=== PATIENT | female | born 1935 | race Caucasian/White ===

== ENCOUNTER → 2018-03-01 12:00 | Outpatient (CLI) | payer MEDICARE, SELFPAY | PROVIDERS: PCP Family Medicine; Visit Provider Internal Medicine Cardiovascular Disease | DX: I48.0 Paroxysmal atrial fibrillation (principal); I08.1 Rheumatic disorders of both mitral and tricuspid valves; I27.20 Pulmonary hypertension, unspecified; I10 Essential (primary) hypertension | CPT/HCPCS: 99213 ==

== ENCOUNTER 2018-05-20 11:39 | Outpatient (CLI) | payer MEDICARE, SELFPAY ==
[2018-05-20 13:44] LABS: TSH (W/Ref FT4) 1.02 uIU/mL (0.358-3.74)
== END 2018-05-20 11:59 ==
PROVIDERS: PCP Family Medicine; Visit Provider Family Medicine
DX: I10 Essential (primary) hypertension (principal)
CPT/HCPCS: 36415; 84443

== ENCOUNTER → 2018-05-28 11:39 | Outpatient (BNVA) | payer MEDICARE, SELFPAY | PROVIDERS: PCP Family Medicine; Visit Provider Nurse Practitioner Family | DX: I10 Essential (primary) hypertension (principal); I67.9 Cerebrovascular disease, unspecified; I48.91 Unspecified atrial fibrillation; Z79.01 Long term (current) use of anticoagulants | CPT/HCPCS: 99214 ==

== ENCOUNTER 2018-05-28 12:09 | Outpatient (REF) | payer MEDICARE, SELFPAY ==
[2018-05-31 09:40] LABS: Metanephrines, U 77 mcg/24 h; Normetanephrine, U 207 mcg/24 h; Total Metanephrines, U 284 mcg/24 h; Urine Volume 1300 mL
== END 2018-05-28 12:29 ==
LOC: LBN 12:09
PROVIDERS: PCP Family Medicine; Visit Provider Family Medicine
DX: R09.89 Other specified symptoms and signs involving the circulatory and respiratory systems (principal)
CPT/HCPCS: 81050; 83835

== ENCOUNTER 2018-05-30 18:50 | Emergency (ER) | payer MEDICARE, SELFPAY ==
[2018-05-30] VITALS (42 sets, daily range): BP systolic 111–196; BP diastolic 44–91; PULSE 58–98; RESP 13–21; TEMP 36.6; O2SAT 91–98
[2018-05-30] MEDS: Atenolol 25 MG TAB PO (19:53)
[2018-05-30] MEDS: Ondansetron 4 MG/2 ML VIAL IVP (19:54)
[2018-05-30 19:56] LABS: Abs Immature Grans 0.01 k/cumm (0.0-0.09); Absolute Basophil Count 0.05 k/cumm (0.0-0.2); Absolute Eosinophil Count 0.13 k/cumm (0.0-0.7); Absolute Neutrophil Count 4.45 k/cumm (1.2-6.7); Basophils % 0.8; HCT 43.9 % (36.0-46.0); HGB 14.7 g/dL (12.0-15.5); Immature Grans % 0.2; Lymphocytes % 21.1; Mean Corp. HGB Concentration 33.5 g/dL (32.0-36.0); Mean Corpuscular Hemoglobin 32.2 pg (27.0-33.0); Mean Corpuscular Volume 96.1 fL (80-95); Mean Platelet Volume 10.4 fL (8.0-11.0); Neutrophils % 66.9; Platelet Count 271 x1000/uL (130-400); RBC 4.57 m/cumm (4.00-5.20); RBC Distribution Width 13.3 % (11.7-14.6); White Blood Cell Count 6.64 k/cumm (4.4-10.8)
[2018-05-30 20:13] LABS: ALT 25 U/L (12-78); AST 30 U/L (15-37); Albumin 3.7 g/dL (3.4-5.0); Alkaline Phosphatase 54 U/L (46-116); Anion Gap 10.7 mmol/L (3-11); BUN 22 mg/dL (7-18); Bilirubin, Total 0.4 mg/dL (0.2-1.0); CO2 27.3 mmol/L (21.0-32.0); CREATININE 1.03 mg/dL (0.55-1.02); Calcium 8.9 mg/dL (8.5-10.1); Chloride 99 mmol/L (98-107); Glucose 95 mg/dL (70-100); Potassium 4.1 mmol/L (3.5-5.1); Sodium 137 mmol/L (136-145); Total Protein 7.6 g/dL (6.4-8.2); Troponin I < 0.02 ng/mL (0.00-0.06)
--- NOTE | 2018-05-30 21:03 | ED.GENADUL_ITS ---
Discharge Plan Disposition Condition: Improving Discharge Details Chief Complaint: GenMedical Clinical Impression: Ventricular bigeminy, Nausea, Hypertension Primary Care Provider: Elvis Muñoz ED Provider: Hiram Sales Home Meds and New Rx's Prescriptions: Continue clonidine HCl 0.2 mg tablet 0.2 mg SL ONCE PRN (Reason: hypertensive emergency) Qty: 10 RF: 0 clonidine HCl 0.1 mg tablet 0.1 mg PO DAILY PRN (Reason: For systolic BP's greater than 170) Qty: 30 RF: 4 cholecalciferol (vitamin D3) 1,000 UNIT tablet 1,000 unit PO DAILY RF: 0 omega-3 fatty acids-fish oil 1 EACH capsule 1 ea PO DAILY RF: 0 cyanocobalamin (vitamin B-12) [Vitamin B-12] 500 MCG tablet 500 mcg PO DAILY RF: 0 acetaminophen 500 MG tablet 1,000 mg PO Q4H PRN RF: 0 simvastatin 10 MG tablet 10 mg PO HS Qty: 90 RF: 3 clopidogrel [Plavix] 75 MG tablet 75 mg PO DAILY Qty: 90 RF: 3 omeprazole 20 MG capsule,delayed release(DR/EC) 20 mg PO DAILY Qty: 90 RF: 3 nitroglycerin [Nitrostat] 0.3 MG tablet, sublingual 0.3 mg Sublingual ONCE 1 Days Qty: 25 RF: 6 levothyroxine 88 MCG tablet 88 mcg PO DAILY 90 Days Qty: 90 RF: 3 fluticasone 16 GM spray,suspension 2 spry NS DAILY Qty: 1 RF: 3 apixaban [Eliquis] 5 MG tablet 5 mg PO BID Qty: 180 RF: 3 Varicella-Zoster Ge/As01b/Pf [Shingrix Vial Kit] 50 MCG INJ 50 mcg IM ONCE 1 Days Qty: 1 RF: 1 clobetasol 15 GM ointment 15 gm Topical PRN Qty: 1 RF: 1 alendronate 70 MG tablet 70 mg PO weekly Qty: 12 RF: 6 psyllium husk (aspartame) [Metamucil [facility] Fiber] 660 GM powder 1 oz PO HS RF: 0 gabapentin 300 MG capsule 900 mg PO HS RF: 0 gabapentin 300 MG capsule 300 mg PO BID@0900,1200 RF: 0 No Action atenolol 25 mg tablet 25 mg PO DAILY 90 Days Qty: 180 RF: 2 amlodipine 5 mg tablet 5 mg PO DAILY Qty: 30 RF: 2 hydrochlorothiazide 25 mg tablet 25 mg PO DAILY Qty: 30 RF: 3 lisinopril 20 mg tablet 40 mg PO DAILY 90 Days Qty: 90 RF: 3 Discharge Instructions Instructions: Hypertension (ED) Additional Instructions: Please contact your primary care physician to arrange follow-up. You will need to have your antihypertensive medication adjusted. Please discuss this with your doctor. Patient had a stress test performed as soon as possible. Be sure to discuss this with your doctor. Return to the ER for any worsening or new concerning symptoms. Referrals: Elvis Muñoz DO [Primary Care Provider] - Discharge Data Discharge Date/Time-TO BE ENTERED AT DEPARTURE: 05/30/18 23:21 Medical Decision Making 82-year-old female who presents tonight with chief complaint of elevated blood pressure, intermittent over the past few weeks, associated nausea tonight. Hypertensive on arrival. Patient appears well with no chest pain or shortness of breath. Neuro intact. Suspect symptomatic hypertension that is poorly controlled with her current antihypertensive regimen. Patient has no chest pain but consider atypical presentation for ACS. ECG reviewed and interpreted by me: Sinus rhythm with ventricular bigeminy 72 bpm, nondiagnostic. Initial troponin negative. Plan to check delta troponin. Patient was given her prescribed dose of atenolol 25 mg tonight. She also took a dose of clonidine 0.1mg here. Blood pressure improved significantly. Patient was given a dose of Zofran 4 mg IV. Patient notes nausea completely resolved. Delta trop was checked and neg, unchanged. Plan to discharge with close outpatient follow-up for medication adjustment and continued workup for hypertension. Patient should also have a stress test performed as soon as possible. HPI General Mode of arrival: ambulatory . Date/Time Provider Initiated Documentation: 05/30/18 18:56 . Limitations to Documentation: no limitations . Information obtained by: patient and family . HPI Narrative: 82-year-old female with multiple medical problems including history of hypertension, presents with chief complaint of elevated blood pressure. Patient notes that she has had intermittent elevated blood pressure greater than 200 systolic at times. Her primary care physician is aware of this and has been adjusting antihypertensive medications recently. She is currently taking atenolol, lisinopril, hydrochlorothiazide, and intermittently taking clonidine. She is not taking clonidine regularly but seems to be taking it more in the afternoon when she notices her blood pressure is elevated. Today she is expressing some associated nausea. She denies associated chest pain or shortness of breath. No numbness or weakness. No visual changes. No headache. Primary care physician is working up hypertension with urine studies, stress test, and carotid studies ordered and scheduled. Related Data Home Medications Medication Instructions Recorded Confirmed cholecalciferol (vitamin D3) 1,000 unit PO DAILY 09/17/12 06/13/18 omega-3 fatty acids-fish oil 1 ea PO DAILY cap 10/15/12 06/13/18 psyllium husk (aspartame) 1 oz PO HS 05/27/13 06/13/18 [Metamucil [facility] Fiber] cyanocobalamin (vitamin B-12) 500 mcg PO DAILY tab 11/19/15 06/13/18 [Vitamin B-12] acetaminophen 1,000 mg PO Q4H PRN tab-cap 03/16/17 06/13/18 clopidogrel [Plavix] 75 mg PO DAILY #90 tab 09/04/17 06/13/18 omeprazole 20 mg PO DAILY #90 tab 09/04/17 06/13/18 simvastatin 10 mg PO HS #90 tab-cap 09/04/17 06/13/18 gabapentin 300 mg PO BID@0900,1200 cap 09/26/17 06/13/18 gabapentin 900 mg PO HS cap 09/26/17 06/13/18 nitroglycerin [Nitrostat] 0.3 mg SUBLINGUAL ONCE 1 Days #25 09/28/17 06/13/18 tab-cap fluticasone 2 spry NS DAILY #1 spray 10/26/17 06/13/18 levothyroxine 88 mcg PO DAILY 90 Days #90 tab 10/26/17 06/13/18 apixaban [Eliquis] 5 mg PO BID #180 tab 11/13/17 06/13/18 clobetasol 15 gm TOPICAL PRN #1 tube 12/14/17 06/13/18 alendronate 70 mg PO weekly #12 tab 01/24/18 06/13/18 clonidine HCl 0.2 mg tablet 0.2 mg SL ONCE PRN #10 tab 05/20/18 06/13/18 clonidine HCl 0.1 mg tablet 0.1 mg PO DAILY PRN #30 tab 05/28/18 06/13/18 lisinopril 20 mg tablet 40 mg PO DAILY 90 Days #90 tab-cap 06/10/18 06/13/18 amlodipine 5 mg tablet 5 mg PO DAILY #30 tab 06/13/18 06/13/18 atenolol 25 mg tablet 25 mg PO DAILY 90 Days #180 tab 06/13/18 06/13/18 hydrochlorothiazide 25 mg tablet 25 mg PO DAILY #30 tab 06/13/18 06/13/18 Previous Rx's Medication Instructions Recorded clopidogrel [Plavix] 75 mg PO DAILY #90 tab 09/04/17 omeprazole 20 mg PO DAILY #90 tab 09/04/17 simvastatin 10 mg PO HS #90 tab-cap 09/04/17 gabapentin 300 mg PO BID@0900,1200 cap 09/26/17 gabapentin 900 mg PO HS cap 09/26/17 nitroglycerin [Nitrostat] 0.3 mg SUBLINGUAL ONCE 1 Days #25 09/28/17 tab-cap fluticasone 2 spry NS DAILY #1 spray 10/26/17 levothyroxine 88 mcg PO DAILY 90 Days #90 tab 10/26/17 apixaban [Eliquis] 5 mg PO BID #180 tab 11/13/17 clobetasol 15 gm TOPICAL PRN #1 tube 12/14/17 alendronate 70 mg PO weekly #12 tab 01/24/18 clonidine HCl 0.2 mg tablet 0.2 mg SL ONCE PRN #10 tab 05/20/18 clonidine HCl 0.1 mg tablet 0.1 mg PO DAILY PRN #30 tab 05/28/18 lisinopril 20 mg tablet 40 mg PO DAILY 90 Days #90 tab-cap 06/10/18 amlodipine 5 mg tablet 5 mg PO DAILY #30 tab 06/13/18 atenolol 25 mg tablet 25 mg PO DAILY 90 Days #180 tab 06/13/18 hydrochlorothiazide 25 mg tablet 25 mg PO DAILY #30 tab 06/13/18 Allergies Allergy/AdvReac Type Severity Reaction Status Date / Time aspirin AdvReac Intermediate spsasm of Verified 06/13/18 12:07 the esophagus guaifenesin [From Mucinex] AdvReac Intermediate diarrhea Verified 06/13/18 12:07 General Stated Complaint: GenMedical YEE: 3 Review of Systems Review of Systems All systems reviewed & are unremarkable except as noted in HPI and below Constitutional Denies fatigue and Denies headache(s) Eyes Denies loss of vision ENT Denies headache(s) Cardiovascular Denies chest pain, Denies syncope and Denies dyspnea Respiratory Denies dyspnea Gastrointestinal Reports nausea and Denies vomiting Musculoskeletal Denies numbness Neurologic Denies syncope, Denies headache(s), Denies loss of vision, Denies numbness and Denies sensory deficit Endocrine Denies fatigue PFS Family History Mother No problems noted. Father No problems noted. Sister No problems noted. Brother Age: 85 No problems noted. Brother No problems noted. Brother No problems noted. 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) URO cysto (10/22/15) cystourethroscopy (05/19/15) cystourethroscopy (08/07/17) Social History household members: spouse housing: house current occupational status: retired Smoking/Tobacco Use Status: Former Tobacco Use alcohol intake: never Exam Const General: cooperative and no acute distress HENMT Head: normocephalic and atraumatic Mouth: moist mucous membranes Eyes Conjunctivae: normal conjunctivae Sclera: normal sclerae EOM: EOM intact bilaterally Neck Neck: trachea midline and supple Resp Auscultation: clear to auscultation bilaterally, no rales, no rhonchi and no wheezes Cardio Jugular venous pressure: no JVD Rate: regular rate and not tachycardic Rhythm: regular rhythm GI Palpation: soft, not firm, no guarding, no masses, not rigid and nontender Skin General skin exam: no rashes or lesions noted Neuro General: alert, awake, oriented x3 and tone normal Cognition: normal cognition Speech: speech normal Gait: normal gait Motor: muscle tone normal throughout Extrem General: no edema Psych Appearance: grossly normal Mental Status: mental status grossly normal Speech and Movement: speech and movement normal Course Vital Signs Temperature 36.6 C 05/30/18 18:56 Pulse 82 05/30/18 18:56 Respiratory Rate 16 05/30/18 18:56 Blood Pressure 196/71 H 05/30/18 18:56 Pulse Oximetry 96 05/30/18 18:56 Temperature 36.6 C 05/30/18 18:56 Temperature Source Skin 05/30/18 18:56 Pulse 74 05/30/18 20:48 Pulse 73 05/30/18 20:50 Respiratory Rate 18 05/30/18 20:50 Respiratory Effort 05/30/18 20:03 Respiratory Depth Normal 05/30/18 20:03 Respiratory Pattern Normal 05/30/18 20:03 Blood Pressure 153/69 H 05/30/18 20:48 Blood Pressure Mean 88 05/30/18 20:48 Blood Pressure Position Sitting 05/30/18 18:56 Pulse Oximetry 93 L 05/30/18 20:50 Oxygen Delivery Method Room Air 05/30/18 19:05 Oxygen Flow Rate 0 05/30/18 19:05 Pain Level 0 05/30/18 18:56 Lab/Test Results Lab/Test Results: Laboratory Tests Range/Units 05/30/18 05/30/18 19:45 19:45 WBC (4.4-10.8) k/cumm 6.64 RBC (4.00-5.20) m/cumm 4.57 Hgb (12.0-15.5) g/dL 14.7 Hct (36.0-46.0) % 43.9 MCV (80-95) fL 96.1 H MCH (27.0-33.0) pg 32.2 MCHC (32.0-36.0) g/dL 33.5 RDW (11.7-14.6) % 13.3 Plt Count (130-400) x1000/uL 271 MPV (8.0-11.0) fL 10.4 Immature Gran % 0.2 Neutrophils % 66.9 Lymphocytes % 21.1 Monocytes % 9.0 Eosinophils % 2.0 Basophils % 0.8 Absolute Neutrophils (1.2-6.7) k/cumm 4.45 Absolute Lymphocytes (1.2-3.4) k/cumm 1.40 Absolute Monocytes (0.11-0.7) k/cumm 0.60 Absolute Eosinophils (0.0-0.7) k/cumm 0.13 Absolute Basophils (0.0-0.2) k/cumm 0.05 Sodium (136-145) mmol/L 137 Potassium (3.5-5.1) mmol/L 4.1 Chloride (98-107) mmol/L 99 Carbon Dioxide (21.0-32.0) mmol/L 27.3 Anion Gap (3-11) mmol/L 10.7 BUN (7-18) mg/dL 22 H Creatinine (0.55-1.02) mg/dL 1.03 H Estimated GFR/1.73 m2 (mL/min/1.73m2) 51.30 Glucose (70-100) mg/dL 95 Calcium (8.5-10.1) mg/dL 8.9 Magnesium (1.8-2.4) mg/dL 2.0 Total Bilirubin (0.2-1.0) mg/dL 0.4 AST (15-37) U/L 30 ALT (12-78) U/L 25 Alkaline Phosphatase (46-116) U/L 54 Troponin I (0.00-0.06) ng/mL < 0.02 Total Protein (6.4-8.2) g/dL 7.6 Albumin (3.4-5.0) g/dL 3.7
[2018-05-30 23:04] LABS: Troponin I < 0.02 ng/mL (0.00-0.06)
== END 2018-05-30 23:21 ==
PROVIDERS: Emergency Provider Student in an Organized Health Care Education/Training Program; PCP Family Medicine
DX: R00.8 Other abnormalities of heart beat (principal); R11.0 Nausea; I10 Essential (primary) hypertension; Z79.01 Long term (current) use of anticoagulants; I48.91 Unspecified atrial fibrillation
CPT/HCPCS: 36415; 80053; 93005; 96374; 99284; 83735; 84484; 85025; 93010; 99285; J2405

== ENCOUNTER 2018-06-10 00:19 | Outpatient (CLI) | payer MEDICARE, SELFPAY ==
--- NOTE | 2018-06-10 06:47 | MERGEMPI_ITS ---
*[facility]* *[facility]* [address] [place] [address] Myocardial Perfusion Imaging - SPECT Regadenoson Date of study: 06/10/2018 *PATIENT PRESENTATION* Height: 162.6cm (64in) Blood Pressure: Weight: 72.7kg (160lb) BSA: 1.83m^2 Referring physician: Kumar Kramer MD Ordering physician: Brayden Chiu Impressions: - Normal perfusion by Tc99m Sestamibi Imaging. - Abnormal contraction consistent with cardiomyopathy. - Consider echo. Summary: 1. Myocardial perfusion imaging: No myocardial perfusion defects noted. 2. The calculated left ventricular ejection fraction after stress: 44%. No left ventricular regional motion abnormality. Indication: I10. History: REASON FOR VISIT: ELEVATED BLOOD PRESSURE ASSOCIATED WITH NAUSEA. Risk factors: 1 PPD SMOKING HISTORY FOR 36 YEARS, QUIT IN 1987. Hypertension. Dyslipidemia. Cholesterol: 151mg/dl. HDL: 36mg/dl. LDL: 101mg/dl. Triglycerides: 105mg/dl. ALLERGIES: ASPIRIN. GUAIFENESIN. MEDICATIONS:SIMVASTATIN 10 MG Q HS. PSYLLIUM HUSK 1 OZ Q HS. OMEPRAZOLE 20 MG DAILY. OMEGA-3 FATTY ACIDS-FISH OIL 1CAP DAILY. NITROGLYCERIN 0.3 MG SL. LISINOPRIL 20 MG BID. LEVOTHYROXINE 88 MCG DAILY. HYDROCHLOROTHIAZIDE 12.5 MG DAILY. GABAPENTIN 300 MG BID. GABAPENTIN 900 MG AT HS. FLUTICASONE 2 SPRAYS NS DAILY. CYANOCOBALAMIN 500 MCG DAILY. CLOPIDOGREL 75 MG DAILY. CLONIDINE HCL 0.1 MG DAILY PRN. CHOLECALCIFEROL 1,000 UNITS DAILY. ATENOLOL 25 MG BID. APIXABAN 5 MG BID. ALENDRONATE 70 MG WEEKLY. ACETAMINOPHEN 1,000 MG Q 4HRS PRN. Imaging Technique: Protocol: Regadenoson. Acquisition: Gated SPECT; 1 day - rest/stress. The patient was imaged in the supine position. Attenuation correction used. Isotope administration: - Rest. Tc[99m]-sestamibi. Dose: 9.9mCi. Injection time: 08:15 AM. Injection to stress time: 00:45. - Stress. Tc[99m]-sestamibi. Dose: 31mCi. Injection time: 11:30 AM. 1-2 min before end of exercise Baseline ECG: SINUS BRADYCARDIA. HR 50 BPM. Stress protocol: +--------+--+ + + !Stage !HR!BP (mmHg) !Comments ! +--------+--+ + + !Baseline!50!158/82 (107)! ! +--------+--+ + + !1 min !59!140/82 (101)!Inject Regadenoson.! +--------+--+ + + !3 min !81!156/82 (107)! ! +--------+--+ + + !6 min !84!124/82 (96) ! ! +--------+--+ + + * Stress results: The rate-pressure product for the peak heart rate and blood pressure was [id number] Hg/min. Stress ECG: STRESS TEST ENDED IN 6 MINUTES & 9 SECONDS. PT EXPERIENCED NO SIGNIFICANT SIDE EFFECTS FROM LEXISCAN INJECTION. NORMAL HEART RATE AND BLOOD PRESSURES RESPONSE TO LEXISCAN INJECTION FREQUENT ECTOPY. TRIGEMINAL PATTERN OF PVCs NOTED ONE MINUTE AFTER INJECTION OF LEXISCAN. NO ANGINA NO SIGNIFICANT ST SEGMENT CHANGES. Myocardial perfusion: Imaging information: gated. No myocardial perfusion defects noted. Ventricular Function (Wall Motion): The calculated left ventricular ejection fraction after stress: 44%. No left ventricular regional motion abnormality. Study data: Kumar Kramer MD supervised and was readily available during the procedure. This study was interpreted by [facility]. Study status: Routine. Consent: The risks, benefits, and alternatives to the procedure were explained to the patient and informed consent was obtained. Procedure: Initial setup. A baseline ECG was recorded. Surface ECG leads and manual cuff blood pressure measurements were monitored. Heart sounds: Normal. Lung sounds: Normal. Regadenoson stress test. Stress testing was performed, with regadenoson by intravenous bolus, for a total dose of 0.4mgover 10.00sec, followed by a 5ml saline flush. The infusion was terminated due to per protocol. Study completion: All catheters inserted during the procedure were removed. The patient tolerated the procedure well and was discharged from the lab. Discharge: The patient left the laboratory in stable condition. Birthdate: Patient birthdate: 1935. Sex: Gender: female. Study date: Study date: 06/10/2018. Study time: 06:47 AM. Electronically signed by Kumar Kramer MD 06/10/2018 18:04
[2018-06-10] MEDS: Regadenoson 0.4 MG/5 ML SYR IVP (12:16)
== END 2018-06-10 00:39 ==
PROVIDERS: PCP Family Medicine; Visit Provider Nurse Practitioner Family
DX: I10 Essential (primary) hypertension (principal); I42.9 Cardiomyopathy, unspecified; E78.5 Hyperlipidemia, unspecified; Z87.891 Personal history of nicotine dependence; R55 Syncope and collapse; I48.91 Unspecified atrial fibrillation
CPT/HCPCS: 78452; 93016; 93018; 93017; J2785

== ENCOUNTER 2018-06-12 00:31 | Outpatient (CLI) | payer MEDICARE, SELFPAY ==
--- NOTE | 2018-06-12 07:27 | MERGE_ITS ---
*[facility]* *[facility]* [address] [place] [address] Date of study: 06/12/2018 Transthoracic Echocardiography M-mode, complete 2D, complete spectral Doppler, and color Doppler *STUDY CONCLUSIONS* Summary: 1. Left ventricle: The cavity size was normal. Wall thickness was increased in a pattern of mild LVH. Systolic function was at the lower limits of normal. The estimated ejection fraction was 50-55%. Wall motion was normal; there were no regional wall motion abnormalities. 2. Mitral valve: There was mild to moderate regurgitation. 3. Left atrium: The atrium was mildly dilated. 4. Right ventricle: The cavity size was normal. Wall thickness was normal. Systolic function was normal. 5. Tricuspid valve: There was mild-moderate regurgitation. 6. Pulmonary arteries: Pulmonary systolic pressure was increased, in the range of 40mm Hg to 45mm Hg. *PATIENT PRESENTATION* Height: 162.6cm ((64in) ) S/D Pressure: 154 / 79 Weight: 71.2kg ((156.7lb) ) BSA: 1.81m^2 Test start time: 07:35 AM. Test stop time: 08:30 AM. PERFORMING Unknown PERFORMING [facility] TUBE SORTER RT Dariela (R)(CT), [facility] ORDERING Brayden Chiu REFERRING Brayden Chiu *PROCEDURE DATA* Procedure information: The patient was identified by two identifiers. This study was interpreted by [facility]. Pertinent images and digital data are archived for permanent storage and are available for subsequent review. No prior study was available for comparison. Study status: Routine. Transthoracic echocardiography. M-mode, complete 2D, complete spectral Doppler, and color Doppler. A Transthoracic Echocardiogram was performed. Scanning was performed from the parasternal, apical, subcostal, and suprasternal notch acoustic windows. Images were obtained using an [id number] cardiac ultrasound machine. Image quality was adequate. Study completion: The patient tolerated the procedure well. There were no complications. History: PMH: HTN AFIB. *CARDIAC ANATOMY* Left ventricle: The cavity size was normal. Wall thickness was increased in a pattern of mild LVH. Systolic function was at the lower limits of normal. The estimated ejection fraction was 50-55%. Wall motion was normal; there were no regional wall motion abnormalities. Diastolic parameters were not diagnostic. Aortic valve: Trileaflet; normal thickness leaflets. Mobility was not restricted. Doppler: Transvalvular velocity was within the normal range. There was no stenosis. There was no significant regurgitation. VTI ratio of LVOT to aortic valve: 0.73. Valve area (VTI): 2.1cm^2. Indexed valve area (VTI): 1.2cm^2/m^2. Peak velocity ratio of LVOT to aortic valve: 0.67. Valve area (Vmax): 1.9cm^2. Indexed valve area (Vmax): 1.1cm^2/m^2. Mean velocity ratio of LVOT to aortic valve: 0.69. Valve area (Vmean): 2cm^2. Indexed valve area (Vmean): 1.1cm^2/m^2. Mean gradient (S): 2.3mm Hg. Peak gradient (S): 3.7mm Hg. Aorta: Aortic root: The aortic root was normal in size. Ascending aorta: The ascending aorta was normal in size. Mitral valve: Mildly thickened leaflets. Mobility was not restricted. Doppler: Transvalvular velocity was within the normal range. There was no evidence for stenosis. There was mild to moderate regurgitation. Valve area by pressure half-time: 4.7cm^2. Indexed valve area by pressure half-time: 2.6cm^2/m^2. Peak gradient (D): 2.5mm Hg. Left atrium: The atrium was mildly dilated. Right ventricle: The cavity size was normal. Wall thickness was normal. Systolic function was normal. Pulmonic valve: Structurally normal valve. Doppler: Transvalvular velocity was within the normal range. There was no evidence for stenosis. There was trivial regurgitation. Peak gradient (S): 1.9mm Hg. Tricuspid valve: Structurally normal valve. Doppler: Transvalvular velocity was within the normal range. There was no evidence for stenosis. There was mild-moderate regurgitation. Pulmonary artery: Pulmonary systolic pressure was increased, in the range of 40mm Hg to 45mm Hg. Right atrium: The atrium was normal in size. Pericardium: There was no pericardial effusion. Systemic veins: Inferior vena cava: Well visualized. The vessel was patent and normal in size. The respirophasic diameter changes were in the normal range (greater than or equal to 50%). Baseline ECG: Bradycardia. Measurements Left ventricle Value 09/21/2017 Reference LV ID, ED, PLAX 4.2 cm 3.6 3.5 - 6.0 LV ID, ES, PLAX 3.1 cm 2.9 2.1 - 4.0 LV PW thickness, ED, PLAX 1.2 cm 1.2 LV end-diastolic volume, 61 ml 50 1-p A2C LV ejection fraction, 1-p 53 % 65 A2C LV end-diastolic volume, 51 ml 68 1-p A4C LV ejection fraction, 1-p 44 % 54 A4C LV e', lateral 0.085 m/sec LV E/e', lateral 9 LV e', medial 0.052 m/sec 0.056 LV E/e', medial 15 14 LV e', average 0.068 m/sec LV E/e', average 12 Ventricular septum Value 09/21/2017 Reference IVS thickness, ED, PLAX 1.2 cm 1.2 LVOT Value 09/21/2017 Reference LVOT ID, A-P 1.9 cm 1.9 LVOT area 2.9 cm^2 2.9 LVOT peak velocity, S 0.64 m/sec 0.58 LVOT mean velocity, S 0.51 m/sec 0.45 LVOT VTI, S 16.7 cm 11.4 LVOT peak gradient, S 1.6 mm Hg 1.3 LVOT mean gradient, S 1.1 mm Hg 0.9 Stroke volume (SV), LVOT 48 ml 33 DP Stroke index (SV/bsa), 26 ml/m^2 18 LVOT DP Aortic valve Value 09/21/2017 Reference Aortic valve peak 1 m/sec 0.9 velocity, S Aortic valve mean 0.73 m/sec 0.58 velocity, S Aortic valve VTI, S 23.0 cm 13.7 Aortic mean gradient, S 2.3 mm Hg 1.7 Aortic peak gradient, S 3.7 mm Hg VTI ratio, LVOT/AV 0.73 0.83 Aortic valve area, VTI 2.1 cm^2 2.4 Velocity ratio, peak, 0.67 0.67 LVOT/AV Aortic valve area, peak 1.9 cm^2 2 velocity Velocity ratio, mean, 0.69 0.78 LVOT/AV Aortic valve area, mean 2 cm^2 2.3 velocity Aortic valve area/bsa, 1.1 cm^2/m^2 1.2 mean velocity Aorta Value 09/21/2017 Reference Aortic root ID, ED 2.9 cm 2.8 Ascending aorta ID, A-P, S 3.3 cm 3.3 Left atrium Value 09/21/2017 Reference LA ID, A-P, ES 3.7 cm 3.9 LA ID/bsa, A-P 2.0 cm/m^2 2.1 <=2.2 LA area, ES, A4C 20.6 cm^2 17.1 8.8 - 23.4 LA area, ES, A2C 15 cm^2 14 LA volume/bsa, ES, 1-p A4C 38 ml/m^2 27 LA volume, ES, 2-p 48 ml 37 LA volume/bsa, ES, 2-p 27 ml/m^2 20 LA/aortic root ratio 1.28 1.39 Mitral valve Value 09/21/2017 Reference Mitral E-wave peak 0.8 m/sec 0.81 velocity Mitral A-wave peak 0.66 m/sec 0.55 velocity Mitral deceleration time 163 ms 212 150 - 230 Mitral pressure half-time 47 ms 62 Mitral peak gradient, D 2.5 mm Hg 2.6 Mitral E/A ratio, peak 1.21 1.47 Mitral valve area, PHT, DP 4.7 cm^2 3.6 Pulmonary veins Value 09/21/2017 Reference Pulmonary vein peak 0.51 m/sec velocity, S Pulmonary vein peak 0.74 m/sec velocity, D Pulmonary vein velocity 0.69 ratio, peak, S/D Tricuspid valve Value 09/21/2017 Reference Tricuspid regurg peak 3.3 m/sec 3.2 velocity Tricuspid peak RV-RA 43.6 mm Hg 41.9 gradient Right atrium Value 09/21/2017 Reference RA area, ES, A4C 12.4 cm^2 11.9 8.3 - 19.5 Pulmonic valve Value 09/21/2017 Reference Pulmonic peak gradient, S 1.9 mm Hg Legend: (L) and (H) aroldo values outside specified reference range. I have personally reviewed the images and have reviewed and edited the reported findings. Electronically signed by Kain Sutton 06/12/2018 09:54
--- NOTE | 2018-06-12 10:00 | DI.US_ITS ---
SYMPTOMS/DIAGNOSIS: NEAR SYNCOPE, R55, A-FIB, I48.91, HYPERTENSION, I10 CAROTID ULTRASOUND: A focus of calcific plaque is seen in the right common carotid bulb. There is no significant velocity elevation in the internal carotid artery. A mild amount of calcific plaque is seen in the left common carotid bulb. No significant common artery velocity elevations are present. The vertebral arteries show antegrade flow. IMPRESSION: Calcific plaque in the common carotid bulbs, right greater than left. No significant internal carotid artery stenosis.
== END 2018-06-12 00:51 ==
PROVIDERS: PCP Family Medicine; Visit Provider Nurse Practitioner Family
DX: I48.91 Unspecified atrial fibrillation (principal); I10 Essential (primary) hypertension; I34.0 Nonrheumatic mitral (valve) insufficiency; I65.23 Occlusion and stenosis of bilateral carotid arteries
CPT/HCPCS: 93306; 93880

== ENCOUNTER → 2018-06-13 11:35 | Outpatient (BNVA) | payer MEDICARE, SELFPAY | PROVIDERS: PCP Family Medicine; Visit Provider Internal Medicine Cardiovascular Disease | DX: I48.0 Paroxysmal atrial fibrillation (principal); Z79.01 Long term (current) use of anticoagulants; Z86.73 Personal history of transient ischemic attack (TIA), and cerebral infarction without residual deficits; I10 Essential (primary) hypertension; I08.1 Rheumatic disorders of both mitral and tricuspid valves; I27.20 Pulmonary hypertension, unspecified | CPT/HCPCS: 99214 ==

== ENCOUNTER → 2018-07-12 11:30 | Outpatient (BNVA) | payer MEDICARE, SELFPAY | PROVIDERS: PCP Family Medicine; Visit Provider Internal Medicine Cardiovascular Disease | DX: I48.91 Unspecified atrial fibrillation (principal); E78.5 Hyperlipidemia, unspecified; I10 Essential (primary) hypertension; I67.9 Cerebrovascular disease, unspecified; I08.1 Rheumatic disorders of both mitral and tricuspid valves; I27.20 Pulmonary hypertension, unspecified; Z79.01 Long term (current) use of anticoagulants | CPT/HCPCS: 99214 ==

== ENCOUNTER 2018-07-15 02:11 | Outpatient (CLI) | payer MEDICARE, SELFPAY | END 2018-07-15 02:31 | PROVIDERS: PCP Family Medicine; Visit Provider Internal Medicine Cardiovascular Disease | DX: I49.1 Atrial premature depolarization (principal); I47.1 Supraventricular tachycardia; I49.3 Ventricular premature depolarization; I48.91 Unspecified atrial fibrillation | CPT/HCPCS: 93225 ==

== ENCOUNTER 2018-07-19 14:18 | Outpatient (CLI) | payer MEDICARE, SELFPAY ==
--- NOTE | 2018-07-22 09:40 | HOLTER_ITS ---
Holter Monitor DATE OF DICTATION July 22, 2017 A 48-hour study INTERPRETATION Baseline rhythm sinus. Frequent single PAC. 4 bursts of SVT, longest 5 beat duration, fastest 160 beats per minute. No atria l fibrillation. Very frequent single PVC, 27,235 total. 12.1% total beat. 13 couplet. No VT. No bradycardia. Average heart rate 77 beats per minute, range 67-107 beats per minute. Kumar Kramer M.D. MEJIA/emi T-07/22/2018
== END 2018-07-19 14:38 ==
PROVIDERS: PCP Family Medicine; Visit Provider Family Medicine
DX: I47.1 Supraventricular tachycardia; I49.3 Ventricular premature depolarization; I48.91 Unspecified atrial fibrillation; I49.1 Atrial premature depolarization
CPT/HCPCS: 93226

== ENCOUNTER 2018-07-22 08:44 | Outpatient (CLI) | payer MEDICARE, SELFPAY | END 2018-07-22 09:04 | PROVIDERS: PCP Family Medicine; Referring Provider Family Medicine; Visit Provider Internal Medicine Interventional Cardiology | DX: I49.1 Atrial premature depolarization (principal); I47.1 Supraventricular tachycardia; I49.3 Ventricular premature depolarization | CPT/HCPCS: 93227 ==

== ENCOUNTER 2018-08-15 15:30 | Outpatient (REF) | payer MEDICARE, SELFPAY ==
[2018-08-15 18:16] LABS: Anion Gap 4.6 mmol/L (3-11); BUN 18 mg/dL (7-18); CO2 33.4 mmol/L (21.0-32.0); CREATININE 0.93 mg/dL (0.55-1.02); Chloride 97 mmol/L (98-107); Estimated GFR 57.72 (mL/min/1.73m2); Glucose 97 mg/dL (70-100); Potassium 3.5 mmol/L (3.5-5.1); Sodium 135 mmol/L (136-145)
== END 2018-08-15 15:50 ==
LOC: LBN 15:30
PROVIDERS: PCP Family Medicine; Visit Provider Family Medicine
DX: R60.0 Localized edema (principal)
CPT/HCPCS: 80048

== ENCOUNTER 2018-10-02 20:57 | Emergency (ER) | payer MEDICARE, SELFPAY ==
[2018-10-02] VITALS (27 sets, daily range): BP systolic 120–164; BP diastolic 56–85; PULSE 58–84; RESP 10–24; TEMP 37.4; O2SAT 92–98
--- NOTE | 2018-10-02 21:11 | W.ED.GENAD ---
Discharge Plan Disposition Patient Disposition: HOME Condition: Good Discharge Details Chief Complaint: Palpitatns Clinical Impression: Symptomatic PVCs Primary Care Provider: Elvis Muñoz ED Provider: Jack Howard [place] Meds and New Rx's Prescriptions: Continued clonidine HCl 0.1 mg tablet 0.1 mg PO DAILY PRN (Reason: For systolic BP's greater than 170) Qty: 30 RF: 4 hydrochlorothiazide 25 mg tablet 25 mg PO DAILY Qty: 30 RF: 3 losartan 50 mg tablet 50 mg PO DAILY Qty: 60 RF: 3 furosemide 20 mg tablet 20 mg PO DAILY PRN (Reason: edema) Qty: 60 RF: 3 amlodipine 10 mg tablet 10 mg PO DAILY RF: 0 cholecalciferol (vitamin D3) 1,000 UNIT tablet 1,000 unit PO DAILY RF: 0 omega-3 fatty acids-fish oil 1 EACH capsule 1 ea PO DAILY RF: 0 cyanocobalamin (vitamin B-12) [Vitamin B-12] 500 MCG tablet 500 mcg PO DAILY RF: 0 acetaminophen 500 MG tablet 1,000 mg PO Q4H PRN RF: 0 simvastatin 10 MG tablet 10 mg PO HS Qty: 90 RF: 3 clopidogrel [Plavix] 75 MG tablet 75 mg PO DAILY Qty: 90 RF: 3 omeprazole 20 MG capsule,delayed release(DR/EC) 20 mg PO DAILY Qty: 90 RF: 3 nitroglycerin [Nitrostat] 0.3 MG tablet, sublingual 0.3 mg Sublingual ONCE 1 Days Qty: 25 RF: 6 levothyroxine 88 MCG tablet 88 mcg PO DAILY 90 Days Qty: 90 RF: 3 Eliquis 5 MG tablet 5 mg PO BID Qty: 180 RF: 3 Varicella-Zoster Ge/As01b/Pf [Shingrix Vial Kit] 50 MCG INJ 50 mcg IM ONCE 1 Days Qty: 1 RF: 1 clobetasol 15 GM ointment 15 gm Topical PRN Qty: 1 RF: 1 fluticasone propionate 50 mcg/actuation spray,suspension 2 spray NS DAILY Qty: 19.8 RF: 3 alendronate 70 mg tablet 70 mg PO weekly Qty: 12 RF: 6 atenolol 25 mg tablet 25 mg PO DAILY 90 Days Qty: 90 RF: 3 Metamucil [facility] Fiber 660 GM powder 1 oz PO HS RF: 0 gabapentin 300 MG capsule 900 mg PO HS RF: 0 gabapentin 300 MG capsule 300 mg PO BID@0900,1200 RF: 0 Discharge Instructions Additional Instructions: Your EKG and your laboratory studies were good tonight. There was no atrial fibrillation. You were having some PVCs. Follow-up with cardiology on Sunday as planned. Return to ED for chest pain, shortness of breath, dizziness, other concerns. Referrals: Jovanna Howe MD [MD CONSULTING PHYSICIAN] - Medical Decision Making Patient presenting with palpitations. Prior history of atrial fibrillation and could not decide if she was in atrial fibrillation not. Is denying pain or pressure but does describe a burning sensation. She is sinus rhythm on the monitor with multiple PVCs. EKG confirms sinus rhythm with PVCs. She is not really describing pain but did take nitroglycerin. It did not help. I think in order to be safe we will go ahead and get labs including 2 sets of troponins and electrolytes. 22:15 -laboratory studies unremarkable. Electrolytes are fine. First troponin negative. Discussed with patient and about waiting for the second troponin to be done. They are agreeable with this. Patient has remained in sinus rhythm on the monitor with PVCs. 01:15 -second troponin is negative. Patient has been fine here. PVCs less frequent. Patient will be discharged home. Patient has cardiology follow-up scheduled for Sunday. Return to ED if syncope, chest pain, shortness of breath, other concerns. Medical Records Medical records reviewed: Yes I reviewed the patient's medical records. Lab Data Lab results reviewed: Yes I reviewed the patient's lab results. ECG Data Attestation: I personally reviewed and interpreted this ECG (s) as follows: Prior ECG tracings: not available for review Interpretation: Normal sinus rhythm at a rate of 77. PVCs present. Normal axis and intervals. Normal ST segments. HPI General Mode of arrival: ambulatory. Date/Time Provider Initiated Documentation: 10/02/18 21:09. Limitations to Documentation: no limitations. Information obtained by: patient and old records reviewed. HPI Narrative: Patient presents to the emergency department with complaint of funny feeling in her chest, palpitations. She is not describing pain or pressure. She cannot really describe what she is feeling. She has had a previous history of atrial fibrillation and was concerned that possibly that was what was going on. Symptoms have been ongoing for about 2 hours. She has no associated lightheadedness, diaphoresis, shortness of breath, nausea. She has not been ill recently. She did take nitroglycerin which did not help. She finally decided to come in for evaluation to make sure that she was not in atrial fibrillation. Related Data Home Medications Medication Instructions Recorded Confirmed cholecalciferol (vitamin D3) 1,000 unit PO DAILY 09/17/12 10/02/18 omega-3 fatty acids-fish oil 1 ea PO DAILY cap 10/15/12 10/02/18 Metamucil [facility] Fiber 1 oz PO HS 05/27/13 10/02/18 cyanocobalamin (vitamin B-12) 500 mcg PO DAILY tab 11/19/15 10/02/18 [Vitamin B-12] acetaminophen 1,000 mg PO Q4H PRN tab-cap 03/16/17 10/02/18 clopidogrel [Plavix] 75 mg PO DAILY #90 tab 09/04/17 10/02/18 omeprazole 20 mg PO DAILY #90 tab 09/04/17 10/02/18 simvastatin 10 mg PO HS #90 tab-cap 09/04/17 10/02/18 gabapentin 300 mg PO BID@0900,1200 cap 09/26/17 10/02/18 gabapentin 900 mg PO HS cap 09/26/17 10/02/18 nitroglycerin [Nitrostat] 0.3 mg SUBLINGUAL ONCE 1 Days #25 09/28/17 10/02/18 tab-cap levothyroxine 88 mcg PO DAILY 90 Days #90 tab 10/26/17 10/02/18 Eliquis 5 mg PO BID #180 tab 11/13/17 10/02/18 clobetasol 15 gm TOPICAL PRN #1 tube 12/14/17 10/02/18 clonidine HCl 0.1 mg tablet 0.1 mg PO DAILY PRN #30 tab 05/28/18 10/02/18 hydrochlorothiazide 25 mg tablet 25 mg PO DAILY #30 tab 06/13/18 10/02/18 fluticasone propionate 50 2 spray NS DAILY #19.8 gm 06/25/18 10/02/18 mcg/actuation nasal spray,suspension losartan 50 mg tablet 50 mg PO DAILY #60 tab 07/12/18 10/02/18 furosemide 20 mg tablet 20 mg PO DAILY PRN #60 tab 08/15/18 10/02/18 alendronate 70 mg tablet 70 mg PO weekly #12 tab 08/16/18 10/02/18 amlodipine 10 mg tablet 10 mg PO DAILY 09/02/18 10/02/18 atenolol 25 mg tablet 25 mg PO DAILY 90 Days #90 tab 09/03/18 10/02/18 Previous Rx's Medication Instructions Recorded clopidogrel [Plavix] 75 mg PO DAILY #90 tab 09/04/17 omeprazole 20 mg PO DAILY #90 tab 09/04/17 simvastatin 10 mg PO HS #90 tab-cap 09/04/17 gabapentin 300 mg PO BID@0900,1200 cap 09/26/17 gabapentin 900 mg PO HS cap 09/26/17 nitroglycerin [Nitrostat] 0.3 mg SUBLINGUAL ONCE 1 Days #25 09/28/17 tab-cap levothyroxine 88 mcg PO DAILY 90 Days #90 tab 10/26/17 Eliquis 5 mg PO BID #180 tab 11/13/17 clobetasol 15 gm TOPICAL PRN #1 tube 12/14/17 clonidine HCl 0.1 mg tablet 0.1 mg PO DAILY PRN #30 tab 05/28/18 hydrochlorothiazide 25 mg tablet 25 mg PO DAILY #30 tab 06/13/18 fluticasone propionate 50 2 spray NS DAILY #19.8 gm 06/25/18 mcg/actuation nasal spray,suspension losartan 50 mg tablet 50 mg PO DAILY #60 tab 07/12/18 furosemide 20 mg tablet 20 mg PO DAILY PRN #60 tab 08/15/18 alendronate 70 mg tablet 70 mg PO weekly #12 tab 08/16/18 atenolol 25 mg tablet 25 mg PO DAILY 90 Days #90 tab 09/03/18 Allergies Allergy/AdvReac Type Severity Reaction Status Date / Time aspirin AdvReac Intermediate spsasm of Verified 10/02/18 21:13 the esophagus guaifenesin [From Mucinex] AdvReac Intermediate diarrhea Verified 10/02/18 21:13 General Stated Complaint: Palpitatns YEE: 3 Review of Systems Review of Systems 04/21 Review of Systems completed and is negative except as stated above in HPI (Systems reviewed: Const, Eyes, ENT, Resp, CV, GI, , MSK, Skin, Neuro) FOR[facility], [facility] Medical History Leg pain, left (Chronic 11/03/16) Hyperlipidemia (Chronic 10/21/10) History of thyroidectomy, total (Chronic 03/13/14) Gastroesophageal reflux disease (Chronic 07/05/04) Essential hypertension (Chronic 06/23/13) Chronic obstructive pulmonary disease (Chronic 02/08/18) Cerebrovascular disease, unspecified (Chronic 10/07/10) Bladder cancer (Chronic 05/19/15) Acute midline low back pain without sciatica (Chronic 05/18/17) Atrial fibrillation (Chronic) Thyroid function test abnormal (Resolved) Labile blood pressure (Chronic) Surgical History Hx of thyroidectomy (Chronic) Appendectomy Biopsy of breast (07/09/76) Cholecystectomy Colonoscopy - IV Sedation (03/22/16) Cystoscopy (04/29/15) Extraction of cataract (07/27/15) Extraction of cataract (08/10/15) Thyroid (03/13/14) Transurethral Resection of Bladder Tumor, 2-5cm (05/27/13) URO cysto (10/22/15) cystourethroscopy (05/19/15) cystourethroscopy (08/07/17) Social History Smoking/Tobacco Use Status: Former Tobacco Use Alcohol Intake: never Drug use: Never Household members: spouse Housing: house What type of physical activity do you participate in: none Do you feel safe in your relationship?: Yes Exam Narrative Exam Narrative: 1. Const: WDWN female in NAD. 2. Eyes: No conjunctival injection or scleral icterus. 3. ENT: NC/AT. No facial swelling or tenderness. Mucous membranes moist. 4. Neck: Supple without adenopathy. Trachea midline. 5. CVS: +S1/S2, No murmurs or gallops. Irregular rhythm. 6. RESP: Unlabored respiratory effort. Clear to auscultation bilaterally. No wheezes rales or rhonchi 7. GI: Soft, Nontender/Nondistended, No guarding or rebound. 8. MSK: Compression stockings on lower extremities. No calf tenderness. 9. Skin: Warm, Dry. No rashes. 10. Neuro: A&O x3. epic director II-XII grossly intact. Sensation grossly intact, no focal neurologic deficits. 11. Psych: Appropriate mood and affect Course Vital Signs Temperature 99.3 F 10/02/18 21:05 Pulse 78 10/02/18 21:05 Respiratory Rate 15 10/02/18 21:05 Blood Pressure 164/85 H 10/02/18 21:05 Pulse Oximetry 96 10/02/18 21:05 Temperature 99.3 F 10/02/18 21:05 Temperature Source Temporal Artery Scan 10/02/18 21:05 Pulse 78 10/02/18 21:05 Respiratory Rate 15 10/02/18 21:05 Respiratory Effort 10/02/18 21:05 Blood Pressure 164/85 H 10/02/18 21:05 Pulse Oximetry 96 10/02/18 21:05 Oxygen Delivery Method Room Air 10/02/18 21:05 Oxygen Flow Rate 0 10/02/18 21:05
[2018-10-02 21:24] LABS: Abs Immature Grans 0.02 k/cumm (0.0-0.09); Absolute Basophil Count 0.03 k/cumm (0.0-0.2); Absolute Eosinophil Count 0.25 k/cumm (0.0-0.7); Absolute Lymphocyte Count 1.81 k/cumm (1.2-3.4); Absolute Monocyte Count 0.57 k/cumm (0.11-0.7); Absolute Neutrophil Count 3.79 k/cumm (1.2-6.7); Basophils % 0.5; Eosinophils % 3.9; HCT 41.7 % (36.0-46.0); HGB 14.2 g/dL (12.0-15.5); Immature Grans % 0.3; Mean Corp. HGB Concentration 34.1 g/dL (32.0-36.0); Mean Corpuscular Volume 93.9 fL (80-95); Mean Platelet Volume 9.5 fL (8.0-11.0); Monocytes % 8.8; Neutrophils % 58.5; Platelet Count 272 x1000/uL (130-400); RBC 4.44 m/cumm (4.00-5.20); RBC Distribution Width 12.8 % (11.7-14.6); White Blood Cell Count 6.47 k/cumm (4.4-10.8)
[2018-10-02 21:39] LABS: BUN 21 mg/dL (7-18); CREATININE 0.92 mg/dL (0.55-1.02); Calcium 8.8 mg/dL (8.5-10.1); Chloride 98 mmol/L (98-107); Glucose 103 mg/dL (70-100); Potassium 3.5 mmol/L (3.5-5.1); Sodium 135 mmol/L (136-145); Troponin I 0.02 ng/mL (0.00-0.06)
[2018-10-03] VITALS (13 sets, daily range): BP systolic 125–135; BP diastolic 61–98; PULSE 60–79; RESP 11–22; O2SAT 92–98
[2018-10-03 01:03] LABS: Troponin I < 0.02 ng/mL (0.00-0.06)
== END 2018-10-03 02:05 | disposition home or self-care (01) ==
PROVIDERS: Emergency Provider Emergency Medicine; PCP Family Medicine
DX: I49.3 Ventricular premature depolarization (principal)
CPT/HCPCS: 36415; 80048; 93005; 99284; 83735; 84484; 85025; 93010

== ENCOUNTER → 2018-10-04 10:51 | Outpatient (BNVA) | payer MEDICARE, SELFPAY | PROVIDERS: PCP Family Medicine; Visit Provider Internal Medicine Cardiovascular Disease | DX: E78.5 Hyperlipidemia, unspecified (principal); I10 Essential (primary) hypertension; I67.9 Cerebrovascular disease, unspecified; I48.0 Paroxysmal atrial fibrillation; I08.1 Rheumatic disorders of both mitral and tricuspid valves | CPT/HCPCS: 99214 ==

== ENCOUNTER → 2018-10-16 14:06 | Outpatient (BNVA) | payer MEDICARE, SELFPAY | PROVIDERS: PCP Family Medicine; Visit Provider Psychiatry & Neurology Neurology | DX: G60.9 Hereditary and idiopathic neuropathy, unspecified (principal); G25.0 Essential tremor; I10 Essential (primary) hypertension; J44.9 Chronic obstructive pulmonary disease, unspecified; Z87.891 Personal history of nicotine dependence | CPT/HCPCS: 99205; 99215 ==

== ENCOUNTER → 2018-12-24 10:29 | Outpatient (BNVA) | payer MEDICARE, SELFPAY | PROVIDERS: PCP Family Medicine; Visit Provider Psychiatry & Neurology Neurology | DX: G60.9 Hereditary and idiopathic neuropathy, unspecified (principal); G25.0 Essential tremor; G47.61 Periodic limb movement disorder; I10 Essential (primary) hypertension; J44.9 Chronic obstructive pulmonary disease, unspecified | CPT/HCPCS: 99214 ==

== ENCOUNTER → 2019-03-05 12:48 | Outpatient (BNVA) | payer MEDICARE, SELFPAY | PROVIDERS: PCP Family Medicine; Visit Provider Psychiatry & Neurology Neurology | DX: G60.9 Hereditary and idiopathic neuropathy, unspecified (principal); G25.0 Essential tremor; G47.61 Periodic limb movement disorder | CPT/HCPCS: 99213 ==

== ENCOUNTER 2019-03-28 09:06 | Outpatient (CLI) | payer MEDICARE, SELFPAY | END 2019-03-28 09:26 | PROVIDERS: PCP Family Medicine; Visit Provider Internal Medicine Cardiovascular Disease | DX: I67.9 Cerebrovascular disease, unspecified (principal); I10 Essential (primary) hypertension; I48.0 Paroxysmal atrial fibrillation; E78.2 Mixed hyperlipidemia | CPT/HCPCS: 99214 ==

== ENCOUNTER → 2019-08-26 12:37 | Outpatient (BNVA) | payer MEDICARE, SELFPAY | PROVIDERS: PCP Family Medicine; Referring Provider Family Medicine; Visit Provider Psychiatry & Neurology Neurology | DX: G60.9 Hereditary and idiopathic neuropathy, unspecified (principal); G25.0 Essential tremor; G47.61 Periodic limb movement disorder | CPT/HCPCS: 99214 ==

== ENCOUNTER 2019-09-16 20:15 | Emergency (ER) | payer MEDICARE, SELFPAY ==
[2019-09-16 20:27] VITALS: BP 154/74; PULSE 76; RESP 16; TEMP 37.1; O2SAT 97
--- NOTE | 2019-09-16 20:37 | ED.GENADUL_ITS ---
Discharge Plan Disposition Patient Disposition: HOME Condition: Stable Discharge Details Chief Complaint: Chest Pain Clinical Impression: Atrial fibrillation Primary Care Provider: Elvis Muñoz ED Provider: Kumar Muniz Home Meds and New Rx's Prescriptions: Continued gabapentin 600 mg tablet 600 mg PO TID RF: 0 gabapentin 300 mg capsule 300 mg PO QHS RF: 0 omeprazole 20 mg capsule,delayed release(DR/EC) 20 mg PO DAILY Qty: 90 RF: 3 simvastatin 10 mg tablet 10 mg PO HS Qty: 90 RF: 3 losartan 50 mg tablet 50 mg PO DAILY Qty: 90 RF: 3 fluticasone propionate 50 mcg/actuation spray,suspension 2 spray NS DAILY Qty: 19.8 RF: 3 nitroglycerin [Nitrostat] 0.3 mg tablet, sublingual 0.3 mg Sublingual Q5-15M PRN (Reason: chest pain/esophageal spasm) 1 Days Qty: 25 RF: 6 cholecalciferol (vitamin D3) 1,000 UNIT tablet 1,000 unit PO DAILY RF: 0 omega-3 fatty acids-fish oil 1 EACH capsule 1 ea PO DAILY RF: 0 cyanocobalamin (vitamin B-12) [Vitamin B-12] 500 MCG tablet 500 mcg PO DAILY RF: 0 acetaminophen 500 MG tablet 1,000 mg PO Q4H PRN RF: 0 clobetasol 15 GM ointment 15 gm Topical PRN Qty: 1 RF: 1 alendronate 70 mg tablet 70 mg PO weekly Qty: 12 RF: 6 hydrochlorothiazide 25 mg tablet 25 mg PO DAILY Qty: 90 RF: 3 Eliquis 5 mg tablet 5 mg PO BID Qty: 180 RF: 3 clopidogrel [Plavix] 75 mg tablet 75 mg PO DAILY Qty: 90 RF: 3 levothyroxine 88 mcg tablet 88 mcg PO DAILY 90 Days Qty: 90 RF: 3 amlodipine 5 mg tablet 5 mg PO DAILY Qty: 90 RF: 3 atenolol 25 mg tablet 25 mg PO DAILY 90 Days Qty: 90 RF: 3 Metamucil [facility] Fiber 660 GM powder 1 oz PO HS RF: 0 Discharge Instructions Instructions: Atrial Fibrillation (ED) Additional Instructions: follow up with your primary care provider within 1 week if you feel more ill, trouble breathing or chest pain/pressure return to the emergency department Medical Decision Making 83 yo female with hx of afib on eliquis, hld, htn, comes in with complaints of feeling her heart beating differently and denies any pain, pressure or dyspnea. She noticed it tonight. She denies any presyncope/syncope symptoms. She has not had any fevers, travel, abd pain. She arrives in afib with rates in the 70's and states currently she feels intermittent skipped beats otherwise no symptoms. Suspect she is feeling her afib, unlikely acs but will obtain troponin to evaluate for this. No hypoxia, tachycardia, evidence of dvt on exam and no pleuritic chest pain so doubt PE. No cough, fever and clear lung sounds so doubt pna or ptx. No tearing back pain and normal vascular exam so doubt dissection. Will keep her on tele monitor. labs show no significant abnormalities, probnp 1000 but no clinical evidence of chf. She remains in afib with rate of 70. Will repeat troponin and if negative can likely be d/c'd and f/u with her pcp pt remains stable and asymptomatic in afib with rate of 60. Second ekg without ischemic changes and normal troponin. She is comfortable with d/c and f/u with pcp within a week Differential Diagnosis Differential Diagnosis: afib, pvc's, afib with rvr Medical Records Medical records reviewed: Yes I reviewed the patient's medical records. Lab Data Lab results reviewed: Yes I reviewed the patient's lab results. ECG Data Attestation: I personally reviewed and interpreted this ECG (s) as follows: Prior ECG tracings: not available for review Interpretation: afib, rate of 78, qtc 440, no acute st t wave ischemic findings 2nd ekg shows afib, rate of 71, qtc 452, no acute st t wave ischemic findings HPI General Mode of arrival: ambulatory . Date/Time Provider Initiated Documentation: 09/16/19 20:17 . Limitations to Documentation: no limitations . Information obtained by: patient . History of Present Illness 83 year old F presents to the emergency department with the chief complaint of palpitations, described as mild, with intensity rated at 1. No relieving factors improve symptom(s), No exacerbating factors reported . Patient did receive the following treatments prior to arrival, none Related Data Home Medications Medication Instructions Recorded Confirmed cholecalciferol (vitamin D3) 1,000 unit PO DAILY 09/17/12 09/16/19 omega-3 fatty acids-fish oil 1 ea PO DAILY cap 10/15/12 09/16/19 Metamucil [facility] Fiber 1 oz PO HS 05/27/13 09/16/19 cyanocobalamin (vitamin B-12) 500 mcg PO DAILY tab 11/19/15 09/16/19 [Vitamin B-12] acetaminophen 1,000 mg PO Q4H PRN tab-cap 03/16/17 09/16/19 clobetasol 15 gm TOPICAL PRN #1 tube 12/14/17 09/16/19 alendronate 70 mg tablet 70 mg PO weekly #12 tab 08/16/18 09/16/19 hydrochlorothiazide 25 mg tablet 25 mg PO DAILY #90 tab 11/05/18 09/16/19 apixaban 5 mg tablet 5 mg PO BID #180 tab 11/14/18 09/16/19 clopidogrel 75 mg tablet 75 mg PO DAILY #90 tab 11/21/18 09/16/19 levothyroxine 88 mcg tablet 88 mcg PO DAILY 90 Days #90 tab 11/21/18 09/16/19 omeprazole 20 mg capsule,delayed 20 mg PO DAILY #90 tab 12/03/18 09/16/19 release simvastatin 10 mg tablet 10 mg PO HS #90 tab-cap 12/03/18 09/16/19 amlodipine 5 mg tablet 5 mg PO DAILY #90 tab-cap 01/03/19 09/16/19 losartan 50 mg tablet 50 mg PO DAILY #90 tab 03/04/19 09/16/19 gabapentin 300 mg capsule 300 mg PO QHS cap 03/28/19 09/16/19 gabapentin 600 mg tablet 600 mg PO TID tab 03/28/19 09/16/19 atenolol 25 mg tablet 25 mg PO DAILY 90 Days #90 tab 08/12/19 09/16/19 fluticasone propionate 50 2 spray NS DAILY #19.8 gm 09/09/19 09/16/19 mcg/actuation nasal spray,suspension nitroglycerin 0.3 mg sublingual 0.3 mg SUBLINGUAL Q5-15M PRN 1 09/09/19 09/16/19 tablet Days #25 tab-cap Previous Rx's Medication Instructions Recorded clobetasol 15 gm TOPICAL PRN #1 tube 12/14/17 alendronate 70 mg tablet 70 mg PO weekly #12 tab 02/08/19 hydrochlorothiazide 25 mg tablet 25 mg PO DAILY #90 tab 11/05/18 apixaban 5 mg tablet 5 mg PO BID #180 tab 11/14/18 clopidogrel 75 mg tablet 75 mg PO DAILY #90 tab 11/21/18 levothyroxine 88 mcg tablet 88 mcg PO DAILY 90 Days #90 tab 11/21/18 omeprazole 20 mg capsule,delayed 20 mg PO DAILY #90 tab 12/03/18 release simvastatin 10 mg tablet 10 mg PO HS #90 tab-cap 12/03/18 amlodipine 5 mg tablet 5 mg PO DAILY #90 tab-cap 01/03/19 losartan 50 mg tablet 50 mg PO DAILY #90 tab 03/04/19 atenolol 25 mg tablet 25 mg PO DAILY 90 Days #90 tab 08/12/19 fluticasone propionate 50 2 spray NS DAILY #19.8 gm 09/09/19 mcg/actuation nasal spray,suspension nitroglycerin 0.3 mg sublingual 0.3 mg SUBLINGUAL Q5-15M PRN 1 09/09/19 tablet Days #25 tab-cap Allergies Allergy/AdvReac Type Severity Reaction Status Date / Time aspirin AdvReac Intermediate spsasm of Verified 09/16/19 20:30 the esophagus guaifenesin [From Mucinex] AdvReac Intermediate diarrhea Verified 09/16/19 20:30 General Stated Complaint: Chest Pain YEE: 2 Review of Systems All systems reviewed & are unremarkable except as noted in HPI and below Constitutional Constitutional: Denies chills, Denies fever(s) and Denies weakness Cardiovascular Cardiovascular: Denies chest pain and Denies dyspnea Respiratory Respiratory: Denies cough and Denies dyspnea Gastrointestinal Gastrointestinal: Denies abdominal pain, Denies nausea and Denies vomiting Musculoskeletal Musculoskeletal: Denies joint swelling Neurologic Neurologic: Denies weakness Psychiatric Psychiatric: Denies depression [facility] Social History (Updated 09/09/19 @ 14:38 by Suzie Bradley LPN) Smoking/Tobacco Use Status: Former Tobacco Use Quit Date: 07/09/80 Pack-years: 35 Tobacco: How many years used: 35 Alcohol Intake: never Drug use: Never Substance use type: does not use Household members: spouse Housing: house Number of Children: 6 current occupation: Retired Pets and animals: Yes Current gender identity: female What type of physical activity do you participate in: none Do you feel safe at home: Yes Do you feel safe in your relationship?: Yes Exam Const General: no acute distress Orientation: alert HENMT Head: normal to inspection Ears: external ears normal General nose exam: external nose normal Mouth: moist mucous membranes Eyes General: appearance normal, both eyes and all related structures Neck Neck: normal visual inspection Resp Effort & Inspection: normal respiratory effort and able to speak in complete sentences Cardio Rate: regular rate Skin General skin exam: no rashes or lesions noted Neuro General: alert and oriented x3 Extrem General: normal to inspection Psych Mental Status: mental status grossly normal Course Vital Signs Vital signs: Vital Signs Temperature 37.1 C 09/16/19 20:27 Pulse 76 09/16/19 20:27 Respiratory Rate 16 09/16/19 20:27 Blood Pressure 154/74 H 09/16/19 20:27 Pulse Oximetry 97 09/16/19 20:27 Temperature 37.1 C 09/16/19 20:27 Temperature Source Tympanic 09/16/19 20:27 Pulse 76 09/16/19 20:27 Respiratory Rate 16 09/16/19 20:27 Respiratory Effort Non-Labored 09/16/19 20:29 Blood Pressure 154/74 H 09/16/19 20:27 Blood Pressure Position Sitting 09/16/19 20:27 Pulse Oximetry 97 09/16/19 20:27 Oxygen Delivery Method Room Air 09/16/19 20:27 Oxygen Flow Rate 0 09/16/19 20:27 Pain Level 2 09/16/19 20:27
[2019-09-16 20:54] LABS: Abs Immature Grans 0.02 k/cumm (0.0-0.09); Absolute Basophil Count 0.02 k/cumm (0.0-0.2); Absolute Eosinophil Count 0.28 k/cumm (0.0-0.7); Absolute Lymphocyte Count 1.61 k/cumm (1.2-3.4); Absolute Monocyte Count 0.75 k/cumm (0.11-0.7); Absolute Neutrophil Count 4.38 k/cumm (1.2-6.7); Basophils % 0.3; HGB 14.9 g/dL (12.0-15.5); Immature Grans % 0.3 %; Lymphocytes % 22.8; Mean Corp. HGB Concentration 34.7 g/dL (32.0-36.0); Mean Corpuscular Hemoglobin 32.4 pg (27.0-33.0); Mean Corpuscular Volume 93.5 fL (80-95); Mean Platelet Volume 9.6 fL (8.0-11.0); Monocytes % 10.6; Platelet Count 271 x1000/uL (130-400); RBC Distribution Width 12.8 % (11.7-14.6); White Blood Cell Count 7.06 k/cumm (4.4-10.8)
[2019-09-16 21:10] LABS: INR 1.1 (0.9-1.1); PTT Activated 31.7 sec (21.0-31.4)
[2019-09-16 21:19] LABS: ALT 25 U/L (14-59); AST 25 U/L (15-37); Albumin 3.6 g/dL (3.4-5.0); Alkaline Phosphatase 60 U/L (46-116); Anion Gap 9.7 mmol/L (3-11); BUN 19 mg/dL (7-18); Bilirubin, Total 0.3 mg/dL (0.2-1.0); CO2 29.3 mmol/L (21.0-32.0); CREATININE 0.92 mg/dL (0.55-1.02); Calcium 8.7 mg/dL (8.5-10.1); Chloride 97 mmol/L (98-107); Glucose 123 mg/dL (74-106); Magnesium 1.7 mg/dL (1.8-2.4); NT-proBNP 1054 pg/mL (<300); Potassium 3.1 mmol/L (3.5-5.1); Sodium 136 mmol/L (136-145); Total Protein 7.5 g/dL (6.4-8.2)
[2019-09-16 21:20] LABS: Troponin I < 0.05 ng/Ml (<0.06)
[2019-09-16 23:44] LABS: Troponin I < 0.05 ng/Ml (<0.06)
== END 2019-09-17 00:10 | disposition home or self-care (01) ==
PROVIDERS: Emergency Provider Emergency Medicine; PCP Family Medicine
DX: I48.91 Unspecified atrial fibrillation (principal); I10 Essential (primary) hypertension; Z79.01 Long term (current) use of anticoagulants
CPT/HCPCS: 36415; 80053; 93005; 99284; 83735; 83880; 84484; 85025; 85610; 85730; 93010

== ENCOUNTER 2019-11-28 02:27 | Outpatient (CLI) | payer MEDICARE, SELFPAY ==
--- NOTE | 2019-11-28 07:00 | DI.US_ITS ---
EXAM: US ABDOMEN CLINICAL HISTORY: Cryptogenic, R sided abdominal pain, R10.9 TECHNIQUE: Ultrasound abdomen performed using standard protocol. COMPARISON: CT RENAL COLIC WO CONTRAST from 08/20/2017 FINDINGS: ABDOMINAL AORTA AND IVC: Visualized portions normal caliber. PANCREAS: Normal where visualized. LIVER: Normal. Hepatopedal flow in the Portal Vein. GALLBLADDER: Status post cholecystectomy. BILIARY SYSTEM: Common bile duct measures 7 mm. No intrahepatic biliary ductal dilation. KIDNEYS: Kidneys are symmetric in size. There is a 3 mm echogenic focus in the right kidney which may represent a nonobstructing stone versus vascular calcification. No evidence of hydronephrosis. No r enal mass or cyst identified. SPLEEN: Not enlarged. ASCITES: None seen. IMPRESSION: 1. Status post cholecystectomy. No biliary ductal dilatation. 2. 3 mm echogenic focus in the right kidney. This may represent a nonobstructing stone versus a vasc ular calcification. DATA REPOSITORY:
== END 2019-11-28 02:47 ==
PROVIDERS: PCP Family Medicine; Visit Provider Family Medicine
DX: R10.31 Right lower quadrant pain (principal); Z90.49 Acquired absence of other specified parts of digestive tract; R93.421 Abnormal radiologic findings on diagnostic imaging of right kidney
CPT/HCPCS: 76700

== ENCOUNTER 2019-11-28 08:36 | Outpatient (CLI) | payer MEDICARE, SELFPAY ==
[2019-11-28 10:27] LABS: Lipase 74 U/L (73-393)
[2019-11-28 10:33] LABS: ALT 27 U/L (14-59); AST 23 U/L (15-37); Albumin 3.8 g/dL (3.4-5.0); Alkaline Phosphatase 61 U/L (46-116); Anion Gap 8.9 mmol/L (3-11); BUN 18 mg/dL (7-18); Bilirubin, Total 0.6 mg/dL (0.2-1.0); CO2 29.1 mmol/L (21.0-32.0); CREATININE 0.92 mg/dL (0.55-1.02); Calcium 8.8 mg/dL (8.5-10.1); Chloride 95 mmol/L (98-107); Estimated GFR 58.16 (mL/min/1.73m2); Glucose 87 mg/dL (74-106); Potassium 3.5 mmol/L (3.5-5.1); Sodium 133 mmol/L (136-145); Total Protein 7.3 g/dL (6.4-8.2)
== END 2019-11-28 08:56 ==
PROVIDERS: PCP Family Medicine; Visit Provider Family Medicine
DX: R10.9 Unspecified abdominal pain (principal)
CPT/HCPCS: 36415; 80053; 83690

== ENCOUNTER 2019-12-19 05:04 | Observation (INO) | payer MEDICARE, SELFPAY ==
[2019-12-19] VITALS (50 sets, daily range): BP systolic 115–142; BP diastolic 61–103; PULSE 51–80; RESP 10–22; TEMP 36.2–36.3; O2SAT 91–97
--- NOTE | 2019-12-19 05:20 | ED.GENADUL_ITS ---
Discharge Plan Disposition Patient Disposition: [facility] INPATIENT Condition: Stable Discharge Details Chief Complaint: Chest Pain Clinical Impression: Chest pain Primary Care Provider: Elvis Muñoz ED Provider: Kumar Muniz [place] Meds and New Rx's Prescriptions: No Action gabapentin 600 mg tablet 600 mg PO TID RF: 0 gabapentin 300 mg capsule 300 mg PO QHS RF: 0 fluticasone propionate 50 mcg/actuation spray,suspension 2 spray NS DAILY Qty: 19.8 RF: 3 nitroglycerin [Nitrostat] 0.3 mg tablet, sublingual 0.3 mg Sublingual Q5-15M PRN (Reason: chest pain/esophageal spasm) 1 Days Qty: 25 RF: 6 cholecalciferol (vitamin D3) 1,000 UNIT tablet 1,000 unit PO DAILY RF: 0 omega-3 fatty acids-fish oil 1 EACH capsule 1 ea PO DAILY RF: 0 cyanocobalamin (vitamin B-12) [Vitamin B-12] 500 MCG tablet 500 mcg PO DAILY RF: 0 acetaminophen 500 MG tablet 1,000 mg PO Q4H PRN RF: 0 clobetasol 15 GM ointment 15 gm Topical PRN Qty: 1 RF: 1 Eliquis 5 mg tablet 5 mg PO BID Qty: 180 RF: 3 losartan 50 mg tablet 50 mg PO BID Qty: 180 RF: 3 alendronate 70 mg tablet 70 mg PO weekly Qty: 12 RF: 6 amlodipine 5 mg tablet 5 mg PO BID Qty: 180 RF: 3 atenolol 25 mg tablet 25 mg PO BID Qty: 180 RF: 3 hydrochlorothiazide 25 mg tablet 25 mg PO DAILY Qty: 90 RF: 3 levothyroxine 88 mcg tablet 88 mcg PO DAILY 90 Days Qty: 90 RF: 3 clopidogrel [Plavix] 75 mg tablet 75 mg PO DAILY Qty: 90 RF: 3 simvastatin 10 mg tablet 10 mg PO HS Qty: 90 RF: 3 omeprazole 20 mg capsule,delayed release(DR/EC) 20 mg PO DAILY Qty: 90 RF: 3 Metamucil [facility] Fiber 660 GM powder 1 oz PO HS RF: 0 Medical Decision Making <Ayad Casas DO - Last Filed: 12/19/19 07:50> 84-year-old female with a past medical history of atrial fibrillation on Eliquis, COPD, hypertension, family history of cardiac disease, and a history of esophageal spasms for which she regularly takes nitroglycerin presents today for evaluation of chest pain. Patient states that at 2 AM she developed a tight squeezing heavy-like sensation in her central chest, she stated that it felt notably atypical from her normal esophageal spasm, she did take a nitroglycerin because she was concerned it may be cardiac in origin, and had immediate resolution of her symptoms. She continues to be symptom-free, but considering the improvement with nitro she came into the ER for further evaluation. She did have a relatively unremarkable stress test back in 2018, she denies any other complaints. No radiation to the arm neck or head. She denies any tearing or ripping sensation, recent shortness of breath, cough, recent exertional chest pain or shortness of breath. Physical exam notably unremarkable, EKG shows no evidence of STEMI, limited bedside cardiac ultrasound shows no significant wall motion abnormalities or pericardial effusion at this time, however it is a notably limited study. With the patient's age and risk factors I feel that she certainly would benefit from serial troponins here in the ED, close monitoring. EKG 5: 11 Rate 76, QTc 450, QRS 86, atrial fibrillation, no significant ST elevations or depressions, nonspecific ST abnormality in V1 and V2, no evidence of STEMI, no evidence of Brugada, the Zambrano T waves, or epsilon wave. EKG 7: 38 Rate 70, atrial fibrillation, no significant ST elevations or depressions, continue nonspecific ST changes in V1, relatively unchanged otherwise. FINDINGS: Lungs: Mild chronic interstitial prominence. No consolidation. Pleural space: No pleural effusion. No pneumothorax. Heart/Mediastinum: Tortuous aorta. No cardiomegaly. Bones/joints: Degenerative changes in the spine. Chronic compression deformity in the upper lumbar spine is grossly stable IMPRESSION: No acute findings. Thank you for allowing us to participate in the care of your patient. Dictated and Authenticated by: Alexis Queen MD 12/19/2019 5:49 AM Eastern Time ([place] & [place]) <Kumar Muniz MD - Last Filed: 12/19/19 09:35> PAtient's second troponin unremarkable. She remains hd stable and no pain on my exam. Spoke with who requested a cardiology consult and I spoke with Dr. Diallo who feels if serial troponins and ecg unchanged can be referred for outpatient stress testing Medical Records Medical records reviewed: Yes I reviewed the patient's medical records. Lab Data Lab results reviewed: Yes I reviewed the patient's lab results. HPI <Ayadchandni Casas DO - Last Filed: 12/19/19 07:50> General Date/Time Provider Initiated Documentation: 12/19/19 05:05 . HPI Narrative: 84-year-old female with a past medical history of atrial fibrillation on Eliquis, COPD, hypertension, family history of cardiac disease, and a history of esophageal spasms for which she regularly takes nitroglycerin presents today for evaluation of chest pain. Patient states that at 2 AM she developed a tight squeezing heavy-like sensation in her central chest, she stated that it felt notably atypical from her normal esophageal spasm, she did take a nitroglycerin because she was concerned it may be cardiac in origin, and had immediate resolution of her symptoms. She continues to be symptom-free, but considering the improvement with nitro she came into the ER for further evaluation. She did have a relatively unremarkable stress test back in 2018, she denies any other complaints. No radiation to the arm neck or head. She denies any tearing or ripping sensation, recent shortness of breath, cough, recent exertional chest pain or shortness of breath. No other complaints at this time. No other modifying factors. Related Data Home Medications Medication Instructions Recorded Confirmed cholecalciferol (vitamin D3) 1,000 unit PO DAILY 09/17/12 12/19/19 omega-3 fatty acids-fish oil 1 ea PO DAILY cap 10/15/12 12/19/19 Metamucil [facility] Fiber 1 oz PO HS 05/27/13 12/19/19 cyanocobalamin (vitamin B-12) 500 mcg PO DAILY tab 11/19/15 12/19/19 [Vitamin B-12] acetaminophen 1,000 mg PO Q4H PRN tab-cap 03/16/17 12/19/19 clobetasol 15 gm TOPICAL PRN #1 tube 12/14/17 12/19/19 apixaban 5 mg tablet 5 mg PO BID #180 tab 11/14/18 12/19/19 gabapentin 300 mg capsule 300 mg PO QHS cap 03/28/19 12/19/19 gabapentin 600 mg tablet 600 mg PO TID tab 03/28/19 12/19/19 fluticasone propionate 50 2 spray NS DAILY #19.8 gm 09/09/19 12/19/19 mcg/actuation nasal spray,suspension nitroglycerin 0.3 mg sublingual 0.3 mg SUBLINGUAL Q5-15M PRN 1 09/09/19 12/19/19 tablet Days #25 tab-cap losartan 50 mg tablet 50 mg PO BID #180 tab 09/30/19 12/19/19 alendronate 70 mg tablet 70 mg PO weekly #12 tab 10/02/19 12/19/19 amlodipine 5 mg tablet 5 mg PO BID #180 tab-cap 10/16/19 12/19/19 atenolol 25 mg tablet 25 mg PO BID #180 tab 10/16/19 12/19/19 hydrochlorothiazide 25 mg tablet 25 mg PO DAILY #90 tab 10/21/19 12/19/19 levothyroxine 88 mcg tablet 88 mcg PO DAILY 90 Days #90 tab 10/28/19 12/19/19 clopidogrel 75 mg tablet 75 mg PO DAILY #90 tab 11/10/19 12/19/19 simvastatin 10 mg tablet 10 mg PO HS #90 tab-cap 11/10/19 12/19/19 omeprazole 20 mg capsule,delayed 20 mg PO DAILY #90 tab 11/25/19 12/19/19 release Previous Rx's Medication Instructions Recorded clobetasol 15 gm TOPICAL PRN #1 tube 12/14/17 apixaban 5 mg tablet 5 mg PO BID #180 tab 11/14/18 fluticasone propionate 50 2 spray NS DAILY #19.8 gm 09/09/19 mcg/actuation nasal spray,suspension nitroglycerin 0.3 mg sublingual 0.3 mg SUBLINGUAL Q5-15M PRN 1 09/09/19 tablet Days #25 tab-cap losartan 50 mg tablet 50 mg PO BID #180 tab 09/30/19 alendronate 70 mg tablet 70 mg PO weekly #12 tab 10/02/19 amlodipine 5 mg tablet 5 mg PO BID #180 tab-cap 10/16/19 atenolol 25 mg tablet 25 mg PO BID #180 tab 10/16/19 hydrochlorothiazide 25 mg tablet 25 mg PO DAILY #90 tab 10/21/19 levothyroxine 88 mcg tablet 88 mcg PO DAILY 90 Days #90 tab 10/28/19 clopidogrel 75 mg tablet 75 mg PO DAILY #90 tab 11/10/19 simvastatin 10 mg tablet 10 mg PO HS #90 tab-cap 11/10/19 omeprazole 20 mg capsule,delayed 20 mg PO DAILY #90 tab 11/25/19 release Allergies Allergy/AdvReac Type Severity Reaction Status Date / Time aspirin AdvReac Intermediate spsasm of Verified 12/19/19 05:20 the esophagus guaifenesin [From Mucinex] AdvReac Intermediate diarrhea Verified 12/19/19 05:20 General Stated Complaint: Chest Pain YEE: 2 Review of Systems <Ayad Casas DO - Last Filed: 12/19/19 07:50> All systems reviewed & are unremarkable except as noted in HPI and below PFSH <Ayad Casas DO - Last Filed: 12/19/19 07:50> Medical History Acute midline low back pain without sciatica (Chronic 05/18/17) Atrial fibrillation (Chronic) Bladder cancer (Chronic 05/19/15) Dr. Guy Lechuga- non-invasive papillary urothellal carcinoma, low grade. 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, [facility] [place], [place] Clopidogrel and Statin in definitely Chronic obstructive pulmonary disease (Chronic 02/08/18) Essential hypertension (Chronic 06/23/13) Essential tremor (Chronic) Gastroesophageal reflux disease (Chronic 07/05/04) RESPONDS TO OMEPRAZOLE, BEFORE DINNER; ESOPHAGITIS ON EGD AT [facility] [place]: 07/05/04; gastritis and diffuse esophagitis; DR MERCADO REC [place]IF[place] PPI RX Hyperlipidemia (Chronic 10/21/10) dyslipidemia: low HDL; statin begun by neuro 10/2010 after her TIA, along with Clopidogrel; target LDL<100 and HDL>40 Labile blood pressure (Chronic) Leg pain, left (Chronic 11/03/16) 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 Lechuga 02/05/18 repeat cysto cystourethroscopy (05/19/15) Dr Brian Lechuga [facility]-extensive recurrent bladder tumor encompassint entire L hemitrigone and posterolateral bladder wall and neck cystourethroscopy (08/07/17) Dr Brian Lechuga [facility]-extensive recurrent bladder tumor encompassint entire L hemitrigone and posterolateral bladder wall and neck Extraction of cataract (07/27/15) Dr Mayte Gonzalez eye R eye 2/2 Extraction of cataract (08/10/15) Dr Hu L eye R eye 2/2 History of thyroidectomy, total (Chronic 03/13/14) [facility] [place] for large multinodular goiter due to pressure on trachea Hx of thyroidectomy (Chronic) Thyroid (03/13/14) 9Complete thyroidectomy Dr. Sanchez [facility] [place], path: multinodular goiter Transurethral Resection of Bladder Tumor, 2-5cm (05/27/13) Dr. Ruano URO cysto (10/22/15) Guy Lechuga MD 12 weeks after her last BCG Family History Mother , amyloid Syndrome at age 73. No problems noted. Father , Heart attack at age 65. No problems noted. Sister , lung disease at age 80. No problems noted. Brother Age: 87 No problems noted. Brother No problems noted. Brother No problems noted. Social History Smoking/Tobacco Use Status: Former Tobacco Use Quit Date: 07/09/80 Pack-years: 35 Tobacco: How many years used: 35 Alcohol Intake: never Drug use: Never Substance use type: does not use Household members: spouse Housing: house Number of Children: 6 current occupation: Retired Pets and animals: Yes Current gender identity: female What type of physical activity do you participate in: none Do you feel safe at home: Yes Do you feel safe in your relationship?: Yes Exam <Ayad Casas DO - Last Filed: 12/19/19 07:50> Narrative Exam Narrative: 1.Const: Well-nourished, Well-developed, appearing stated age 2.Eyes: PERRL, no conjunctival injection, and symmetrical lids. 3.ENT: Atraumatic external nose and ears. Moist MM. Neck: Symmetric, trachea midline, No thyromegaly. 4.CVS: +S1/S2, No murmurs or gallops. Peripheral pulses 2+ and equal in all extremities. Brisk capillary refill in all extremities. 5.RESP: Unlabored respiratory effort. Clear to auscultation bilaterally. No wheezes rales or rhonchi 6.GI: Soft, Nontender/Nondistended, No hepatosplenomegaly. No guarding or rebound. 7.MSK: Normocephalic/Atraumatic, Extremities w/o deformity or ttp No cyanosis or clubbing, Normal movement of all extremities. No calf tenderness. 8.Skin: Warm, Dry. No rashes or lesions. 9.Neuro: letter carrier II-XII grossly intact. Sensation grossly intact, no focal neurologic deficits. 10.Psych: (AAO) x3. Appropriate mood and affect Course <Ayad Casas, DO - Last Filed: 12/19/19 07:50> Vital Signs Vital signs: Vital Signs Temperature 36.3 C L 12/19/19 05:13 Pulse 69 12/19/19 05:13 Respiratory Rate 12/19/19 05:13 Blood Pressure 136/78 12/19/19 05:13 Pulse Oximetry 95 12/19/19 05:13 Temperature 36.3 C L 12/19/19 05:13 Temperature Source Skin 12/19/19 05:13 Pulse 69 12/19/19 05:13 Respiratory Rate 12/19/19 05:13 Blood Pressure 136/78 12/19/19 05:13 Blood Pressure Position Supine 12/19/19 05:13 Pulse Oximetry 95 12/19/19 05:13 Oxygen Delivery Method Room Air 12/19/19 05:13 Oxygen Flow Rate 0 12/19/19 05:13 Pain Level 0 12/19/19 05:13 Sign Out <Ayad Casas DO - Last Filed: 12/19/19 07:50> Sign Out Data: Sign Out Comment: Pending repeat troponin and reassessment, expectant admission Last updated by Ayad Casas DO at 12/19/19 07:53
[2019-12-19 05:30] LABS: Abs Immature Grans 0.02 k/cumm (0.0-0.09); Absolute Basophil Count 0.04 k/cumm (0.0-0.2); Absolute Eosinophil Count 0.25 k/cumm (0.0-0.7); Absolute Lymphocyte Count 2.02 k/cumm (1.2-3.4); Absolute Monocyte Count 0.74 k/cumm (0.11-0.7); Absolute Neutrophil Count 4.06 k/cumm (1.2-6.7); Basophils % 0.6; Eosinophils % 3.5; HCT 43.7 % (36.0-46.0); Immature Grans % 0.3 %; Lymphocytes % 28.3; Mean Corp. HGB Concentration 34.3 g/dL (32.0-36.0); Mean Corpuscular Hemoglobin 32.1 pg (27.0-33.0); Mean Corpuscular Volume 93.6 fL (80-95); Mean Platelet Volume 9.6 fL (8.0-11.0); Monocytes % 10.4; Neutrophils % 56.9; Platelet Count 339 x1000/uL (130-400); RBC 4.67 m/cumm (4.00-5.20); RBC Distribution Width 12.7 % (11.7-14.6); White Blood Cell Count 7.13 k/cumm (4.4-10.8)
--- NOTE | 2019-12-19 05:40 | DI.RAD_ITS ---
EXAM: XR CHEST 2V PA LATERAL CLINICAL HISTORY: central chest pain TECHNIQUE: 2D digital imaging was performed. COMPARISON: CR CHEST 2 VIEWS PA,LAT from 10/16/2017 FINDINGS: MEDIASTINUM: Normal. HEART: Normal. PULMONARY VASCULATURE: Normal. LUNGS: Clear. PLEURAL SPACE: No pleural effusion or pneumothorax. BONE:Old L2 compression deformity. OTHER FINDINGS:Normal. IMPRESSION: No acute pulmonary findings. DATA REPOSITORY: RADIATION DOSE DELIVERED:
[2019-12-19 05:42] LABS: INR 1.1 (0.9-1.1); Prothrombin Time 10.6 sec (9.3-11.0)
[2019-12-19 05:49] LABS: ALT 25 U/L (14-59); AST 24 U/L (15-37); Alkaline Phosphatase 68 U/L (46-116); Anion Gap 9.4 mmol/L (3-11); BUN 19 mg/dL (7-18); Bilirubin, Total 0.4 mg/dL (0.2-1.0); CO2 29.6 mmol/L (21.0-32.0); CREATININE 1.15 mg/dL (0.55-1.02); Calcium 8.8 mg/dL (8.5-10.1); Chloride 96 mmol/L (98-107); Estimated GFR 44.95 (mL/min/1.73m2); Glucose 102 mg/dL (74-106); Lipase 90 U/L (73-393); NT-proBNP 1109 pg/mL (<300); Potassium 3.5 mmol/L (3.5-5.1); Sodium 135 mmol/L (136-145)
[2019-12-19 05:50] LABS: Troponin I < 0.05 ng/mL (<0.06)
--- NOTE | 2019-12-19 05:50 | DI.VRAD_ITS ---
PROCEDURE INFORMATION: Exam: XR Chest, 2 Views Exam date and time: 12/19/2019 5:35 AM Age: 84 years old Clinical indication: Chest pain; Other: Central TECHNIQUE: Imaging protocol: XR of the chest Views: 2 views. COMPARISON: CR CHEST 2 VIEWS PA,LAT 10/16/2017 9:02 PM FINDINGS: Lungs: Mild chronic interstitial prominence. No consolidation. Pleural space: No pleural effusion. No pneumothorax. Heart/Mediastinum: Tortuous aorta. No cardiomegaly. Bones/joints: Degenerative changes in the spine. Chronic compression deformity in the upper lumbar spine is grossly stable IMPRESSION: No acute findings. Dictated and Authenticated by: Alexis Queen MD. Ordering:CORETTA Lion MD
[2019-12-19 09:09] LABS: Troponin I < 0.05 ng/mL (<0.06)
--- NOTE | 2019-12-19 12:02 | CCONE_ITS ---
Date of service: 12/19/19 Time of Service: 12:02 Assessment and Plan Assessment and plan (1) Atrial fibrillation: Status: Chronic Qualifiers: Atrial fibrillation type: paroxysmal Qualified Code(s): I48.0 - Paroxysmal atrial fibrillation (2) Chest pain: Status: Acute Assessment and plan: 1. Chest pain: Patient had episode of chest pain at rest that lasted 2 hours and was relieved by nitro. She has now had multiple negative troponins and a stable ECG with rate controlled atrial fibrillation. I do not think that this is consistent with unstable angina as the patient has not had any exertional pain that has evolved into pain at rest. While she certainly is at risk for coronary disease I do not think immediate treatment with anticoagulation and catheterization would be appropriate. Should the patient develop an abnormal troponin or should the character of her chest pain change to include diaphoresis or radiation we might need to consider becoming more aggressive. For now I think it is safe for her to go home with an outpatient stress test. She is already scheduled to see cardiology next week for her atrial fibrillation. 2. Atrial fibrillation: Chronic and asymptomatic. She is rate controlled and anticoagulated. ?No changes at this time Please contact cardiology with any further questions History of Present Illness History of Present Illness Chief Complaint: chest pain Narrative: Ms Gerber is an 84-year-old female with past medical history significant for hypertension, COPD and sleep apnea as well as chronic atrial fibrillation and esophageal spasm who presents the emergency room with chest pain. The hospitalist team is consulted cardiology to help with diagnosis and management. The patient states that she woke up from sleep this morning at 2 AM with some substernal chest pain. She says that this is different than her normal pain from esophageal spasm and is a slightly higher up in her chest. She tried to go back to sleep but could not because of the pain. Around 4:[address] having the pain continuously for over 2 hours she took a nitroglycerin which made the pain go away. The pain did not radiate nor did she have any associated diaphoresis. She did not have any shortness of breath either. At that point she decided to come to the emergency room to have it evaluated. Emergency room she was found to be in rate controlled atrial fibrillation. She had 2 negative troponins and a slightly elevated BNP. She another episode of chest pain while in the emergency room and was therefore kept longer for repeat troponin again or possible overnight evaluation. A repeat ECG again showed rate controlled atrial fibrillation. Of note the patient says that she has not had any symptoms like this in the past. She does not have any exertional pain and as of yesterday was feeling at her baseline. Review of Systems All systems reviewed & are unremarkable except as noted in HPI and below [facility] Medical History Acute midline low back pain without sciatica (Chronic 05/18/17) Atrial fibrillation (Chronic) Bladder cancer (Chronic 05/19/15) Dr. Guy Lechuga- non-invasive papillary urothellal carcinoma, low grade. 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, [facility] [place], RX Clopidogrel and Statin indefinitely Chronic obstructive pulmonary disease (Chronic 02/08/18) Essential hypertension (Chronic 06/23/13) Essential tremor (Chronic) Gastroesophageal reflux disease (Chronic 07/05/04) RESPONDS TO OMEPRAZOLE, BEFORE DINNER; ESOPHAGITIS ON EGD AT [facility] [place]: 07/05/04; gastritis and diffuse esophagitis; DR MERCADO REC [place] PPI RX Hyperlipidemia (Chronic 10/21/10) dyslipidemia: low HDL; statin begun by neuro 10/2010 after her TIA, along with Clopidogrel; target LDL<100 and HDL>40 Labile blood pressure (Chronic) Leg pain, left (Chronic 11/03/16) 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 Lechuga 02/05/18 repeat cysto cystourethroscopy (05/19/15) Dr Brian Lechuga [facility]-extensive recurrent bladder tumor encompassint entire L hemitrigone and posterolateral bladder wall and neck cystourethroscopy (08/07/17) Dr Brian Lechuga H-extensive recurrent bladder tumor encompassint entire L hemitrigone and posterolateral bladder wall and neck Extraction of cataract (07/27/15) Dr Hu L eye R eye 2/2 Extraction of cataract (08/10/15) Dr Hu L eye R eye 2/2 History of thyroidectomy, total (Chronic 03/13/14) [facility] [place] for large multinodular goiter due to pressure on trachea Hx of thyroidectomy (Chronic) Thyroid (03/13/14) 9Complete thyroidectomy Dr. Sanchez [facility] [place], path: multinodular goiter Transurethral Resection of Bladder Tumor, 2-5cm (05/27/13) Dr. Ruano URO cysto (10/22/15) Guy Lechuga MD 12 weeks after her last BCG Family History Mother , amyloid Syndrome at age 73. No problems noted. Father , Heart attack at age 65. No problems noted. Sister , lung disease at age 80. No problems noted. Brother Age: 87 No problems noted. Brother No problems noted. Brother No problems noted. Social History Smoking/Tobacco Use Status: Former Tobacco Use Quit Date: 07/09/80 Pack-years: 35 Tobacco: How many years used: 35 Alcohol Intake: never Drug use: Never Substance use type: does not use Household members: spouse Housing: house Number of Children: 6 current occupation: Retired Pets and animals: Yes Current gender identity: female What type of physical activity do you participate in: none Do you feel safe at home: Yes Do you feel safe in your relationship?: Yes Exam Const General: comfortable and no acute distress HENGA Head: normocephalic and atraumatic Eyes General: appearance normal, both eyes and all related structures Resp Effort & Inspection: normal respiratory effort Auscultation: clear to auscultation bilaterally Cardio Jugular venous pressure: no JVD Palpation: normal PMI Rate: regular rate Rhythm: abnormal rhythm Heart Sounds: S1 normal and S2 normal (No Murmurs, Rubs or Gallops) GI Palpation: soft Auscultation: normoactive bowel sounds Skin General skin exam: no rashes or lesions noted Extrem General: normal to inspection and no clubbing, cyanosis or edema Psych Appearance: grossly normal Results Last Vital Signs Temp 36.2 C L 12/19/19 11:12 Pulse 68 12/19/19 11:12 Resp 16 12/19/19 11:12 BP 132/82 12/19/19 11:12 Pulse Ox 97 12/19/19 11:12 Labs Result diagrams: 12/19/19 05:20 12/19/19 05:20 Labs: Laboratory Results - last 24 hr 12/19/19 12/19/19 12/19/19 05:20 05:20 05:20 WBC 7.13 RBC 4.67 Hgb 15.0 Hct 43.7 MCV 93.6 MCH 32.1 MCHC 34.3 RDW 12.7 Plt Count 339 MPV 9.6 Immature Gran % 0.3 Neutrophils % 56.9 Lymphocytes % 28.3 Monocytes % 10.4 Eosinophils % 3.5 Basophils % 0.6 Absolute Neutrophils 4.06 Absolute Lymphocytes 2.02 Absolute Monocytes 0.74 H Absolute Eosinophils 0.25 Absolute Basophils 0.04 PT 10.6 INR 1.1 APTT 33.0 H Sodium 135 L Potassium 3.5 Chloride 96 L Carbon Dioxide 29.6 Anion Gap 9.4 BUN 19 H Creatinine 1.15 H Estimated GFR/1.73 m2 44.95 Glucose 102 Calcium 8.8 Total Bilirubin 0.4 AST 24 ALT 25 Alkaline Phosphatase 68 Troponin I < 0.05 NT-Pro-B Natriuret Pep 1109 H Total Protein 8.0 Albumin 4.0 Lipase 90 12/19/19 08:11 WBC RBC Hgb Hct MCV MCH MCHC RDW Plt Count MPV Immature Gran % Neutrophils % Lymphocytes % Monocytes % Eosinophils % Basophils % Absolute Neutrophils Absolute Lymphocytes Absolute Monocytes Absolute Eosinophils Absolute Basophils PT INR APTT Sodium Potassium Chloride Carbon Dioxide Anion Gap BUN Creatinine Estimated GFR/1.73 m2 Glucose Calcium Total Bilirubin AST ALT Alkaline Phosphatase Troponin I < 0.05 NT-Pro-B Natriuret Pep Total Protein Albumin Lipase
[2019-12-19 13:28] LABS: Troponin I < 0.05 ng/mL (<0.06)
--- NOTE | 2019-12-19 14:32 | W.PM.HP.N ---
Date of service: 12/19/19 Time of Service: 14:33 Assessment and Plan Assessment and plan (1) Chest pain: Status: Acute Assessment and plan: repeat troponins negative, no acute EKG changes, seen by cardiology and safe for discharge to home. she has an outpatient cardiology appointment next Sunday. will order stress testing. (2) Atrial fibrillation: Status: Chronic Assessment and plan: rate controlled, anticoagulated, continue home medications Qualifiers: Atrial fibrillation type: paroxysmal Qualified Code(s): I48.0 - Paroxysmal atrial fibrillation (3) Essential hypertension: Status: Chronic Assessment and plan: blood pressure stable, continue home medication and monitor (4) Gastroesophageal reflux disease: Status: Chronic Assessment and plan: continue PPI, does have history of esophageal spasm which responds to nitro (5) History of thyroidectomy, total: Status: Chronic Assessment and plan: continue synthroid (6) Hyperlipidemia: Status: Chronic Assessment and plan: continue statin Qualifiers: Hyperlipidemia type: mixed hyperlipidemia Qualified Code(s): E78.2 - Mixed hyperlipidemia History of Present Illness History of Present Illness Chief Complaint: chest pain Narrative: This is an 84-year-old female patient with a past medical history significant for atrial fibrillation on chronic anticoagulation CVA on Plavix and statin, hypertension COPD and GERD with esophageal spasm who presented to the emergency department today with complaints of substernal chest discomfort that she reports is different than her typical esophageal spasm. She has had no fevers or chills no cough or shortness of breath. She states the pain occurred at rest actually waking her up from sleep during the middle the night. She states she tried falling back asleep but was unable to and had the pain for approximately 2 hours. She had no radiation diaphoresis nausea or other associated symptoms. She states the pain was different than her typical esophageal spasm but she did ultimately try a nitroglycerin which relieved her pain. She presented to the emergency department for evaluation. Her troponin was within normal range. Her BNP was elevated at 1000 but this was similar to a previous level. Her EKG showed controlled atrial fibrillation with no acute changes. She did receive a delta troponin that was also negative. The emergency department provider did talk to Dr. Diallo from cardiology who recommended outpatient stress testing as it is not available here today or over the weekend. He did not feel she needed emergent transfer for immediate intervention or work-up. Hospitalist services was contacted and she was referred to observation on telemetry. An additional troponin was obtained and remained negative with no acute ST segment changes. Dr. Graff did see the patient in evaluation and felt she could be discharged to home at this point with outpatient follow-up. She is actually scheduled to see him next week in a routine previously scheduled appointment. She will be discharged to home on all previous medications except for gabapentin which dose has been reduced to 600 mg twice daily and 300 mg at bedtime as recommended by pharmacy for her renal function. She has remained asymptomatic and hemodynamically stable. She is tolerating a regular diet and is voicing no complaints. The discharge plan and outpatient follow-up was discussed with her and she is in agreement. This plan has also been reviewed by with Dr. Daniels who is also in agreement. Review of Systems All systems reviewed & are unremarkable except as noted in HPI and below Cardiovascular Cardiovascular: Reports chest pain, Reports chest pain at rest, Denies edema, Denies irregular heart rhythm, Denies radiating jaw, neck or arm pain, Denies palpitations, Denies dyspnea, Denies dyspnea on exertion and Denies orthopnea Respiratory Respiratory: Denies chest congestion, Denies cough, Denies dyspnea and Denies dyspnea on exertion Gastrointestinal Gastrointestinal: Denies abdominal pain, Denies heartburn and Denies nausea Endocrine Endocrine: Denies palpitations [facility] Medical History Acute midline low back pain without sciatica (Chronic 05/18/17) Atrial fibrillation (Chronic) Bladder cancer (Chronic 05/19/15) Dr. Guy Lechuga- non-invasive papillary urothellal carcinoma, low grade. 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, [facility] [place], RX Clopidogrel and Statin indefinitely Chronic obstructive pulmonary disease (Chronic 02/08/18) Essential hypertension (Chronic 06/23/13) Essential tremor (Chronic) Gastroesophageal reflux disease (Chronic 07/05/04) RESPONDS TO OMEPRAZOLE, BEFORE DINNER; ESOPHAGITIS ON EGD AT [facility]: 07/05/04; gastritis and diffuse esophagitis; DR MERCADO REC [place]IF[place] PPI RX Hyperlipidemia (Chronic 10/21/10) dyslipidemia: low HDL; statin begun by neuro 10/2010 after her TIA, along with Clopidogrel; target LDL<100 and HDL>40 Labile blood pressure (Chronic) Leg pain, left (Chronic 11/03/16) 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 Lechuga 02/05/18 repeat cysto cystourethroscopy (05/19/15) Dr Brian Lechuga [facility]-extensive recurrent bladder tumor encompassint entire L hemitrigone and posterolateral bladder wall and neck cystourethroscopy (08/07/17) Dr Brian Lechuga [facility]-extensive recurrent bladder tumor encompassint entire L hemitrigone and posterolateral bladder wall and neck Extraction of cataract (07/27/15) Dr Mayte Gonzalez eye R eye 2/2 Extraction of cataract (08/10/15) Dr Hu L eye R eye 2/2 History of thyroidectomy, total (Chronic 03/13/14) [facility] for large multinodular goiter due to pressure on trachea Hx of thyroidectomy (Chronic) Thyroid (03/13/14) 9Complete thyroidectomy Dr. Sanchez [facility], path: multinodular goiter Transurethral Resection of Bladder Tumor, 2-5cm (05/27/13) Dr. Ruano URO cysto (10/22/15) Guy Lechuga MD 12 weeks after her last BCG Family History Mother , amyloid Syndrome at age 73. No problems noted. Father , Heart attack at age 65. No problems noted. Sister , lung disease at age 80. No problems noted. Brother Age: 87 No problems noted. Brother No problems noted. Brother No problems noted. Social History (Reviewed 12/19/19 @ 05:22 by MARGARITA Diaz Smoking/Tobacco Use Status: Former Tobacco Use Quit Date: 07/09/80 Pack-years: 35 Tobacco: How many years used: 35 Alcohol Intake: never Drug use: Never Substance use type: does not use Household members: spouse Housing: house Number of Children: 6 current occupation: Retired Pets and animals: Yes Current gender identity: female What type of physical activity do you participate in: none Do you feel safe at home: Yes Do you feel safe in your relationship?: Yes Meds Home Medications and Allergies Home Medications Medication Instructions Recorded Confirmed Type cholecalciferol (vitamin D3) 1,000 unit PO DAILY 09/17/12 12/19/19 History omega-3 fatty acids-fish oil 1 ea PO DAILY cap 10/15/12 12/19/19 History Metamucil [facility] Fiber 1 oz PO HS 05/27/13 12/19/19 History cyanocobalamin (vitamin B-12) 500 mcg PO DAILY tab 11/19/15 12/19/19 History [Vitamin B-12] acetaminophen 1,000 mg PO Q4H PRN tab-cap 03/16/17 12/19/19 History clobetasol 15 gm TOPICAL PRN #1 tube 12/14/17 12/19/19 Rx apixaban 5 mg tablet 5 mg PO BID #180 tab 11/14/18 12/19/19 Rx gabapentin 300 mg capsule 300 mg PO QHS cap 03/28/19 12/19/19 History fluticasone propionate 50 2 spray NS DAILY #19.8 gm 09/09/19 12/19/19 Rx mcg/actuation nasal spray,suspension nitroglycerin 0.3 mg sublingual 0.3 mg SUBLINGUAL Q5-15M PRN 1 09/09/19 12/19/19 Rx tablet Days #25 tab-cap losartan 50 mg tablet 50 mg PO BID #180 tab 09/30/19 12/19/19 Rx alendronate 70 mg tablet 70 mg PO weekly #12 tab 10/02/19 12/19/19 Rx amlodipine 5 mg tablet 5 mg PO BID #180 tab-cap 10/16/19 12/19/19 Rx atenolol 25 mg tablet 25 mg PO BID #180 tab 10/16/19 12/19/19 Rx hydrochlorothiazide 25 mg tablet 25 mg PO DAILY #90 tab 10/21/19 12/19/19 Rx levothyroxine 88 mcg tablet 88 mcg PO DAILY 90 Days #90 tab 10/28/19 12/19/19 Rx clopidogrel 75 mg tablet 75 mg PO DAILY #90 tab 11/10/19 12/19/19 Rx simvastatin 10 mg tablet 10 mg PO HS #90 tab-cap 11/10/19 12/19/19 Rx omeprazole 20 mg capsule,delayed 20 mg PO DAILY #90 tab 11/25/19 12/19/19 Rx release gabapentin 600 mg PO BID #0 tab 12/19/19 12/19/19 Rx Allergies Allergy/AdvReac Type Severity Reaction Status Date / Time aspirin AdvReac Intermediate spsasm of Verified 12/19/19 05:20 the esophagus guaifenesin [From Mucinex] AdvReac Intermediate diarrhea Verified 12/19/19 05:20 Exam Const General: cooperative, healthy appearing, comfortable and no acute distress Nutritional Appearance: average body habitus Orientation: alert, awake and oriented x3 HENMT Head: normal to inspection, normocephalic and atraumatic Mouth: oral mucosae normal Resp Effort & Inspection: normal respiratory effort Auscultation: clear to auscultation bilaterally Cardio Rate: regular rate Rhythm: abnormal rhythm irregularly irregular (controlled afib on the monitor, no acute EKG changes) Heart Sounds: no murmurs GI Inspection: normal to inspection Palpation: soft Auscultation: normal bowel sounds Skin General skin exam: no rashes or lesions noted Neuro General: patient alert, patient awake and patient oriented x3 Extrem General: normal to inspection, full ROM and no pedal edema Results Labs Result diagrams: 12/19/19 05:20 12/19/19 05:20 Labs: Laboratory Results - last 24 hr 12/19/19 12/19/19 12/19/19 05:20 05:20 05:20 WBC 7.13 RBC 4.67 Hgb 15.0 Hct 43.7 MCV 93.6 MCH 32.1 MCHC 34.3 RDW 12.7 Plt Count 339 MPV 9.6 Immature Gran % 0.3 Neutrophils % 56.9 Lymphocytes % 28.3 Monocytes % 10.4 Eosinophils % 3.5 Basophils % 0.6 Absolute Neutrophils 4.06 Absolute Lymphocytes 2.02 Absolute Monocytes 0.74 H Absolute Eosinophils 0.25 Absolute Basophils 0.04 PT 10.6 INR 1.1 APTT 33.0 H Sodium 135 L Potassium 3.5 Chloride 96 L Carbon Dioxide 29.6 Anion Gap 9.4 BUN 19 H Creatinine 1.15 H Estimated GFR/1.73 m2 44.95 Glucose 102 Calcium 8.8 Total Bilirubin 0.4 AST 24 ALT 25 Alkaline Phosphatase 68 Troponin I < 0.05 NT-Pro-B Natriuret Pep 1109 H Total Protein 8.0 Albumin 4.0 Lipase 90 12/19/19 12/19/19 08:11 13:09 WBC RBC Hgb Hct MCV MCH MCHC RDW Plt Count MPV Immature Gran % Neutrophils % Lymphocytes % Monocytes % Eosinophils % Basophils % Absolute Neutrophils Absolute Lymphocytes Absolute Monocytes Absolute Eosinophils Absolute Basophils PT INR APTT Sodium Potassium Chloride Carbon Dioxide Anion Gap BUN Creatinine Estimated GFR/1.73 m2 Glucose Calcium Total Bilirubin AST ALT Alkaline Phosphatase Troponin I < 0.05 < 0.05 NT-Pro-B Natriuret Pep Total Protein Albumin Lipase Last Vital Signs Temp 36.2 C L 12/19/19 11:12 Pulse 68 12/19/19 11:12 Resp 16 12/19/19 11:12 BP 132/82 12/19/19 11:12 Pulse Ox 97 12/19/19 11:12 COVID-19 Screening In the past 14 days, have you traveled outside of [place] or [place]?: NO Had IN PERSON contact w/suspected or confirmed C-19 person: No
--- NOTE | 2019-12-19 14:40 | W.PM.DS.N ---
Date of service: 12/19/19 Time of Service: 14:40 DS: Diagnosis Discharge Diagnosis (1) Chest pain: Status: Acute Asessment and Plan: occurred for 2 hours while at rest, troponins and EKG with repeats negative, seen by cardiology, plan for outpatient stress testing. she has outpatient cardiology appointment in one week. (2) Atrial fibrillation: Status: Chronic (3) Essential hypertension: Status: Chronic (4) Gastroesophageal reflux disease: Status: Chronic (5) History of thyroidectomy, total: Status: Chronic (6) Hyperlipidemia: Status: Chronic Discharge Plan Disposition Patient Disposition: HOME Condition: Stable Discharge Details Chief Complaint: Chest Pain Clinical Impression: Chest pain Reason For Visit: UNSTABLE ANGINA Admit Date/Time: 12/19/19 09:53 Admit Provider: Saima Daniels Attending Provider: Saima Daniels Primary Care Provider: Elvis Muñoz ED Provider: Kumar Muniz [facility] Course Hospital Course: This is an 84-year-old female patient with a past medical history significant for atrial fibrillation on chronic anticoagulation CVA on Plavix and statin, hypertension COPD and GERD with esophageal spasm who presented to the emergency department today with complaints of substernal chest discomfort that she reports is different than her typical esophageal spasm. She has had no fevers or chills no cough or shortness of breath. She states the pain occurred at rest actually waking her up from sleep during the middle the night. She states she tried falling back asleep but was unable to and had the pain for approximately 2 hours. She had no radiation diaphoresis nausea or other associated symptoms. She states the pain was different than her typical esophageal spasm but she did ultimately try a nitroglycerin which relieved her pain. She presented to the emergency department for evaluation. Her troponin was within normal range. Her BNP was elevated at 1000 but this was similar to a previous level. Her EKG showed controlled atrial fibrillation with no acute changes. She did receive a delta troponin that was also negative. The emergency department provider did talk to Dr. Diallo from cardiology who recommended outpatient stress testing as it is not available here today or over the weekend. He did not feel she needed emergent transfer for immediate intervention or work-up. Hospitalist services was contacted and she was referred to observation on telemetry. An additional troponin was obtained and remained negative with no acute ST segment changes. Dr. Graff did see the patient in evaluation and felt she could be discharged to home at this point with outpatient follow-up. She is actually scheduled to see him next week in a routine previously scheduled appointment. She will be discharged to home on all previous medications except for gabapentin which dose has been reduced to 600 mg twice daily and 300 mg at bedtime as recommended by pharmacy for her renal function. She has remained asymptomatic and hemodynamically stable. She is tolerating a regular diet and is voicing no complaints. The discharge plan and outpatient follow-up was discussed with her and she is in agreement. This plan has also been reviewed by with Dr. Daniels who is also in agreement. Home Meds and New Rx's Prescriptions: Continued gabapentin 300 mg capsule 300 mg PO QHS RF: 0 fluticasone propionate 50 mcg/actuation spray,suspension 2 spray NS DAILY Qty: 19.8 RF: 3 nitroglycerin [Nitrostat] 0.3 mg tablet, sublingual 0.3 mg Sublingual Q5-15M PRN (Reason: chest pain/esophageal spasm) 1 Days Qty: 25 RF: 6 cholecalciferol (vitamin D3) 1,000 UNIT tablet 1,000 unit PO DAILY RF: 0 omega-3 fatty acids-fish oil 1 EACH capsule 1 ea PO DAILY RF: 0 cyanocobalamin (vitamin B-12) [Vitamin B-12] 500 MCG tablet 500 mcg PO DAILY RF: 0 acetaminophen 500 MG tablet 1,000 mg PO Q4H PRN RF: 0 clobetasol 15 GM ointment 15 gm Topical PRN Qty: 1 RF: 1 Eliquis 5 mg tablet 5 mg PO BID Qty: 180 RF: 3 losartan 50 mg tablet 50 mg PO BID Qty: 180 RF: 3 alendronate 70 mg tablet 70 mg PO weekly Qty: 12 RF: 6 amlodipine 5 mg tablet 5 mg PO BID Qty: 180 RF: 3 atenolol 25 mg tablet 25 mg PO BID Qty: 180 RF: 3 hydrochlorothiazide 25 mg tablet 25 mg PO DAILY Qty: 90 RF: 3 levothyroxine 88 mcg tablet 88 mcg PO DAILY 90 Days Qty: 90 RF: 3 clopidogrel [Plavix] 75 mg tablet 75 mg PO DAILY Qty: 90 RF: 3 simvastatin 10 mg tablet 10 mg PO HS Qty: 90 RF: 3 omeprazole 20 mg capsule,delayed release(DR/EC) 20 mg PO DAILY Qty: 90 RF: 3 Metamucil [facility] Fiber 660 GM powder 1 oz PO HS RF: 0 Changed gabapentin 600 mg tablet 600 mg PO BID Qty: 0 RF: 0 Discharge Instructions Instructions: Chest Pain (DC) Additional Instructions: continue usual medications as directed keep scheduled follow up appointments Stand Alone Forms: Nursing Discharge Form Referrals: Elvis Muñoz DO [Primary Care Provider] - 01/02/20 3:45 pm () Aldo Diallo MD [ CONSULTING PHYSICIAN] - 12/26/19 11:00 am () Activity:: Activity as Tolerated Equipment/Supplies:: No Equipment Needed Diet:: As Tolerated Discharge Orders Discharge Orders: Discharge Order (Routine); Ordered 12/19/19 Ordered By: Yasmin Mcdonald Other Ambulatory Orders: NM MPI rest & stress grp (Routine) Location: None Selected Ordered By: Yasmin Mcdonald DS: Summary Status at Discharge Functional status at discharge: independent ambulation Overall status at discharge: patient is back to baseline Mental Status: mental status grossly normal Speech and Movement: speech and movement normal Mood: congruent mood Affect: normal affect Exam Psych Mental Status: mental status grossly normal Speech and Movement: speech and movement normal Mood: congruent mood Affect: normal affect DS: Data Vitals/I&O Vitals and I&O: Vital Signs Temperature 36.2 C L 12/19/19 11:12 Temperature Source Skin 12/19/19 05:13 Pulse 68 12/19/19 11:12 Pulse Rhythm Regular 12/19/19 11:12 Pulse 63 12/19/19 11:01 Respiratory Rate 16 12/19/19 11:12 Respiratory Effort Non-Labored 12/19/19 11:12 Respiratory Depth Normal 12/19/19 11:12 Respiratory Pattern Normal 12/19/19 11:12 Blood Pressure 132/82 12/19/19 11:12 Blood Pressure Mean 84 12/19/19 11:01 Blood Pressure Position Supine 12/19/19 05:13 Pulse Oximetry 97 12/19/19 11:12 Oxygen Delivery Method Room Air 12/19/19 11:12 Oxygen Flow Rate 0 12/19/19 11:12 Pain Level 0 12/19/19 11:12 Comment 12/19/19 11:12 Intake & Output 12/18/19 12/19/19 12/19/19 23:59 11:59 23:59 Output Total 300 / 800 500 / 800 Balance -300 / -800 -500 / -800 Weight 76.657 kg Output: Urine 300 / 800 500 / 800 Other: Urine Color Yellow Urine Appearance Clear Urine Odor None Comment Void x1 in the toilet. Voiding Methods Toilet Toilet Data Completed and Pending Labs on day of discharge: Labs from last 24 hours 12/19/19 12/19/19 12/19/19 13:09 10:15 08:11 WBC RBC Hgb Hct MCV MCH MCHC RDW Plt Count MPV Immature Gran % Neutrophils % Lymphocytes % Monocytes % Eosinophils % Basophils % Absolute Neutrophils Absolute Lymphocytes Absolute Monocytes Absolute Eosinophils Absolute Basophils PT INR APTT Sodium Potassium Chloride Carbon Dioxide Anion Gap BUN Creatinine Estimated GFR/1.73 m2 Glucose Calcium Total Bilirubin AST ALT Alkaline Phosphatase Troponin I < 0.05 < 0.05 NT-Pro-B Natriuret Pep Total Protein Albumin Lipase COVID-19 PCR Pending Nasopharyn COVID-19 PCR Pending Ref Test Perform Site Pending 12/19/19 12/19/19 12/19/19 05:20 05:20 05:20 WBC 7.13 RBC 4.67 Hgb 15.0 Hct 43.7 MCV 93.6 MCH 32.1 MCHC 34.3 RDW 12.7 Plt Count 339 MPV 9.6 Immature Gran % 0.3 Neutrophils % 56.9 Lymphocytes % 28.3 Monocytes % 10.4 Eosinophils % 3.5 Basophils % 0.6 Absolute Neutrophils 4.06 Absolute Lymphocytes 2.02 Absolute Monocytes 0.74 H Absolute Eosinophils 0.25 Absolute Basophils 0.04 PT 10.6 INR 1.1 APTT 33.0 H Sodium 135 L Potassium 3.5 Chloride 96 L Carbon Dioxide 29.6 Anion Gap 9.4 BUN 19 H Creatinine 1.15 H Estimated GFR/1.73 m2 44.95 Glucose 102 Calcium 8.8 Total Bilirubin 0.4 AST 24 ALT 25 Alkaline Phosphatase 68 Troponin I < 0.05 NT-Pro-B Natriuret Pep 1109 H Total Protein 8.0 Albumin 4.0 Lipase 90 COVID-19 PCR Nasopharyn COVID-19 PCR Ref Test Perform Site [facility] Medical History Acute midline low back pain without sciatica (Chronic 05/18/17) Atrial fibrillation (Chronic) Bladder cancer (Chronic 05/19/15) Dr. Guy Lechuga- non-invasive papillary urothellal carcinoma, low grade. 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, [facility] [place], RX Clopidogrel and Statin indefinitely Chronic obstructive pulmonary disease (Chronic 02/08/18) Essential hypertension (Chronic 06/23/13) Essential tremor (Chronic) Gastroesophageal reflux disease (Chronic 07/05/04) RESPONDS TO OMEPRAZOLE, BEFORE DINNER; ESOPHAGITIS ON EGD AT [facility] [place]: 07/05/04; gastritis and diffuse esophagitis; DR MERCADO REC [place]IF[place]ONG PPI RX Hyperlipidemia (Chronic 10/21/10) dyslipidemia: low HDL; statin begun by neuro 10/2010 after her TIA, along with Clopidogrel; target LDL<100 and HDL>40 Labile blood pressure (Chronic) Leg pain, left (Chronic 11/03/16) Neoplasm of large intestine (Acute 06/21/05) H/O POLYPS ON FIRST COLON IN [place]; NEG ON REPEAT; [place] DR BLAKE FOUND ONE HYPERPLASTIC POLYP Peripheral neuropathy, idiopathic (Acute 06/08/98) KNEE DISTAL, BILAT; INTERMITTENT BURNING, SLEEPS BETTER AT NIGHT IF SHE HAS WORN TIGHT SOCKS DAYTIME; nortriptyline effective; Dr Oneill; worse balance 02/2015 Thyroid function test abnormal (Resolved) Surgical History Appendectomy Biopsy of breast (07/09/76) both breasts, biopsies benign Cholecystectomy Colonoscopy - IV Sedation (03/22/16) Cystoscopy (04/29/15) Dr. Lechuga 02/05/18 repeat cysto cystourethroscopy (05/19/15) Dr Brian Lechuga [facility]-extensive recurrent bladder tumor encompassint entire L hemitrigone and posterolateral bladder wall and neck cystourethroscopy (08/07/17) Dr Brian Lechuga [facility]-extensive recurrent bladder tumor encompassint entire L hemitrigone and posterolateral bladder wall and neck Extraction of cataract (07/27/15) Dr Hu L eye R eye 2/2 Extraction of cataract (08/10/15) Dr Hu L eye R eye 2/2 History of thyroidectomy, total (Chronic 03/13/14) [facility] [place] for large multinodular goiter due to pressure on trachea Hx of thyroidectomy (Chronic) Thyroid (03/13/14) 9Complete thyroidectomy Dr. Sanchez [facility] [place], path: multinodular goiter Transurethral Resection of Bladder Tumor, 2-5cm (05/27/13) Dr. Ruano URO cysto (10/22/15) Guy Lechuga MD 12 weeks after her last BCG Family History Mother , amyloid Syndrome at age 73. No problems noted. Father , Heart attack at age 65. No problems noted. Sister , lung disease at age 80. No problems noted. Brother Age: 87 No problems noted. Brother No problems noted. Brother No problems noted. Social History Smoking/Tobacco Use Status: Former Tobacco Use Quit Date: 07/09/80 Pack-years: 35 Tobacco: How many years used: 35 Alcohol Intake: never Drug use: Never Substance use type: does not use Household members: spouse Housing: house Number of Children: 6 current occupation: Retired Pets and animals: Yes Current gender identity: female What type of physical activity do you participate in: none Do you feel safe at home: Yes Do you feel safe in your relationship?: Yes
[2019-12-19 22:10] LABS: COVID-19 RT-PCR UVMMC Result Negative (Negative)
== END 2019-12-19 16:20 | disposition home or self-care (01) ==
LOC: ER 10:21 → MS 11:19
PROVIDERS: Nurse Practitioner Acute Care; Student in an Organized Health Care Education/Training Program; Admitting Provider Internal Medicine; Emergency Provider Emergency Medicine; PCP Family Medicine; Visit Provider Internal Medicine
DX: R07.89 Other chest pain (principal); I48.0 Paroxysmal atrial fibrillation; I10 Essential (primary) hypertension; K21.9 Gastro-esophageal reflux disease without esophagitis; Z79.01 Long term (current) use of anticoagulants; Z79.02 Long term (current) use of antithrombotics/antiplatelets; J44.9 Chronic obstructive pulmonary disease, unspecified; Z86.73 Personal history of transient ischemic attack (TIA), and cerebral infarction without residual deficits; G47.33 Obstructive sleep apnea (adult) (pediatric); E89.0 Postprocedural hypothyroidism
CPT/HCPCS: 36415; 80053; 83690; 93005; 99214; 99220; 99254; 99285; NC; U0003; 71046; 83880; 84484; 85025; 85610; 85730; 93010; 99236; G0378

== ENCOUNTER → 2019-12-23 12:46 | Outpatient (BNVA) | payer MEDICARE, SELFPAY | PROVIDERS: PCP Family Medicine; Referring Provider Family Medicine; Visit Provider Psychiatry & Neurology Neurology | DX: M54.5 Low back pain (principal); G60.9 Hereditary and idiopathic neuropathy, unspecified; G25.0 Essential tremor; G47.61 Periodic limb movement disorder | CPT/HCPCS: 99214 ==

== ENCOUNTER → 2019-12-26 10:47 | Outpatient (BNVA) | payer MEDICARE, SELFPAY | PROVIDERS: PCP Family Medicine; Visit Provider Internal Medicine Cardiovascular Disease | DX: I48.0 Paroxysmal atrial fibrillation (principal); I10 Essential (primary) hypertension; I34.0 Nonrheumatic mitral (valve) insufficiency | CPT/HCPCS: 99204; 99215 ==

== ENCOUNTER → 2020-01-29 09:06 | Outpatient (BNVA) | payer MEDICARE, SELFPAY | PROVIDERS: PCP Family Medicine; Referring Provider Family Medicine; Visit Provider Psychiatry & Neurology Neurology | DX: G60.9 Hereditary and idiopathic neuropathy, unspecified (principal); G25.0 Essential tremor; G47.61 Periodic limb movement disorder; M54.5 Low back pain; I10 Essential (primary) hypertension; J44.9 Chronic obstructive pulmonary disease, unspecified; I48.91 Unspecified atrial fibrillation | CPT/HCPCS: 99213 ==

== ENCOUNTER 2020-04-09 04:44 | Outpatient (CLI) | payer MEDICARE, SELFPAY ==
--- NOTE | 2020-04-09 07:15 | DI.RAD_ITS ---
EXAM: XR KNEE LT 3V AP,LAT,MABEL INDICATION: Pain, swelling and bruise after fall; ? PATELLA FX,M25.562. COMPARISON: CR LEFT KNEE 3 VIEW COMPLETE from 10/18/2016 TECHNIQUE: 2D digital imaging was performed. FINDINGS: There is severe narrowing of the lateral femoral tibial joint which is new since the previous exam. Periarticular spurring and sclerosis is seen. There is spurring at the articular aspect of the [place] la. There is no evidence of patellar fracture. There is some anterior soft tissue swelling. 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 Anterior soft tissue swelling. No evan dence fracture. DATA REPOSITORY: RADIATION DOSE DELIVERED:
== END 2020-04-09 05:04 ==
PROVIDERS: PCP Family Medicine; Visit Provider Family Medicine
DX: M17.12 Unilateral primary osteoarthritis, left knee (principal); M25.562 Pain in left knee; M79.89 Other specified soft tissue disorders
CPT/HCPCS: 73562

== ENCOUNTER 2020-04-16 19:18 | Emergency (ER) | payer MEDICARE, SELFPAY ==
--- NOTE | 2020-04-16 19:22 | W.ED.GENAD ---
Discharge Plan Disposition Patient Disposition: HOME Condition: Fair Discharge Details Clinical Impression: Knee derangement Primary Care Provider: Elvis Muñoz ED Provider: Yasmin Mcdonald Home Meds and New Rx's Prescriptions: Continued fluticasone propionate 50 mcg/actuation spray,suspension 2 spray NS DAILY Qty: 19.8 RF: 3 nitroglycerin [Nitrostat] 0.3 mg tablet, sublingual 0.3 mg Sublingual Q5-15M PRN (Reason: chest pain/esophageal spasm) 1 Days Qty: 25 RF: 6 duloxetine 20 mg capsule,delayed release(DR/EC) 20 mg PO DAILY 30 Days Qty: 30 RF: 1 cholecalciferol (vitamin D3) 1,000 UNIT tablet 1,000 unit PO DAILY RF: 0 omega-3 fatty acids-fish oil 1 EACH capsule 1 ea PO DAILY RF: 0 cyanocobalamin (vitamin B-12) [Vitamin B-12] 500 MCG tablet 500 mcg PO DAILY RF: 0 acetaminophen 500 MG tablet 1,000 mg PO Q4H PRN RF: 0 clobetasol 15 GM ointment 15 gm Topical PRN Qty: 1 RF: 1 losartan 50 mg tablet 50 mg PO BID Qty: 180 RF: 3 alendronate 70 mg tablet 70 mg PO weekly Qty: 12 RF: 6 amlodipine 5 mg tablet 5 mg PO BID Qty: 180 RF: 3 atenolol 25 mg tablet 25 mg PO BID Qty: 180 RF: 3 hydrochlorothiazide 25 mg tablet 25 mg PO DAILY Qty: 90 RF: 3 levothyroxine 88 mcg tablet 88 mcg PO DAILY 90 Days Qty: 90 RF: 3 clopidogrel [Plavix] 75 mg tablet 75 mg PO DAILY Qty: 90 RF: 3 simvastatin 10 mg tablet 10 mg PO HS Qty: 90 RF: 3 omeprazole 20 mg capsule,delayed release(DR/EC) 20 mg PO DAILY Qty: 90 RF: 3 gabapentin 600 mg tablet See Rx Instructions PO DIRECTED Qty: 360 RF: 3 Eliquis 5 mg tablet 5 mg PO BID Qty: 180 RF: 3 Metamucil [facility] Fiber 660 GM powder 1 oz PO HS RF: 0 gabapentin 300 mg capsule 300 mg PO QDAY RF: 0 Discharge Instructions Instructions: Knee Sprain (DC) Additional Instructions: non-weight bearing wear brace for support and comfort continue usual medications, add oxycodone 5 mg twice daily for severe breakthrough pain continue ice for comfort Referrals: [facility] [OTHER] - (call sunday morning) Discharge Data Discharge Date/Time-TO BE ENTERED AT DEPARTURE: 04/16/20 22:[address] of the left knee shows had a generous collection overlying the patella and patella tendon: Most consistent with hematoma no evidence of underlying patellar fracture. Age indeterminant avulsion fracture within the fibular styloid near the proximal tibiofibular joint. Tricompartmental osteoarthritis with small joint effusion. She received oxycodone 5 mg p.o. with good improvement in her symptoms. Will apply knee brace recommend nonweightbearing and outpatient orthopedic follow-up Will dispense 5 mg oxycodone 4 tabs for home use for severe pain Lab Data Lab results reviewed: Yes I reviewed the patient's lab results. Lab results narrative: Laboratory Results - last 24 hr 04/16/20 04/16/20 04/16/20 19:45 19:45 19:45 WBC 9.60 RBC 4.31 Hgb 13.9 Hct 41.0 MCV 95.1 H MCH 32.3 MCHC 33.9 RDW 12.6 Plt Count 338 MPV 9.4 Immature Gran % 0.4 Neutrophils % 73.9 Lymphocytes % 15.9 Monocytes % 7.5 Eosinophils % 1.8 Basophils % 0.5 Nucleated RBC % 0 Absolute Neutrophils 7.09 H Absolute Lymphocytes 1.53 Absolute Monocytes 0.72 Absolute Eosinophils 0.17 Absolute Basophils 0.05 PT 11.0 INR 1.1 Sodium 131 L Potassium 3.5 Chloride 93 L Carbon Dioxide 28.0 Anion Gap 10.0 BUN 19 H Creatinine 1.06 H Estimated GFR/1.73 m2 49.39 Glucose 132 H Calcium 9.2 HPI General Date/Time Provider Initiated Documentation: 04/16/20 19:20. Information obtained by: patient. HPI Narrative: Patient presents for severe left knee pain which she has had since a fall that she had at the end of March. She saw her PCP and an x-ray showed no acute fracture. She has been elevating it icing it she has been ambulatory and tonight while making supper she said the pain was just so severe she could not take it any longer. She says that the swelling and the bruising has continued to improve slowly. She has had no fevers or chills. She has had no new injury Related Data Home Medications Medication Instructions Recorded Confirmed cholecalciferol (vitamin D3) 1,000 unit PO DAILY 09/17/12 04/16/20 omega-3 fatty acids-fish oil 1 ea PO DAILY cap 10/15/12 04/16/20 Metamucil [facility] Fiber 1 oz PO HS 05/27/13 04/16/20 cyanocobalamin (vitamin B-12) 500 mcg PO DAILY tab 11/19/15 04/16/20 [Vitamin B-12] acetaminophen 1,000 mg PO Q4H PRN tab-cap 03/16/17 04/16/20 clobetasol 15 gm TOPICAL PRN #1 tube 12/14/17 04/16/20 fluticasone propionate 50 2 spray NS DAILY #19.8 gm 09/09/19 04/16/20 mcg/actuation nasal spray,suspension nitroglycerin 0.3 mg sublingual 0.3 mg SUBLINGUAL Q5-15M PRN 1 09/09/19 04/16/20 tablet Days #25 tab-cap losartan 50 mg tablet 50 mg PO BID #180 tab 09/30/19 04/16/20 alendronate 70 mg tablet 70 mg PO weekly #12 tab 10/02/19 04/16/20 amlodipine 5 mg tablet 5 mg PO BID #180 tab-cap 10/16/19 04/16/20 atenolol 25 mg tablet 25 mg PO BID #180 tab 10/16/19 04/16/20 hydrochlorothiazide 25 mg tablet 25 mg PO DAILY #90 tab 10/21/19 04/16/20 levothyroxine 88 mcg tablet 88 mcg PO DAILY 90 Days #90 tab 10/28/19 04/16/20 clopidogrel 75 mg tablet 75 mg PO DAILY #90 tab 11/10/19 04/16/20 simvastatin 10 mg tablet 10 mg PO HS #90 tab-cap 11/10/19 04/16/20 omeprazole 20 mg capsule,delayed 20 mg PO DAILY #90 tab 11/25/19 04/16/20 release duloxetine 20 mg capsule,delayed 20 mg PO DAILY 30 Days #30 cap 02/04/20 04/08/20 release gabapentin 600 mg tablet See Rx Instructions PO DIRECTED 02/09/20 04/16/20 #360 tab apixaban 5 mg tablet 5 mg PO BID #180 tab 03/30/20 04/16/20 gabapentin 300 mg PO QDAY 04/16/20 04/16/20 Previous Rx's Medication Instructions Recorded clobetasol 15 gm TOPICAL PRN #1 tube 12/14/17 fluticasone propionate 50 2 spray NS DAILY #19.8 gm 09/09/19 mcg/actuation nasal spray,suspension nitroglycerin 0.3 mg sublingual 0.3 mg SUBLINGUAL Q5-15M PRN 1 09/09/19 tablet Days #25 tab-cap losartan 50 mg tablet 50 mg PO BID #180 tab 09/30/19 alendronate 70 mg tablet 70 mg PO weekly #12 tab 10/02/19 amlodipine 5 mg tablet 5 mg PO BID #180 tab-cap 10/16/19 atenolol 25 mg tablet 25 mg PO BID #180 tab 10/16/19 hydrochlorothiazide 25 mg tablet 25 mg PO DAILY #90 tab 10/21/19 levothyroxine 88 mcg tablet 88 mcg PO DAILY 90 Days #90 tab 10/28/19 clopidogrel 75 mg tablet 75 mg PO DAILY #90 tab 11/10/19 simvastatin 10 mg tablet 10 mg PO HS #90 tab-cap 11/10/19 omeprazole 20 mg capsule,delayed 20 mg PO DAILY #90 tab 11/25/19 release duloxetine 20 mg capsule,delayed 20 mg PO DAILY 30 Days #30 cap 02/04/20 release gabapentin 600 mg tablet See Rx Instructions PO DIRECTED 02/09/20 #360 tab apixaban 5 mg tablet 5 mg PO BID #180 tab 03/30/20 Allergies Allergy/AdvReac Type Severity Reaction Status Date / Time aspirin AdvReac Intermediate spsasm of Verified 04/16/20 19:31 the esophagus guaifenesin [From Mucinex] AdvReac Intermediate diarrhea Verified 04/16/20 19:31 General YEE: 2 Review of Systems All systems reviewed & are unremarkable except as noted in HPI and below Constitutional Constitutional: Denies fever(s) Musculoskeletal Musculoskeletal: Reports arthralgias and Reports joint swelling (Improving) [facility] Medical History (Updated 04/16/20 @ 21:42 by Yasmin Mcdonald NP) Acute midline low back pain without sciatica (05/18/17) Atrial fibrillation Bladder cancer (05/19/15) Dr. Guy Lechuga- non-invasive papillary urothellal carcinoma, low grade. Cerebrovascular disease, unspecified (10/07/10) 10/2010; small L THALAMIC CVA ON MRI, [facility] [place], RX Clopidogrel and Statin indefinitely Chronic obstructive pulmonary disease (02/08/18) Essential hypertension (06/23/13) Essential tremor Gastroesophageal reflux disease (07/05/04) RESPONDS TO OMEPRAZOLE, BEFORE DINNER; ESOPHAGITIS ON EGD AT [facility] [place]: 07/05/04; gastritis and diffuse esophagitis; DR MERCADO REC [place] PPI RX Hyperlipidemia (10/21/10) dyslipidemia: low HDL; statin begun by neuro 10/2010 after her TIA, along with Clopidogrel; target LDL<100 and HDL>40 Knee pain, left anterior Labile blood pressure Leg pain, left (11/03/16) 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 Lechuga 02/05/18 repeat cysto cystourethroscopy (05/19/15) Dr Brian Lechuga [facility]-extensive recurrent bladder tumor encompassint entire L hemitrigone and posterolateral bladder wall and neck cystourethroscopy (08/07/17) Dr Brian Lechuga [facility]-extensive recurrent bladder tumor encompassint entire L hemitrigone and posterolateral bladder wall and neck Extraction of cataract (07/27/15) Dr Mayte Gonzalez eye R eye 2/2 Extraction of cataract (08/10/15) Dr Mayte Gonzalez eye R eye 2/2 History of thyroidectomy, total (03/13/14) [facility] [place] for large multinodular goiter due to pressure on trachea Hx of thyroidectomy Thyroid (03/13/14) 9Complete thyroidectomy Dr. Sanchez [facility] [place], path: multinodular goiter Transurethral Resection of Bladder Tumor, 2-5cm (05/27/13) Dr. Ruano URO cysto (10/22/15) Guy Lechuga MD 12 weeks after her last BCG Family History Mother , amyloid Syndrome at age 73. No problems noted. Father , Heart attack at age 65. No problems noted. Sister , lung disease at age 80. No problems noted. Brother Age: 87 No problems noted. Brother No problems noted. Brother No problems noted. Social History Smoking/Tobacco Use Status: Former Tobacco Use Quit Date: 07/09/80 Pack-years: 35 Tobacco: How many years used: 35 Alcohol Intake: never Drug use: Never Substance use type: does not use Household members: spouse Housing: house Number of Children: 6 number of grandchildren: 17 current occupation: Retired Pets and animals: Yes Current gender identity: female What type of physical activity do you participate in: none and independent ambulation Do you feel safe at home: Yes Do you feel safe in your relationship?: Yes Exam Const General: cooperative, healthy appearing, no acute distress and acute distress moderate Nutritional Appearance: overweight Orientation: alert, awake and oriented x3 Cardio Rate: regular rate (pedal pulse strong) and other Rhythm: regular rhythm Extrem Left lower extremity: edema and knee Details: tenderness, swelling, abnormal ROM (severely limited d/t pain, knee stability not tested.) and ecchymosis (improving); abnormal ROM
[2020-04-16 19:24] VITALS: BP 125/83; PULSE 78; RESP 18; TEMP 36.4; O2SAT 97
--- NOTE | 2020-04-16 19:30 | DI.CT_ITS ---
EXAM: CT LOWER EXTREMITY LT WO CLINICAL HISTORY: trauma, pain swelling worsened with negative xray. TECHNIQUE: Imaging Protocol: Axial computed tomography images with coronal and sagittal reformatted images were created and reviewed. COMPARISON: CR XR KNEE LT 3V AP,LAT,MABEL from 04/09/2020 FINDINGS: Bones: There is a small avulsion fracture at the superior aspect of the fibula. This is age indeter minate. There is a question of a small nondisplaced fracture over the lateral aspect of the patella. This is age indeterminate. No dislocation is present. Bony alignment is satisfactory. Tricompart ment degenerative changes are present. Small joint effusion is present. No lytic or sclerotic lesio ns are identified. Soft Tissues: There is a heterogeneous fluid collection in the soft tissues overlying the patellar t endon and inferior patella measuring 1.7 cm x 6.2 cm x 7.8 cm. IMPRESSION: 1. Tiny avulsed fracture seen at the superior aspect of the fibula and the lateral aspect of the johnson lla. These are age indeterminate. 2. Heterogeneous fluid collection overlying the patellar tendon in the patella. This may represent a hematoma. 3. Tricompartment osteoarthritis with small joint effusion. RADIATION DOSE DELIVERED: 288.29mGy.cm Total DLP 288.29mGy.cm Total DLP DATA REPOSITORY: All CT scans at this facility are submitted to the National Radiology Data Registry (NRDR) Dose Index Registry (DIR) with the [employer] ([employer]). RADIATION OPTIMIZATION: All CT scans at this facility use at least one of these dose optimization te chniques: automated exposure control; mA and/or kV adjustment per patient size (includes targeted exa ms where dose is matched to clinical indication); or iterative reconstruction.
[2020-04-16 19:52] LABS: Abs Immature Grans 0.04 10^3/uL (0.0-0.06); Absolute Basophil Count 0.05 10^3/uL (0.0-0.2); Absolute Eosinophil Count 0.17 10^3/uL (0.0-0.7); Absolute Lymphocyte Count 1.53 10^3/uL (1.2-3.4); Absolute Monocyte Count 0.72 10^3/uL (0.1-0.8); Absolute Neutrophil Count 7.09 10^3/uL (1.2-6.7); Basophils % 0.5; Eosinophils % 1.8; HGB 13.9 g/dL (11.2-15.7); Immature Grans % 0.4; Lymphocytes % 15.9; MCH 32.3 pg (27.0-33.0); MCHC 33.9 % (32.0-36.0); MCV 95.1 fL (80-95); MPV 9.4 fL (8.0-11.0); Monocytes % 7.5; Neutrophils % 73.9; Nucleated RBC 0 %; Platelet Count 338 10^3/uL (130-400); RBC 4.31 10^6/uL (3.93-5.22); RDW 12.6 % (11.7-14.6); RDW-SD 44.1 fL
[2020-04-16 20:01] LABS: BUN 19 mg/dL (7-18); CREATININE 1.06 mg/dL (0.55-1.02); Calcium 9.2 mg/dL (8.5-10.1); Chloride 93 mmol/L (98-107); Estimated GFR 49.39 (mL/min/1.73m2); Glucose 132 mg/dL (74-106); Potassium 3.5 mmol/L (3.5-5.1); Sodium 131 mmol/L (136-145)
[2020-04-16 20:03] LABS: INR 1.1 (0.9-1.1)
[2020-04-16] MEDS: oxyCODONE 5 MG TAB PO (20:27)
[2020-04-16 21:07] VITALS: BP 127/62; PULSE 67; RESP 16; O2SAT 94
--- NOTE | 2020-04-22 16:03 | DI.VRAD_ITS ---
PROCEDURE INFORMATION: Exam: CT Left Lower Extremity With Contrast, Knee Exam date and time: 04/16/2020 7:40 PM Age: 84 years old Clinical indication: Other: Trauma, pain swelling worsening with negative xray TECHNIQUE: Imaging protocol: CT of the Left lower extremity with intravenous contrast was performed. Exam focused on the knee. COMPARISON: CR XR KNEE LT 3V AP,LAT,MABEL 04/09/2020 10:16 AM FINDINGS: Bones/joints: Mild osteoarthritic changes within the medial and patellofemoral compartments. Moderate osteoarthritic changes within the lateral compartment.. A small avulsion fracture is seen within the superior tip of the fibular styloid at the level of the tibiofibular joint. This is age indeterminate. A small joint effusion is seen. Soft tissues: A heterogeneous higher density collection is seen overlying the patella and patellar tendon, measuring 1.7 cm in depth, 6.2 cm in width, and 7.8 cm in craniocaudal length. This is most consistent with a subcutaneous hematoma. Small enthesophytes are seen at the patellar attachment of the quadriceps tendon. IMPRESSION: 1. Heterogeneous collection overlying the patella and patellar tendon most consistent with a hematoma. No evidence for underlying patellar fracture. 2. Age-indeterminate, possibly chronic, avulsion fracture within the fibular styloid near the proximal tibiofibular joint. Correlation with point tenderness is suggested. 3. Tricompartmental osteoarthritis with a small joint effusion. Dictated and Authenticated by: Leslie Yung MD. Ordering:AYAZ Hoffman MD
== END 2020-04-16 22:15 | disposition home or self-care (01) ==
PROVIDERS: Emergency Provider Nurse Practitioner Acute Care; PCP Family Medicine
DX: M23.8X2 Other internal derangements of left knee (principal); W19.XXXA Unspecified fall, initial encounter; J44.9 Chronic obstructive pulmonary disease, unspecified; I10 Essential (primary) hypertension
CPT/HCPCS: 29505; 36415; 80048; 99284; 73700; 85025; 85610; 99283; L1810

== ENCOUNTER 2020-04-22 08:26 | Outpatient (CLI) | payer MEDICARE, SELFPAY | END 2020-04-22 08:46 | PROVIDERS: PCP Family Medicine; Visit Provider Physician Assistant | DX: S80.02XA Contusion of left knee, initial encounter (principal); W18.30XA Fall on same level, unspecified, initial encounter; M17.12 Unilateral primary osteoarthritis, left knee; I10 Essential (primary) hypertension; J44.9 Chronic obstructive pulmonary disease, unspecified | CPT/HCPCS: 99214 ==

== ENCOUNTER → 2020-04-29 12:17 | Outpatient (BNVA) | payer MEDICARE, SELFPAY | PROVIDERS: PCP Family Medicine; Referring Provider Family Medicine; Visit Provider Psychiatry & Neurology Neurology | DX: G60.9 Hereditary and idiopathic neuropathy, unspecified (principal); G25.0 Essential tremor; G47.61 Periodic limb movement disorder; M54.5 Low back pain; I10 Essential (primary) hypertension | CPT/HCPCS: 99213 ==

== ENCOUNTER 2020-07-08 20:07 | Observation (INO) | payer MEDICARE, SELFPAY ==
[2020-07-08] VITALS (9 sets, daily range): BP systolic 134–147; BP diastolic 56–108; PULSE 66–99; RESP 16–23; TEMP 36.4–37; O2SAT 93–96
--- NOTE | 2020-07-08 20:15 | RT.EKG_ITS ---
APPROVED REPORT Exam: Resting ECG Patient Location: E HR:81 bpm ECG Measurements Heart Rate 81 AXIS DE [id number] P [id number] QRSd 81 QRS 74 QT 380 T 61 QTc 442 Conclusion Atrial fibrillation...? atrial activity Physician: Rate 81, atrial fibrillation, no significant ST elevation or depression, no signs of STEMI , small Q waves in lead III.
--- NOTE | 2020-07-08 20:24 | W.ED.GENAD ---
Discharge Plan Disposition Patient Disposition: [facility] INPATIENT Condition: Stable Discharge Details Chief Complaint: Chest Pain Clinical Impression: Heart palpitations, Atrial fibrillation Primary Care Provider: Elvis Muñoz ED Provider: Ayad Casas Home Meds and New Rx's Prescriptions: No Action fluticasone propionate 50 mcg/actuation spray,suspension 2 spray NS DAILY Qty: 19.8 RF: 3 nitroglycerin [Nitrostat] 0.3 mg tablet, sublingual 0.3 mg Sublingual Q5-15M PRN (Reason: chest pain/esophageal spasm) 1 Days Qty: 25 RF: 6 cholecalciferol (vitamin D3) 1,000 UNIT tablet 1,000 unit PO DAILY RF: 0 omega-3 fatty acids-fish oil 1 EACH capsule 1 ea PO DAILY RF: 0 cyanocobalamin (vitamin B-12) [Vitamin B-12] 500 MCG tablet 500 mcg PO DAILY RF: 0 acetaminophen 500 MG tablet 1,000 mg PO Q4H PRN RF: 0 clobetasol 15 GM ointment 15 gm Topical PRN Qty: 1 RF: 1 losartan 50 mg tablet 50 mg PO BID Qty: 180 RF: 3 alendronate 70 mg tablet 70 mg PO weekly Qty: 12 RF: 6 amlodipine 5 mg tablet 5 mg PO BID Qty: 180 RF: 3 atenolol 25 mg tablet 25 mg PO BID Qty: 180 RF: 3 hydrochlorothiazide 25 mg tablet 25 mg PO DAILY Qty: 90 RF: 3 levothyroxine 88 mcg tablet 88 mcg PO DAILY 90 Days Qty: 90 RF: 3 clopidogrel [Plavix] 75 mg tablet 75 mg PO DAILY Qty: 90 RF: 3 simvastatin 10 mg tablet 10 mg PO HS Qty: 90 RF: 3 omeprazole 20 mg capsule,delayed release(DR/EC) 20 mg PO DAILY Qty: 90 RF: 3 gabapentin 600 mg tablet See Rx Instructions PO DIRECTED Qty: 360 RF: 3 Eliquis 5 mg tablet 5 mg PO BID Qty: 180 RF: 3 gabapentin 300 mg capsule 300 mg PO QDAY Qty: 90 RF: 3 Metamucil [facility] Fiber 660 GM powder 1 oz PO HS RF: 0 Medical Decision Making 84-year-old female with a past medical history of bladder cancer, rate controlled A. fib with atenolol, on Eliquis, previous stroke/TIA on lifelong Plavix, high cholesterol, hypertension, mitral valve disease presents today for evaluation of palpitations. Patient states that 1 to 2 hours prior to arrival when she had symptoms of fluttering in her chest, shortly thereafter she would feel her heart rate go up and then shortly thereafter it would go back down at which point she would feel extremely fatigued. She denies any alcohol, change in medications, increased caffeine intake, or change in hydration status. She denies fever chills urinary complaints nausea vomiting or diarrhea. No other complaints at this time. She denies missing any of her medications. No other modifying factors. She denies any chest pain, chest tightness, pleuritic chest pain, chest heaviness, arm neck or shoulder pain. Physical exam is unremarkable, EKG shows A. fib but no evidence of heart strain or STEMI. Small Q-wave noted in lead III. Differential includes mild dehydration, intermittent A. fib, however she is notably hemodynamically stable at this time. Will monitor, gently rehydrate, evaluate for electrolyte abnormality and reassess. 9:58 PM Laboratory work-up has returned, CBC unremarkable, normal electrolytes, good renal function aside for sodium being slightly low at 133, renal function normal. Urinalysis negative for infection. Trace leukoesterase is present, however RBC and WBC are in identifiable and secondary to so many epithelial cells. She has no dysuria or frequency, she has no white count, symptoms inconsistent with UTI. The patient did have a brief episode of dysrhythmia at 930, however there is notable artifact present. Uncertain as to what this is. Patient states that she felt notably uncomfortable when that occurred, and continues to feel shaky after the event. She denies any chest pain. With the patient's persistent symptoms, I do feel that she would benefit from overnight observation continue telemetry monitoring and echo in the morning. We will consult hospitalist for admission. 10:27 PM Discussed the case with Dr. Parker her, he agrees with the assessment and plan. I will place bridging orders. I have extensively reviewed the treatment plan with the patient. I have addressed all patient concerns at this time. I have also discussed the plan with the admitting physician and they agree with the current assessment and plan and have agreed to assume responsibility for the patient. All parties demonstrate verbal understanding and agreement with our assessment and plan at this time. EKG 20: 20 Rate 81, atrial fibrillation, no significant ST elevation or depression, no signs of STEMI, small Q waves in lead III. FINDINGS: Lungs: Unremarkable. No consolidation. Pleural space: Asymmetric increased density overlies left lateral costophrenic angle region. No pneumothorax. Heart/Mediastinum: Unremarkable. No cardiomegaly. Diaphragm: Eventrations of right hemidiaphragm. Bones/joints: Unremarkable. IMPRESSION: Left intra fissural fluid or small pleural effusion. Thank you for allowing us to participate in the care of your patient. Dictated and Authenticated by: Elvis Norton DO 07/08/2020 9:09 PM Eastern Time ([place] & [place]) HPI General Date/Time Provider Initiated Documentation: 07/08/20 20:21. HPI Narrative: 84-year-old female with a past medical history of bladder cancer, rate controlled A. fib with atenolol, on Eliquis, previous stroke/TIA on lifelong Plavix, high cholesterol, hypertension, mitral valve disease presents today for evaluation of palpitations. Patient states that 1 to 2 hours prior to arrival when she had symptoms of fluttering in her chest, shortly thereafter she would feel her heart rate go up and then shortly thereafter it would go back down at which point she would feel extremely fatigued. She denies any alcohol, change in medications, increased caffeine intake, or change in hydration status. She denies fever chills urinary complaints nausea vomiting or diarrhea. No other complaints at this time. She denies missing any of her medications. No other modifying factors. She denies any chest pain, chest tightness, pleuritic chest pain, chest heaviness, arm neck or shoulder pain. Related Data Home Medications Medication Instructions Recorded Confirmed cholecalciferol (vitamin D3) 1,000 unit PO DAILY 09/17/12 07/08/20 omega-3 fatty acids-fish oil 1 ea PO DAILY cap 10/15/12 07/08/20 Metamucil [facility] Fiber 1 oz PO HS 05/27/13 07/08/20 cyanocobalamin (vitamin B-12) 500 mcg PO DAILY tab 11/19/15 07/08/20 [Vitamin B-12] acetaminophen 1,000 mg PO Q4H PRN tab-cap 03/16/17 07/08/20 clobetasol 15 gm TOPICAL PRN #1 tube 12/14/17 07/08/20 fluticasone propionate 50 2 spray NS DAILY #19.8 gm 09/09/19 07/08/20 mcg/actuation nasal spray,suspension nitroglycerin 0.3 mg sublingual 0.3 mg SUBLINGUAL Q5-15M PRN 1 09/09/19 07/08/20 tablet Days #25 tab-cap losartan 50 mg tablet 50 mg PO BID #180 tab 09/30/19 07/08/20 alendronate 70 mg tablet 70 mg PO weekly #12 tab 10/02/19 07/08/20 amlodipine 5 mg tablet 5 mg PO BID #180 tab-cap 10/16/19 07/08/20 atenolol 25 mg tablet 25 mg PO BID #180 tab 10/16/19 07/08/20 hydrochlorothiazide 25 mg tablet 25 mg PO DAILY #90 tab 10/21/19 07/08/20 levothyroxine 88 mcg tablet 88 mcg PO DAILY 90 Days #90 tab 10/28/19 07/08/20 clopidogrel 75 mg tablet 75 mg PO DAILY #90 tab 11/10/19 07/08/20 simvastatin 10 mg tablet 10 mg PO HS #90 tab-cap 11/10/19 07/08/20 omeprazole 20 mg capsule,delayed 20 mg PO DAILY #90 tab 11/25/19 07/08/20 release gabapentin 600 mg tablet See Rx Instructions PO DIRECTED 02/09/20 07/08/20 #360 tab apixaban 5 mg tablet 5 mg PO BID #180 tab 03/30/20 07/08/20 gabapentin 300 mg capsule 300 mg PO QDAY #90 cap 06/15/20 07/08/20 Previous Rx's Medication Instructions Recorded clobetasol 15 gm TOPICAL PRN #1 tube 12/14/17 fluticasone propionate 50 2 spray NS DAILY #19.8 gm 09/09/19 mcg/actuation nasal spray,suspension nitroglycerin 0.3 mg sublingual 0.3 mg SUBLINGUAL Q5-15M PRN 1 09/09/19 tablet Days #25 tab-cap losartan 50 mg tablet 50 mg PO BID #180 tab 09/30/19 alendronate 70 mg tablet 70 mg PO weekly #12 tab 10/02/19 amlodipine 5 mg tablet 5 mg PO BID #180 tab-cap 10/16/19 atenolol 25 mg tablet 25 mg PO BID #180 tab 10/16/19 hydrochlorothiazide 25 mg tablet 25 mg PO DAILY #90 tab 10/21/19 levothyroxine 88 mcg tablet 88 mcg PO DAILY 90 Days #90 tab 10/28/19 clopidogrel 75 mg tablet 75 mg PO DAILY #90 tab 11/10/19 simvastatin 10 mg tablet 10 mg PO HS #90 tab-cap 11/10/19 omeprazole 20 mg capsule,delayed 20 mg PO DAILY #90 tab 11/25/19 release gabapentin 600 mg tablet See Rx Instructions PO DIRECTED 02/09/20 #360 tab apixaban 5 mg tablet 5 mg PO BID #180 tab 03/30/20 gabapentin 300 mg capsule 300 mg PO QDAY #90 cap 06/15/20 Allergies Allergy/AdvReac Type Severity Reaction Status Date / Time aspirin AdvReac Intermediate spsasm of Verified 07/08/20 21:57 the esophagus guaifenesin [From Mucinex] AdvReac Intermediate diarrhea Verified 07/08/20 21:57 General Stated Complaint: Chest Pain YEE: 2 Review of Systems All systems reviewed & are unremarkable except as noted in HPI and below PFSH Medical History Acute midline low back pain without sciatica (05/18/17) Anterior epistaxis Recurrent, responds to AgNO3 cautery Atrial fibrillation Bladder cancer (05/19/15) Dr. Guy Lechuga- non-invasive papillary urothellal carcinoma, low grade. Cerebrovascular disease, unspecified (10/07/10) 10/2010; small [place]AM[place] [facility] [place] Clop[place] and Statin indefinitely Chronic obstructive pulmonary disease (02/08/18) Essential hypertension (06/23/13) Essential tremor Gastroesophageal reflux disease (07/05/04) RESPONDS TO OMEPRAZOLE, BEFORE DINNER; ESOPHAGITIS ON EGD [place] [facility] [place] 07/05/04; gastritis and diffuse esophagitis; DR MERCADO [facility] [place] PPI RX Hyperlipidemia (10/21/10) dyslipidemia: low HDL; statin begun by neuro 10/2010 after her TIA, along with Clopidogrel; target LDL<100 and HDL>40 Knee pain, left anterior Labile blood pressure Leg pain, left (11/03/16) 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 Lechuga 02/05/18 repeat cysto cystourethroscopy (05/19/15) Dr Brian Lechuga [facility]-extensive recurrent bladder tumor encompassint entire L hemitrigone and posterolateral bladder wall and neck cystourethroscopy (08/07/17) Dr Brian Lechuga [facility]-extensive recurrent bladder tumor encompassint entire L hemitrigone and posterolateral bladder wall and neck Extraction of cataract (07/27/15) Dr Mayte Gonzalez eye R eye 2/2 Extraction of cataract (08/10/15) Dr Hu L eye R eye 2/2 History of thyroidectomy, total (03/13/14[place] [facility] [place] multinod[place] go[place] due to pressure on trachea Hx of thyroidectomy Thyroid (03/13/14) 9Complete thyroidectomy Dr. Sanchez [facility] [place]: multinodular goiter Transurethral Resection of Bladder Tumor, 2-5cm (05/27/13) Dr. Ruano URO cysto (10/22/15) Guy Lechuga MD 12 weeks after her last BCG Family History Mother , amyloid Syndrome at age 73. No problems noted. Father , Heart attack at age 65. No problems noted. Sister , lung disease at age 80. No problems noted. Brother Age: 87 No problems noted. Brother No problems noted. Brother No problems noted. Social History Smoking/Tobacco Use Status: Former Tobacco Use Quit Date: 07/09/80 Pack-years: 35 Tobacco: How many years used: 35 Smoking risk assessment performed?: Yes Alcohol Intake: never Drug use: Never Substance use type: does not use Household members: spouse Housing: house Number of Children: 6 number of grandchildren: 17 current occupation: Retired Pets and animals: Yes Current gender identity: female What type of physical activity do you participate in: none and independent ambulation Do you feel safe at home: Yes Do you feel safe in your relationship?: Yes Exam Narrative Exam Narrative: 1.Const: Well-nourished, Well-developed, appearing stated age 2.Eyes: PERRL, no conjunctival injection, and symmetrical lids. 3.ENT: Atraumatic external nose and ears. Moist MM. Neck: Symmetric, trachea midline, No thyromegaly. 4.CVS: +S1/S2, No murmurs or gallops. Peripheral pulses 2+ and equal in all extremities. Brisk capillary refill in all extremities. 5.RESP: Unlabored respiratory effort. Clear to auscultation bilaterally. No wheezes rales or rhonchi 6.GI: Soft, Nontender/Nondistended, No hepatosplenomegaly. No guarding or rebound. 7.MSK: Normocephalic/Atraumatic, Extremities w/o deformity or ttp No cyanosis or clubbing, Normal movement of all extremities , No calf tenderness. 8.Skin: Warm, Dry. No rashes or lesions. 9.Neuro: culinary intern II-XII grossly intact. Sensation grossly intact, no focal neurologic deficits. 10.Psych: (AAO) x3. Appropriate mood and affect Course Vital Signs Vital signs: Vital Signs Temperature 36.4 C L 07/08/20 20:16 Pulse 87 07/08/20 20:16 Respiratory Rate 17 07/08/20 20:16 Blood Pressure 135/108 H 07/08/20 20:16 Pulse Oximetry 96 07/08/20 20:16 Temperature 36.4 C L 07/08/20 20:16 Temperature Source Temporal Artery Scan 07/08/20 20:16 Pulse 87 07/08/20 20:16 Respiratory Rate 17 07/08/20 20:16 Blood Pressure 135/108 H 07/08/20 20:16 Blood Pressure Position Supine 07/08/20 20:16 Pulse Oximetry 96 07/08/20 20:16 Pain Level 0 07/08/20 20:16
[2020-07-08 20:33] LABS: Abs Immature Grans 0.02 10^3/uL (0.0-0.06); Absolute Basophil Count 0.04 10^3/uL (0.0-0.2); Absolute Eosinophil Count 0.16 10^3/uL (0.0-0.7); Absolute Lymphocyte Count 1.47 10^3/uL (1.2-3.4); Absolute Monocyte Count 0.84 10^3/uL (0.1-0.8); Absolute Neutrophil Count 6.27 10^3/uL (1.2-6.7); Basophils % 0.5; Eosinophils % 1.8; HCT 45.7 % (36.0-46.0); HGB 15.1 g/dL (11.2-15.7); Immature Grans % 0.2; Lymphocytes % 16.7; MCH 31.3 pg (27.0-33.0); MCV 94.6 fL (80-95); MPV 9.5 fL (8.0-11.0); Monocytes % 9.5; Neutrophils % 71.3; Nucleated RBC 0 %; Platelet Count 326 10^3/uL (130-400); RBC 4.83 10^6/uL (3.93-5.22); RDW 12.2 % (11.7-14.6); RDW-SD 42.3 fL
[2020-07-08] MEDS: Normal Saline 500 ML IV (20:33)
[2020-07-08 20:43] LABS: Bilirubin Negative (Negative); Blood Small (Negative); Clarity Sl Cloudy (Clear); Glucose Negative (Negative); Ketones Negative (Negative); Leukocyte Esterase Trace (Negative); Nitrite Negative (Negative); Urobilinogen 0.2 EU/dL (Up TO 0.2)
[2020-07-08 20:48] LABS: INR 1.1 (0.9-1.1); PTT Activated 31.1 sec (21.0-27.5); Prothrombin Time 11.2 sec (9.3-11.0)
[2020-07-08 20:51] LABS: Bacteria Many HPF (Negative); Epithelial Cells Many HPF (Negative)
[2020-07-08 20:52] LABS: C & S Indicated? No/Sq. Contamination
--- NOTE | 2020-07-08 20:57 | DI.RAD_ITS ---
EXAM: XR PORTABLE CHEST AP CLINICAL HISTORY: sob, palpitation. TECHNIQUE: 2D digital imaging was performed. COMPARISON: CR,XR XR CHEST 2V PA LATERAL from 12/19/2019 FINDINGS: LUNGS: Clear. No pleural abnormality seen. HEART: Normal. MEDIASTINUM: Normal. OTHER FINDINGS: None. IMPRESSION: No acute pulmonary findings. DATA REPOSITORY: RADIATION DOSE DELIVERED: Total DLP
[2020-07-08 21:00] LABS: ALT 23 U/L (14-59); AST 20 U/L (15-37); Albumin 3.9 g/dL (3.4-5.0); Alkaline Phosphatase 65 U/L (46-116); Anion Gap 7.8 mmol/L (3-11); BUN 19 mg/dL (7-18); Bilirubin, Total 0.4 mg/dL (0.2-1.0); CO2 29.2 mmol/L (21.0-32.0); CREATININE 0.97 mg/dL (0.55-1.02); Chloride 96 mmol/L (98-107); Estimated GFR 54.71 (mL/min/1.73m2); Glucose 130 mg/dL (74-106); Magnesium 1.8 mg/dL (1.8-2.4); NT-proBNP 1268 pg/mL (<300); Potassium 3.5 mmol/L (3.5-5.1); Sodium 133 mmol/L (136-145); TSH (W/Ref FT4) 0.97 uIU/mL (0.36-3.74); Total Protein 7.9 g/dL (6.4-8.2)
[2020-07-08 21:04] LABS: Troponin I < 0.05 ng/mL (<0.06)
--- NOTE | 2020-07-08 21:09 | DI.VRAD_ITS ---
PROCEDURE INFORMATION: Exam: XR Chest, 1 View Exam date and time: 07/08/2020 8:58 PM Age: 84 years old Clinical indication: Shortness of breath TECHNIQUE: Imaging protocol: XR of the chest Views: 1 view. COMPARISON: CR XR CHEST 2V PA LATERAL 12/19/2019 5:35 AM FINDINGS: Lungs: Unremarkable. No consolidation. Pleural space: Asymmetric increased density overlies left lateral costophrenic angle region. No pneumothorax. Heart/Mediastinum: Unremarkable. No cardiomegaly. Diaphragm: Eventrations of right hemidiaphragm. Bones/joints: Unremarkable. IMPRESSION: Left intra fissural fluid or small pleural effusion. Dictated and Authenticated by: Elvis Norton MD. Ordering:CORETTA Lion MD
[2020-07-08 22:35] LABS: Source Nasopharynx
[2020-07-08 23:13] LABS: Influenza A PCR Negative (Negative); Influenza B PCR Negative (Negative); RSV PCR Negative (Negative)
[2020-07-08 23:21] LABS: COVID-19 PCR Negative (Negative)
[2020-07-08 23:40] LABS: Troponin I < 0.05 ng/mL (<0.06)
[2020-07-09] VITALS (8 sets, daily range): BP systolic 105–163; BP diastolic 68–79; PULSE 61–82; RESP 16–18; TEMP 36.3–36.9; O2SAT 93–96
[2020-07-09] MEDS: Normal Saline Flush 10 ML SYR IVP ×2 (00:09→08:07)
[2020-07-09] MEDS: Gabapentin 400 MG CAP 1200 MG PO (00:48)
[2020-07-09] MEDS: Levothyroxine 88 MCG TAB PO (05:14)
--- NOTE | 2020-07-09 06:53 | W.PM.HP.N ---
Date of service: 07/09/20 Time of Service: 06:53 Assessment and Plan Assessment and plan (1) Anterior epistaxis: Status: Chronic Assessment and plan: Has had intermittent episodes that have not been related to elevated BP. Recent cauterization in left nasal passage with silver nitrate. Skin irritation on the left nasal-labial area from exposure to silver nitrate. (2) Mitral valve insufficiency: Status: Chronic Assessment and plan: She has outpt echocardiogram scheduled in the near future as well as an appt with Dr Diallo on 08/05/2020 (3) Essential tremor: Status: Chronic Assessment and plan: She states this is a relatively new development. Not currently exacerbated. (4) Peripheral neuropathy, idiopathic: Status: Acute Assessment and plan: Cont her current gabapentin dosing. (5) History of thyroidectomy, total: Status: Chronic Assessment and plan: On thyroid replacement. TSH in normal range. (6) Essential hypertension: Status: Chronic Assessment and plan: Continue home medications: atenolol, amlodipine, HCTZ and Losartan. Monitor. (7) Atrial fibrillation: Status: Chronic Assessment and plan: Telemetry monitoring. Qualifiers: Atrial fibrillation type: paroxysmal Qualified Code(s): I48.0 - Paroxysmal atrial fibrillation (8) Flushing: Status: Acute Assessment and plan: Unclear etiology. She does state that this has happened in past with elevated BPs, though her home reading was not elevated just after the episode that brought her to the ED. Her initial BP in the ED was 135/108. The elevated systolic BP could be the cause of the symptoms. Will obtain orthostatic BP readings though she had been sitting when the symptoms occurred. History of Present Illness History of Present Illness Chief Complaint: Flushed sensation Narrative: This is an 84 yo female with a PMH of Afib on atenolol for rate control, Eliquis for AC, bladder cancer, stroke/TIA on Plavix/statin, HTN, mitral valve disease. She presented to the ED after having a sensation of feeling flushed from the face distally while sitting quietly. She then had some shaking. She endorsed to me that she did not note any palpitations or racing heart or CP at the time. This is in contrast to what was documented in the ED that stated she had symptoms of fluttering in her chest, then, feeling variations in her heart rate. She did endorse feeling very fatigued after this. She had not taken any new medications, increased caffeine. She took her BP at the time of the episode and her SBP was in the 140's, DBP of 101. She stated that her BP is typically in the 120's but has had some readings in the 130's. No recent diastolic elevations prior to the 101 reading. In the ED an EKG showed atrial fibrillation w/o T-wave or ST changes. Her CBC was normal. Na 133, K 3.5, creatinine 0.97. TSH 0.97. NT-pro-BNP 1268 ( only slightly above previous readings). Covid-19 testing negative. Review of Systems All systems reviewed & are unremarkable except as noted in HPI and below [facility] Medical History Acute midline low back pain without sciatica (05/18/17) Anterior epistaxis Recurrent, responds to AgNO3 cautery Atrial fibrillation Bladder cancer (05/19/15) Dr. Guy Lechuga- non-invasive papillary urothellal carcinoma, low grade. Cerebrovascular disease, unspecified (10/07/10) 10/2010; small L THALAMIC CVA ON MRI, [facility], RX Clopidogrel and Statin indefinitely Chronic obstructive pulmonary disease (02/08/18) Essential hypertension (06/23/13) Essential tremor Gastroesophageal reflux disease (07/05/04) RESPONDS TO OMEPRAZOLE, BEFORE DINNER; ESOPHAGITIS ON EGD AT [facility]: 07/05/04; gastritis and diffuse esophagitis; DR MERCADO REC [place]IF[place] PPI RX Hyperlipidemia (10/21/10) dyslipidemia: low HDL; statin begun by neuro 10/2010 after her TIA, along with Clopidogrel; target LDL<100 and HDL>40 Knee pain, left anterior Labile blood pressure Leg pain, left (11/03/16) 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 Lechuga 02/05/18 repeat cysto cystourethroscopy (05/19/15) Dr Brian Lechuga [facility]-extensive recurrent bladder tumor encompassint entire L hemitrigone and posterolateral bladder wall and neck cystourethroscopy (08/07/17) Dr Brian Lechuga [facility]-extensive recurrent bladder tumor encompassint entire L hemitrigone and posterolateral bladder wall and neck Extraction of cataract (07/27/15) Dr Hu L eye R eye 2/2 Extraction of cataract (08/10/15) Dr Hu L eye R eye 2/2 History of thyroidectomy, total (03/13/14) [facility] for large multinodular goiter due to pressure on trachea Hx of thyroidectomy Thyroid (03/13/14) 9Complete thyroidectomy Dr. Sanchez [facility], path: multinodular goiter Transurethral Resection of Bladder Tumor, 2-5cm (05/27/13) Dr. Ruano URO cysto (10/22/15) Guy Lechuga MD 12 weeks after her last BCG Family History Mother , amyloid Syndrome at age 73. No problems noted. Father , Heart attack at age 65. No problems noted. Sister , lung disease at age 80. No problems noted. Brother Age: 87 No problems noted. Brother No problems noted. Brother No problems noted. Social History Smoking/Tobacco Use Status: Former Tobacco Use Quit Date: 07/09/80 Pack-years: 35 Tobacco: How many years used: 35 Smoking risk assessment performed?: Yes Alcohol Intake: never Drug use: Never Substance use type: does not use Household members: spouse Housing: house Number of Children: 6 number of grandchildren: 17 current occupation: Retired Pets and animals: Yes Current gender identity: female What type of physical activity do you participate in: none and independent ambulation Do you feel safe at home: Yes Do you feel safe in your relationship?: Yes Meds Home Medications and Allergies Home Medications Medication Instructions Recorded Confirmed Type cholecalciferol (vitamin D3) 1,000 unit PO DAILY 09/17/12 07/08/20 History omega-3 fatty acids-fish oil 1 ea PO DAILY cap 10/15/12 07/08/20 History Metamucil [facility] Fiber 1 oz PO HS 05/27/13 07/08/20 History cyanocobalamin (vitamin B-12) 500 mcg PO DAILY tab 11/19/15 07/08/20 History [Vitamin B-12] acetaminophen 1,000 mg PO Q4H PRN tab-cap 03/16/17 07/08/20 History clobetasol 15 gm TOPICAL PRN #1 tube 12/14/17 07/08/20 Rx fluticasone propionate 50 2 spray NS DAILY #19.8 gm 09/09/19 07/08/20 Rx mcg/actuation nasal spray,suspension nitroglycerin 0.3 mg sublingual 0.3 mg SUBLINGUAL Q5-15M PRN 1 09/09/19 07/08/20 Rx tablet Days #25 tab-cap losartan 50 mg tablet 50 mg PO BID #180 tab 09/30/19 07/08/20 Rx alendronate 70 mg tablet 70 mg PO weekly #12 tab 10/02/19 07/08/20 Rx amlodipine 5 mg tablet 5 mg PO BID #180 tab-cap 10/16/19 07/08/20 Rx atenolol 25 mg tablet 25 mg PO BID #180 tab 10/16/19 07/08/20 Rx hydrochlorothiazide 25 mg tablet 25 mg PO DAILY #90 tab 10/21/19 07/08/20 Rx levothyroxine 88 mcg tablet 88 mcg PO DAILY 90 Days #90 tab 10/28/19 07/08/20 Rx clopidogrel 75 mg tablet 75 mg PO DAILY #90 tab 11/10/19 07/08/20 Rx simvastatin 10 mg tablet 10 mg PO HS #90 tab-cap 11/10/19 07/08/20 Rx omeprazole 20 mg capsule,delayed 20 mg PO DAILY #90 tab 11/25/19 07/08/20 Rx release gabapentin 600 mg tablet See Rx Instructions PO DIRECTED 02/09/20 07/08/20 Rx #360 tab apixaban 5 mg tablet 5 mg PO BID #180 tab 03/30/20 07/08/20 Rx gabapentin 300 mg capsule 300 mg PO QDAY #90 cap 06/15/20 07/08/20 Rx Allergies Allergy/AdvReac Type Severity Reaction Status Date / Time aspirin AdvReac Intermediate spsasm of Verified 07/08/20 21:57 the esophagus guaifenesin [From Mucinex] AdvReac Intermediate diarrhea Verified 07/08/20 21:57 Exam Const General: cooperative and no acute distress Nutritional Appearance: overweight Orientation: alert and oriented x3 HENMT Head: normocephalic and atraumatic Resp Effort & Inspection: normal respiratory effort Auscultation: clear to auscultation bilaterally Cardio Jugular venous pressure: no JVD Other: Irreg Irreg GI Palpation: soft and nontender Auscultation: normal bowel sounds Skin Rashes: no rashes Full body images: 1. crusted lesion on left nasal-labial area. Neuro General: moves all extremities and no focal motor deficits Cognition: normal cognition Speech: speech normal Extrem General: no pedal edema, no calf tenderness and other (diffuse tenderness to light touch of BLEs below the knees ) Psych Appearance: grossly normal Speech and Movement: speech and movement normal Affect: normal affect Results Labs Result diagrams: 07/08/20 20:25 07/08/20 20:25 Labs: Laboratory Results - last 24 hr 07/08/20 07/08/20 07/08/20 20:25 20:25 20:25 WBC 8.80 RBC 4.83 Hgb 15.1 Hct 45.7 MCV 94.6 MCH 31.3 MCHC 33.0 RDW 12.2 Plt Count 326 MPV 9.5 Immature Gran % 0.2 Neutrophils % 71.3 Lymphocytes % 16.7 Monocytes % 9.5 Eosinophils % 1.8 Basophils % 0.5 Nucleated RBC % 0 Absolute Neutrophils 6.27 Absolute Lymphocytes 1.47 Absolute Monocytes 0.84 H Absolute Eosinophils 0.16 Absolute Basophils 0.04 PT 11.2 H INR 1.1 APTT 31.1 H Sodium 133 L Potassium 3.5 Chloride 96 L Carbon Dioxide 29.2 Anion Gap 7.8 BUN 19 H Creatinine 0.97 Estimated GFR/1.73 m2 54.71 Glucose 130 H Calcium 9.0 Magnesium 1.8 Total Bilirubin 0.4 AST 20 ALT 23 Alkaline Phosphatase 65 Troponin I < 0.05 NT-Pro-B Natriuret Pep 1268 H Total Protein 7.9 Albumin 3.9 TSH 0.97 Urine Color Urine Clarity Urine pH Ur Specific [place] Urine Protein Urine Ketones Urine Blood Urine Nitrite Urine Bilirubin Urine Urobilinogen Ur Leukocyte Esterase Urine RBC Urine WBC Ur Epithelial Cells Urine Crystals Urine Bacteria Urine Mucus Ur Culture Indicated? Urine Glucose COVID-19 Source SARS-CoV-2 (PCR) Nasopharyn COVID-19 PCR Influenza Type A (PCR) Influenza Type B (PCR) RSV (PCR) Ref Test Perform Site 07/08/20 07/08/20 07/08/20 20:36 22:26 22:30 WBC RBC Hgb Hct MCV MCH MCHC RDW Plt Count MPV Immature Gran % Neutrophils % Lymphocytes % Monocytes % Eosinophils % Basophils % Nucleated RBC % Absolute Neutrophils Absolute Lymphocytes Absolute Monocytes Absolute Eosinophils Absolute Basophils PT INR APTT Sodium Potassium Chloride Carbon Dioxide Anion Gap BUN Creatinine Estimated GFR/1.73 m2 Glucose Calcium Magnesium Total Bilirubin AST ALT Alkaline Phosphatase Troponin I NT-Pro-B Natriuret Pep Total Protein Albumin TSH Urine Color Yellow Urine Clarity Sl cloudy Urine pH 7.0 Ur Specific [place] 1.020 Urine Protein 30 H Urine Ketones Negative Urine Blood Small H Urine Nitrite Negative Urine Bilirubin Negative Urine Urobilinogen 0.2 Ur Leukocyte Esterase Trace H Urine RBC Urine WBC Ur Epithelial Cells Many Urine Crystals Not Applicable Urine Bacteria Many Urine Mucus Not Applicable Ur Culture Indicated? No/sq. contamination Urine Glucose Negative COVID-19 Source Nasopharynx SARS-CoV-2 (PCR) Cancelled Negative Nasopharyn COVID-19 PCR Cancelled Influenza Type A (PCR) Negative Influenza Type B (PCR) Negative RSV (PCR) Negative Ref Test Perform Site Cancelled 07/08/20 23:10 WBC RBC Hgb Hct MCV MCH MCHC RDW Plt Count MPV Immature Gran % Neutrophils % Lymphocytes % Monocytes % Eosinophils % Basophils % Nucleated RBC % Absolute Neutrophils Absolute Lymphocytes Absolute Monocytes Absolute Eosinophils Absolute Basophils PT INR APTT Sodium Potassium Chloride Carbon Dioxide Anion Gap BUN Creatinine Estimated GFR/1.73 m2 Glucose Calcium Magnesium Total Bilirubin AST ALT Alkaline Phosphatase Troponin I < 0.05 NT-Pro-B Natriuret Pep Total Protein Albumin TSH Urine Color Urine Clarity Urine pH Ur Specific [place] Urine Protein Urine Ketones Urine Blood Urine Nitrite Urine Bilirubin Urine Urobilinogen Ur Leukocyte Esterase Urine RBC Urine WBC Ur Epithelial Cells Urine Crystals Urine Bacteria Urine Mucus Ur Culture Indicated? Urine Glucose COVID-19 Source SARS-CoV-2 (PCR) Nasopharyn COVID-19 PCR Influenza Type A (PCR) Influenza Type B (PCR) RSV (PCR) Ref Test Perform Site Last Vital Signs Temp 36.7 C 07/09/20 04:06 Pulse 80 07/09/20 04:06 Resp 17 07/09/20 04:06 BP 128/73 07/09/20 04:06 Pulse Ox 94 07/09/20 04:06 COVID-19 Screening Have you, or household traveled for leisure in last 14 days?: No Had IN PERSON contact w/suspected or confirmed C-19 person: No
[2020-07-09] MEDS: Cholecalciferol (Vitamin D3) 1,000 UNIT TAB 1000 UNITS PO (08:02)
[2020-07-09] MEDS: Omeprazole 20 MG CAPCR PO (08:02)
[2020-07-09] MEDS: amLODIPine 5 MG TAB PO (08:03)
[2020-07-09] MEDS: Cyanocobalamin 500 MCG TAB PO (08:04)
[2020-07-09] MEDS: Apixaban 5 MG TAB PO (08:04)
[2020-07-09] MEDS: hydroCHLOROthiazide 25 MG TAB PO (08:04)
[2020-07-09] MEDS: Atenolol 25 MG TAB PO (08:04)
[2020-07-09] MEDS: Clopidogrel 75 MG TAB PO (08:04)
[2020-07-09] MEDS: Fluticasone NASAL SPRAY 16 GM BTL NS (08:07)
[2020-07-09] MEDS: Losartan 50 MG TAB 100 MG PO (09:43)
--- NOTE | 2020-07-09 14:07 | INITIAL_ITS ---
- If Service Date Differs Date of service: 07/09/20 Time of Service: 14:07 Care Management Initial Assess REASON FOR HOSPITALIZATION:: Palpitations. PAST MEDICAL HISTORY/PAST SURGICAL HISTORY:: Medical History: Acute midline low back pain without sciatica (05/18/17),. Anterior epistaxis - Recurrent, responds to AgNO3 cautery, Atrial fibrillation, Bladder cancer (05/19/15) - Dr. Guy Lechuga- non-invasive papillary urothellal carcinoma, low grade, Cer ebrovascular disease, unspecified (10/07/10) - 10/2010; small L THALAMIC CVA ON MRI, [facility], RX Clopidogrel and Statin indefinitely, Chronic obstructive pulmonary disease (02/08/18), Essential hypertension (06/23/13), Essential tremor,. 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 Surgical History: Appendectomy, Biopsy of breast (07/09/76) - both breasts, biopsies benign, Cholecystectomy, Colonoscopy - IV Sedation (03/22/16), Cystoscopy (04/29/15) - Dr. Lechuga - 02/05/18 repeat cysto,. cystourethroscopy (05/19/15) - Dr Brian Lechuga [facility]-extensive recurrent bladder tumor encompassint entire L hemitrigone and posterolateral bladder wall and neck , cystourethroscopy (08/07/17) - Dr Brian Lechuga [facility]-extensive recurrent bladder tumor encompassint entire L hemitrigone and posterolateral bladder wall and neck, Extraction of cataract (07/27/15) - Dr Hu - L eye - R eye 2/2, Extraction of cataract (08/10/15) - Dr Hu - L eye - R eye 2/2, History of thyroidectomy, total (03/13/14) - [facility] for large multinodular goiter due to pressure on trachea, Hx of thyroidectomy, Thyroid (03/13/14) - Complete thyroidectomy Dr. Sanchez [facility], path: multinodular goiter, Transurethral Resection of Bladder Tumor, 2-5cm (05/27/13) - Dr. Ruano, and URO cysto (10/22/15) - Guy Lechuga MD - 12 weeks after her last BCG. PREVIOUS FUNCTIONAL STATUS/SOCIAL/FAMILY SUPPORTS:: Elvi is a pleasant 84 year old woman who lives in [place] with her Reagan. The couple previously lived in [place], [place], but moved to [place] in 1999 to care for Reagan's elderly mother. 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 Elvi reports she has six children and four step-kids. None of them live locally but they remain in daily contact with one another and are a source of support for the couple. CURRENT FUNCTIONAL STATUS:: Elvi is laying in bed watching television when CM comes to meet with her. She easily engages in conversation and talks about living in [place] and the various jobs she has held over the years. Elvi is independent at baseline. She cooks, does laundry, and drives. She enjoys watching sports on television and corresponding with her children. CM will continue to follow. ADVANCE DIRECTIVES:: On file; Reagan is health care agent. Has patient been provided with info about the portal/API?: Yes Did the patient sign up for the portal?: Yes (Already enrolled.) CODE STATUS:: Full Code INSURANCE COVERAGE / FINANCIAL ISSUES:: [employer] and [employer]. CURRENT HOME/COMMUNITY SERVICES/EQUIPMENT:: Elvi owns a cane and a walker, but mostly ambulates with the cane. Her shower is equipped with a seat and grab bars. She currently does not have any in-home or community services. PRIMARY CARE PHYSICIAN:: Elvis Muñoz, POTENTIAL DISCHARGE NEEDS:: Follow up appointment with PCP and cardiology. PATIENT/FAMILY EDUCATION NEEDS:: Discharge instructions, limitations, and follow up plan of care, including Ask Me Three and self management. ANTICIPATED BARRIERS TO DISCHARGE:: None. TRANSPORTATION:: Via private vehicle with , Reagan. PLAN:: Anticipate Elvi will be discharged home with no new services when medically cleared by provider. She will follow up with her PCP, cardiology, and plan of care as directed. Elvi will be driven home via private vehicle with family. CM will continue to support patient and discharge planning needs.
--- NOTE | 2020-07-09 16:06 | W.PM.DS.N ---
Date of service: 07/09/20 Time of Service: 16:06 DS: Diagnosis Discharge Diagnosis (1) Flushing: Status: Acute Asessment and Plan: Unclear as the etiology of her sensation of warm flushed feeling. This was not associated with any syncope or near syncope or palpitations or chest pain. This may be her labile blood pressure. I advised the patient to continue to monitor her blood pressure twice a day and report her readings to Dr. Diallo and Dr. Muñoz. Patient will have an outpatient Holter monitor put on at the time of her discharge to see if she is having exacerbations of her atrial fibrillation rate. (2) Essential hypertension: Status: Chronic Asessment and Plan: No changes were made to her home blood pressure medications of amlodipine, losartan, hydrochlorothiazide, atenolol. Patient is advised to monitor blood pressure twice a day and report her readings to Dr. Muñoz and to Dr. Diallo. (3) Atrial fibrillation: Status: Chronic Asessment and Plan: No changes were made to the patient's medications. Zio patch was applied at the time of discharge. Patient will keep her follow-up with Dr. Diallo. (4) Anterior epistaxis: Status: Chronic Asessment and Plan: Patient recently had cauterization of her nosebleed. She had some further epistaxis while here in the hospital which she was able to control with compression. Patient is advised to continue using saline spray to moisten her nares as well as use of K-Y jelly at night. Discharge Plan Disposition Patient Disposition: HOME Condition: Improving Discharge Details Reason For Visit: PALPITATIONS Admit Date/Time: 07/08/20 22:57 Admit Provider: Sandeep Camarena Attending Provider: Sandeep Camarena Primary Care Provider: Elvis Muñoz [facility] Course Hospital Course: 84 yo female with a PMH of Afib on atenolol for rate control, Eliquis for AC, bladder cancer, stroke/TIA on Plavix/statin, HTN, mitral valve disease. She presented to the ED after having a sensation of feeling flushed from the face distally while sitting quietly. She then had some shaking. She denied any palpitations or racing heart or CP at the time. This is in contrast to what was documented in the ED that stated she had symptoms of fluttering in her chest, then, feeling variations in her heart rate. She did endorse feeling very fatigued after this. She had not taken any new medications, increased caffeine. She took her BP at the time of the episode and her SBP was in the 140's, DBP of 101. She stated that her BP is typically in the 120's but has had some readings in the 130's. No recent diastolic elevations prior to the 101 reading. In the ED an EKG showed atrial fibrillation w/o T-wave or ST changes. Her CBC was normal. Na 133, K 3.5, creatinine 0.97. TSH 0.97. NT-pro-BNP 1268 ( only slightly above previous readings). Covid-19 testing negative. Patient's rhythm remained atrial fibrillation at a controlled rate. Longest pause was 2 seconds. Patient remained asymptomatic throughout her hospital stay. She denies any chest pain or pressure palpitations or dyspnea at the time of discharge her rhythm was atrial fibrillation at 80 bpm. Blood pressure somewhat labile but generally her blood pressures throughout her hospital stay were in the 130s to 140s but on the afternoon of discharge did reach 163/79. Troponin I levels x2 sets were less than 0.05. EKG demonstrated atrial fibrillation at a controlled rate of 81 bpm with no ischemic ST or T wave changes. CMP was unremarkable. proBNP was elevated at 1268 comparable to her previous levels. Chest x-ray showed no acute cardiopulmonary disease. Patient will be discharged on a Zio patch. Patient has a follow-up with Dr. Diallo next month and has a scheduled echocardiogram coming up this month. Patient should follow-up with Dr. Muñoz next week. No changes were made to her medications. Home Meds and New Rx's Prescriptions: Continued fluticasone propionate 50 mcg/actuation spray,suspension 2 spray NS DAILY Qty: 19.8 RF: 3 nitroglycerin [Nitrostat] 0.3 mg tablet, sublingual 0.3 mg Sublingual Q5-15M PRN (Reason: chest pain/esophageal spasm) 1 Days Qty: 25 RF: 6 cholecalciferol (vitamin D3) 1,000 UNIT tablet 1,000 unit PO DAILY RF: 0 omega-3 fatty acids-fish oil 1 EACH capsule 1 ea PO DAILY RF: 0 cyanocobalamin (vitamin B-12) [Vitamin B-12] 500 MCG tablet 500 mcg PO DAILY RF: 0 acetaminophen 500 MG tablet 1,000 mg PO Q4H PRN RF: 0 clobetasol 15 GM ointment 15 gm Topical PRN Qty: 1 RF: 1 losartan 50 mg tablet 50 mg PO BID Qty: 180 RF: 3 alendronate 70 mg tablet 70 mg PO weekly Qty: 12 RF: 6 amlodipine 5 mg tablet 5 mg PO BID Qty: 180 RF: 3 atenolol 25 mg tablet 25 mg PO BID Qty: 180 RF: 3 hydrochlorothiazide 25 mg tablet 25 mg PO DAILY Qty: 90 RF: 3 levothyroxine 88 mcg tablet 88 mcg PO DAILY 90 Days Qty: 90 RF: 3 clopidogrel [Plavix] 75 mg tablet 75 mg PO DAILY Qty: 90 RF: 3 simvastatin 10 mg tablet 10 mg PO HS Qty: 90 RF: 3 omeprazole 20 mg capsule,delayed release(DR/EC) 20 mg PO DAILY Qty: 90 RF: 3 gabapentin 600 mg tablet See Rx Instructions PO DIRECTED Qty: 360 RF: 3 Eliquis 5 mg tablet 5 mg PO BID Qty: 180 RF: 3 gabapentin 300 mg capsule 300 mg PO QDAY Qty: 90 RF: 3 Metamucil [facility] Fiber 660 GM powder 1 oz PO HS RF: 0 Discharge Instructions Instructions: A-fib (Atrial Fibrillation) (DC) Additional Instructions: Keep your scheduled follow-up with Dr. Aldo Diallo as well as your scheduled outpatient echocardiogram. Return the Zio patch as instructed by respiratory therapy. If you have symptoms of prolonged palpitations or dizziness or dyspnea or chest tightness or pressure return to the emergency department for further evaluation. Referrals: Elvis Muñoz DO [Primary Care Provider] - (Call the office on Sunday, July 12, 2020 for follow-up appointment in the next 1 to 2 weeks) Aldo Diallo MD [ CONSULTING PHYSICIAN] - (Keep your previously scheduled appointment) Activity:: Activity as Tolerated Equipment/Supplies:: No Equipment Needed Diet:: Low Sodium Discharge Orders Discharge Orders: Discharge Order (Routine); Ordered 07/09/20 Ordered By: Marco Gan Other Ambulatory Orders: HOLTER MONITER ZIO PATCH (Routine) Timeframe: 1 Day Location: None Selected Ordered By: Marco Gan DS: Summary Status at Discharge Functional status at discharge: independent ambulation Overall status at discharge: patient is back to baseline Mental Status: mental status grossly normal Speech and Movement: speech and movement normal Mood: congruent mood Affect: normal affect Time Spent with Patient providing and/or coordinating discharge services: Less than 30 minutes Exam Narrative Exam Narrative: Elderly female sitting up in bed in no acute distress. She is alert and oriented person place time circumstance. Lungs are clear to auscultation Heart is irregularly irregular at a controlled rate no appreciable murmur Abdomen soft and nontender nondistended HEENT patient had epistaxis which is now resolved Psych Mental Status: mental status grossly normal Speech and Movement: speech and movement normal Mood: congruent mood Affect: normal affect DS: Data Vitals/I&O Vitals and I&O: Vital Signs Temperature 36.9 C 07/09/20 15:14 Temperature Source Tympanic 07/09/20 15:14 Pulse 82 07/09/20 15:14 Pulse Rhythm Irregular 07/09/20 09:45 Pulse 73 07/08/20 22:00 Respiratory Rate 16 07/09/20 15:14 Respiratory Effort Non-Labored 07/09/20 09:45 Respiratory Depth Normal 07/09/20 09:45 Respiratory Pattern Normal 07/09/20 09:45 Blood Pressure 163/79 H 07/09/20 15:14 Blood Pressure Mean 81 07/08/20 22:00 Blood Pressure Position Supine 07/08/20 20:16 Pulse Oximetry 93 07/09/20 15:14 Oxygen Delivery Method Room Air 07/09/20 15:14 Oxygen Flow Rate 0 07/09/20 15:14 Pain Level 0 07/09/20 15:14 Intake & Output 07/08/20 07/09/20 07/09/20 23:59 11:59 23:59 Intake Total 500 / 500 220 / 460 240 / 460 Output Total 650 / 650 700 / 1100 400 / 1100 Balance -150 / -150 -480 / -640 -160 / -640 Weight 77.746 kg 77.2 kg Intake: IV 500 / 500 Oral 200 / 440 240 / 440 Output: Urine 650 / 650 700 / 1100 400 / 1100 Other: Urine Color Yellow Yellow Yellow Urine Appearance Clear Clear Clear Urine Odor Normal Normal Normal Voiding Methods Toilet Toilet Toilet Data Completed and Pending Labs on day of discharge: Labs from last 24 hours 07/09/20 07/08/20 07/08/20 07:02 23:10 22:30 WBC RBC Hgb Hct MCV MCH MCHC RDW Plt Count MPV Immature Gran % Neutrophils % Lymphocytes % Monocytes % Eosinophils % Basophils % Nucleated RBC % Absolute Neutrophils Absolute Lymphocytes Absolute Monocytes Absolute Eosinophils Absolute Basophils PT INR APTT Sodium Potassium Chloride Carbon Dioxide Anion Gap BUN Creatinine Estimated GFR/1.73 m2 Glucose Calcium Magnesium Cancelled Total Bilirubin AST ALT Alkaline Phosphatase Troponin I < 0.05 NT-Pro-B Natriuret Pep Total Protein Albumin TSH Urine Color Urine Clarity Urine pH Ur Specific [place] Urine Protein Urine Ketones Urine Blood Urine Nitrite Urine Bilirubin Urine Urobilinogen Ur Leukocyte Esterase Urine RBC Urine WBC Ur Epithelial Cells Urine Crystals Urine Bacteria Urine Mucus Ur Culture Indicated? Urine Glucose COVID-19 Source Nasopharynx SARS-CoV-2 (PCR) Negative Nasopharyn COVID-19 PCR Influenza Type A (PCR) Negative Influenza Type B (PCR) Negative RSV (PCR) Negative Ref Test Perform Site 07/08/20 07/08/20 07/08/20 22:26 20:36 20:25 WBC RBC Hgb Hct MCV MCH MCHC RDW Plt Count MPV Immature Gran % Neutrophils % Lymphocytes % Monocytes % Eosinophils % Basophils % Nucleated RBC % Absolute Neutrophils Absolute Lymphocytes Absolute Monocytes Absolute Eosinophils Absolute Basophils PT 11.2 H INR 1.1 APTT 31.1 H Sodium Potassium Chloride Carbon Dioxide Anion Gap BUN Creatinine Estimated GFR/1.73 m2 Glucose Calcium Magnesium Total Bilirubin AST ALT Alkaline Phosphatase Troponin I NT-Pro-B Natriuret Pep Total Protein Albumin TSH Urine Color Yellow Urine Clarity Sl cloudy Urine pH 7.0 Ur Specific [place] 1.020 Urine Protein 30 H Urine Ketones Negative Urine Blood Small H Urine Nitrite Negative Urine Bilirubin Negative Urine Urobilinogen 0.2 Ur Leukocyte Esterase Trace H Urine RBC Urine WBC Ur Epithelial Cells Many Urine Crystals Not Applicable Urine Bacteria Many Urine Mucus Not Applicable Ur Culture Indicated? No/sq. contamination Urine Glucose Negative COVID-19 Source SARS-CoV-2 (PCR) Cancelled Nasopharyn COVID-19 PCR Cancelled Influenza Type A (PCR) Influenza Type B (PCR) RSV (PCR) Ref Test Perform Site Cancelled 07/08/20 07/08/20 20:25 20:25 WBC 8.80 RBC 4.83 Hgb 15.1 Hct 45.7 MCV 94.6 MCH 31.3 MCHC 33.0 RDW 12.2 Plt Count 326 MPV 9.5 Immature Gran % 0.2 Neutrophils % 71.3 Lymphocytes % 16.7 Monocytes % 9.5 Eosinophils % 1.8 Basophils % 0.5 Nucleated RBC % 0 Absolute Neutrophils 6.27 Absolute Lymphocytes 1.47 Absolute Monocytes 0.84 H Absolute Eosinophils 0.16 Absolute Basophils 0.04 PT INR APTT Sodium 133 L Potassium 3.5 Chloride 96 L Carbon Dioxide 29.2 Anion Gap 7.8 BUN 19 H Creatinine 0.97 Estimated GFR/1.73 m2 54.71 Glucose 130 H Calcium 9.0 Magnesium 1.8 Total Bilirubin 0.4 AST 20 ALT 23 Alkaline Phosphatase 65 Troponin I < 0.05 NT-Pro-B Natriuret Pep 1268 H Total Protein 7.9 Albumin 3.9 TSH 0.97 Urine Color Urine Clarity Urine pH Ur Specific [place] Urine Protein Urine Ketones Urine Blood Urine Nitrite Urine Bilirubin Urine Urobilinogen Ur Leukocyte Esterase Urine RBC Urine WBC Ur Epithelial Cells Urine Crystals Urine Bacteria Urine Mucus Ur Culture Indicated? Urine Glucose COVID-19 Source SARS-CoV-2 (PCR) Nasopharyn COVID-19 PCR Influenza Type A (PCR) Influenza Type B (PCR) RSV (PCR) Ref Test Perform Site [facility] Medical History Acute midline low back pain without sciatica (05/18/17) Anterior epistaxis Recurrent, responds to AgNO3 cautery Atrial fibrillation Bladder cancer (05/19/15) Dr. Guy Lechuga- non-invasive papillary urothellal carcinoma, low grade. Cerebrovascular disease, unspecified (10/07/10) 10/2010; [place]AM[place] [facility] Clop[place] Statin [place] Chronic obstructive pulmonary disease (02/08/18) Essential hypertension (06/23/13) Essential tremor Gastroesophageal reflux disease (07/05/04) RESPONDS TO OMEPRAZOLE, BEFORE DINNER; [place] [facility]; gastritis and diffuse esophagitis; DR MERCADO REC [place] PPI RX Hyperlipidemia (10/21/10) dyslipidemia: low HDL; statin begun by neuro 10/2010 after her TIA, along with Clopidogrel; target LDL<100 and HDL>40 Knee pain, left anterior Labile blood pressure Leg pain, left (11/03/16) 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 Lechuga 02/05/18 repeat cysto cystourethroscopy (05/19/15) Dr Brian Lechuga [facility]-extensive recurrent bladder tumor encompassint entire L hemitrigone and posterolateral bladder wall and neck cystourethroscopy (08/07/17) Dr Brian Lechuga [facility]-extensive recurrent bladder tumor encompassint entire L hemitrigone and posterolateral bladder wall and neck Extraction of cataract (07/27/15) Dr Hu L eye R eye 2/2 Extraction of cataract (08/10/15) Dr Hu L eye R eye 2/2 History of thyroidectomy, total (03/13/14[place] [facility] [place] multin[place] due to pressure on trachea Hx of thyroidectomy Thyroid (03/13/14) 9Complete thyroidectomy Dr. Sanchez [facility] [place]: multinodular goiter Transurethral Resection of Bladder Tumor, 2-5cm (05/27/13) Dr. Ruano URO cysto (10/22/15) Guy Lechuga MD 12 weeks after her last BCG Family History Mother , amyloid Syndrome at age 73. No problems noted. Father , Heart attack at age 65. No problems noted. Sister , lung disease at age 80. No problems noted. Brother Age: 87 No problems noted. Brother No problems noted. Brother No problems noted. Social History Smoking/Tobacco Use Status: Former Tobacco Use Quit Date: 07/09/80 Pack-years: 35 Tobacco: How many years used: 35 Smoking risk assessment performed?: Yes Alcohol Intake: never Drug use: Never Substance use type: does not use Household members: spouse Housing: house Number of Children: 6 number of grandchildren: 17 current occupation: Retired Pets and animals: Yes Current gender identity: female What type of physical activity do you participate in: none and independent ambulation Do you feel safe at home: Yes Do you feel safe in your relationship?: Yes
--- NOTE | 2020-07-09 16:20 | CMDISCH_ITS ---
- If Service Date Differs Date of service: 07/09/20 Time of Service: 16:20 LACE Index Scoring Tool - Questions: Length of Stay (in days): 1 Acuity (Admit via E.D.?): Yes Comorbidities: Cerebrovascular Disease, Any Tumor E.D. Visits: 2 - Answers: Total Score: 9 Risk of Readmission: Low Risk Care Management Discharge Reason for Hospitalization: Palpitations. Discharge Plan: Elvi is discharged home with a holter monitor. She will follow up with her PCP, manager labor relations, and follow up plan of care as directed. Her , Reagan, is driving her home via private vehicle. Patient/Family Education Needs: Discharge instructions, limitations, and follow up plan of care, including Ask Me Three and self management.
--- NOTE | 2020-07-28 10:19 | W.ZIOMONITOR ---
Date of service: 07/28/20 Time of Service: 10:19 14 Day Dietetics Teacher Referring Provider:: Elvis Muñoz Indications:: Atrial fibrillation Note: This is a 14-day color television console monitor, ordered for indication of atrial fibrillation The patient was in atrial fibrillation throughout with an average heart rate of 70. Minimum heart rate was 44 and maximum 119 There were no pauses greater than 3 seconds There were rare ventricular ectopic beats, 2 couplets, no ventricular tachycardia Patient symptoms corresponded to atrial fibrillation rate approximately 80
== END 2020-07-09 17:00 | disposition home or self-care (01) ==
LOC: ER 22:28 → MS 22:58
PROVIDERS: Admitting Provider Family Medicine; Emergency Provider Student in an Organized Health Care Education/Training Program; PCP Family Medicine; Visit Provider Family Medicine
DX: I48.0 Paroxysmal atrial fibrillation (principal); R23.2 Flushing; R04.0 Epistaxis; I34.0 Nonrheumatic mitral (valve) insufficiency; G25.0 Essential tremor; E89.0 Postprocedural hypothyroidism; I10 Essential (primary) hypertension; G60.8 Other hereditary and idiopathic neuropathies; Z79.899 Other long term (current) drug therapy; Z79.01 Long term (current) use of anticoagulants; C67.9 Malignant neoplasm of bladder, unspecified; Z86.73 Personal history of transient ischemic attack (TIA), and cerebral infarction without residual deficits; J44.9 Chronic obstructive pulmonary disease, unspecified; K21.9 Gastro-esophageal reflux disease without esophagitis; E78.5 Hyperlipidemia, unspecified; R07.89 Other chest pain
CPT/HCPCS: 36415; 80053; 93005; 93246; 96360; 96361; 99219; 99285; 99315; U0003; 71045; 81003; 81015; 83735; 83880; 84443; 84484; 85025; 85610; 85730; 93010; G0378

== ENCOUNTER 2020-07-28 10:19 | Outpatient (CLI) | payer MEDICARE, SELFPAY | END 2020-07-28 10:39 | PROVIDERS: PCP Family Medicine; Referring Provider Family Medicine; Visit Provider Internal Medicine Cardiovascular Disease | DX: I48.91 Unspecified atrial fibrillation (principal) | CPT/HCPCS: 93248 ==

== ENCOUNTER → 2020-07-29 07:32 | Outpatient (BNVA) | payer MEDICARE, SELFPAY | PROVIDERS: PCP Family Medicine; Referring Provider Family Medicine; Visit Provider Psychiatry & Neurology Neurology | DX: G60.9 Hereditary and idiopathic neuropathy, unspecified (principal); G25.0 Essential tremor; G47.61 Periodic limb movement disorder; M54.5 Low back pain; I10 Essential (primary) hypertension | CPT/HCPCS: 99214 ==

== ENCOUNTER 2020-08-03 01:59 | Outpatient (CLI) | payer MEDICARE, SELFPAY ==
--- NOTE | 2020-08-03 10:25 | DI.US_ITS ---
APPROVED REPORT EXAM: Comprehensive 2D, Doppler, and color-flow Echocardiogram Patient Location: Out-Patient [place] Head Matcher: Clare Hyde RDCS (AE) Indications: Mitral regurgitation, Atrial Fibrillation Other Information Study Quality: Adequate Conclusion Left Ventricle : The left ventricle is normal size. The left ventricular systolic function is normal. The left ventricular ejection fraction is within the normal range. There is normal left ventricular wall thickness. There is normal LV segmental wall motion. The left ventricular diastolic function is normal. LVEF is 55%. Right Ventricle : The right ventricle is normal size. The right ventricular systolic function is norm al. The RVSP is 36.3 mmHg. Atria : The left atrium size is normal. The right atrium size is normal. Mitral Valve : The mitral valve is normal in structure. Mild to moderate mitral regurgitation. No evan dence of mitral valve stenosis. Tricuspid Valve : The tricuspid valve is normal in structure. Moderate tricuspid regurgitation. There is no tricuspid valve stenosis. Great Vessels : The aortic root is normal in size. The ascending aorta is normal in size. Aortic arch is not well visualized. IVC is normal in size and collapses >50% with inspiration. Compared to study from 09/21/2017, there is no significant change. Wall motion Left Ventricle The left ventricle is normal size. The left ventricular systolic function is normal. The left ventric ular ejection fraction is within the normal range. There is normal left ventricular wall thickness. T here is normal LV segmental wall motion. The left ventricular diastolic function is normal. There is no ventricular septal defect visualized. LVEF is 55%. Right Ventricle The right ventricle is normal size. The right ventricular systolic function is normal. The RVSP is 36 .3 mmHg. Atria The left atrium size is normal. The right atrium size is normal. The interatrial septum is intact wit h no evidence for an atrial septal defect. Aortic Valve The aortic valve is normal in structure. Aortic valve is trileaflet. There is no aortic valvular sten osis. No aortic regurgitation is present. Mitral Valve The mitral valve is normal in structure. No evidence of mitral valve stenosis. Mild to moderate leandro l regurgitation. Tricuspid Valve The tricuspid valve is normal in structure. There is no tricuspid valve stenosis. Moderate tricuspid regurgitation. Pulmonic Valve The pulmonary valve is normal in structure. There is no pulmonic valvular stenosis. Trace pulmonic re gurgitation. Great Vessels The aortic root is normal in size. The ascending aorta is normal in size. Aortic arch is not well vis ualized. IVC is normal in size and collapses >50% with inspiration. Pericardium There is no pericardial effusion. 2D Dimensions IVSD d PLAX 1.02 cm F: 0.6-1.0 LV Vol A2C d MOD 67.7 mL LVPW d PLAX 1.04 cm F: 0.6 - 1.0 LV Vol A4C d MOD 64.4 mL LVID d PLAX 3.74 cm F: 3.8 - 5.2 LA vol/ BSA A2C s A-L 19.4 mL/m2 LVDs 2.65 cm F: 2.2 - 3.5 LA vol/ BSA A4C s A-L 25.1 mL/m2 Ao Root d 2.69 cm F: 2.7 - 3.3 LA Vol/ BSA Biplane s A-L 23.5 mL/m2 RA Area A4C 11.65 cm2 LA Area A4C s MOD 17.22 cm2 RA Vol/ BSA A4C s A-L 13.8 mL/m2 LA Area A2C s MOD 14.23 cm2 Ao Asc Diam d 3.15 cm F: 2.3 - 3.1 LV EF A4C MOD 55.4 % LV EF Teichholz 55.2 % LV EF A2C MOD 56.6 % LVEF (Davis's) 56.20 % F: 54 - 74 LV EF Biplane MOD 56.2 % LV Volume 52.25 mL F: 46 - 106 SV 37.77 mL LV Volume Index 29.02 mL/m2 F: 29 - 61 SV Index 20.96 mL/m2 LV Vol Biplane MOD 67.2 mL FS 28.10 % M-Mode TAPSE 2.18 cm (M/F) >1.7 LV Diastology MV E' medial 0.111 (>0.07 m/s) E/A Ratio 2.9 LV E/e MED 9.15 (<14) MV E Vmax 1.02 (0.4-1.3 m/s) MV E' lateral 0.117 (>0.1 m/s) MV A Vmax 0.35 (0.4-1.3 m/s) LV E/e LAT 8.65 (<14) MV E/A Ratio 2.56 MV E/E' medial 9.17 MV E/E' lateral 8.69 Aortic Valve LVOT Area 3.34 cm2 AoV Area Vmax 2.37 cm2 LVOT Vmax 0.71 m/s AoV Area/ BSA (Vmax) 1.32 cm2/m2 LVOT Mean Orlin. 0.46 m/s ALICIA Mean Orlin. 2.16 cm2 LVOT Peak Grad 2.0 mmHg ALICIA Mean Orlin. Index 1.20 cm2/m2 LVOT Mean Grad 1.0 mmHg LVOT VTI 0.156 m LVOT Diam s 2.05 cm AoV Vmax 0.99 m/s Velocity Ratio 0.71 AoV Mean Orlin. 0.70 m/s AoV Peak Grad 4.0 mmHg LVOT SV 52.06 mL AoV Mean Grad 2.3 mmHg AoV VTI 0.219 m AoV Area VTI 2.38 cm2 AoV Area/ BSA (VTI) 1.32 cm/m2 Mitral Valve MV DT 185 (160-240 msec) MR Vmax 4.14 m/s MV PHT 54 msec MR VTI 1.347 m MV Area PHT 4.11 cm2 MR Peak Grad 68.5 mmHg MV VTI 0.232 m MR Mean Grad 56.9 mmHg MV VTI Annulus 0.240 m MR PISA Radius 0.56 cm MV Area VTI 2.32 (4.0-6.0 cm2) MR EROA 0.17 cm2 MR Aliasing Velocity 0.35 m/s MR PISA 2.00 cm2 Pulmonary Valve PV Vmax 0.81 (0.5-1.5 m/s) RVOT Peak Gr. 1.52 mmHg PV Peak Grad 2.6 mmHg RVOT Mean Gr. 0.80 mmHg PV Mean Grad 1.3 mmHg RVOT VTI 0.115 m PV VTI 0.149 m RVOT Vmax 0.62 m/s Tricuspid Valve TR Peak Grad 33.2 mmHg TR Vmax 2.88 m/s RA Pressure 3.00 mmHg RVSP (TR) 36.3 mmHg
== END 2020-08-03 02:19 ==
PROVIDERS: PCP Family Medicine; Visit Provider Internal Medicine Cardiovascular Disease
DX: I48.0 Paroxysmal atrial fibrillation (principal); I08.1 Rheumatic disorders of both mitral and tricuspid valves
CPT/HCPCS: 93306

== ENCOUNTER → 2020-08-05 14:00 | Outpatient (BNVA) | payer MEDICARE, SELFPAY | PROVIDERS: PCP Family Medicine; Referring Provider Family Medicine; Visit Provider Internal Medicine Cardiovascular Disease | DX: R00.2 Palpitations (principal); I34.0 Nonrheumatic mitral (valve) insufficiency; I48.20 Chronic atrial fibrillation, unspecified; I10 Essential (primary) hypertension | CPT/HCPCS: 99214; 99442 ==

== ENCOUNTER → 2020-08-12 11:37 | Outpatient (BNVA) | payer MEDICARE, SELFPAY | PROVIDERS: PCP Family Medicine; Referring Provider Family Medicine; Visit Provider Internal Medicine Cardiovascular Disease | DX: R04.0 Epistaxis (principal); I48.0 Paroxysmal atrial fibrillation; R00.2 Palpitations; G25.0 Essential tremor; I10 Essential (primary) hypertension; Z79.01 Long term (current) use of anticoagulants | CPT/HCPCS: 99214; 99443 ==

== ENCOUNTER → 2020-08-19 12:20 | Outpatient (BNVA) | payer MEDICARE, SELFPAY | PROVIDERS: PCP Family Medicine; Referring Provider Family Medicine; Visit Provider Internal Medicine Cardiovascular Disease | DX: R00.2 Palpitations (principal); G25.0 Essential tremor; I48.0 Paroxysmal atrial fibrillation; R04.0 Epistaxis | CPT/HCPCS: 99214; 99443 ==

== ENCOUNTER 2020-08-30 12:14 | Outpatient (CLI) | payer MEDICARE, SELFPAY ==
[2020-08-30 12:53] LABS: Abs Immature Grans 0.01 10^3/uL (0.0-0.06); Absolute Basophil Count 0.03 10^3/uL (0.0-0.2); Absolute Eosinophil Count 0.11 10^3/uL (0.0-0.7); Absolute Lymphocyte Count 1.34 10^3/uL (1.2-3.4); Absolute Monocyte Count 0.68 10^3/uL (0.1-0.8); Absolute Neutrophil Count 4.02 10^3/uL (1.2-6.7); Basophils % 0.5; Eosinophils % 1.8; HCT 43.3 % (36.0-46.0); HGB 14.7 g/dL (11.2-15.7); Immature Grans % 0.2; Lymphocytes % 21.6; MCH 31.7 pg (27.0-33.0); MCHC 33.9 % (32.0-36.0); MCV 93.3 fL (80-95); MPV 9.6 fL (8.0-11.0); Neutrophils % 64.9; Nucleated RBC 0 %; Platelet Count 320 10^3/uL (130-400); RBC 4.64 10^6/uL (3.93-5.22); RDW 12.5 % (11.7-14.6); RDW-SD 43.1 fL; WBC 6.19 10^3/uL (4.4-10.8)
[2020-08-30 14:04] LABS: ALT 30 U/L (14-59); AST 24 U/L (15-37); Albumin 3.9 g/dL (3.4-5.0); Alkaline Phosphatase 50 U/L (46-116); Anion Gap 12.7 mmol/L (3-11); BUN 23 mg/dL (7-18); Bilirubin, Total 0.6 mg/dL (0.2-1.0); CO2 26.3 mmol/L (21.0-32.0); CREATININE 0.9 mg/dL (0.55-1.02); Calcium 9.3 mg/dL (8.5-10.1); Chloride 96 mmol/L (98-107); Estimated GFR 59.65 (mL/min/1.73m2); Glucose 85 mg/dL (74-106); Potassium 3.9 mmol/L (3.5-5.1); Sodium 135 mmol/L (136-145); Total Protein 7.5 g/dL (6.4-8.2)
== END 2020-08-30 12:15 | disposition home or self-care (01) ==
PROVIDERS: PCP Family Medicine; Visit Provider Internal Medicine Interventional Cardiology
DX: I48.0 Paroxysmal atrial fibrillation (principal)
CPT/HCPCS: 36415; 80053; 85025

== ENCOUNTER 2020-09-01 01:08 | Outpatient (CLI) | payer MEDICARE, SELFPAY ==
--- NOTE | 2020-09-01 12:45 | DI.MAMMO_ITS ---
EXAM: MG MAMMO SCREENING CLINICAL HISTORY: screening. TECHNIQUE: Bilateral full field digital CC and MLO mammographic images were obtained with 3D tomosyn thesis and utilizing computer aided detection (CAD). COMPARISON: Prior mammograms dating back to 2011, the most recent being September 2015. FINDINGS: There are no spiculated masses nor malignant appearing microcalcification groups. Benign-appearing mi microbiology teacher and macrocalcifications are again noted in both breasts. There is no significant architectural d istortion nor skin thickening-retraction. IMPRESSION: No radiographic evidence of malignancy. BI-RADS Category 1 - Negative Breast Density - Category B - Scattered areas of fibroglandular density Breast density Category C or D implies that the patient has dense breast tissue. Dense breast tissue can make it harder to find cancer on a mammogram. Dense breast tissue is also associated with an incr eased risk of breast cancer. This information about the result of the mammogram report was provided to the patient to raise their awareness. Use this report when you speak with the patient about their risks for breast cancer, which includes their family history. At that time, you may recommend additional screening tests (Ultrasoun d or MRI) as these tests may add significant information. A negative radiographic report should not delay biopsy if a dominant or clinically suspicious mass is present. Up to ten percent of cancers are not identified on mammography. A negative report may reinforce clinical impression. Adenosis and dense breasts may obscure an underlying neoplasm. False positive reports average 6 to 10%. Patient will receive a letter notifying them of these results.
== END 2020-09-01 01:09 ==
LOC: DI 01:09
PROVIDERS: PCP Family Medicine; Visit Provider Nurse Practitioner Family
DX: Z12.31 Encounter for screening mammogram for malignant neoplasm of breast (principal)
CPT/HCPCS: 77063; 77067

== ENCOUNTER 2020-10-04 03:21 | Outpatient (CLI) | payer MEDICARE, SELFPAY ==
[2020-10-04 21:57] LABS: COVID-19 PCR Negative (Negative)
== END 2020-10-04 03:22 | disposition home or self-care (01) ==
LOC: LBO 03:22
PROVIDERS: PCP Family Medicine; Visit Provider Internal Medicine Interventional Cardiology
DX: Z20.822 Contact with and (suspected) exposure to COVID-19 (principal); Z01.818 Encounter for other preprocedural examination
CPT/HCPCS: 87635

== ENCOUNTER → 2020-10-28 10:51 | Outpatient (BNVA) | payer MEDICARE, SELFPAY | PROVIDERS: PCP Family Medicine; Referring Provider Family Medicine; Visit Provider Psychiatry & Neurology Neurology | DX: G60.9 Hereditary and idiopathic neuropathy, unspecified (principal); G25.0 Essential tremor; G47.61 Periodic limb movement disorder; M54.5 Low back pain; G89.29 Other chronic pain; E89.0 Postprocedural hypothyroidism | CPT/HCPCS: 99443 ==

== ENCOUNTER 2020-11-16 01:57 | Outpatient (CLI) | payer MEDICARE, SELFPAY ==
--- NOTE | 2020-11-16 06:30 | DI.RAD_ITS ---
Exam(s) XR LUMBAR SPINE COMPLETE EXAM: XR LUMBAR SPINE COMPLETE CLINICAL HISTORY: ACUTE Low back pain after a fall, r/o fracture,M54.5 TECHNIQUE: COMPARISON: MR MRI - LUMBAR SPINE WO CONTRAST from 10/08/2017 FINDINGS: Multiple views were obtained. There is multilevel disc space narrowing with vacuum disc phenomenon a t L3-4 and L5-S1 consistent with disc degeneration. There are very prominent hypertrophic changes in volving the vertebral endplates and facet joints throughout the lumbar region. There is a mild right convex lumbar scoliosis. There is an old anterior vertebral body deformity of L2, no change in appe arance from prior lumbar spine MRI of October 2017. There is no evidence of acute fracture. The SI hanna ints appear intact as visualized. 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 RADIATION DOSE DELIVERED: Total DLP
== END 2020-11-16 02:17 ==
PROVIDERS: PCP Family Medicine; Visit Provider Family Medicine
DX: M54.5 Low back pain (principal); M51.37 Other intervertebral disc degeneration, lumbosacral region; Z91.81 History of falling
CPT/HCPCS: 72110

== ENCOUNTER → 2020-11-23 10:37 | Outpatient (BNVA) | payer MEDICARE, SELFPAY | PROVIDERS: PCP Family Medicine; Referring Provider Family Medicine; Visit Provider Internal Medicine Cardiovascular Disease | DX: Z95.818 Presence of other cardiac implants and grafts (principal); I07.1 Rheumatic tricuspid insufficiency; R00.2 Palpitations; I10 Essential (primary) hypertension; I48.91 Unspecified atrial fibrillation; R26.89 Other abnormalities of gait and mobility; R29.6 Repeated falls; Z86.73 Personal history of transient ischemic attack (TIA), and cerebral infarction without residual deficits | CPT/HCPCS: 99214; 99213 ==

== ENCOUNTER → 2021-01-25 10:59 | Outpatient (BNVA) | payer MEDICARE, SELFPAY | PROVIDERS: PCP Family Medicine; Referring Provider Family Medicine; Visit Provider Psychiatry & Neurology Neurology | DX: G60.9 Hereditary and idiopathic neuropathy, unspecified (principal); G25.0 Essential tremor; G47.61 Periodic limb movement disorder; I63.9 Cerebral infarction, unspecified; M54.5 Low back pain; I10 Essential (primary) hypertension; E78.5 Hyperlipidemia, unspecified; I48.91 Unspecified atrial fibrillation | CPT/HCPCS: 99215 ==

== ENCOUNTER → 2021-02-24 11:41 | Outpatient (BNVA) | payer MEDICARE, SELFPAY | PROVIDERS: PCP Family Medicine; Referring Provider Family Medicine; Visit Provider Internal Medicine Cardiovascular Disease | DX: I48.91 Unspecified atrial fibrillation (principal); I08.1 Rheumatic disorders of both mitral and tricuspid valves; Z95.818 Presence of other cardiac implants and grafts; Z86.73 Personal history of transient ischemic attack (TIA), and cerebral infarction without residual deficits; I10 Essential (primary) hypertension | CPT/HCPCS: 99214 ==

== ENCOUNTER 2021-04-02 20:46 | Emergency (ER) | payer MEDICARE, SELFPAY ==
--- NOTE | 2021-04-02 20:45 | RT.EKG_ITS ---
APPROVED REPORT Exam: Resting ECG Reason for Exam: chest pain Patient Location: E HR:86 bpm ECG Measurements Heart Rate 86 AXIS TN [id number] P [id number] QRSd 86 QRS 89 QT 376 T 66 QTc 451 Conclusion Atrial fibrillation...V-rate 61-115, irreg A-activity Normal [place] I have reviewed and interpreted ECG and agree with software generated interpretation. There are no significant changes compared to prior EKG performed on 07/08/2020 at 20:20.
[2021-04-02 20:59] VITALS: BP 139/69; PULSE 84; RESP 20; TEMP 36.4; O2SAT 97
--- NOTE | 2021-04-02 21:00 | DI.RAD_ITS ---
Exam(s) XR CHEST 2V PA LATERAL EXAM: XR CHEST 2V PA LATERAL CLINICAL HISTORY: cp. TECHNIQUE: 2D digital imaging was performed. COMPARISON: CR,XR XR PORTABLE CHEST AP from 07/08/2020 FINDINGS: Heart size is normal. The mediastinum is not widened. Lungs are clear. No infiltrates nor pleural effusions. IMPRESSION: No acute pulmonary findings. DATA REPOSITORY: RADIATION DOSE DELIVERED:
--- NOTE | 2021-04-02 21:12 | W.ED.GENAD ---
Discharge Plan Disposition Patient Disposition: HOME Condition: Good Discharge Details Clinical Impression: Gastroesophageal reflux disease Primary Care Provider: Elvis Muñoz ED Provider: Jack Howard [place] Meds and New Rx's Prescriptions: Continued levothyroxine 88 mcg tablet 88 mcg PO DAILY RF: 0 aspirin [Gerald Chewable Aspirin] 81 mg tablet,chewable 81 mg PO DAILY RF: 0 nitroglycerin [Nitrostat] 0.3 mg tablet, sublingual 0.3 mg Sublingual Q5-15M PRN (Reason: chest pain/esophageal spasm) 1 Days Qty: 25 RF: 6 Neilmed Sinus Rinse Complete Packet With Rinse Device .Route .3xweekly RF: 0 alendronate 70 mg tablet 70 mg PO weekly RF: 0 gabapentin 600 mg tablet See Rx Instructions PO BID Qty: 270 RF: 3 cholecalciferol (vitamin D3) 1,000 UNIT tablet 1,000 unit PO DAILY RF: 0 omega-3 fatty acids-fish oil 1 EACH capsule 1 ea PO DAILY RF: 0 cyanocobalamin (vitamin B-12) [Vitamin B-12] 500 MCG tablet 500 mcg PO DAILY RF: 0 acetaminophen 500 MG tablet 1,000 mg PO Q4H PRN RF: 0 clobetasol 15 GM ointment 15 gm Topical PRN Qty: 1 RF: 1 losartan 50 mg tablet 50 mg PO BID Qty: 180 RF: 3 atenolol 25 mg tablet 25 mg PO BID Qty: 180 RF: 3 amlodipine 5 mg tablet 5 mg PO BID Qty: 180 RF: 3 omeprazole 20 mg capsule,delayed release(DR/EC) 20 mg PO DAILY Qty: 90 RF: 3 simvastatin 10 mg tablet 10 mg PO HS Qty: 90 RF: 3 Metamucil [facility] Fiber 660 GM powder 1 oz PO HS RF: 0 Discharge Instructions Additional Instructions: EKG, laboratory studies, chest x-ray look good to me. Your troponin is negative. If continued symptoms consider increasing your omeprazole to twice a day. Discussed this with primary care on Sunday when you see him. Return to ED for new or worsening pain, shortness of breath, abdominal pain, vomiting, other concerns. Referrals: Elvis Muñoz DO [Primary Care Provider] - Medical Decision Making Patient presenting with chest burning for 7 hours now with no change in discomfort and no alleviating or aggravating etiologies. Feels like previous heartburn to her. Describes some mild shortness of breath and nausea but not consistent. EKG from triage shows chronic A. fib with no acute ST changes and no STEMI. Given symptoms for 7 hours I think one troponin is sufficient. Will check abdominal labs as well. Will obtain chest x-ray and give GI cocktail. GI cocktail has resolved burning sensation completely with no return of symptoms. Troponin is negative. CBC, CMP, lipase look good. Chest x-ray without acute changes per my review. Patient has follow-up appointment with primary next week already scheduled. We will have her discuss possibility of increasing omeprazole to twice a day if she has continued symptoms. Return to ED for new or worsening pain, persistent shortness of breath, vomiting, abdominal pain, other concerns. Medical Records Medical records reviewed: Yes I reviewed the patient's medical records. Lab Data Lab results reviewed: Yes I reviewed the patient's lab results. ECG Data Attestation: I personally reviewed and interpreted this ECG (s) as follows: Prior ECG tracings: available for review Interpretation: see EKG HPI General Mode of arrival: ambulatory. Date/Time Provider Initiated Documentation: 04/02/21 21:08. Limitations to Documentation: no limitations. Information obtained by: patient, RN notes reviewed and old records reviewed. HPI Narrative: Patient presents to ED with chest burning since about 2 PM this afternoon. Reminds her of previous episodes of heartburn but she has not had same for many years. She does take omeprazole once a day. She did take some antacids with no relief. Pain does not radiate anywhere. It does not change with any type of activity, breathing, oral intake. She feels a little short of breath at times. She denies abdominal pain. She had some mild nausea but no vomiting. She has no fever or cough. Has the sensation had not resolved by this evening she came in for evaluation after 7 hours of symptoms. Related Data Home Medications Medication Instructions Recorded Confirmed cholecalciferol (vitamin D3) 1,000 unit PO DAILY 09/17/12 04/02/21 omega-3 fatty acids-fish oil 1 ea PO DAILY cap 10/15/12 04/02/21 Metamucil [facility] Fiber 1 oz PO HS 05/27/13 04/02/21 cyanocobalamin (vitamin B-12) 500 mcg PO DAILY tab 11/19/15 04/02/21 [Vitamin B-12] acetaminophen 1,000 mg PO Q4H PRN tab-cap 03/16/17 04/02/21 clobetasol 15 gm TOPICAL PRN #1 tube 12/14/17 04/02/21 nitroglycerin 0.3 mg sublingual 0.3 mg SUBLINGUAL Q5-15M PRN 1 09/09/19 04/02/21 tablet Days #25 tab-cap losartan 50 mg tablet 50 mg PO BID #180 tab 08/10/20 04/02/21 atenolol 25 mg tablet 25 mg PO BID #180 tab 10/05/20 04/02/21 aspirin 81 mg chewable tablet 81 mg PO DAILY 10/26/20 04/02/21 sodium chloride, sodium packet .ROUTE .3xweekly ea 10/26/20 02/24/21 bicarb-nasal rinse squeeze bottle with packet levothyroxine 88 mcg tablet 88 mcg PO DAILY tab 10/28/20 04/02/21 amlodipine 5 mg tablet 5 mg PO BID #180 tab-cap 11/25/20 04/02/21 omeprazole 20 mg capsule,delayed 20 mg PO DAILY #90 tab 11/25/20 04/02/21 release simvastatin 10 mg tablet 10 mg PO HS #90 tab-cap 11/25/20 04/02/21 alendronate 70 mg tablet 70 mg PO weekly tab 01/25/21 04/02/21 gabapentin 600 mg tablet See Rx Instructions PO BID #270 tab 01/25/21 04/02/21 Previous Rx's Medication Instructions Recorded clobetasol 15 gm TOPICAL PRN #1 tube 12/14/17 nitroglycerin 0.3 mg sublingual 0.3 mg SUBLINGUAL Q5-15M PRN 1 09/09/19 tablet Days #25 tab-cap losartan 50 mg tablet 50 mg PO BID #180 tab 08/10/20 atenolol 25 mg tablet 25 mg PO BID #180 tab 10/05/20 amlodipine 5 mg tablet 5 mg PO BID #180 tab-cap 11/25/20 omeprazole 20 mg capsule,delayed 20 mg PO DAILY #90 tab 11/25/20 release simvastatin 10 mg tablet 10 mg PO HS #90 tab-cap 11/25/20 gabapentin 600 mg tablet See Rx Instructions PO BID #270 tab 01/25/21 Allergies Allergy/AdvReac Type Severity Reaction Status Date / Time guaifenesin [From Mucinex] AdvReac Intermediate diarrhea Verified 04/02/21 21:05 tramadol AdvReac constipatio Verified 04/02/21 21:05 n General Stated Complaint: Chest Pain YEE: 2 Review of Systems Narrative: As documented in HPI otherwise negative as below. Const: no fever, chills, weakness Resp: no cough, pleuritic pain CV: no diaphoresis, edema, syncope GI: no abdominal pain, vomiting, diarrhea Neuro: no headache, numbness, focal weakness, confusion [facility] Medical History Acute midline low back pain without sciatica (05/18/17) Anterior epistaxis Recurrent, responds to AgNO3 cautery Atrial fibrillation Bladder cancer (05/19/15) Dr. Guy Lechuga- non-invasive papillary urothellal carcinoma, low grade. 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, RX Clopidogrel and Statin indefinitely Chronic obstructive pulmonary disease (02/08/18) Essential hypertension (06/23/13) Essential tremor Gastroesophageal reflux disease (07/05/04) RESPONDS TO OMEPRAZOLE, BEFORE DINNER; ESOPHAGITIS ON EGD AT [facility]: 07/05/04; gastritis and diffuse esophagitis; DR MERCADO REC [place]IF[place] PPI RX Hyperlipidemia (10/21/10) dyslipidemia: low HDL; statin begun by neuro 10/2010 after her TIA, along with Clopidogrel; target LDL<100 and HDL>40 Knee pain, left anterior Labile blood pressure Leg pain, left (11/03/16) Neoplasm of large intestine (06/21/05) H/O POLYPS ON FIRST COLON IN [place]; NEG ON REPEAT; [place] BLAKE FOUND ONE HYPERPLASTIC POLYP Peripheral neuropathy, idiopathic (06/08/98) KNEE DISTAL, BILAT; INTERMITTENT BURNING, SLEEPS BETTER AT NIGHT IF SHE HAS WORN TIGHT SOCKS DAYTIME; nortriptyline effective; Dr Oneill; worse balance 02/2015 Thyroid function test abnormal Surgical History Appendectomy Biopsy of breast (07/09/76) both breasts, biopsies benign Cholecystectomy Colonoscopy - IV Sedation (03/22/16) Cystoscopy (04/29/15) Dr. Lechuga 02/05/18 repeat cysto cystourethroscopy (05/19/15) Dr Brian Lechuga [facility]-extensive recurrent bladder tumor encompassint entire L hemitrigone and posterolateral bladder wall and neck cystourethroscopy (08/07/17) Dr Brian Lechuga [facility]-extensive recurrent bladder tumor encompassint entire L hemitrigone and posterolateral bladder wall and neck Extraction of cataract (07/27/15) Dr Mayte Gonzalez eye R eye 2/2 Extraction of cataract (08/10/15) Dr Hu L eye R eye 2/2 H/O cardiac catheterization (10/07/20) [facility]-L atrial appendage closure for afib History of thyroidectomy, total (03/13/14) [facility] for large multinodular goiter due to pressure on trachea Hx of thyroidectomy Thyroid (03/13/14) 9Complete thyroidectomy Dr. Sanchez [facility], path: multinodular goiter Transurethral Resection of Bladder Tumor, 2-5cm (05/27/13) Dr. Ruano URO cysto (10/22/15) Guy Lechuga MD 12 weeks after her last BCG Family History Brother Brain cancer Cancer Of the Face Father , Age 65 Heart attack Heart disease Sister , Lung Disease Age 80 Cancer Mother , Age 73 Amyloid disease Social History Smoking/Tobacco Use Status: Former Tobacco Use Tobacco: How many years used: 35 Quit status: quit date established (Quit 30 yrs ago per Pt) Smoking risk assessment performed?: Yes Alcohol Intake: never Drug use: Never Substance use type: does not use Caregiver/Support person: No Household members: spouse Housing: house Number of Children: 6 number of grandchildren: 17 Communication Needs: None current occupation: Retired Pets and animals: Yes (2 cats) Pets and animals: cat(s) Do you think of yourself as: straight/heterosexual Current gender identity: female What is your relationship status?: How often do you talk on the phone with friends or family?: three or more times per week How often do you get together with friends or relatives?: never How often do you attend baptist or yazdanism services?: 4 or more times per year Panel score (0-1 are the most socially isolated patients): 3 What type of physical activity do you participate in: other Details: [employer] Bike Duration: 15-30 minutes/day Astrid/Hinduism: Orthodoxy Seatbelt use: always Helmet use: No Drive intox 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 HEENT: NC/AT. Normal facial exam. Eyes: Normal conjunctiva and sclera. Neck: Supple. Trachea midline. Lungs: Normal respiratory effort. Lungs are clear. Cor: irr/irr without murmur/gallop. Good radial pulses. GI: Soft. NT/ND. No guarding or rebound. Neuro: A+O x 3. Normal speech, mentation, gait. Cranial nerves II - XII grossly intact. No gross motor or sensory deficit. Ext: No C/C. Mild edema. No calf tenderness. Skin: Warm and dry without rash. Course Vital Signs Vital signs: Vital Signs Temperature 97.5 F L 04/02/21 20:59 Pulse 84 04/02/21 20:59 Respiratory Rate 20 04/02/21 20:59 Blood Pressure 139/69 04/02/21 20:59 Pulse Oximetry 97 04/02/21 20:59 Temperature 97.5 F L 04/02/21 20:59 Temperature Source Skin 04/02/21 20:59 Pulse 84 04/02/21 20:59 Respiratory Rate 20 04/02/21 20:59 Blood Pressure 139/69 04/02/21 20:59 Blood Pressure Position Sitting 04/02/21 20:59 Pulse Oximetry 97 04/02/21 20:59 Oxygen Delivery Method Room Air 04/02/21 20:59 Oxygen Flow Rate 0 04/02/21 20:59 Pain Level 5 04/02/21 20:59
[2021-04-02 21:20] LABS: Abs Immature Grans 0.04 10^3/uL (0.0-0.06); Absolute Eosinophil Count 0.23 10^3/uL (0.0-0.7); Absolute Lymphocyte Count 0.97 10^3/uL (1.2-3.4); Absolute Monocyte Count 0.74 10^3/uL (0.1-0.8); Absolute Neutrophil Count 8.88 10^3/uL (1.2-6.7); Basophils % 0.5; Eosinophils % 2.1; HCT 40.1 % (36.0-46.0); HGB 13.7 g/dL (11.2-15.7); Immature Grans % 0.4; Lymphocytes % 8.9; MCH 31.4 pg (27.0-33.0); MCHC 34.2 % (32.0-36.0); Monocytes % 6.8; Neutrophils % 81.3; Nucleated RBC 0 %; RBC 4.36 10^6/uL (3.93-5.22); RDW 12.5 % (11.7-14.6); RDW-SD 42.5 fL; WBC 10.92 10^3/uL (4.4-10.8)
[2021-04-02 21:29] LABS: Lipase 101 U/L (73-393)
[2021-04-02 21:31] LABS: Absolute Basophil Count 0.05 10^3/uL (0.0-0.2)
[2021-04-02 21:41] LABS: ALT 25 U/L (14-59); AST 26 U/L (15-37); Alkaline Phosphatase 69 U/L (46-116); Anion Gap 6.1 mmol/L (3-11); BUN 24 mg/dL (7-18); Bilirubin, Total 0.5 mg/dL (0.2-1.0); CO2 31.9 mmol/L (21.0-32.0); CREATININE 0.9 mg/dL (0.55-1.02); Calcium 9.1 mg/dL (8.5-10.1); Chloride 94 mmol/L (98-107); Estimated GFR 59.51 (mL/min/1.73m2); Glucose 111 mg/dL (74-106); Sodium 132 mmol/L (136-145); Total Protein 8.1 g/dL (6.4-8.2)
[2021-04-02 21:45] LABS: Troponin I < 0.05 ng/mL (<0.06)
[2021-04-02 22:16] VITALS: BP 126/70; PULSE 86; RESP 17; TEMP 36.6; O2SAT 96
--- NOTE | 2021-04-02 23:36 | DI.VRAD_ITS ---
PROCEDURE INFORMATION: Exam: XR Chest Exam date and time: 04/02/2021 9:12 PM Age: 85 years old Clinical indication: Other: Cp TECHNIQUE: Imaging protocol: XR of the chest. Views: 2 views. COMPARISON: CR XR PORTABLE CHEST AP 07/08/2020 8:44 PM FINDINGS: Lungs: Unremarkable. No consolidation. Pleural spaces: Unremarkable. No pleural effusion. No pneumothorax. Heart/Mediastinum: Unremarkable. No cardiomegaly. Bones/joints: Unremarkable. IMPRESSION: No acute findings. Dictated and Authenticated by: Rudy Gagnon MD. Ordering:HONEY Santiago MD
== END 2021-04-02 22:20 | disposition home or self-care (01) ==
PROVIDERS: Emergency Provider Emergency Medicine; PCP Family Medicine
DX: K21.9 Gastro-esophageal reflux disease without esophagitis (principal); R07.9 Chest pain, unspecified
CPT/HCPCS: 80053; 83690; 93005; 99284; 71046; 83735; 84484; 85025; 93010

== ENCOUNTER → 2021-04-26 10:45 | Outpatient (BNVA) | payer MEDICARE, SELFPAY | PROVIDERS: PCP Family Medicine; Visit Provider Psychiatry & Neurology Neurology | DX: M81.0 Age-related osteoporosis without current pathological fracture (principal); G60.9 Hereditary and idiopathic neuropathy, unspecified; G25.0 Essential tremor; G47.61 Periodic limb movement disorder; I63.9 Cerebral infarction, unspecified; I10 Essential (primary) hypertension | CPT/HCPCS: 99213 ==

== ENCOUNTER → 2021-07-27 09:20 | Outpatient (BNVA) | payer MEDICARE, SELFPAY | PROVIDERS: PCP Family Medicine; Referring Provider Family Medicine; Visit Provider Psychiatry & Neurology Neurology | DX: M81.0 Age-related osteoporosis without current pathological fracture (principal); S32.020S Wedge compression fracture of second lumbar vertebra, sequela; G60.9 Hereditary and idiopathic neuropathy, unspecified; G25.0 Essential tremor; G47.61 Periodic limb movement disorder; I63.9 Cerebral infarction, unspecified; L98.9 Disorder of the skin and subcutaneous tissue, unspecified; I10 Essential (primary) hypertension | CPT/HCPCS: 99213 ==

== ENCOUNTER 2021-09-06 21:15 | Outpatient (CLI) | payer MEDICARE, SELFPAY ==
--- NOTE | 2021-09-06 14:00 | DI.RAD_ITS ---
Exam(s) XR RIBS LT W PA LAT CHEST EXAM: XR RIBS LT W PA LAT CHEST CLINICAL HISTORY: L lower rib pain, r/o frx R07.81 pleurodynia TECHNIQUE: 2D digital imaging was performed. COMPARISON: CR,XR XR CHEST 2V PA LATERAL from 04/02/2021 FINDINGS: MEDIASTINUM: Normal. HEART: Normal. PULMONARY VASCULATURE: Normal. LUNGS: Clear. PLEURAL SPACE: No pleural effusion or pneumothorax. BONE:Within normal limits for the patient's age. Mild left convex thoracic scoliosis. LEFT RIBS: Normal. OTHER FINDINGS:Normal. IMPRESSION: 1. No acute pulmonary findings. 2. Unremarkable left ribs. DATA REPOSITORY: RADIATION DOSE DELIVERED:
== END 2021-09-06 21:35 ==
PROVIDERS: PCP Family Medicine; Visit Provider Family Medicine
DX: R07.81 Pleurodynia (principal)
CPT/HCPCS: 71046; 71100

== ENCOUNTER 2021-09-27 00:51 | Outpatient (CLI) | payer MEDICARE, SELFPAY ==
--- NOTE | 2021-09-27 06:45 | DI.CT_ITS ---
Exam(s) CT CHEST/ABD/PEL W EXAM: CT CHEST/ABD/PEL W CLINICAL HISTORY: History of bladder CA, new suspicious pain on R,lt rib pain, pleurodynia,. TECHNIQUE: Imaging Protocol: Axial computed tomography images with coronal and sagittal reformatted images were created and reviewed CONTRAST MATERIAL: Intravenous: Omnipaque 350 Contrast volume:100 ml Oral: yes COMPARISON: CT RENAL COLIC WO CONTRAST from 08/20/2017 CR XR RIBS LT W PA LAT CHEST from 09/06/2021 FINDINGS: CHEST: Tracheobronchial tree: Patent where visualized. Mediastinum and [place]: No dominant adenopathy or fluid collection. Pulmonary parenchyma: Emphysematous changes greatest in the upper lobes. No consolidation or dominan t measurable mass. Pleura: No effusion or pneumothorax. Lymph nodes: Within normal limits. Aorta: Thoracic portion non-dilated. Heavily calcified. Heart: Enlarged. Filter in left atrial appendage. Bones: Degenerative changes no lytic or blastic lesions. No rib or spine fractures. ABDOMEN: Liver: Normal density. Cyst near dome of liver. No suspicious mass. Gallbladder and biliary tract: Stable biliary dilatation status post cholecystectomy. Pancreas: Normal density, no abnormal calcifications or inflammatory process. Spleen: Normal. Kidneys: Normal size, contour and axis. No radiodense stones or obstructive uropathy. No masses seen. Adrenal glands: No masses seen. Aorta: Abdominal portion non-dilated. Lymph nodes: Within normal limits. Soft tissues: Unremarkable. PELVIS: Bladder: Nearly empty but unremarkable. Bowel: Prominent diverticulosis for at the descending and sigmoid colon. No evidence of diverticulit is. No obstruction or bowel wall thickening. Peritoneal cavity: No ascites, collection or mesenteric inflammatory response. Bones: Stable L2 compression fracture. No new fractures. Degenerative changes, greatest at L5-S1. No lytic or blastic lesions. Reproductive organs: Within normal limits. IMPRESSION: No acute abnormality in the chest abdomen or pelvis.. RADIATION DOSE DELIVERED: 1,755.9mGy.cm Total DLP DATA REPOSITORY: All CT scans at this facility are submitted to the National Radiology Data Registry (NRDR) Dose Index Registry (DIR) with the [employer] (ACR). RADIATION OPTIMIZATION: All CT scans at this facility use at least one of these dose optimization te chniques: automated exposure control; mA and/or kV adjustment per patient size (includes targeted exa ms where dose is matched to clinical indication); or iterative reconstruction.
[2021-09-27] MEDS: Omnipaque 350 MG/ML 50 ML BTL PO (10:40)
[2021-09-27] MEDS: Breeza Beverage 473 ML BTL PO (10:44)
[2021-09-27 11:01] LABS: CREATININE 0.9 mg/dL (0.55-1.02); Estimated GFR 59.37 (mL/min/1.73m2)
[2021-09-27] MEDS: Omnipaque 350 MG/ML 100 ML BTL IJ (12:20)
== END 2021-09-27 01:11 ==
PROVIDERS: PCP Family Medicine; Visit Provider Family Medicine
DX: Z01.812 Encounter for preprocedural laboratory examination; Z85.51 Personal history of malignant neoplasm of bladder; R07.81 Pleurodynia; Z90.49 Acquired absence of other specified parts of digestive tract; J43.8 Other emphysema
CPT/HCPCS: 74177; 71260; 82565; J3490; Q9967

== ENCOUNTER 2021-10-18 08:32 | Outpatient (CLI) | payer MEDICARE, SELFPAY ==
--- NOTE | 2021-10-18 06:00 | DI.RAD_ITS ---
Exam(s) XR PAIN CLINIC LUMBAR SP 2V EXAM: XR PAIN CLINIC LUMBAR SP 2V CLINICAL HISTORY: Dx: Lumbar Spondylosis TECHNIQUE: 2D and realtime digital imaging was performed. CONTRAST MATERIAL: Refer to procedure report. COMPARISON: No exams were available for comparison FINDINGS: Fluoroscopy was provided for Dr. Adan during the performance of a lumbar medial branch block. Alexia victor refer to the procedure report for complete details. Ka,r=6.77 mGy IMPRESSION:
[2021-10-18 08:43] VITALS: BP 120/75; PULSE 69; RESP 20; TEMP 36.6; O2SAT 95
[2021-10-18 09:14] VITALS: BP 120/67; PULSE 79; RESP 17; O2SAT 96
--- NOTE | 2021-10-18 09:19 | PDOC.PAIN_ITS ---
Pain Clinic Procedure Note Procedure Note Procedure Note: Lumbar/Sacral Medial Branch Blocks Elvi Gerber has been referred to the [facility] for lumbar/sacral medial branch blocks. COMMENTS: I previously evaluated her in the office on 09/13/21. Her pre-procedure pain VAS was 4/10. Dx: Lumbosacral spondylosis without myelopathy Patient was interviewed and the medical record reviewed. There were no medical, pharmacologic, radiographic or other structural contraindications to attempting fluoroscopically guided local anesthetic lumbar/sacral medial branch blocks. Risks and expected side effects as well as potential benefit of the procedure were reviewed and voiced concerns addressed. The printed consent form was signed and witnessed. Standard time-out procedure was performed. Patient was placed in the prone position on the fluoroscopy table and automated blood pressure cuff and pulse oximeter applied. The skin entry points for approaching the anatomic target points of the segmental medial branches of right L2-L5 were identified with anfluoroscopy and marked. Following thorough Chlorhexadine preparation of the skin and draping and 1% lidocaine infiltration of the skin entry points and subcutaneous tissues, a 25 gauge 3.5 spinal needle was placed under fluoroscopic guidance down on to the target point for each respective segmental medial branch.Position was confirmed in A/P, oblique and lateral views with 0.25ml of omnipaque 240. Coult be this method .5ml 0.5% Bupivacaine was injected or 1% Lidocaine. Vital signs were stable throughout the procedure and were as recorded in the docflowsheet by the nursing staff. Follow up plans and appointments were discussed and was instructed to keep careful note of how the usual pain was modified by these injections. Specifically was asked to keep a pain diary for the next 24 hours using a numeric pain scale of 0-10 and report these results at the follow-up visit. Post procedure instruction was given as documented in the nursing documentation and having met discharge criteria. Patient was discharged from the [facility] Management Center. Based on the medial branches blocked today, if the patient has adequate relief and we are able to proceed to radiofrequency ablation, the treatment should result in the denervation of the right L3-L4, L4-L5, and L5-S1 FACET JOINTS. We would expect to denervate a total of 3 facets during the radiofrequency ab lation. COMMENTS: Post-procedure pain VAS = 0/10. Aldo Adan DO, MPH [facility]-Pain Management [facility] CC: Elvis Muñoz DO
[2021-10-18] MEDS: Bupivacaine 0.5% Pres-Free 10 ML VIAL IJ (09:32)
[2021-10-18] MEDS: Omnipaque 240 MG/ML 50 ML BTL IJ (09:32)
== END 2021-10-18 08:33 | disposition home or self-care (01) ==
LOC: PC 08:32
PROVIDERS: PCP Family Medicine; Visit Provider Preventive Medicine Occupational Medicine
DX: M47.817 Spondylosis without myelopathy or radiculopathy, lumbosacral region (principal)
CPT/HCPCS: 64493; 64494; 64495; 72100; Q9967

== ENCOUNTER → 2021-11-23 13:36 | Outpatient (BNVA) | payer MEDICARE, SELFPAY | PROVIDERS: PCP Family Medicine; Referring Provider Family Medicine; Visit Provider Psychiatry & Neurology Neurology | DX: G89.29 Other chronic pain (principal); M54.50 Low back pain, unspecified; S32.020S Wedge compression fracture of second lumbar vertebra, sequela; I69.361 Other paralytic syndrome following cerebral infarction affecting right dominant side; G60.9 Hereditary and idiopathic neuropathy, unspecified; G25.0 Essential tremor; M81.0 Age-related osteoporosis without current pathological fracture; G47.61 Periodic limb movement disorder | CPT/HCPCS: 99214 ==

== ENCOUNTER 2021-11-30 09:51 | Outpatient (CLI) | payer MEDICARE, SELFPAY ==
--- NOTE | 2021-11-30 06:00 | DI.RAD_ITS ---
Exam(s) XR PAIN CLINIC LUMBAR SP 2V EXAM: XR PAIN CLINIC LUMBAR SP 2V CLINICAL HISTORY: DX: Lumbar Spondylosis TECHNIQUE: 2D and realtime digital imaging was performed. CONTRAST MATERIAL: Refer to procedure report. COMPARISON: No exams were available for comparison FINDINGS: Fluoroscopy was provided for Dr. Adan during the performance of a lumbar pain procedure. Please ref er to the procedure report for complete details. Ka,r=8.28 mGy IMPRESSION:
[2021-11-30 10:12] VITALS: BP 128/77; PULSE 71; RESP 20; TEMP 36.6; O2SAT 96
--- NOTE | 2021-11-30 10:59 | PDOC.PAIN_ITS ---
Pain Clinic Procedure Note Procedure Note Procedure Note: Lumbar/Sacral Medial Branch Blocks Elvi Gerber has been referred to the [facility] for lumbar/sacral medial branch blocks. COMMENTS: She did well with her first LMBB at right L2-L5. Her pre-procedure pain level was 6/10. Dx: Lumbosacral spondylosis without myelopathy Patient was interviewed and the medical record reviewed. There were no medical, pharmacologic, radiographic or other structural contraindications to attempting fluoroscopically guided local anesthetic lumbar/sacral medial branch blocks. Risks and expected side effects as well as potential benefit of the procedure were reviewed and voiced concerns addressed. The printed consent form was signed and witnessed. Standard time-out procedure was performed. Patient was placed in the prone position on the fluoroscopy table and automated blood pressure cuff and pulse oximeter applied. The skin entry points for approaching the anatomic target points of the segmental medial branches of right L2-L5 were identified with anfluoroscopy and marked. Following thorough Chlorhexadine preparation of the skin and draping and 1% lidocaine infiltration of the skin entry points and subcutaneous tissues, a 25 gauge 3.5 spinal needle was placed under fluoroscopic guidance down on to the target point for each respective segmental medial branch.Position was confirmed in A/P, oblique and lateral views with 0.25ml of omnipaque 240. Coult be this method .5ml 0.5% Bupivacaine was injected or 1% Lidocaine. Vital signs were stable throughout the procedure and were as recorded in the docflowsheet by the nursing staff. Follow up plans and appointments were discussed and was instructed to keep careful note of how the usual pain was modified by these injections. Specifically was asked to keep a pain diary for the next 24 hours using a numeric pain scale of 0-10 and report these results at the follow-up visit. Post procedure instruction was given as documented in the nursing documentation and having met discharge criteria. Patient was discharged from the Pain Management Center. Based on the medial branches blocked today, if the patient has adequate relief and we are able to proceed to radiofrequency ablation, the treatment should result in the denervation of the right L4-L5 and L5-H6BWKLA JOINTS. We would expect to denervate a total of 3 facets during the radiofrequency ablation. COMMENTS: Post-procedure pain VAS was 0/10. Aldo Adan DO, MPH [facility]-Pain Management [facility] CC: Elvis Muñoz DO
[2021-11-30] MEDS: Lidocaine 2% Pres-Free 5 ML VIAL IJ (11:05)
[2021-11-30] MEDS: Omnipaque 240 MG/ML 50 ML BTL IJ (11:08)
[2021-11-30 11:09] VITALS: BP 132/78; PULSE 78; RESP 19; O2SAT 98
== END 2021-11-30 09:52 | disposition home or self-care (01) ==
LOC: PC 09:52
PROVIDERS: PCP Family Medicine; Visit Provider Preventive Medicine Occupational Medicine
DX: M47.817 Spondylosis without myelopathy or radiculopathy, lumbosacral region (principal); M54.50 Low back pain, unspecified
CPT/HCPCS: 64635; 64636; 72100; Q9967

== ENCOUNTER → 2021-12-19 01:14 | Outpatient (CLI) | payer MEDICARE, SELFPAY ==
--- NOTE | 2021-12-19 11:10 | DI.RAD_ITS ---
Exam(s) XR KNEE LT 3V AP,LAT,MABEL EXAM: XR KNEE LT 3V AP,LAT,MABEL CLINICAL HISTORY: Swollen, warm knee, likely gout,m10.9. TECHNIQUE: 2D digital imaging was performed. Three views. COMPARISON: CR LEFT KNEE LIMITED 1 OR 2 VIEWS from 02/20/2017 FINDINGS: BONES: No acute fracture is present. No bony destructive lesion is seen. JOINTS: Moderate to severe narrowing of the lateral femoral tibial joint space with significant worse robby when compared with prior. Spurring at the tibial spines and femoral intercondylar notch as well as articular aspect of the patella. Smoothly marginated small calcification adjacent to the medial femoral condyle. No joint effusion is seen. SOFT TISSUE: Normal. 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 DATA REPOSITORY: RADIATION DOSE DELIVERED:
== END ==
PROVIDERS: PCP Family Medicine; Visit Provider Family Medicine
DX: M25.562 Pain in left knee; M10.9 Gout, unspecified; M17.12 Unilateral primary osteoarthritis, left knee
CPT/HCPCS: 73562

== ENCOUNTER 2021-12-21 12:28 | Outpatient (CLI) | payer MEDICARE, SELFPAY ==
[2021-12-21 12:51] VITALS: BP 123/80; PULSE 54; RESP 20; TEMP 36.9; O2SAT 99
[2021-12-21] MEDS: fentaNYL 100 MCG/2 ML VIAL IVP (13:27)
[2021-12-21] MEDS: Midazolam 2 MG/2 ML VIAL IVP (13:28)
[2021-12-21 13:54] VITALS: BP 113/70; PULSE 82; RESP 16; O2SAT 93
[2021-12-21] MEDS: Bupivacaine 0.5% Pres-Free 30 ML VIAL IJ (13:57)
[2021-12-21] MEDS: Lidocaine 2% Multi-Dose 20 ML VIAL IJ (13:57)
--- NOTE | 2021-12-21 13:57 | DI.RAD_ITS ---
Exam(s) XR PAIN CLINIC LUMBAR SP 2V EXAM: XR PAIN CLINIC LUMBAR SP 2V CLINICAL HISTORY: Dx: Lumbar Spondylosis TECHNIQUE: 2D and realtime digital imaging was performed. Radiologist not present. CONTRAST MATERIAL: None. COMPARISON: No exams were available for comparison FINDINGS: Fluoroscopy was provided for pain management therapy. Please refer to procedure report or details. Cumulative dose: Kar=9.69 mGy IMPRESSION: RADIATION DOSE DELIVERED:
--- NOTE | 2021-12-21 13:57 | PDOC.PAIN ---
Pain Clinic Procedure Note Procedure Note Procedure Note: Right Lumbar Radiofrequency with Coolief Machine PROCEDURE NOTE Date of Service: December 21, 2021 Patient: Elvi Gerber Provider: Aldo Adan DO, MPH Pre Operative Diagnosis: Lumbosacral Spondylosis without Myelopathy Post Operative Diagnosis: Same Post procedure pain; VAS= 6/10 PROCEDURE: Radiofrequency Ablation of medial branches - RT L2 L3 L4 L5 and lateral branches of right S1. Elvi Gerber was brought into the fluoroscopy suite and positioned into the prone position on the fluoroscopy table and allowed to adjust to a position of comfort. A grounding pad was placed on the left thigh. The lumbar region was widely prepped with a chloraprep solution, allowed to air dry and draped in standard sterile surgical fashion. Local anesthesia was provided by 4 mL of 2% Lidocaine delivered with a 25g needle. A 17g 100 mm radiofrequency introducer needle was placed to the planned anatomic targets guided with intermittent fluoroscopy with a perpendicular approach to terminally place at the junction of the superior articular process and the transverse process of the right L3 L4 L5, the base of the sacral ala on the right for the L5 medial branch nerve and the area between base of the sacral ala to the S1 foramen on the right. The stylets were removed and radiofrequency probes with a 4mm active tip were then inserted. Needle tip position of the probes was verified in the AP, oblique, and lateral views. At each site, the medial branch nerve was stimulated at 2 Hz to a maximum 1-2 volts determined to finalize safe needle and electrode placement. The patient was awake and responsive during this portion of the procedure. Each target was anesthetized with 1-2 mL of 2% lidocaine for anesthesia for lesioning and then each target was lesioned at 80 degrees Celsius for 2 minutes and 30 seconds. Tissue impedences were noted to be between 250 and 500 Ohms. Electrodes and needles were then removed and bandages placed over the needle placement sites, the patient then returned to the supine position on a stretcher and transported to the recovery room without hemodynamic, neurologic, or allergic reactions. Fluoroscopic images were printed for hard copy recording and digitally archived. After each ablation, I injected 1/4 cc of Depomedrol (40 mg/cc) flushed with 1 cc of 0.5% Bupivacaine. The needles were removed without difficulty. POST PROCEDURE EVALUATION: IMPRESSION: 1. Summary of procedure. Medication given is documented in the MAR. 2. The patient will be contacted in 1-3 weeks 3. Estimated Blood Loss: <5 mls 4. Fluoroscopy time: Documented in the EMR. Follow up plans and appointments were discussed with the Elvi . Post procedure instruction was given as documented in nursing documentation and having met discharge criteria, [facility] was [facility]. COMMENTS: No apparent complications. Post-procedure pain: VAS= 0/10. F/U with our office as needed. I personally performed this entire procedure. Aldo Adan DO, MPH Attending Physician Pain Management
[2021-12-21] MEDS: methylPREDNISolone ACETATE 40 MG/ML VIAL IJ (13:58)
[2021-12-21] MEDS: Lactated Ringers 500 ML 80 ML IV (14:02)
== END 2021-12-21 12:29 | disposition home or self-care (01) ==
LOC: PC 12:28
PROVIDERS: PCP Family Medicine; Visit Provider Preventive Medicine Occupational Medicine
DX: M47.817 Spondylosis without myelopathy or radiculopathy, lumbosacral region (principal); M54.50 Low back pain, unspecified
CPT/HCPCS: 64635; 64636; 72100; J1030; J2250; J3010; J3490

== ENCOUNTER 2022-01-02 03:34 | Outpatient (CLI) | payer MEDICARE, SELFPAY ==
[2022-01-02 13:00] LABS: Uric Acid 3.9 mg/dL (2.6-6.0)
== END 2022-01-02 03:35 | disposition home or self-care (01) ==
LOC: LBO 03:34
PROVIDERS: PCP Family Medicine; Visit Provider Family Medicine
DX: M10.9 Gout, unspecified (principal)
CPT/HCPCS: 36415; 84550

== ENCOUNTER → 2022-02-06 09:14 | Outpatient (BNVA) | payer MEDICARE, SELFPAY | PROVIDERS: PCP Family Medicine; Referring Provider Family Medicine; Visit Provider Physician Assistant | DX: M17.12 Unilateral primary osteoarthritis, left knee (principal) | CPT/HCPCS: 20610; 99213; J1040 ==

== ENCOUNTER → 2022-02-23 11:24 | Outpatient (BNVA) | payer MEDICARE, SELFPAY | PROVIDERS: PCP Family Medicine; Visit Provider Internal Medicine Cardiovascular Disease | DX: I48.0 Paroxysmal atrial fibrillation (principal); I34.0 Nonrheumatic mitral (valve) insufficiency; I07.1 Rheumatic tricuspid insufficiency; Z95.818 Presence of other cardiac implants and grafts | CPT/HCPCS: 99213 ==

== ENCOUNTER → 2022-05-17 12:44 | Outpatient (BNVA) | payer MEDICARE, SELFPAY | PROVIDERS: PCP Family Medicine; Referring Provider Family Medicine; Visit Provider Psychiatry & Neurology Neurology | DX: Z86.16 Personal history of COVID-19 (principal); Z79.82 Long term (current) use of aspirin; Z79.02 Long term (current) use of antithrombotics/antiplatelets; I10 Essential (primary) hypertension; G60.9 Hereditary and idiopathic neuropathy, unspecified; G25.0 Essential tremor; G47.61 Periodic limb movement disorder | CPT/HCPCS: 99214 ==

== ENCOUNTER → 2022-11-28 13:07 | Outpatient (BNVA) | payer MEDICARE, SELFPAY | PROVIDERS: PCP Family Medicine; Referring Provider Family Medicine; Visit Provider Psychiatry & Neurology Neurology | DX: G60.9 Hereditary and idiopathic neuropathy, unspecified (principal); G25.0 Essential tremor; G47.61 Periodic limb movement disorder; Z86.73 Personal history of transient ischemic attack (TIA), and cerebral infarction without residual deficits; I10 Essential (primary) hypertension | CPT/HCPCS: 99214 ==

== ENCOUNTER 2022-12-26 01:38 | Outpatient (CLI) | payer MEDICARE, SELFPAY ==
--- NOTE | 2022-12-26 | DI.RAD_ITS ---
Exam(s) XR CHEST 2V PA LATERAL EXAM: XR CHEST 2V PA LATERAL CLINICAL HISTORY: CHRONIC COUGH, R05.3, SMOKING GREATER THAN 25 PACK YR, F17.210 TECHNIQUE: 2D digital imaging was performed of the chest. Two images were obtained. PA and lateral views were obtained. COMPARISON: CR,XR XR CHEST 2V PA LATERAL from 04/02/2021 CR XR RIBS LT W PA LAT CHEST from 09/06/2021 FINDINGS: MEDIASTINUM: Normal. HEART: Normal. PULMONARY VASCULATURE: Normal. LUNGS: Clear. PLEURAL SPACE: No pleural effusion or pneumothorax. BONE:Within normal limits for the patient's age. OTHER FINDINGS:Normal. IMPRESSION: No acute pulmonary findings. DATA REPOSITORY: RADIATION DOSE DELIVERED:
== END 2022-12-26 01:58 ==
LOC: DI 01:39
PROVIDERS: PCP Family Medicine; Visit Provider Physician Assistant
DX: R05.3 Chronic cough (principal); F17.210 Nicotine dependence, cigarettes, uncomplicated
CPT/HCPCS: 71046

== ENCOUNTER 2023-01-22 04:33 | Outpatient (CLI) | payer MEDICARE, SELFPAY ==
[2023-01-22] MEDS: Inhaler, Assist Device 1 EACH MC (13:59)
[2023-01-22] MEDS: Albuterol HFA 18 GM 200 PUFF INH IH (13:59)
--- NOTE | 2023-01-23 12:34 | W.PFT ---
Date of service: 01/22/23 Time of Service: 12:56 Pulmonary Function Test Result Indications: LPR Interpretation Spirometry: Although the FEV1/FVC is normal, mild airflow limitation is suggested by the flow volume loop and volume time curve. There is a significant bronchodilator response. Impression Mild airflow obstruction with a positive bronchodilator response. Clinical Correlation therefore is recommended.
== END 2023-01-22 04:34 | disposition home or self-care (01) ==
LOC: RT 04:33
PROVIDERS: PCP Family Medicine; Visit Provider Physician Assistant
DX: K21.9 Gastro-esophageal reflux disease without esophagitis (principal)
CPT/HCPCS: 94060

== ENCOUNTER 2023-01-25 15:50 | Emergency (ER) | payer MEDICARE, SELFPAY ==
[2023-01-25] VITALS (118 sets, daily range): BP systolic 115–146; BP diastolic 60–119; PULSE 50–91; RESP 11–29; TEMP 37.2; O2SAT 89–98
--- NOTE | 2023-01-25 15:45 | RT.EKG_ITS ---
APPROVED REPORT Exam: Resting ECG Reason for Exam: DIZZY Patient Location: E HR:77 bpm ECG Measurements Heart Rate 77 AXIS IN [id number] P [id number] QRSd 90 QRS 50 QT 403 T 46 QTc 455 Conclusion Atrial fibrillation...? atrial activity regular, narrow complex, normal axis, non ischemic
--- NOTE | 2023-01-25 16:15 | DI.RAD_ITS ---
Exam(s) XR CHEST 2V PA LATERAL EXAM: XR CHEST 2V PA LATERAL CLINICAL HISTORY: feeling shaky, afib TECHNIQUE: 2D digital imaging was performed. COMPARISON: CR XR CHEST 2V PA LATERAL from 12/26/2022 FINDINGS: HEART: Normal size. Atrial appendage occlusion device noted. Aorta: Not dilated. PULMONARY VASCULATURE: Normal. LUNGS: Clear. PLEURAL SPACE: No pleural effusion or pneumothorax. BONE:Mild levoscoliosis. IMPRESSION: No acute abnormality. DATA REPOSITORY: RADIATION DOSE DELIVERED:
[2023-01-25] MEDS: Normal Saline 500 ML 1000 ML IV (16:28)
--- NOTE | 2023-01-25 16:30 | ED.GENADUL_ITS ---
Discharge Plan Discharge Details Chief Complaint: GenMedical Primary Care Provider: Elvis Muñoz ED Provider: Sandeep Jha Home Meds and New Rx's Prescriptions: No Action aspirin [Gerald Chewable Aspirin] 81 mg tablet,chewable 81 mg PO DAILY montelukast 10 mg tablet 10 mg PO DAILY Qty: 90 0RF nitroglycerin [Nitrostat] 0.3 mg tablet, sublingual 0.3 mg Sublingual Q5-15M PRN (Reason: chest pain/esophageal spasm) 1 Days Qty: 25 6RF Neilmed Sinus Rinse Complete Packet With Rinse Device .Route .3xweekly Rx Instructions: packets .3xweekly; gabapentin 600 mg tablet See Rx Instructions PO BID Qty: 270 3RF Rx Instructions: 600mg at dinner and 1200mg HS PO twice a day; losartan 50 mg tablet 50 mg PO DAILY Qty: 90 3RF cholecalciferol (vitamin D3) 1,000 UNIT tablet 1,000 unit PO DAILY omega-3 fatty acids-fish oil 1 EACH capsule 1 ea PO DAILY cyanocobalamin (vitamin B-12) [Vitamin B-12] 500 MCG tablet 500 mcg PO DAILY Patient Comments: ran out acetaminophen 500 MG tablet 1,000 mg PO Q4H PRN omeprazole 20 mg capsule,delayed release(DR/EC) 20 mg PO BID PRN (Reason: heart burn) Qty: 90 3RF atenolol 25 mg tablet 25 mg PO BID Qty: 180 3RF levothyroxine 88 mcg tablet 88 mcg PO DAILY Qty: 90 3RF hydrochlorothiazide 25 mg tablet 25 mg PO DAILY Qty: 90 3RF simvastatin 10 mg tablet 10 mg PO HS Qty: 90 3RF Rx Instructions: lower LDL cholesterol amlodipine 5 mg tablet 5 mg PO BID Qty: 180 3RF albuterol sulfate 90 mcg/actuation HFA aerosol inhaler 2 puff inhalation Q6H PRN (Reason: shortness of breath or wheezing) Qty: 6.7 2RF Metamucil [facility] Fiber 660 GM powder 1 oz PO HS Medical Decision Making 87-year-old female history of A-fib presents with shaky sensation associated with mild chills and fatigue. No chest pain or shortness of breath. Patient is hemodynamically stable. EKG showing rate controlled A-fib. Mild peripheral edema bilateral ankles. Patient is normoxic nontachycardic normotensive. Neurologically intact moving all extremities following commands. Consider electrolyte derangement versus dehydration versus UTI versus viral illness versus ACS versus polypharmacy versus orthostasis, lower suspicion for PE or aortic pathology lower suspicion for CVA. Will obtain screening labs light fluids chest x-ray close reassessment 19: 44 resting comfortably no acute distress. Did have some slight nausea. Evidence of possible mild early UTI. Mild hypokalemia. Will dose Keflex and Zofran. Likely home with close follow-up with primary care physician; pending CBC and troponin HPI General Date/Time Provider Initiated Documentation: 01/25/23 15:58 . HPI Narrative: 87-year-old female history of A-fib presents with shaky sensation fatigue and chills. Denies chest pain or shortness of breath. Feeling better now. Denies abdominal pain nausea or urinary symptoms Related Data Home Medications Medication Instructions Recorded Confirmed cholecalciferol (vitamin D3) 25 1,000 unit PO DAILY 09/17/12 11/28/22 mcg (1,000 unit) tablet omega-3 fatty acids-fish oil 300 1 ea PO DAILY 10/15/12 11/28/22 mg-1,000 mg capsule psyllium husk (aspartame) 3.4 1 oz PO HS 05/27/13 11/28/22 gram/5.8 gram oral powder (Metamucil [facility] Fiber) cyanocobalamin (vitamin B-12) 500 500 mcg PO DAILY 11/19/15 11/28/22 mcg tablet (Vitamin B-12) acetaminophen 500 mg tablet 1,000 mg PO Q4H PRN 03/16/17 11/28/22 nitroglycerin 0.3 mg sublingual 0.3 mg sublingual Q5-15M PRN chest 09/09/19 11/28/22 tablet (Nitrostat) pain/esophageal spasm 1 day #25 tab-caps aspirin 81 mg chewable tablet 81 mg PO DAILY 10/26/20 11/28/22 (Gerald Chewable Low Dose Aspirin) sodium chloride, sodium packet .Route .3xweekly 10/26/20 11/28/22 bicarb-nasal rinse squeeze bottle with packet (Neilmed Sinus Rinse Complete with packet) omeprazole 20 mg capsule,delayed 20 mg PO BID PRN heart burn #90 04/13/22 11/28/22 release tabs atenolol 25 mg tablet 25 mg PO BID #180 tabs 07/11/22 11/28/22 hydrochlorothiazide 25 mg tablet 25 mg PO DAILY #90 tabs 07/13/22 11/28/22 levothyroxine 88 mcg tablet 88 mcg PO DAILY #90 tabs 07/13/22 11/28/22 montelukast 10 mg tablet 10 mg PO DAILY #90 tabs 08/10/22 11/28/22 simvastatin 10 mg tablet 10 mg PO HS #90 tab-caps 10/10/22 11/28/22 gabapentin 600 mg tablet See Rx Instructions PO BID #270 11/28/22 11/28/22 tabs amlodipine 5 mg tablet 5 mg PO BID #180 tab-caps 12/05/22 losartan 50 mg tablet 50 mg PO DAILY #90 tabs 12/12/22 12/12/22 albuterol sulfate 90 mcg/actuation 2 puff inhalation Q6H PRN 01/19/23 aerosol inhaler shortness of breath or wheezing #6.7 grams Previous Rx's Medication Instructions Recorded nitroglycerin 0.3 mg sublingual 0.3 mg sublingual Q5-15M PRN chest 09/09/19 tablet (Nitrostat) pain/esophageal spasm 1 day #25 tab-caps omeprazole 20 mg capsule,delayed 20 mg PO BID PRN heart burn #90 04/13/22 release tabs atenolol 25 mg tablet 25 mg PO BID #180 tabs 07/11/22 hydrochlorothiazide 25 mg tablet 25 mg PO DAILY #90 tabs 07/13/22 levothyroxine 88 mcg tablet 88 mcg PO DAILY #90 tabs 07/13/22 montelukast 10 mg tablet 10 mg PO DAILY #90 tabs 08/10/22 simvastatin 10 mg tablet 10 mg PO HS #90 tab-caps 10/10/22 gabapentin 600 mg tablet See Rx Instructions PO BID #270 11/28/22 tabs amlodipine 5 mg tablet 5 mg PO BID #180 tab-caps 12/05/22 losartan 50 mg tablet 50 mg PO DAILY #90 tabs 12/12/22 albuterol sulfate 90 mcg/actuation 2 puff inhalation Q6H PRN 01/19/23 aerosol inhaler shortness of breath or wheezing #6.7 grams Allergies Allergy/AdvReac Type Severity Reaction Status Date / Time guaifenesin [From Mucinex] AdvReac Intermediate diarrhea Verified 12/12/22 14:51 tramadol AdvReac constipatio Verified 12/12/22 14:51 n General Stated Complaint: GenMedical YEE: 3 Review of Systems Narrative: Review of Systems Constitutional: Shakiness chills Eyes: negative ENT: negative Cardiovascular: negative Respiratory: negative Gastrointestinal: negative : negative Musculoskeletal: negative Skin: negative Neurologic: negative Psych: negative PFSH All Active Problems Muscle pain, myofascial (Acute) Post-nasal drip (Acute) Vasomotor rhinitis (Acute) Osteoarthritis of left knee (Acute) Steroid injection: 02/06/2022 Lumbosacral spondylosis without myelopathy (Acute) Rib pain on left side (Acute) Verruca vulgaris (Acute) [place] [facility] [place] Skin lesion of face (Acute) SCC? Stroke (Chronic) Presence of Watchman left atrial appendage closure device (Acute ~10/2020) 10[place]07/[place] [facility] [place] cardiac cath Tricuspid valve insufficiency (Chronic) By cath 07 October 2020 Flushing (Acute) Heart palpitations (Acute) Anterior epistaxis (Chronic) Recurrent, responds to AgNO3 cautery Primary osteoarthritis of left knee (Acute) Contusion of left knee (Acute) Knee pain, left anterior (Acute) Mitral valve insufficiency (Chronic) Chest pain (Acute) Periodic limb movement disorder (PLMD) (Chronic) Essential tremor (Chronic) Neoplasm of large intestine (Acute 06/21/05) H/O POLYPS ON FIRST COLON IN [place]; NEG ON REPEAT; [place] [address] DR BLAKE FOUND ONE HYPERPLASTIC POLYP Peripheral neuropathy, idiopathic (Acute 06/08/98) KNEE DISTAL, BILAT; INTERMITTENT BURNING, SLEEPS BETTER AT NIGHT IF SHE HAS WORN TIGHT SOCKS DAYTIME; nortriptyline effective; Dr Oneill; worse balance 02/2015 Leg pain, left (Chronic 11/03/16) Hyperlipidemia (Chronic 10/21/10) dyslipidemia: low HDL; statin begun by neuro 10/2010 after her TIA, along w ith Clopidogrel; target LDL<100 and HDL>40 History of thyroidectomy, total (Chronic 03/13/14) [facility] [place] multinodular goiter due to pressure on trachea Gastroesophageal reflux disease (Chronic 07/05/04) RESPONDS TO OMEPRAZOLE, BEFORE DINNER; [place]OPHAGITIS [place] E[place] [facility] [place] 07/05[place]04; gastritis and diffuse esophagitis; DR MERCADO REC [place] PPI RX Essential hypertension (Chronic 06/23/13) Chronic obstructive pulmonary disease (Chronic 02/08/18) 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 Guy Lechuga- non-invasive papillary urothellal carcinoma, low grade. Acute midline low back pain without sciatica (Chronic 05/18/17) Atrial fibrillation (Chronic) Labile blood pressure (Chronic) Hx of thyroidectomy (Chronic) Medical History Acute midline low back pain Surgical History Appendectomy Biopsy of breast (07/09/76) both breasts, biopsies benign Cholecystectomy Colonoscopy - IV Sedation (03/22/16) Cystoscopy (04/29/15) Dr. Lechuga 02/05/18 repeat cysto cystourethroscopy (05/19/15) Dr Brian Lechuga LR-extensive recurrent bladder tumor encompassint entire L hemitrigone and posterolateral bladder wall and neck cystourethroscopy (08/07/17) Dr Brian Lechuga [facility]-extensive recurrent bladder tumor encompassint entire L hemitrigone and posterolateral bladder wall and neck Extraction of cataract (07/27/15) Dr Mayte Gonzalez eye R eye 2/2 Extraction of cataract (08/10/15) Dr Mayte Gonzalez eye R eye 2/2 H/O cardiac catheterization (10/07/20) [facility] [place] appendage closure for afib Thyroid (03/13/14) 9Complete thyroidectomy Dr. Sanchez [facility] [place]: multinodular goiter Transurethral Resection of Bladder Tumor, 2-5cm (05/27/13) Dr. Ruano URO cysto (10/22/15) Guy Lechuga MD 12 weeks after her last BCG Family History Brother Brain cancer Cancer Of the Face Father , Age 65 Heart attack Heart disease Sister , Lung Disease Age 80 Cancer Mother , Age 73 Amyloid disease Social History Smoking/Tobacco Use Status: Former Tobacco Use Tobacco: How many years used: 40 Quit status: quit date established Smoking risk assessment performed?: Yes Alcohol Intake: never Drug use: Never Substance use type: does not use Caregiver/Support person: No Household members: spouse Housing: house Number of Children: 6 number of grandchildren: 17 Communication Needs: None current occupation: Retired Pets and animals: Yes (2 cats) Pets and animals: cat(s) Do you think of yourself as: straight/heterosexual Current gender identity: female What is your relationship status?: How often do you talk on the phone with friends or family?: three or more times per week How often do you get together with friends or relatives?: never How often do you attend rastafarian or yazidi services?: 4 or more times per year Panel score (0-1 are the most socially isolated patients): 3 What type of physical activity do you participate in: other Details: [employer] Bike Duration: 15-30 minutes/day Astrid/Pentecostal: Jewish Seatbelt use: always Helmet use: No Drive intox 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 Do you feel safe at home: Yes Do you feel safe in your relationship?: Yes Exam Narrative Exam Narrative: Physical Examination General: alert, awake, cooperative, resting comfortably, no acute distress HEENT: normocephalic, atraumatic; PERRL, EOM intact, conjunctiva normal; no nasal discharge; moist mucous membranes, oral and pharyngeal mucosa normal, tolerating secretions Neck: supple, trachea midline; full ROM Chest: normal to inspection Respiratory: normal respiratory effort, speaking in full sentences, clear to auscultation, no wheezing, rales or rhonchi Cardiac: regular rate, regular rhythm, S1S2 intact, no murmurs rubs or gallops GI: abdomen soft, non-tender, non-distended; no palpable mass or hepatosplenomegaly Skin: no lesions, rashes or trauma appreciated Neuro: AAOx3, normal speech, moving all extremities Extremities: Mild edema bilateral ankles Psych: Appropriate mood and affect Course Vital Signs Vital signs: Vital Signs Temperature 37.2 C 01/25/23 15:56 Pulse 80 01/25/23 15:56 Respiratory Rate 18 01/25/23 15:56 Blood Pressure 134/72 01/25/23 15:56 Pulse Oximetry 97 01/25/23 15:56 Temperature 37.2 C 01/25/23 15:56 Temperature Source Skin 01/25/23 15:56 Pulse 80 01/25/23 15:56 Respiratory Rate 18 01/25/23 16:07 Respiratory Effort Normal 01/25/23 16:07 Respiratory Depth Normal 01/25/23 16:07 Respiratory Pattern Normal 01/25/23 16:07 Blood Pressure 134/72 01/25/23 15:56 Pulse Oximetry 97 01/25/23 15:56 Oxygen Delivery Method Room Air 01/25/23 15:56 Oxygen Flow Rate 0 01/25/23 15:56 Pain Level 0 01/25/23 15:56
[2023-01-25 17:03] LABS: ALT 21 U/L (14-59); AST 19 U/L (15-37); Albumin 4.2 g/dL (3.4-5.0); Alkaline Phosphatase 77 U/L (46-116); Anion Gap 10.3 mmol/L (3-11); BUN 24 mg/dL (7-18); Bilirubin, Total 0.4 mg/dL (0.2-1.0); CO2 29.7 mmol/L (21.0-32.0); CREATININE 0.9 mg/dL (0.55-1.02); Calcium 9.4 mg/dL (8.5-10.1); Chloride 94 mmol/L (98-107); Estimated GFR 61.87 (mL/min/1.73m2); Glucose 134 mg/dL (74-106); Magnesium 1.8 mg/dL (1.8-2.4); Sodium 134 mmol/L (136-145); TSH (W/Ref FT4) 0.09 uIU/mL (0.36-3.74); Total Protein 8.5 g/dL (6.4-8.2); Troponin I < 50 ng/L (<or=60)
[2023-01-25 17:11] LABS: Potassium 2.9 mmol/L (3.5-5.1)
[2023-01-25 17:17] LABS: PTT Activated 29.2 sec (21.5-31.9); Prothrombin Time 10.2 sec (9.3-11.0)
[2023-01-25 17:22] LABS: NT-proBNP 1640 pg/mL (<300)
[2023-01-25 17:37] LABS: FREE T4 1.46 ng/dL (0.76-1.46)
[2023-01-25] MEDS: POTASSIUM CHLORIDE 10 MEQ/100 ML BAG 100 MEQ IVPB (18:06)
[2023-01-25] MEDS: Potassium Chloride 10 MEQ TABCR PO (18:06)
[2023-01-25 18:52] LABS: Bilirubin Negative (Negative); Blood Small (Negative); Clarity Clear (Clear); Glucose Negative (Negative); Ketones Negative (Negative); Leukocyte Esterase Moderate (Negative); Nitrite Negative (Negative); Specific Gravity 1.015 (1.005-1.025); Urobilinogen 0.2 mg/dL (Up to 0.2)
[2023-01-25 18:55] LABS: Bacteria Few HPF (Negative); C & S Indicated? No/Sq. Contamination; Casts Negative LPF (Negative); Crystals Negative HPF (Negative); Epithelial Cells Moderate HPF (Negative); Mucus Negative (Negative)
[2023-01-25] MEDS: Cephalexin 500 MG CAP PO (19:49)
[2023-01-25] MEDS: Ondansetron 4 MG/2 ML VIAL IVP (19:49)
[2023-01-25 20:02] LABS: Abs Immature Grans 0.03 10^3/uL (0.0-0.06); Absolute Basophil Count 0.04 10^3/uL (0.0-0.2); Absolute Eosinophil Count 0.25 10^3/uL (0.0-0.7); Absolute Lymphocyte Count 1.09 10^3/uL (1.2-3.4); Absolute Monocyte Count 0.62 10^3/uL (0.1-0.8); Absolute Neutrophil Count 5.56 10^3/uL (1.2-6.7); Basophils % 0.5; Eosinophils % 3.3; HCT 38.1 % (36.0-46.0); HGB 13.2 g/dL (11.2-15.7); Immature Grans % 0.4; Lymphocytes % 14.4; MCH 31.9 pg (27.0-33.0); MCHC 34.6 % (32.0-36.0); MCV 92 fL (80-95); MPV 9.1 fL (8.0-11.0); Monocytes % 8.2; Neutrophils % 73.2; Platelet Count 279 10^3/uL (130-400); RBC 4.14 10^6/uL (3.93-5.22); RDW 12.6 % (11.7-14.6); WBC 7.59 10^3/uL (4.4-10.8)
[2023-01-25 20:18] LABS: Troponin I < 50 ng/L (<or=60)
--- NOTE | 2023-01-25 20:45 | W.EDPROG ---
Date of service: 01/25/23 Time of Service: 20:45 Medical Decision Making Pt signed out to me pending second troponin which was negative, she did have one episode of vomiting but feels better now, no chest pain, no abdominal tenderness. She feels well enough for d/c, will provide cephalexin and zofran and advised to f/u with pcp, return precautions given Lab Data Lab results reviewed: Yes I reviewed the patient's lab results. Sign Out Sign Out Data: Sign Out Comment: resolved lightheadedness, nausea; pending second trop and CBC; treating for hypo K and UTI Last updated by Sandeep Jha MD at 01/25/23 19:48 Discharge Plan Disposition Patient Disposition: Home Condition: Stable Discharge Details Clinical Impression: Acute UTI, Nausea Primary Care Provider: Elvis Muñoz ED Provider: Kumar Muniz Home Meds and New Rx's Prescriptions: New ondansetron 4 mg tablet,disintegrating 4 mg PO Q8H PRNQty: 30 0RF cephalexin 500 mg tablet 500 mg PO QID Qty: 28 0RF Continued aspirin [Gerald Chewable Aspirin] 81 mg tablet,chewable 81 mg PO DAILY montelukast 10 mg tablet 10 mg PO DAILY Qty: 90 0RF nitroglycerin [Nitrostat] 0.3 mg tablet, sublingual 0.3 mg Sublingual Q5-15M PRN (Reason: chest pain/esophageal spasm) 1 Days Qty: 25 6RF Neilmed Sinus Rinse Complete Packet With Rinse Device .Route .3xweekly Rx Instructions: packets .3xweekly; gabapentin 600 mg tablet See Rx Instructions PO BID Qty: 270 3RF Rx Instructions: 600mg at dinner and 1200mg HS PO twice a day; losartan 50 mg tablet 50 mg PO DAILY Qty: 90 3RF cholecalciferol (vitamin D3) 1,000 UNIT tablet 1,000 unit PO DAILY omega-3 fatty acids-fish oil 1 EACH capsule 1 ea PO DAILY cyanocobalamin (vitamin B-12) [Vitamin B-12] 500 MCG tablet 500 mcg PO DAILY Patient Comments: ran out acetaminophen 500 MG tablet 1,000 mg PO Q4H PRN omeprazole 20 mg capsule,delayed release(DR/EC) 20 mg PO BID PRN (Reason: heart burn) Qty: 90 3RF atenolol 25 mg tablet 25 mg PO BID Qty: 180 3RF levothyroxine 88 mcg tablet 88 mcg PO DAILY Qty: 90 3RF hydrochlorothiazide 25 mg tablet 25 mg PO DAILY Qty: 90 3RF simvastatin 10 mg tablet 10 mg PO HS Qty: 90 3RF Rx Instructions: lower LDL cholesterol amlodipine 5 mg tablet 5 mg PO BID Qty: 180 3RF albuterol sulfate 90 mcg/actuation HFA aerosol inhaler 2 puff inhalation Q6H PRN (Reason: shortness of breath or wheezing) Qty: 6.7 2RF Metamucil [facility] Fiber 660 GM powder 1 oz PO HS Discharge Instructions Instructions: Urinary Tract Infection in Women (ED), Acute Nausea and Vomiting (ED) Additional Instructions: follow up with your primary care provider within 1 week if you feel more ill, have severe abominal pain or chest pain return to the emergency department
== END 2023-01-25 21:19 | disposition home or self-care (01) ==
PROVIDERS: Emergency Medicine; Emergency Provider Emergency Medicine; PCP Family Medicine
DX: R68.83 Chills (without fever) (principal); I48.91 Unspecified atrial fibrillation; Z86.73 Personal history of transient ischemic attack (TIA), and cerebral infarction without residual deficits; Z95.818 Presence of other cardiac implants and grafts; Z79.82 Long term (current) use of aspirin
CPT/HCPCS: 36415; 80053; 93005; 96361; 96365; 96366; 99285; 71046; 81003; 81015; 83735; 83880; 84439; 84443; 84484; 85025; 85610; 85730; 93010; 99284; J2405; J3480

== ENCOUNTER → 2023-02-02 10:30 | Outpatient (BNVA) | payer MEDICARE, SELFPAY | PROVIDERS: PCP Family Medicine; Visit Provider Internal Medicine Cardiovascular Disease | DX: I48.21 Permanent atrial fibrillation (principal); Z95.818 Presence of other cardiac implants and grafts | CPT/HCPCS: 99213 ==

== ENCOUNTER → 2023-03-07 00:59 | Outpatient (CLI) | payer MEDICARE, SELFPAY ==
--- NOTE | 2023-03-07 08:45 | DI.US_ITS ---
APPROVED REPORT EXAM: Comprehensive 2D, Doppler, and color-flow Echocardiogram Patient Location: Out-Patient Production Cloth Cutter: Gildardo Marie RDCS (AE) Indications: afib, mitral and tricuspid regurg, paroxysmal afib Other Information Study Quality: Good Conclusion Normal left ventricular wall thickness and chamber size. Ejection fraction is 55 to 60%. No segment al wall motion abnormalities were identified Right ventricle is mildly dilated, grossly normal systolic function Both atria are moderately enlarged Trileaflet aortic valve without stenosis or regurgitation Normal mitral valve with moderate regurgitation Mild tricuspid valve with moderate to severe regurgitation. Estimated right ventricular systolic pre ssure is 35 mmHg Patient was in atrial fibrillation, rate controlled throughout with [id number] variation Wall motion Left Ventricle The left ventricle is normal size. The left ventricular systolic function is normal. The left ventric ular ejection fraction is within the normal range. There is normal left ventricular wall thickness. T here is normal LV segmental wall motion. There is no ventricular septal defect visualized. LVEF is 55 -60% Right Ventricle Right ventricle is mildly dilated. The right ventricular systolic function is normal. The RVSP is 35 mmHg. Atria Left atrium is moderately dilated Right atrium is moderately dilated. The interatrial septum is intac t with no evidence for an atrial septal defect. Aortic Valve The aortic valve is normal in structure. Aortic valve is trileaflet. There is no aortic valvular sten osis. No aortic regurgitation is present. Mitral Valve The mitral valve is normal in structure. No evidence of mitral valve stenosis. Moderate mitral regurg itation. Tricuspid Valve The tricuspid valve is normal in structure. There is no tricuspid valve stenosis. Moderate to severe tricuspid regurgitation. Pulmonic Valve The pulmonary valve is normal in structure. There is no pulmonic valvular stenosis. Trace pulmonic re gurgitation. Great Vessels The aortic root is normal in size. The ascending aorta is normal in size. IVC is normal in size and c ollapses >50% with inspiration. Pericardium There is no pericardial effusion. 2D Dimensions IVSD d PLAX 0.90 cm F: 0.6-1.0 Ao Root d 2.83 cm F: 2.7 - 3.3 LVPW d PLAX 0.67 cm F: 0.6 - 1.0 Ao Asc Diam d 3.10 cm F: 2.3 - 3.1 LVID d PLAX 4.34 cm F: 3.8 - 5.2 LVDs 3.24 cm F: 2.2 - 3.5 LV EF Teichholz 50.4 % FS 25.41 % LV EDV (Teich) 85.0 mL LV ESV (Teich) 42.2 mL Stroke Vol Index (Teich) 24.60 M-Mode TAPSE 1.62 cm (M/F) >1.7 Auto EF LV EDV A4C 52.0 mL LV EDV A2C 61.6 mL LV EDV BP 55.5 mL LV ESV A4C 25.7 mL LV ESV A2C 28.6 mL LV ESV BP 26.3 mL LVEF(%) A4C 50.6 % LVEF(%) A2C 53.6 % LVEF(%) BP 52.6 % LV SV A4C 26.3 ml LV SV A2C 33.0 ml LV SV BP 29.2 ml LV CO A4C 2.5 L/min LV CO A2C 2.9 L/min LV CO BP 2.7 L/min HR A4C 93.27 BPM HR A2C 88.67 BPM LV EDV Index (BP) LA Volume LA Length A4C 4.8 cm LA Length A2C LA Area A4C s 14.05 cm2 LA Area A2C s LA Vol A4C A-L 35.10 mL LA Vol A2C A-L LA Vol Biplane A-L LA Vol A4C MOD 32.5 mL LA Vol A2C MOD LA Vol BP MOD RA Volume RA Area A4C 18.1 cm2 RA ESV A4C (A-L) 52.9mL RA Vol/BSA A4C A-L RA Length A4C 5.3 cm RA ESV A4C (MOD) 52.6mL LV Diastology MV E' medial 0.104 (>0.07 m/s) MV E Vmax 0.94 (0.4-1.3 m/s) MV E/E' MED 9.03 (<14) MV E' lateral 0.128 (>0.1 m/s) MV E/E' LAT 7.32 (<14) MV E' Average 0.116 m/s MV E/E'(average) 8.08 Aortic Valve AoV Vmax 0.73 m/s LVOT Vmax 0.84 m/s AoV Peak Grad 2.1 mmHg LVOT Peak Grad 2.8 mmHg AoV Area (Vmax) 2.84 cm2 LVOT VTI 0.192 m AoV VTI 0.161 m LVOT Mean Grad 1.6 mmHg AoV Mean Orlin. 0.53 m/s LVOT SV 47.17 mL AoV Mean Grad 1.3 mmHg LVOT Diam s 1.75 cm AoV Area (VTI) 2.92 cm2 Velocity Ratio 1.15 Mitral Valve MV DT 145 (160-240 msec) MR Vmax 3.92 m/s MV Vmax TIPS 0.99 m/s MR VTI 1.297 m MV Mean Grad 1.5 (<2mmHg) MR Peak Grad 61.5 mmHg MV VTI 0.234 m MR Mean Grad 40.4 mmHg MR PISA Radius 0.60 cm MR Aliasing Velocity 0.45 m/s Pulmonary Valve PV Vmax 0.91 (0.5-1.5 m/s) RVOT Vmax 0.51 m/s PV Peak Grad 3.3 mmHg RVOT Peak Gr. 1.0 mmHg PV Mean Orlin 0.51 m/s RVOT VTI 0.104 m PV Mean Grad 1.3 mmHg RVOT Mean Gr. 0.6 mmHg Tricuspid Valve RA Pressure 3.00 mmHg TR Vmax 2.83 m/s TR Peak Grad 31.9 mmHg RVSP (TR) 35.0 mmHg
== END ==
PROVIDERS: PCP Family Medicine; Visit Provider Internal Medicine Cardiovascular Disease
DX: I48.0 Paroxysmal atrial fibrillation (principal)
CPT/HCPCS: 93306

== ENCOUNTER 2023-03-14 09:45 | Outpatient (CLI) | payer MEDICARE, SELFPAY ==
[2023-03-14 10:15] VITALS: BP 122/70; PULSE 72; RESP 20; TEMP 36.3; O2SAT 96
[2023-03-14 11:20] VITALS: PULSE 77; O2SAT 95
[2023-03-14] MEDS: Lidocaine 2% Pres-Free 5 ML VIAL IJ (11:23)
[2023-03-14] MEDS: methylPREDNISolone ACETATE 40 MG/ML VIAL IJ (11:23)
--- NOTE | 2023-03-14 12:15 | PDOC.PAIN_ITS ---
Date of service: 03/14/23 Time of Service: 11:45 Pain Managment Procedure Note Procedure Note Procedure Note: ULTRASOUND GUIDED RIGHT QUADRATUS LUMBORUM TRIGGER POINT INJECTIONS Pre-Procedural Evaluation: Elvi Gerber has been referred to the [facility] for an Ultrasound Guided right quadratus lumborum trigger point injection for a chief complaint of low back pain. Pre-procedure Pain Score: 8/10 Patient was interviewed and the medical record reviewed. There were no medical, pharmacologic, radiographic, or other structural contraindications to preforming an ultrasound guided injection. Risks and expected side effects as well as potential benefits of the procedure were reviewed. The patient consent form was signed and witnessed. Standard time-out procedure was performed. The use of direct ultrasound visualization of the needle (rather than a non- guided injection) was required to increase patient safety by excluding inadvertent intramuscular, intratendinous, or intraneural needle placement and minimizing bleeding by avoiding osteochondral or vascular injury from the needle. Additionally, the increased accuracy of placement may increase clinical effectiveness and will allow higher diagnostic specificity when evaluating effectiveness of this injection. Procedure Description: The patient was placed in the Prone position and automated blood pressure cuff and pulse oximeter applied for monitoring during the procedure and recorded in the medical record. Pre-injection ultrasound scanning of the area of interest was performed using linear transducer, identifying relevant anatomy, landmarks, and neurovascular structures allowing for optimal needle path. The site was then prepared in the usual sterile fashion, using thorough Chlorhexadine preparation of the skin and sterile draping. The same ultrasound transducer was then passed into the sterile field using sterile probe cover and sterile ultrasound gel. The injection target was again visualized. Skin and subcutaneous tissues were anesthetized with 2 mL of 1% Lidocaine. A 22 G Pajunk 3.5 Ultrasound needle was placed under live ultrasound guidance, using an in-plane approach, to the target area. After visualization of the needle tip at the target area, a mixture of 1 mL Depomedrol (40 mg/cc) and flushed with 4 mL 2% Lidocaine, totaling 5 mL of injectate was delivered after negative a spiration for blood. Ultrasound images were captured and stored for documentation purposes. Post-procedure Pain Score:2/10 Vital signs were stable throughout the procedure and were as recorded in the docflowsheet by the nursing staff. Follow up plans and appointments were discussed with the patient.Post procedure instruction was given as documented in nursing documentation and having met discharge criteria, they were discharged from the [facility]. COMMENTS: She will complete the home exercises that she was taught. Aldo Adan DO, MPH [facility]-Pain Management [facility] for [facility]
== END 2023-03-14 09:46 | disposition home or self-care (01) ==
LOC: PC 09:45
PROVIDERS: PCP Family Medicine; Visit Provider Preventive Medicine Occupational Medicine
DX: M54.50 Low back pain, unspecified (principal); M79.18 Myalgia, other site
CPT/HCPCS: 20552; J1030

== ENCOUNTER → 2023-04-05 02:27 | Outpatient (CLI) | payer MEDICARE, SELFPAY ==
--- NOTE | 2023-04-05 08:15 | DI.CT_ITS ---
Exam(s) CT ABDOMEN PELVIS W EXAM: CT ABDOMEN PELVIS W CLINICAL HISTORY: Pelvic pain, h/o bladder cancer,R10.2. TECHNIQUE: Imaging Protocol: Axial computed tomography images with coronal and sagittal reformatted images were created and reviewed CONTRAST MATERIAL: Intravenous: Omnipaque-350 100cc Oral: Yes. Oral contrast was also administered for bowel opacification. COMPARISON: CT CT CHEST/ABD/PEL W from 09/27/2021 FINDINGS: VISUALIZED LUNG BASES: No nodules nor pleural effusions evident. ABDOMEN: There is no ascites. LIVER: Benign cyst in the dome of the right hepatic lobe is unchanged. There are no new concerning h epatic lesions. Mildly dilated intrahepatic ducts in both lobes are unchanged. This is most probabl y related to patient's age and post cholecystectomy status. GALLBLADDER/BILIARY: Gallbladder is again noted be surgically absent. Upper CBD measures 10-11 mm, u nchanged. CBD diameter at level the pancreatic head is normal. There are no obvious masses nor calc leonardo in the lower CBD nor in the pancreatic head. PANCREAS: No evidence of pancreatic mass nor dilatation of the pancreatic duct. SPLEEN: Spleen is not enlarged. No obvious intrasplenic lesions. Splenic and portal veins are paten t. ADRENALS: There are no significant adrenal masses. KIDNEYS:Small benign cyst in the posterior cortex of the right kidney again noted, unchanged. This m easures 1.4 cm and does not require further imaging workup. No other focal kidney findings. No calc leonardo. No hydronephrosis. No hydroureter. No obvious abnormality in the nondistended urinary bladder .. ABDOMINAL AORTA: Abdominal aorta is heavily calcified but not enlarged. Common iliac arteries are ca lcified but not enlarged. LYMPH NODES:There is no retroperitoneal nor paraaortic adenopathy. ABDOMINAL WALL: No evidence of significant anterior abdominal wall nor inguinal hernia. GI: There is no evidence of bowel obstruction, free air, nor abscess. PELVIS: GI: Appendix is surgically absent.There is sigmoid diverticulosis. No obvious acute diverticulitis. There is also diverticulosis of the descending-left side of the colon at and distal to the splenic f lexure. Also without evidence of acute inflammatory process. LYMPH NODES: There is no intrapelvic nor inguinal adenopathy. REPRODUCTIVE: Uterus is anteverted. There is slight thickening of the endometrium noted. URINARY BLADDER: Partially collapsed. No obvious masses. No radiopaque calculi. OSSEOUS: L2 superior endplate compression fracture is unchanged. No new fractures identified. No ly tic nor blastic lesions evident. IMPRESSION: 1. No evidence of metastatic disease in the abdomen and pelvis. 2. There is diverticulosis of the descending-left colon and sigmoid. No obvious acute diverticulitis . Appendix is surgically absent. 3. There appears to be some thickening of the endometrium in this elderly patient. Recommend follow- up ultrasound. 4. No obvious abnormality in the urinary bladder, given the stated history here. Stable L2 compression fracture. No new significant osseous findings. RADIATION DOSE DELIVERED: 1,087.22mGy.cm Total DLP DATA REPOSITORY: All CT scans at this facility are submitted to the National Radiology Data Registry (NRDR) Dose Index Registry (DIR) with the [employer] (ACR). RADIATION OPTIMIZATION: All CT scans at this facility use at least one of these dose optimization te chniques: automated exposure control; mA and/or kV adjustment per patient size (includes targeted exa ms where dose is matched to clinical indication); or iterative reconstruction.
[2023-04-05 11:12] LABS: CREATININE 0.9 mg/dL (0.55-1.02); Estimated GFR 61.87 (mL/min/1.73m2)
[2023-04-05] MEDS: Omnipaque 350 MG/ML 100 ML BTL IJ (12:45)
[2023-04-05] MEDS: Normal Saline - Diluent 50 ML VIAL IJ (12:57)
== END ==
PROVIDERS: PCP Family Medicine; Visit Provider Family Medicine
DX: K57.30 Diverticulosis of large intestine without perforation or abscess without bleeding (principal)
CPT/HCPCS: 74177; 82565; J3490

== ENCOUNTER → 2023-04-19 00:46 | Outpatient (CLI) | payer MEDICARE, SELFPAY ==
--- NOTE | 2023-04-19 06:10 | DI.US_ITS ---
Exam(s) US PELVIS TRANSVAGINAL EXAM: US PELVIS TRANSVAGINAL CLINICAL HISTORY: Thickened endometrium seen on CT,r93.89. TECHNIQUE: Transabdominal and transvaginal pelvic ultrasound was performed using standard protocol. COMPARISON: US PELVIS TRANSVAG from 04/28/[address] ABDOMEN PELVIS W from 04/05/2023 FINDINGS: UTERUS: Position: Anteverted. Size: 4.4 long by 3.3 AP by 3.5 transverse cm Endometrium: 0.5 cm. The endometrium is heterogeneous with multiple echogenic foci noted. Myometrium: Unremarkable. Cervix: Unremarkable. OVARIES: The ovaries are not visualized on this examination transabdominally or transvaginally. No a dnexal masses are seen sonographically. CUL-DE-SAC: Free fluid: None. Other: None. IMPRESSION: 1. Heterogeneous appearance of the endometrial stripe which measures 0.5 cm. This is mildly thickene d in this postmenopausal patient. Gynecologic follow-up is recommended. 2. The ovaries were not visualized on this examination. No adnexal masses are seen sonographically. DATA REPOSITORY:
== END ==
PROVIDERS: PCP Family Medicine; Visit Provider Family Medicine
DX: R93.89 Abnormal findings on diagnostic imaging of other specified body structures (principal)
CPT/HCPCS: 76830; 76856

== ENCOUNTER → 2023-05-04 14:09 | Outpatient (BNVA) | payer MEDICARE, SELFPAY | PROVIDERS: PCP Family Medicine; Referring Provider Family Medicine; Visit Provider Student in an Organized Health Care Education/Training Program | DX: J45.909 Unspecified asthma, uncomplicated (principal); R05.9 Cough, unspecified; R09.82 Postnasal drip | CPT/HCPCS: 99214 ==

== ENCOUNTER → 2023-06-04 13:33 | Outpatient (BNVA) | payer MEDICARE, SELFPAY | PROVIDERS: PCP Family Medicine; Referring Provider Family Medicine; Visit Provider Psychiatry & Neurology Neurology | DX: G60.9 Hereditary and idiopathic neuropathy, unspecified (principal); G25.0 Essential tremor; G47.61 Periodic limb movement disorder; Z86.73 Personal history of transient ischemic attack (TIA), and cerebral infarction without residual deficits; I10 Essential (primary) hypertension | CPT/HCPCS: 99214 ==

== ENCOUNTER 2023-07-30 11:23 | Emergency (ER) | payer MEDICARE, SELFPAY ==
[2023-07-30 11:40] VITALS: BP 111/57; PULSE 97; RESP 18; TEMP 36.7; O2SAT 97
[2023-07-30 15:10] VITALS: BP 122/55; PULSE 76; RESP 15; RESP 18; O2SAT 96
[2023-07-30 15:10] LABS: Abs Immature Grans 0.07 10^3/uL (0.0-0.06); Absolute Basophil Count 0.06 10^3/uL (0.0-0.2); Absolute Eosinophil Count 0.05 10^3/uL (0.0-0.7); Absolute Lymphocyte Count 1.08 10^3/uL (1.2-3.4); Basophils % 0.4; Eosinophils % 0.3; HCT 42.7 % (36.0-46.0); HGB 14.5 g/dL (11.2-15.7); Immature Grans % 0.4; Lymphocytes % 6.9; MCH 31.3 pg (27.0-33.0); MCV 92 fL (80-95); MPV 9.3 fL (8.0-11.0); Monocytes % 6.6; Neutrophils % 85.4; Platelet Count 297 10^3/uL (130-400); RBC 4.63 10^6/uL (3.93-5.22); RDW 13.1 % (11.7-14.6); RDW-SD 44.6 fL; WBC 15.68 10^3/uL (4.4-10.8)
[2023-07-30 15:12] LABS: Absolute Monocyte Count 1.03 10^3/uL (0.1-0.8); Absolute Neutrophil Count 13.39 10^3/uL (1.2-6.7)
[2023-07-30 15:31] LABS: ALT 19 U/L (14-59); AST 20 U/L (15-37); Albumin 3.6 g/dL (3.4-5.0); Alkaline Phosphatase 70 U/L (46-116); Anion Gap 9.2 mmol/L (3-11); BUN 23 mg/dL (7-18); Bilirubin, Total 0.5 mg/dL (0.2-1.0); CO2 30.8 mmol/L (21.0-32.0); Calcium 9.2 mg/dL (8.5-10.1); Chloride 94 mmol/L (98-107); Estimated GFR 54.53 (mL/min/1.73m2); Glucose 112 mg/dL (74-106); Magnesium 1.9 mg/dL (1.8-2.4); Potassium 3.3 mmol/L (3.5-5.1); Sodium 134 mmol/L (136-145); Total Protein 7.9 g/dL (6.4-8.2); Troponin I < 50 ng/L (< or =60)
--- NOTE | 2023-07-30 15:35 | DI.RAD_ITS ---
Exam(s) XR CHEST 2V PA LATERAL EXAM: XR CHEST 2V PA LATERAL CLINICAL HISTORY: cough TECHNIQUE: 2D digital imaging was performed. COMPARISON: CR XR CHEST 2V PA LATERAL from 01/25/2023 FINDINGS: HEART: Normal size. Aorta: Not dilated. PULMONARY VASCULATURE: Normal. LUNGS: Clear. PLEURAL SPACE: No pleural effusion or pneumothorax. BONE:Unremarkable old L2 compression fracture. Soft tissues: Unremarkable. IMPRESSION: No acute abnormality. DATA REPOSITORY: RADIATION DOSE DELIVERED:
--- NOTE | 2023-07-30 15:56 | ED.GENADUL_ITS ---
HPI General Mode of arrival: wheelchair . Date/Time Provider Initiated Documentation: 07/30/23 14:26 . Limitations to Documentation: no limitations . Information obtained by: patient, family and RN notes reviewed . History of Present Illness 87 year old F presents to the emergency department with the chief complaint of Cough, fatigue, shaking, described as moderate, Patient started experiencing this day(s) (4) and it has been constant. No relieving factors improve symptom(s), No exacerbating factors reported . Patient did receive the following treatments prior to arrival, none Related Data Home Medications Medication Instructions Recorded Confirmed cholecalciferol (vitamin D3) 25 1,000 unit PO DAILY 09/17/12 07/30/23 mcg (1,000 unit) tablet psyllium husk (aspartame) 3.4 1 oz PO HS 05/27/13 07/30/23 gram/5.8 gram oral powder (Metamucil [facility] Fiber) cyanocobalamin (vitamin B-12) 500 500 mcg PO DAILY 11/19/15 07/30/23 mcg tablet (Vitamin B-12) acetaminophen 500 mg tablet 1,000 mg PO Q4H PRN 03/16/17 07/30/23 nitroglycerin 0.3 mg sublingual 0.3 mg sublingual Q5-15M PRN chest 09/09/19 07/30/23 tablet (Nitrostat) pain/esophageal spasm 1 day #25 tab-caps aspirin 81 mg chewable tablet 81 mg PO DAILY 10/26/20 07/30/23 (Gerald Chewable Low Dose Aspirin) sodium chloride, sodium 1 packet .Route .3xweekly 10/26/20 07/30/23 bicarb-nasal rinse squeeze bottle with packet (Neilmed Sinus Rinse Complete with packet) simvastatin 10 mg tablet 10 mg PO HS #90 tab-caps 10/10/22 07/30/23 gabapentin 600 mg tablet See Rx Instructions PO BID #270 11/28/22 07/30/23 tabs losartan 50 mg tablet 50 mg PO DAILY #90 tabs 12/12/22 07/30/23 ondansetron 4 mg disintegrating 4 mg PO Q8H PRN #30 tabs 01/25/23 07/30/23 tablet amlodipine 5 mg tablet 5 mg PO DAILY #180 tab-caps 08/01/23 01/22/24 triamcinolone acetonide 55 mcg 1 spray intranasal DAILY #16.9 mL 03/02/23 07/30/23 nasal spray aerosol (Nasacort) mometasone-formoterol HFA 100 2 puff inhalation BID #13 grams 03/20/23 07/30/23 mcg-5 mcg/actuation aerosol inhaler (Dulera) montelukast 10 mg tablet 10 mg PO DAILY #90 tabs 03/20/23 07/30/23 omeprazole 20 mg capsule,delayed 20 mg PO BID PRN heart burn #180 05/24/23 07/30/23 release tabs hydrochlorothiazide 25 mg tablet 25 mg PO DAILY #90 tabs 06/19/23 07/30/23 atenolol 25 mg tablet 25 mg PO BID #180 tabs 07/05/23 07/30/23 levothyroxine 88 mcg tablet 88 mcg PO DAILY #90 tabs 07/10/23 07/30/23 Previous Rx's Medication Instructions Recorded nitroglycerin 0.3 mg sublingual 0.3 mg sublingual Q5-15M PRN chest 09/09/19 tablet (Nitrostat) pain/esophageal spasm 1 day #25 tab-caps simvastatin 10 mg tablet 10 mg PO HS #90 tab-caps 10/10/22 gabapentin 600 mg tablet See Rx Instructions PO BID #270 11/28/22 tabs losartan 50 mg tablet 50 mg PO DAILY #90 tabs 12/12/22 ondansetron 4 mg disintegrating 4 mg PO Q8H PRN #30 tabs 01/25/23 tablet amlodipine 5 mg tablet 5 mg PO DAILY #180 tab-caps 02/06/23 triamcinolone acetonide 55 mcg 1 spray intranasal DAILY #16.9 mL 03/02/23 nasal spray aerosol (Nasacort) mometasone-formoterol HFA 100 2 puff inhalation BID #13 grams 03/20/23 mcg-5 mcg/actuation aerosol inhaler (Dulera) montelukast 10 mg tablet 10 mg PO DAILY #90 tabs 03/20/23 omeprazole 20 mg capsule,delayed 20 mg PO BID PRN heart burn #180 05/24/23 release tabs hydrochlorothiazide 25 mg tablet 25 mg PO DAILY #90 tabs 06/19/23 atenolol 25 mg tablet 25 mg PO BID #180 tabs 07/05/23 levothyroxine 88 mcg tablet 88 mcg PO DAILY #90 tabs 07/10/23 Allergies Allergy/AdvReac Type Severity Reaction Status Date / Time guaifenesin [From Mucinex] AdvReac Intermediate diarrhea Verified 07/30/23 11:44 tramadol AdvReac constipatio Verified 07/30/23 11:44 n General Stated Complaint: GenMedical YEE: 3 Review of Systems Constitutional Constitutional: Reports chills, Reports fever(s), Denies headache(s), Reports lethargy and Reports malaise ENT Ears, Nose, Mouth, and Throat: Denies headache(s), Reports nasal congestion, Reports post nasal drip and Denies sore throat Cardiovascular Cardiovascular: Denies chest pain, Denies syncope, Denies irregular heart rhythm and Denies dyspnea Respiratory Respiratory: Reports cough and Denies dyspnea Gastrointestinal Gastrointestinal: Denies nausea and Denies vomiting Genitourinary Genitourinary: Denies dysuria and Denies urinary urgency Integumentary/Breasts Skin/Breast: Denies rash Neurologic Neurologic: Denies syncope and Denies headache(s) Exam Const General: cooperative, comfortable and no acute distress Orientation: alert and awake [facility] Head: normal to inspection, normocephalic and atraumatic Ears: hearing grossly normal bilaterally and TM's normal bilaterally General nose exam: external nose normal Face and sinus: no erythema Mouth: oral mucosae normal, no drooling, no muffled voice and no trismus Throat: posterior oropharynx normal Neck Neck: normal visual inspection, full ROM, no lymphadenopathy, no meningeal signs, trachea midline and supple Resp Effort & Inspection: normal respiratory effort, able to speak in complete sentences and cough Quality of cough: dry Auscultation: clear to auscultation bilaterally Cardio Rate: tachycardic Rhythm: regular rhythm Heart Sounds: S1 normal, S2 normal, normal S1 and S2, no click, no gallops, no murmurs and no rubs Skin General skin exam: no rashes or lesions noted and dry skin (warm) Neuro General: patient alert, patient awake, patient oriented x3, gait normal and moves all extremities Cognition: normal cognition Speech: speech normal Course Vital Signs Vital signs: Vital Signs Temperature 36.7 C 07/30/23 11:40 Pulse 97 H 07/30/23 11:40 Respiratory Rate 18 07/30/23 11:40 Blood Pressure 111/57 L 07/30/23 11:40 Pulse Oximetry 97 07/30/23 11:40 Temperature 36.7 C 07/30/23 11:40 Temperature Source Temporal Artery Scan 07/30/23 11:40 Pulse 76 07/30/23 15:10 Respiratory Rate 18 07/30/23 15:10 Respiratory Effort Normal, Non-Labored 07/30/23 15:10 Blood Pressure 122/55 L 07/30/23 15:10 Blood Pressure Position Supine 07/30/23 15:10 Pulse Oximetry 96 07/30/23 15:10 Oxygen Delivery Method Room Air 07/30/23 15:10 Oxygen Flow Rate 0 07/30/23 11:40 Lab/Test Results Lab/Test Results: Laboratory Tests Range/Units 07/30/23 15:00 WBC (4.4-10.8) 10^3/uL 15.68 H RBC (3.93-5.22) 10^6/uL 4.63 Hgb (11.2-15.7) g/dL 14.5 Hct (36.0-46.0) % 42.7 MCV (80-95) fL 92 MCH (27.0-33.0) pg 31.3 MCHC (32.0-36.0) % 34.0 RDW (11.7-14.6) % 13.1 Plt Count (130-400) 10^3/uL 297 MPV (8.0-11.0) fL 9.3 Immature Gran % 0.4 Neutrophils % 85.4 Lymphocytes % 6.9 Monocytes % 6.6 Eosinophils % 0.3 Basophils % 0.4 Nucleated RBC % (0.0-0.3) % 0.0 Absolute Neutrophils (1.2-6.7) 10^3/uL 13.39 H Absolute Lymphocytes (1.2-3.4) 10^3/uL 1.08 L Absolute Monocytes (0.1-0.8) 10^3/uL 1.03 H Absolute Eosinophils (0.0-0.7) 10^3/uL 0.05 Absolute Basophils (0.0-0.2) 10^3/uL 0.06 Sodium (136-145) mmol/L 134 L Potassium (3.5-5.1) mmol/L 3.3 L Chloride (98-107) mmol/L 94 L Carbon Dioxide (21.0-32.0) mmol/L 30.8 Anion Gap (3-11) mmol/L 9.2 BUN (7-18) mg/dL 23 H Creatinine (0.55-1.02) mg/dL 1.0 Est GFR (CKD-EPI 2020) (mL/min/1.73m2) 54.53 Glucose (74-106) mg/dL 112 H Calcium (8.5-10.1) mg/dL 9.2 Magnesium (1.8-2.4) mg/dL 1.9 Total Bilirubin (0.2-1.0) mg/dL 0.5 AST (15-37) U/L 20 ALT (14-59) U/L 19 Alkaline Phosphatase (46-116) U/L 70 Troponin I (< or =60) ng/L < 50 Total Protein (6.4-8.2) g/dL 7.9 Albumin (3.4-5.0) g/dL 3.6 Medical Decision Making Patient presenting to the clinic for chief complaint of cold symptoms. Patient reports symptoms have been going on for the past 4 days. reports nasal congestion, cough, shaking/chills. Patient does state history of atrial fibs but has never felt this so does not know if this is what is causing the symptoms or something else. Physical exam shows normal HEENT exam, tachycardia, otherwise clear lung sounds and otherwise unremarkable exam. Patient has no signs of meningitis, peritonsillar abscess, retropharyngeal abscess, Mateo's angina, or life-threatening Airway infection. Given patient's history of A-fib and she is tachycardic will perform EKG, labs, chest x-ray, and give IV fluids pending results. Will also perform viral swab as I am highly suspicious of viral illness. Reviewed patient's labs and patient does have a significant leukocytosis otherwise CBC is nondiagnostic, CMP does show slightly decreased sodium potassium and chloride, slightly elevated BUN of 23 otherwise nondiagnostic CMP. Troponin is negative nondetected, chest x-ray shows no acute findings. Patient negative for COVID flu RSV. Patient signed out pending urinalysis and reassessment. Imaging Data Radiologic Study: Imaging: X-Ray Radiologist's impression: Exam(s) XR CHEST 2V PA LATERAL EXAM: XR CHEST 2V PA LATERAL CLINICAL HISTORY: cough TECHNIQUE: 2D digital imaging was performed. COMPARISON: CR XR CHEST 2V PA LATERAL from 01/25/2023 FINDINGS: HEART: Normal size. Aorta: Not dilated. PULMONARY VASCULATURE: Normal. LUNGS: Clear. PLEURAL SPACE: No pleural effusion or pneumothorax. BONE:Unremarkable old L2 compression fracture. Soft tissues: Unremarkable. IMPRESSION: No acute abnormality. Lab Data Lab results reviewed: Yes I reviewed the patient's lab results. Quality:SDOH Health Related Social Needs: No Data to Display PFSH All Active Problems Thickened endometrium (Acute) Cough (Acute) Emphysema of lung (Acute) Asthma (Chronic) Muscle pain (Acute) Muscle pain, myofascial (Acute) Post-nasal drip (Acute) Vasomotor rhinitis (Acute) Osteoarthritis of left knee (Acute) Steroid injection: 02/06/2022 Lumbosacral spondylosis without myelopathy (Acute) Rib pain on left side (Acute) Verruca vulgaris (Acute) 08/19/21 [facility] Derm note Skin lesion of face (Acute) SCC? 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) H/O POLYPS ON FIRST COLON IN [place]; NEG ON REPEAT; [place] [address] DR BLAKE FOUND ONE HYPERPLASTIC POLYP Peripheral neuropathy, idiopathic (Acute 06/08/98) KNEE DISTAL, BILAT; INTERMITTENT BURNING, SLEEPS BETTER AT NIGHT IF SHE HAS WORN TIGHT SOCKS DAYTIME; nortriptyline effective; Dr Oneill; worse balance 02/2015 Leg pain, left (Chronic 11/03/16) Hyperlipidemia (Chronic 10/21/10) dyslipidemia: low HDL; statin begun by neuro 10/2010 after her TIA, along with Clopidogrel; target LDL<100 and HDL>40 History of thyroidectomy, total (Chronic 03/13/14) [facility] for large multinodular goiter due to pressure on trachea Gastroesophageal reflux disease (Chronic 07/05/04) RESPONDS TO OMEPRAZOLE, BEFORE DINNER; ESOPHAGITIS ON EGD AT [facility]: 07/05/04; gastritis and diffuse esophagitis; DR MERCADO REC [place] PPI RX Essential hypertension (Chronic 06/23/13) 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, [facility], RX Clopidogrel and Statin indefinitely Bladder cancer (Chronic 05/19/15) Dr. Guy Lechuga- non-invasive papillary urothellal carcinoma, low grade. Acute midline low back pain without sciatica (Chronic 05/18/17) Atrial fibrillation (Chronic) Labile blood pressure (Chronic) Hx of thyroidectomy (Chronic) Medical History Acute midline low back pain Surgical History H/O cardiac catheterization (10/07/20) [facility]-L atrial appendage closure for afib cystourethroscopy (08/07/17) Dr Brian Lechuga [facility]-extensive recurrent bladder tumor encompassint entire L hemitrigone and posterolateral bladder wall and neck cystourethroscopy (05/19/15) Dr Brian Lechuga [facility]-extensive recurrent bladder tumor encompassint entire L hemitrigone and posterolateral bladder wall and neck URO cysto (10/22/15) Guy Lechuga MD 12 weeks after her last BCG Thyroid (03/13/14) 9Complete thyroidectomy Dr. Sanchez [facility], path: multinodular goiter Transurethral Resection of Bladder Tumor, 2-5cm (05/27/13) Dr. Ruano Cystoscopy (04/29/15) Dr. Lechuga 02/05/18 repeat cysto Colonoscopy - IV Sedation (03/22/16) Cholecystectomy Extraction of cataract (08/10/15) Dr Mayte Gonzalez eye R eye 2/2 Extraction of cataract (07/27/15) Dr Mayte Gonzalez eye R eye 2/2 Biopsy of breast (07/09/76) both breasts, biopsies benign Appendectomy Family History Brother Brain cancer Cancer Of the Face Father , Age 65 Heart attack Heart disease Sister , Lung Disease Age 80 Cancer Mother , Age 73 Amyloid disease Social History Smoking/Tobacco Use Status: Former Tobacco Use tobacco type: cigarettes Quit Date: 07/09/87 Pack-years: 52 Tobacco: How many years used: 52 Quit status: quit date established Smoking risk assessment performed?: Yes Alcohol Intake: never Drug use: Never Substance use type: does not use Caregiver/Support person: No Household members: spouse Housing: house Number of Children: 6 number of grandchildren: 17 Communication Needs: None current occupation: Retired Pets and animals: Yes (2 cats) Pets and animals: cat(s) Do you think of yourself as: straight/heterosexual Current gender identity: female What is your relationship status?: How often do you talk on the phone with friends or family?: three or more times per week How often do you get together with friends or relatives?: never How often do you attend hinduism or congregation services?: 4 or more times per year Panel score (0-1 are the most socially isolated patients): 3 What type of physical activity do you participate in: other Details: [employer] Bike Duration: 15-30 minutes/day Astrid/Moravian: Evangelical Seatbelt use: always Helmet use: No Drive intox or ride w/intox driver education instructor: No Do you feel safe at home: Yes Do you feel safe in your relationship?: Yes Sign Out Sign Out Data: Sign Out Comment: Patient signed out pending urinalysis and reassessment for general malaise and cold symptoms. So far beyond noted leukocytosis no specific findings noted on workup. Last updated by Merritt Raygoza NP at 07/30/23 16:17 Discharge Plan Discharge Details Chief Complaint: GenMedical Primary Care Provider: Elvis Muñoz ED Provider: Mreritt Raygoza Home Meds and New Rx's Prescriptions: No Action aspirin [Gerald Chewable Aspirin] 81 mg tablet,chewable 81 mg PO DAILY montelukast 10 mg tablet 10 mg PO DAILY Qty: 90 3RF triamcinolone acetonide [Nasacort] 55 mcg aerosol,spray 1 spray intranasal DAILY Qty: 16.9 2RF Rx Instructions: administer into each nostril nitroglycerin [Nitrostat] 0.3 mg tablet, sublingual 0.3 mg Sublingual Q5-15M PRN (Reason: chest pain/esophageal spasm) 1 Days Qty: 25 6RF Neilmed Sinus Rinse Complete Packet With Rinse Device 1 packet .Route .3xweekly Rx Instructions: 1 packet 3XWEEKLY; packets .3xweekly; gabapentin 600 mg tablet See Rx Instructions PO BID Qty: 270 3RF Rx Instructions: 600mg at dinner and 1200mg HS PO twice a day; losartan 50 mg tablet 50 mg PO DAILY Qty: 90 3RF amlodipine 5 mg tablet 5 mg PO DAILY Qty: 180 3RF cholecalciferol (vitamin D3) 1,000 UNIT tablet 1,000 unit PO DAILY cyanocobalamin (vitamin B-12) [Vitamin B-12] 500 MCG tablet 500 mcg PO DAILY acetaminophen 500 MG tablet 1,000 mg PO Q4H PRN simvastatin 10 mg tablet 10 mg PO HS Qty: 90 3RF Rx Instructions: lower LDL cholesterol Dulera 100-5 mcg/actuation HFA aerosol inhaler 2 puff inhalation BID Qty: 13 12RF omeprazole 20 mg capsule,delayed release(DR/EC) 20 mg PO BID PRN (Reason: heart burn) Qty: 180 3RF hydrochlorothiazide 25 mg tablet 25 mg PO DAILY Qty: 90 3RF atenolol 25 mg tablet 25 mg PO BID Qty: 180 3RF levothyroxine 88 mcg tablet 88 mcg PO DAILY Qty: 90 3RF Metamucil [facility] Fiber 660 GM powder 1 oz PO HS ondansetron 4 mg tablet,disintegrating 4 mg PO Q8H PRNQty: 30 0RF
[2023-07-30 16:01] LABS: COVID-19 PCR Negative (Negative); Influenza A PCR Negative (Negative); Influenza B PCR Negative (Negative); RSV PCR Negative (Negative)
[2023-07-30 16:14] LABS: Source Nasopharynx
[2023-07-30 16:43] LABS: Bilirubin Negative (Negative); Blood Small (Negative); Clarity Clear (Clear); Glucose Negative (Negative); Ketones Negative (Negative); Leukocyte Esterase Trace (Negative); Nitrite Negative (Negative); Specific Gravity 1.015 (1.005-1.025); Urobilinogen 0.2 mg/dL (Up to 0.2)
[2023-07-30 16:52] LABS: Bacteria Rare HPF (Negative); C & S Indicated? No/Sq. Contamination; Crystals Negative HPF (Negative); Epithelial Cells Moderate HPF (Negative); Mucus Negative (Negative); WBC 0-2 HPF (0-5)
[2023-07-30 17:08] LABS: Procalcitonin < 0.1 ng/mL
--- NOTE | 2023-07-30 17:38 | W.ED.GENAD ---
HPI General Mode of arrival: wheelchair. Date/Time Provider Initiated Documentation: 07/30/23 14:26. Limitations to Documentation: no limitations. Information obtained by: patient, family and RN notes reviewed. History of Present Illness No relieving factors improve symptom(s), No exacerbating factors reported . Patient did receive the following treatments prior to arrival, none Related Data Home Medications Medication Instructions Recorded Confirmed cholecalciferol (vitamin D3) 25 1,000 unit PO DAILY 09/17/12 07/30/23 mcg (1,000 unit) tablet psyllium husk (aspartame) 3.4 1 oz PO HS 05/27/13 07/30/23 gram/5.8 gram oral powder (Metamucil [facility] Fiber) cyanocobalamin (vitamin B-12) 500 500 mcg PO DAILY 11/19/15 07/30/23 mcg tablet (Vitamin B-12) acetaminophen 500 mg tablet 1,000 mg PO Q4H PRN 03/16/17 07/30/23 nitroglycerin 0.3 mg sublingual 0.3 mg sublingual Q5-15M PRN chest 09/09/19 07/30/23 tablet (Nitrostat) pain/esophageal spasm 1 day #25 tab-caps aspirin 81 mg chewable tablet 81 mg PO DAILY 10/26/20 07/30/23 (Gerald Chewable Low Dose Aspirin) sodium chloride, sodium 1 packet .Route .3xweekly 10/26/20 07/30/23 bicarb-nasal rinse squeeze bottle with packet (Neilmed Sinus Rinse Complete with packet) simvastatin 10 mg tablet 10 mg PO HS #90 tab-caps 10/10/22 07/30/23 gabapentin 600 mg tablet See Rx Instructions PO BID #270 11/28/22 07/30/23 tabs losartan 50 mg tablet 50 mg PO DAILY #90 tabs 12/12/22 07/30/23 ondansetron 4 mg disintegrating 4 mg PO Q8H PRN #30 tabs 01/25/23 07/30/23 tablet amlodipine 5 mg tablet 5 mg PO DAILY #180 tab-caps 02/06/23 07/30/23 triamcinolone acetonide 55 mcg 1 spray intranasal DAILY #16.9 mL 03/02/23 07/30/23 nasal spray aerosol (Nasacort) mometasone-formoterol HFA 100 2 puff inhalation BID #13 grams 03/20/23 07/30/23 mcg-5 mcg/actuation aerosol inhaler (Dulera) montelukast 10 mg tablet 10 mg PO DAILY #90 tabs 03/20/23 07/30/23 omeprazole 20 mg capsule,delayed 20 mg PO BID PRN heart burn #180 05/24/23 07/30/23 release tabs hydrochlorothiazide 25 mg tablet 25 mg PO DAILY #90 tabs 06/19/23 07/30/23 atenolol 25 mg tablet 25 mg PO BID #180 tabs 07/05/23 07/30/23 levothyroxine 88 mcg tablet 88 mcg PO DAILY #90 tabs 07/10/23 07/30/23 amoxicillin 875 mg-potassium 1 tab PO BID #10 tabs 07/30/23 clavulanate 125 mg tablet Previous Rx's Medication Instructions Recorded nitroglycerin 0.3 mg sublingual 0.3 mg sublingual Q5-15M PRN chest 09/09/19 tablet (Nitrostat) pain/esophageal spasm 1 day #25 tab-caps simvastatin 10 mg tablet 10 mg PO HS #90 tab-caps 10/10/22 gabapentin 600 mg tablet See Rx Instructions PO BID #270 11/28/22 tabs losartan 50 mg tablet 50 mg PO DAILY #90 tabs 12/12/22 ondansetron 4 mg disintegrating 4 mg PO Q8H PRN #30 tabs 01/25/23 tablet amlodipine 5 mg tablet 5 mg PO DAILY #180 tab-caps 02/06/23 triamcinolone acetonide 55 mcg 1 spray intranasal DAILY #16.9 mL 03/02/23 nasal spray aerosol (Nasacort) mometasone-formoterol HFA 100 2 puff inhalation BID #13 grams 03/20/23 mcg-5 mcg/actuation aerosol inhaler (Dulera) montelukast 10 mg tablet 10 mg PO DAILY #90 tabs 03/20/23 omeprazole 20 mg capsule,delayed 20 mg PO BID PRN heart burn #180 05/24/23 release tabs hydrochlorothiazide 25 mg tablet 25 mg PO DAILY #90 tabs 06/19/23 atenolol 25 mg tablet 25 mg PO BID #180 tabs 07/05/23 levothyroxine 88 mcg tablet 88 mcg PO DAILY #90 tabs 07/10/23 amoxicillin 875 mg-potassium 1 tab PO BID #10 tabs 07/30/23 clavulanate 125 mg tablet Allergies Allergy/AdvReac Type Severity Reaction Status Date / Time guaifenesin [From Mucinex] AdvReac Intermediate diarrhea Verified 07/30/23 11:44 tramadol AdvReac constipatio Verified 07/30/23 11:44 n General Stated Complaint: GenMedical YEE: 3 Course Vital Signs Vital signs: Vital Signs Temperature 36.7 C 07/30/23 11:40 Pulse 97 H 07/30/23 11:40 Respiratory Rate 18 07/30/23 11:40 Blood Pressure 111/57 L 07/30/23 11:40 Pulse Oximetry 97 07/30/23 11:40 Temperature 36.7 C 07/30/23 11:40 Temperature Source Temporal Artery Scan 07/30/23 11:40 Pulse 76 07/30/23 15:10 Respiratory Rate 18 07/30/23 15:10 Respiratory Effort Normal, Non-Labored 07/30/23 15:10 Blood Pressure 122/55 L 07/30/23 15:10 Blood Pressure Position Supine 07/30/23 15:10 Pulse Oximetry 96 07/30/23 15:10 Oxygen Delivery Method Room Air 07/30/23 15:10 Oxygen Flow Rate 0 07/30/23 11:40 Lab/Test Results Lab/Test Results: Laboratory Tests Range/Units 07/30/23 07/30/23 07/30/23 15:00 15:08 16:15 WBC (4.4-10.8) 10^3/uL 15.68 H RBC (3.93-5.22) 10^6/uL 4.63 Hgb (11.2-15.7) g/dL 14.5 Hct (36.0-46.0) % 42.7 MCV (80-95) fL 92 MCH (27.0-33.0) pg 31.3 MCHC (32.0-36.0) % 34.0 RDW (11.7-14.6) % 13.1 Plt Count (130-400) 10^3/uL 297 MPV (8.0-11.0) fL 9.3 Immature Gran % 0.4 Neutrophils % 85.4 Lymphocytes % 6.9 Monocytes % 6.6 Eosinophils % 0.3 Basophils % 0.4 Nucleated RBC % (0.0-0.3) % 0.0 Absolute Neutrophils (1.2-6.7) 10^3/uL 13.39 H Absolute Lymphocytes (1.2-3.4) 10^3/uL 1.08 L Absolute Monocytes (0.1-0.8) 10^3/uL 1.03 H Absolute Eosinophils (0.0-0.7) 10^3/uL 0.05 Absolute Basophils (0.0-0.2) 10^3/uL 0.06 Sodium (136-145) mmol/L 134 L Potassium (3.5-5.1) mmol/L 3.3 L Chloride (98-107) mmol/L 94 L Carbon Dioxide (21.0-32.0) mmol/L 30.8 Anion Gap (3-11) mmol/L 9.2 BUN (7-18) mg/dL 23 H Creatinine (0.55-1.02) mg/dL 1.0 Est GFR (CKD-EPI 2020) (mL/min/1.73m2) 54.53 Glucose (74-106) mg/dL 112 H Calcium (8.5-10.1) mg/dL 9.2 Magnesium (1.8-2.4) mg/dL 1.9 Total Bilirubin (0.2-1.0) mg/dL 0.5 AST (15-37) U/L 20 ALT (14-59) U/L 19 Alkaline Phosphatase (46-116) U/L 70 Troponin I (< or =60) ng/L < 50 Total Protein (6.4-8.2) g/dL 7.9 Albumin (3.4-5.0) g/dL 3.6 Procalcitonin ng/mL < 0.1 Urine Color (Yellow) Urine Clarity (Clear) Urine pH (5-8) Ur Specific [place] (1.005-1.025) Urine Protein (Negative) mg/dL Urine Ketones (Negative) mg/dL Urine Blood (Negative) Urine Nitrite (Negative) Urine Bilirubin (Negative) Urine Urobilinogen (Up to 0.2) mg/dL Ur Leukocyte Esterase (Negative) Urine RBC (0-2) HPF Urine WBC (0-5) HPF Ur Epithelial Cells (Negative) HPF Urine Crystals (Negative) HPF Urine Bacteria (Negative) HPF Urine Mucus (Negative) Ur Culture Indicated? Urine Glucose (Negative) mg/dL COVID-19 Source Nasopharynx SARS-CoV-2 (PCR) (Negative) Negative Influenza Type A (PCR) (Negative) Negative Influenza Type B (PCR) (Negative) Negative RSV (PCR) (Negative) Negative Range/Units 07/30/23 16:30 WBC (4.4-10.8) 10^3/uL RBC (3.93-5.22) 10^6/uL Hgb (11.2-15.7) g/dL Hct (36.0-46.0) % MCV (80-95) fL MCH (27.0-33.0) pg MCHC (32.0-36.0) % RDW (11.7-14.6) % Plt Count (130-400) 10^3/uL MPV (8.0-11.0) fL Immature Gran % Neutrophils % Lymphocytes % Monocytes % Eosinophils % Basophils % Nucleated RBC % (0.0-0.3) % Absolute Neutrophils (1.2-6.7) 10^3/uL Absolute Lymphocytes (1.2-3.4) 10^3/uL Absolute Monocytes (0.1-0.8) 10^3/uL Absolute Eosinophils (0.0-0.7) 10^3/uL Absolute Basophils (0.0-0.2) 10^3/uL Sodium (136-145) mmol/L Potassium (3.5-5.1) mmol/L Chloride (98-107) mmol/L Carbon Dioxide (21.0-32.0) mmol/L Anion Gap (3-11) mmol/L BUN (7-18) mg/dL Creatinine (0.55-1.02) mg/dL Est GFR (CKD-EPI 2020) (mL/min/1.73m2) Glucose (74-106) mg/dL Calcium (8.5-10.1) mg/dL Magnesium (1.8-2.4) mg/dL Total Bilirubin (0.2-1.0) mg/dL AST (15-37) U/L ALT (14-59) U/L Alkaline Phosphatase (46-116) U/L Troponin I (< or =60) ng/L Total Protein (6.4-8.2) g/dL Albumin (3.4-5.0) g/dL Procalcitonin ng/mL Urine Color (Yellow) Yellow Urine Clarity (Clear) Clear Urine pH (5-8) 7.0 Ur Specific [place] (1.005-1.025) 1.015 Urine Protein (Negative) mg/dL Negative Urine Ketones (Negative) mg/dL Negative Urine Blood (Negative) Small H Urine Nitrite (Negative) Negative Urine Bilirubin (Negative) Negative Urine Urobilinogen (Up to 0.2) mg/dL 0.2 Ur Leukocyte Esterase (Negative) Trace H Urine RBC (0-2) HPF 5-10 H Urine WBC (0-5) HPF 0-2 Ur Epithelial Cells (Negative) HPF Moderate Urine Crystals (Negative) HPF Negative Urine Bacteria (Negative) HPF Rare Urine Mucus (Negative) Negative Ur Culture Indicated? No/Sq. Contamination Urine Glucose (Negative) mg/dL Negative COVID-19 Source SARS-CoV-2 (PCR) (Negative) Influenza Type A (PCR) (Negative) Influenza Type B (PCR) (Negative) RSV (PCR) (Negative) Medical Decision Making Report and care of patient received from Bipin Raygoza APRN. Awaiting final lab results/urine. Patient continues to have chills cough. I did add a procalcitonin which is negative but I do think with her symptoms and elevated white count it is reasonable to treat her with a course of Augmentin. She will follow-up with primary care provider return sooner for new or worsening symptoms. She is tolerating oral intake hemodynamically stable and feels stable for discharge to home for outpatient treatment Medical Records Medical records reviewed: Yes I reviewed the patient's medical records. Imaging Data Radiologic Study: Imaging: X-Ray Radiologist's impression: Exam(s) XR CHEST 2V PA LATERAL EXAM: XR CHEST 2V PA LATERAL CLINICAL HISTORY: cough TECHNIQUE: 2D digital imaging was performed. COMPARISON: CR XR CHEST 2V PA LATERAL from 01/25/2023 FINDINGS: HEART: Normal size. Aorta: Not dilated. PULMONARY VASCULATURE: Normal. LUNGS: Clear. PLEURAL SPACE: No pleural effusion or pneumothorax. BONE:Unremarkable old L2 compression fracture. Soft tissues: Unremarkable. IMPRESSION: No acute abnormality. DATA REPOSITORY: Lab Data Lab results reviewed: Yes I reviewed the patient's lab results. Lab results narrative: Laboratory Tests Range/Units 07/30/23 07/30/23 07/30/23 15:00 15:08 16:15 WBC (4.4-10.8) 10^3/uL 15.68 H RBC (3.93-5.22) 10^6/uL 4.63 Hgb (11.2-15.7) g/dL 14.5 Hct (36.0-46.0) % 42.7 MCV (80-95) fL 92 MCH (27.0-33.0) pg 31.3 MCHC (32.0-36.0) % 34.0 RDW (11.7-14.6) % 13.1 Plt Count (130-400) 10^3/uL 297 MPV (8.0-11.0) fL 9.3 Immature Gran % 0.4 Neutrophils % 85.4 Lymphocytes % 6.9 Monocytes % 6.6 Eosinophils % 0.3 Basophils % 0.4 Nucleated RBC % (0.0-0.3) % 0.0 Absolute Neutrophils (1.2-6.7) 10^3/uL 13.39 H Absolute Lymphocytes (1.2-3.4) 10^3/uL 1.08 L Absolute Monocytes (0.1-0.8) 10^3/uL 1.03 H Absolute Eosinophils (0.0-0.7) 10^3/uL 0.05 Absolute Basophils (0.0-0.2) 10^3/uL 0.06 Sodium (136-145) mmol/L 134 L Potassium (3.5-5.1) mmol/L 3.3 L Chloride (98-107) mmol/L 94 L Carbon Dioxide (21.0-32.0) mmol/L 30.8 Anion Gap (3-11) mmol/L 9.2 BUN (7-18) mg/dL 23 H Creatinine (0.55-1.02) mg/dL 1.0 Est GFR (CKD-EPI 2020) (mL/min/1.73m2) 54.53 Glucose (74-106) mg/dL 112 H Calcium (8.5-10.1) mg/dL 9.2 Magnesium (1.8-2.4) mg/dL 1.9 Total Bilirubin (0.2-1.0) mg/dL 0.5 AST (15-37) U/L 20 ALT (14-59) U/L 19 Alkaline Phosphatase (46-116) U/L 70 Troponin I (< or =60) ng/L < 50 Total Protein (6.4-8.2) g/dL 7.9 Albumin (3.4-5.0) g/dL 3.6 Procalcitonin ng/mL < 0.1 Urine Color (Yellow) Urine Clarity (Clear) Urine pH (5-8) Ur Specific [place] (1.005-1.025) Urine Protein (Negative) mg/dL Urine Ketones (Negative) mg/dL Urine Blood (Negative) Urine Nitrite (Negative) Urine Bilirubin (Negative) Urine Urobilinogen (Up to 0.2) mg/dL Ur Leukocyte Esterase (Negative) Urine RBC (0-2) HPF Urine WBC (0-5) HPF Ur Epithelial Cells (Negative) HPF Urine Crystals (Negative) HPF Urine Bacteria (Negative) HPF Urine Mucus (Negative) Ur Culture Indicated? Urine Glucose (Negative) mg/dL COVID-19 Source Nasopharynx SARS-CoV-2 (PCR) (Negative) Negative Influenza Type A (PCR) (Negative) Negative Influenza Type B (PCR) (Negative) Negative RSV (PCR) (Negative) Negative Range/Units 07/30/23 16:30 WBC (4.4-10.8) 10^3/uL RBC (3.93-5.22) 10^6/uL Hgb (11.2-15.7) g/dL Hct (36.0-46.0) % MCV (80-95) fL MCH (27.0-33.0) pg MCHC (32.0-36.0) % RDW (11.7-14.6) % Plt Count (130-400) 10^3/uL MPV (8.0-11.0) fL Immature Gran % Neutrophils % Lymphocytes % Monocytes % Eosinophils % Basophils % Nucleated RBC % (0.0-0.3) % Absolute Neutrophils (1.2-6.7) 10^3/uL Absolute Lymphocytes (1.2-3.4) 10^3/uL Absolute Monocytes (0.1-0.8) 10^3/uL Absolute Eosinophils (0.0-0.7) 10^3/uL Absolute Basophils (0.0-0.2) 10^3/uL Sodium (136-145) mmol/L Potassium (3.5-5.1) mmol/L Chloride (98-107) mmol/L Carbon Dioxide (21.0-32.0) mmol/L Anion Gap (3-11) mmol/L BUN (7-18) mg/dL Creatinine (0.55-1.02) mg/dL Est GFR (CKD-EPI 2020) (mL/min/1.73m2) Glucose (74-106) mg/dL Calcium (8.5-10.1) mg/dL Magnesium (1.8-2.4) mg/dL Total Bilirubin (0.2-1.0) mg/dL AST (15-37) U/L ALT (14-59) U/L Alkaline Phosphatase (46-116) U/L Troponin I (< or =60) ng/L Total Protein (6.4-8.2) g/dL Albumin (3.4-5.0) g/dL Procalcitonin ng/mL Urine Color (Yellow) Yellow Urine Clarity (Clear) Clear Urine pH (5-8) 7.0 Ur Specific [place] (1.005-1.025) 1.015 Urine Protein (Negative) mg/dL Negative Urine Ketones (Negative) mg/dL Negative Urine Blood (Negative) Small H Urine Nitrite (Negative) Negative Urine Bilirubin (Negative) Negative Urine Urobilinogen (Up to 0.2) mg/dL 0.2 Ur Leukocyte Esterase (Negative) Trace H Urine RBC (0-2) HPF 5-10 H Urine WBC (0-5) HPF 0-2 Ur Epithelial Cells (Negative) HPF Moderate Urine Crystals (Negative) HPF Negative Urine Bacteria (Negative) HPF Rare Urine Mucus (Negative) Negative Ur Culture Indicated? No/Sq. Contamination Urine Glucose (Negative) mg/dL Negative COVID-19 Source SARS-CoV-2 (PCR) (Negative) Influenza Type A (PCR) (Negative) Influenza Type B (PCR) (Negative) RSV (PCR) (Negative) Quality:SDOH Health Related Social Needs: No Data to Display PFSH All Active Problems Acute UTI (Acute) Thickened endometrium (Acute) Cough (Acute) Emphysema of lung (Acute) Asthma (Chronic) Muscle pain (Acute) Muscle pain, myofascial (Acute) Post-nasal drip (Acute) Vasomotor rhinitis (Acute) Osteoarthritis of left knee (Acute) Steroid injection: 02/06/2022 Lumbosacral spondylosis without myelopathy (Acute) Rib pain on left side (Acute) Verruca vulgaris (Acute) [place] [facility] [place] Skin lesion of face (Acute) SCC? 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) H/O POLYPS ON FIRST COLON IN [place]; NEG ON REPEAT; [place] [address] DR BLAKE FOUND ONE HYPERPLASTIC POLYP Peripheral neuropathy, idiopathic (Acute 06/08/98) KNEE DISTAL, BILAT; INTERMITTENT BURNING, SLEEPS BETTER AT NIGHT IF SHE HAS WORN TIGHT SOCKS DAYTIME; nortriptyline effective; Dr Oneill; worse balance 02/2015 Leg pain, left (Chronic 11/03/16) Hyperlipidemia (Chronic 10/21/10) dyslipidemia: low HDL; statin begun by neuro 10/2010 after her TIA, along with Clopidogrel; target LDL<100 and HDL>40 History of thyroidectomy, total (Chronic 03/13/14) [facility] [place] multinodular goiter due to pressure on trachea Gastroesophageal reflux disease (Chronic 07/05/04) RESPONDS TO OMEPRAZOLE, BEFORE DINNER; [place]ITIS [place] E[place] [facility] [place]; gastritis and diffuse esophagitis; DR MERCADO REC [place] PPI RX Essential hypertension (Chronic 06/23/13) 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, [facility] [place] Clopidogrel and Statin indefinitely Bladder cancer (Chronic 05/19/15) Dr. Guy Lechuga- non-invasive papillary urothellal carcinoma, low grade. Acute midline low back pain without sciatica (Chronic 05/18/17) Atrial fibrillation (Chronic) Labile blood pressure (Chronic) Hx of thyroidectomy (Chronic) Medical History Acute midline low back pain Surgical History H/O cardiac catheterization (10/07/20) [facility] [place] appendage closure for afib cystourethroscopy (08/07/17) Dr Brian Lechuga LR-extensive recurrent bladder tumor encompassint entire L hemitrigone and posterolateral bladder wall and neck cystourethroscopy (05/19/15) Dr Brian Lechuga [facility]-extensive recurrent bladder tumor encompassint entire L hemitrigone and posterolateral bladder wall and neck URO cysto (10/22/15) Guy Lechuga MD 12 weeks after her last BCG Thyroid (03/13/14) 9Complete thyroidectomy Dr. Sanchez [facility] [place]: multinodular goiter Transurethral Resection of Bladder Tumor, 2-5cm (05/27/13) Dr. Ruano Cystoscopy (04/29/15) Dr. Lechuga 02/05/18 repeat cysto Colonoscopy - IV Sedation (03/22/16) Cholecystectomy Extraction of cataract (08/10/15) Dr Mayte Gonzalez eye R eye 2/2 Extraction of cataract (07/27/15) Dr Mayte Gonzalez eye R eye 2/2 Biopsy of breast (07/09/76) both breasts, biopsies benign Appendectomy Family History Brother Brain cancer Cancer Of the Face Father , Age 65 Heart attack Heart disease Sister , Lung Disease Age 80 Cancer Mother , Age 73 Amyloid disease Social History Smoking/Tobacco Use Status: Former Tobacco Use tobacco type: cigarettes Quit Date: 07/09/87 Pack-years: 52 Tobacco: How many years used: 52 Quit status: quit date established Smoking risk assessment performed?: Yes Alcohol Intake: never Drug use: Never Substance use type: does not use Caregiver/Support person: No Household members: spouse Housing: house Number of Children: 6 number of grandchildren: 17 Communication Needs: None current occupation: Retired Pets and animals: Yes (2 cats) Pets and animals: cat(s) Do you think of yourself as: straight/heterosexual Current gender identity: female What is your relationship status?: How often do you talk on the phone with friends or family?: three or more times per week How often do you get together with friends or relatives?: never How often do you attend taoism or roman catholic services?: 4 or more times per year Panel score (0-1 are the most socially isolated patients): 3 What type of physical activity do you participate in: other Details: [employer] Bike Duration: 15-30 minutes/day Astrid/Pentecostalism: Druze Seatbelt use: always Helmet use: No Drive intox or ride w/intox automobile drivers: No Do you feel safe at home: Yes Do you feel safe in your relationship?: Yes Sign Out Sign Out Data: Sign Out Comment: Patient signed out pending urinalysis and reassessment for general malaise and cold symptoms. So far beyond noted leukocytosis no specific findings noted on workup. Last updated by Merritt Raygoza NP at 07/30/23 16:17 Discharge Plan Disposition Patient Disposition: Home Condition: Stable Discharge Details Clinical Impression: Acute UTI Primary Care Provider: Elvis Muñoz ED Provider: Yasmin Mcdonald Home Meds and New Rx's Prescriptions: New amoxicillin-pot clavulanate 875-125 mg tablet 1 tab PO BID Qty: 10 0RF Continued aspirin [Gerald Chewable Aspirin] 81 mg tablet,chewable 81 mg PO DAILY montelukast 10 mg tablet 10 mg PO DAILY Qty: 90 3RF triamcinolone acetonide [Nasacort] 55 mcg aerosol,spray 1 spray intranasal DAILY Qty: 16.9 2RF Rx Instructions: administer into each nostril nitroglycerin [Nitrostat] 0.3 mg tablet, sublingual 0.3 mg Sublingual Q5-15M PRN (Reason: chest pain/esophageal spasm) 1 Days Qty: 25 6RF Neilmed Sinus Rinse Complete Packet With Rinse Device 1 packet .Route .3xweekly Rx Instructions: 1 packet 3XWEEKLY; packets .3xweekly; gabapentin 600 mg tablet See Rx Instructions PO BID Qty: 270 3RF Rx Instructions: 600mg at dinner and 1200mg HS PO twice a day; losartan 50 mg tablet 50 mg PO DAILY Qty: 90 3RF amlodipine 5 mg tablet 5 mg PO DAILY Qty: 180 3RF cholecalciferol (vitamin D3) 1,000 UNIT tablet 1,000 unit PO DAILY cyanocobalamin (vitamin B-12) [Vitamin B-12] 500 MCG tablet 500 mcg PO DAILY acetaminophen 500 MG tablet 1,000 mg PO Q4H PRN simvastatin 10 mg tablet 10 mg PO HS Qty: 90 3RF Rx Instructions: lower LDL cholesterol Dulera 100-5 mcg/actuation HFA aerosol inhaler 2 puff inhalation BID Qty: 13 12RF omeprazole 20 mg capsule,delayed release(DR/EC) 20 mg PO BID PRN (Reason: heart burn) Qty: 180 3RF hydrochlorothiazide 25 mg tablet 25 mg PO DAILY Qty: 90 3RF atenolol 25 mg tablet 25 mg PO BID Qty: 180 3RF levothyroxine 88 mcg tablet 88 mcg PO DAILY Qty: 90 3RF Metamucil [facility] Fiber 660 GM powder 1 oz PO HS ondansetron 4 mg tablet,disintegrating 4 mg PO Q8H PRNQty: 30 0RF Discharge Instructions Instructions: Urinary Tract Infection in Women (ED) Additional Instructions: Take antibiotics as prescribed Push fluids to stay well-hydrated drinking 6 to 8 glasses of water daily Return for new or worsening symptoms Referrals: Elvis Muñoz DO [Primary Care Provider] -
[2023-07-30 17:47] VITALS: BP 135/61; PULSE 78; RESP 15; O2SAT 91
[2023-07-30] MEDS: Amoxicillin 875/Clav. 125 TAB PO (17:48)
--- NOTE | 2023-08-02 07:46 | NUR.NOTE ---
Accessed chart to determine orders for EKG and to determine whether or not one needs to be cancelled. No EKG in [place] so order was cancelled. Nursing Note:
== END 2023-07-30 18:35 | disposition home or self-care (01) ==
PROVIDERS: Nurse Practitioner Family; Emergency Provider Nurse Practitioner Acute Care; PCP Family Medicine
DX: N39.0 Urinary tract infection, site not specified (principal); I48.0 Paroxysmal atrial fibrillation; Z79.82 Long term (current) use of aspirin; Z11.52 Encounter for screening for COVID-19; Z86.73 Personal history of transient ischemic attack (TIA), and cerebral infarction without residual deficits; Z87.891 Personal history of nicotine dependence
CPT/HCPCS: 80053; 84145; 87637; 99284; 71046; 81003; 81015; 83735; 84484; 85025

== ENCOUNTER 2023-08-03 12:03 | Emergency (ER) | payer MEDICARE, SELFPAY ==
[2023-08-03 12:08] VITALS: BP 117/58; PULSE 109; RESP 18; TEMP 36.6; O2SAT 95
[2023-08-03 12:14] VITALS: BP 133/79; PULSE 123; RESP 20; TEMP 37.2; O2SAT 96
--- NOTE | 2023-08-03 12:31 | W.ED.GENAD ---
HPI General Mode of arrival: ambulatory. Date/Time Provider Initiated Documentation: 08/03/23 12:07. Limitations to Documentation: no limitations. Information obtained by: patient, RN notes reviewed and old records reviewed. HPI Narrative: 87-year-old female presents to the ER with a chief complaint of vomiting diarrhea nausea for the last 24 hours. Patient was seen here on Sunday approximately 4 days ago and was diagnosed with early UTI placed on Augmentin which she has been taking other than today. She reports that she began vomiting last night around 5 PM and has been vomiting since. She has been unable to keep any of her medications down today. She does have a past medical history of peripheral neuropathy, cardiac catheterization 2020, hypothyroidism, breast biopsy, 2 bladder cancer surgeries appendectomy and cholecystectomy. Other past medical history includes hypertension and high cholesterol. Related Data Home Medications Medication Instructions Recorded Confirmed cholecalciferol (vitamin D3) 25 1,000 unit PO DAILY 09/17/12 08/03/23 mcg (1,000 unit) tablet psyllium husk (aspartame) 3.4 1 oz PO HS 05/27/13 08/03/23 gram/5.8 gram oral powder (Metamucil [facility] Fiber) cyanocobalamin (vitamin B-12) 500 500 mcg PO DAILY 11/19/15 08/03/23 mcg tablet (Vitamin B-12) acetaminophen 500 mg tablet 1,000 mg PO Q4H PRN 03/16/17 08/03/23 nitroglycerin 0.3 mg sublingual 0.3 mg sublingual Q5-15M PRN chest 09/09/19 08/03/23 tablet (Nitrostat) pain/esophageal spasm 1 day #25 tab-caps aspirin 81 mg chewable tablet 81 mg PO DAILY 10/26/20 08/03/23 (Gerald Chewable Low Dose Aspirin) sodium chloride, sodium 1 packet .Route .3xweekly 10/26/20 08/03/23 bicarb-nasal rinse squeeze bottle with packet (Neilmed Sinus Rinse Complete with packet) simvastatin 10 mg tablet 10 mg PO HS #90 tab-caps 10/10/22 07/30/23 gabapentin 600 mg tablet See Rx Instructions PO BID #270 11/28/22 08/03/23 tabs losartan 50 mg tablet 50 mg PO DAILY #90 tabs 12/12/22 08/03/23 ondansetron 4 mg disintegrating 4 mg PO Q8H PRN #30 tabs 01/25/23 08/03/23 tablet amlodipine 5 mg tablet 5 mg PO DAILY #180 tab-caps 02/06/23 08/03/23 triamcinolone acetonide 55 mcg 1 spray intranasal DAILY #16.9 mL 03/02/23 08/03/23 nasal spray aerosol (Nasacort) mometasone-formoterol HFA 100 2 puff inhalation BID #13 grams 03/20/23 08/03/23 mcg-5 mcg/actuation aerosol inhaler (Dulera) montelukast 10 mg tablet 10 mg PO DAILY #90 tabs 03/20/23 08/03/23 omeprazole 20 mg capsule,delayed 20 mg PO BID PRN heart burn #180 05/24/23 08/03/23 release tabs hydrochlorothiazide 25 mg tablet 25 mg PO DAILY #90 tabs 06/19/23 08/03/23 atenolol 25 mg tablet 25 mg PO BID #180 tabs 07/05/23 08/03/23 levothyroxine 88 mcg tablet 88 mcg PO DAILY #90 tabs 07/10/23 08/03/23 amoxicillin 875 mg-potassium 1 tab PO BID #10 tabs 07/30/23 08/03/23 clavulanate 125 mg tablet Previous Rx's Medication Instructions Recorded nitroglycerin 0.3 mg sublingual 0.3 mg sublingual Q5-15M PRN chest 09/09/19 tablet (Nitrostat) pain/esophageal spasm 1 day #25 tab-caps simvastatin 10 mg tablet 10 mg PO HS #90 tab-caps 10/10/22 gabapentin 600 mg tablet See Rx Instructions PO BID #270 11/28/22 tabs losartan 50 mg tablet 50 mg PO DAILY #90 tabs 12/12/22 ondansetron 4 mg disintegrating 4 mg PO Q8H PRN #30 tabs 01/25/23 tablet amlodipine 5 mg tablet 5 mg PO DAILY #180 tab-caps 02/06/23 triamcinolone acetonide 55 mcg 1 spray intranasal DAILY #16.9 mL 03/02/23 nasal spray aerosol (Nasacort) mometasone-formoterol HFA 100 2 puff inhalation BID #13 grams 03/20/23 mcg-5 mcg/actuation aerosol inhaler (Dulera) montelukast 10 mg tablet 10 mg PO DAILY #90 tabs 03/20/23 omeprazole 20 mg capsule,delayed 20 mg PO BID PRN heart burn #180 05/24/23 release tabs hydrochlorothiazide 25 mg tablet 25 mg PO DAILY #90 tabs 06/19/23 atenolol 25 mg tablet 25 mg PO BID #180 tabs 07/05/23 levothyroxine 88 mcg tablet 88 mcg PO DAILY #90 tabs 07/10/23 amoxicillin 875 mg-potassium 1 tab PO BID #10 tabs 07/30/23 clavulanate 125 mg tablet Allergies Allergy/AdvReac Type Severity Reaction Status Date / Time guaifenesin [From Mucinex] AdvReac Intermediate diarrhea Verified 08/03/23 12:11 tramadol AdvReac constipatio Verified 08/03/23 12:11 n General Stated Complaint: Nausea/Vomit/Diar YEE: 3 Review of Systems All systems reviewed & are unremarkable except as noted in HPI and below Constitutional Constitutional: Reports as per HPI, Reports chills and Denies fever(s) Cardiovascular Cardiovascular: Denies chest pain and Denies dyspnea Respiratory Respiratory: Denies dyspnea Gastrointestinal Gastrointestinal: Reports as per HPI, Reports diarrhea, Reports nausea and Reports vomiting Exam Narrative Exam Narrative: Constitutional: Alert and oriented x3. Appears stated age. Normal body habitus. Head: Normocephalic, no trauma. Eyes: Pupils PERRL, Red reflex noted, EOM's intact. Eyelids symmetrical without lesions, discharge, or swelling. ENT: Bilateral TM's WNL, External ear normal to inspection, no mastoid TTP, swelling, or erythema, Nasal turbinates WNL, no nasal discharge. Normal dentition, Posterior pharynx WNL, no exudate. Chest: RRR, Normal S1, S2, distal pulses intact. Resp: Lungs clear to auscultation bilaterally, no wheezes, rales, or rhonchi. Abdomen: Soft, non-distended, no masses no guarding palpated. Musculoskeletal: Normal gait, 5/5 strength to all four extremities. Skin: No suspicious rashes or lesions. Capillary refill less than 2 sec. Neurologic: Cranial nerves II-XII intact. Alert and oriented x 3. Patient has peripheral neuropathy bilaterally, her lower extremities. She does have like plantarflexed foot, sensitive to the touch bilaterally, she is able to dorsiflex approximately 30%. This is at her baseline. Sensory: Intact bilaterally all 4 extremities. Hematologic/Lymphatic: No ecchymosis, no lymphadenopathy. Course Vital Signs Vital signs: Vital Signs Temperature 36.6 C 08/03/23 12:08 Pulse 109 H 08/03/23 12:08 Respiratory Rate 18 08/03/23 12:08 Blood Pressure 117/58 L 08/03/23 12:08 Pulse Oximetry 95 08/03/23 12:08 Temperature 37.2 C 08/03/23 12:14 Temperature Source Oral 08/03/23 12:14 Pulse 123 H 08/03/23 12:14 Respiratory Rate 20 08/03/23 12:14 Respiratory Effort Normal 08/03/23 12:14 Blood Pressure 133/79 08/03/23 12:14 Blood Pressure Position Sitting 08/03/23 12:08 Pulse Oximetry 96 08/03/23 12:14 Oxygen Delivery Method Room Air 08/03/23 12:14 Oxygen Flow Rate 0 08/03/23 12:08 Medical Decision Making 87-year-old female presents to the ER with a chief complaint of vomiting diarrhea nausea for the last 24 hours. Patient was seen here on Sunday approximately 4 days ago and was diagnosed with early UTI placed on Augmentin which she has been taking other than today. She reports that she began vomiting last night around 5 PM and has been vomiting since. She has been unable to keep any of her medications down today. She does have a past medical history of peripheral neuropathy, cardiac catheterization 2020, hypothyroidism, breast biopsy, 2 bladder cancer surgeries appendectomy and cholecystectomy. Other past medical history includes hypertension and high cholesterol. Workup ordered including CBC CMP, urinalysis, stool studies including C. difficile. 1413: Patient is tolerating p.o. without any further emesis. She is tolerated ice chips and p.o. potassium. Patient's O2 sat 90-91% on room air placed on 2 L nasal cannula by staff nuclear medicine technologist, 95%, heart rate is 91, Patient is getting a gram of magnesium IV piggyback due to a magnesium level of 1.7, her potassium is 2.9 sodium 133 chloride 93 BUN 19 creatinine to 1.2 GFR is 43. Giiven 40 mill equivalents of p.o. potassium liquid and 20 mill equivalents IV piggyback potassium. The patient continues to tolerate p.o. plan disposition is discharged home. Stool C. difficile is negative. Urinalysis shows moderate blood 15 ketones, moderate bilirubin, RBCs 10-20 negative leukocytes pending culture at this time. Remainder of the labs have somewhat improved including the white blood cell count which is 11.60. Patient placed on room air she is satting 92% on room air at this time. Care is to be handed off to oncoming provider LESLYE Yoon pending potassium administration and Radha ATWOOD to go. I did discuss patient case in details with him. Family is at bedside and is in agreement with the plan. This text was generated using Poll Everywhere dictation system, please disregard any oddities of phrase or misspellings. Medical Records Medical records reviewed: Yes I reviewed the patient's medical records. Medical records narrative: Patient seen 4 days ago in the ER. Lab Data Lab results reviewed: Yes I reviewed the patient's lab results. Labs: 08/03/23 13:13 Urine - Reflex from Ua Urine Culture - Pending Laboratory Tests Range/Units 08/03/23 08/03/23 12:20 13:13 WBC (4.4-10.8) 10^3/uL 11.60 H RBC (3.93-5.22) 10^6/uL 4.86 Hgb (11.2-15.7) g/dL 15.3 Hct (36.0-46.0) % 44.0 MCV (80-95) fL 91 MCH (27.0-33.0) pg 31.5 MCHC (32.0-36.0) % 34.8 RDW (11.7-14.6) % 13.0 Plt Count (130-400) 10^3/uL 383 MPV (8.0-11.0) fL 9.3 Immature Gran % 0.5 Neutrophils % 95.1 Lymphocytes % 2.2 Monocytes % 1.9 Eosinophils % 0.0 Basophils % 0.3 Nucleated RBC % (0.0-0.3) % 0.0 Absolute Neutrophils (1.2-6.7) 10^3/uL 11.03 H Absolute Lymphocytes (1.2-3.4) 10^3/uL 0.26 L Absolute Monocytes (0.1-0.8) 10^3/uL 0.22 Absolute Eosinophils (0.0-0.7) 10^3/uL 0.00 Absolute Basophils (0.0-0.2) 10^3/uL 0.03 Sodium (136-145) mmol/L 133 L Potassium (3.5-5.1) mmol/L 2.9 L* Chloride (98-107) mmol/L 93 L Carbon Dioxide (21.0-32.0) mmol/L 28.8 Anion Gap (3-11) mmol/L 11.2 H BUN (7-18) mg/dL 19 H Creatinine (0.55-1.02) mg/dL 1.2 H Est GFR (CKD-EPI 2020) (mL/min/1.73m2) 43.81 Glucose (74-106) mg/dL 139 H Calcium (8.5-10.1) mg/dL 9.3 Magnesium (1.8-2.4) mg/dL 1.7 L Total Bilirubin (0.2-1.0) mg/dL 0.7 AST (15-37) U/L 22 ALT (14-59) U/L 25 Alkaline Phosphatase (46-116) U/L 72 Total Protein (6.4-8.2) g/dL 8.7 H Albumin (3.4-5.0) g/dL 3.7 Urine Color (Yellow) Yellow Urine Clarity (Clear) Cloudy Urine pH (5-8) 6.0 Ur Specific [place] (1.005-1.025) 1.025 Urine Protein (Negative) mg/dL 100 H Urine Ketones (Negative) mg/dL 15 H Urine Blood (Negative) Moderate H Urine Nitrite (Negative) Negative Urine Bilirubin (Negative) Moderate H Urine Urobilinogen (Up to 0.2) mg/dL 1.0 H Ur Leukocyte Esterase (Negative) Negative Urine RBC (0-2) HPF 10-20 H Urine WBC (0-5) HPF 5-10 Ur Epithelial Cells (Negative) HPF Few Urine Crystals (Negative) HPF Negative Urine Bacteria (Negative) HPF Many Urine Mucus (Negative) Heavy Urine Other (Negative) Negative Ur Culture Indicated? Yes Urine Glucose (Negative) mg/dL Negative Stl C.difficile Tox PCR (Negative) Negative Quality:SDOH Health Related Social Needs: No Data to Display PFSH All Active Problems Electrolyte disturbance (Acute) Nausea vomiting and diarrhea (Acute) Acute UTI (Acute) Thickened endometrium (Acute) Cough (Acute) Emphysema of lung (Acute) Asthma (Chronic) Muscle pain (Acute) Muscle pain, myofascial (Acute) Post-nasal drip (Acute) Vasomotor rhinitis (Acute) Osteoarthritis of left knee (Acute) Steroid injection: 02/06/2022 Lumbosacral spondylosis without myelopathy (Acute) Rib pain on left side (Acute) Verruca vulgaris (Acute) 08/19/21 [facility] [place] note Skin lesion of face (Acute) SCC? Stroke (Chronic) Presence of Watchman left atrial appendage closure device (Acute ~10/2020) 10/07/20 [facility] [place] following cardiac cath Tricuspid valve insufficiency (Chronic) By cath 07 October 2020 Flushing (Acute) Heart palpitations (Acute) Anterior epistaxis (Chronic) Recurrent, responds to AgNO3 cautery Primary osteoarthritis of left knee (Acute) Contusion of left knee (Acute) Knee pain, left anterior (Acute) Mitral valve insufficiency (Chronic) Chest pain (Acute) Periodic limb movement disorder (PLMD) (Chronic) Essential tremor (Chronic) Neoplasm of large intestine (Acute 06/21/05) H/O POLYPS ON FIRST COLON IN [place]; NEG ON REPEAT; [place] [address] DR BLAKE FOUND ONE HYPERPLASTIC POLYP Peripheral neuropathy, idiopathic (Acute 06/08/98) KNEE DISTAL, BILAT; INTERMITTENT BURNING, SLEEPS BETTER AT NIGHT IF SHE HAS WORN TIGHT SOCKS DAYTIME; nortriptyline effective; Dr Oneill; worse balance 02/2015 Leg pain, left (Chronic 11/03/16) Hyperlipidemia (Chronic 10/21/10) dyslipidemia: low HDL; statin begun by neuro 10/2010 after her TIA, along with Clopidogrel; target LDL<100 and HDL>40 History of thyroidectomy, total (Chronic 03/13/14) [facility] [place] for large multinodular goiter due to pressure on trachea Gastroesophageal reflux disease (Chronic 07/05/04) RESPONDS TO OMEPRAZOLE, BEFORE DINNER; ESOPHAGITIS ON EGD AT [facility] [place]: 07/05/04; gastritis and diffuse esophagitis; DR MERCADO REC [place] PPI RX Essential hypertension (Chronic 06/23/13) 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, [facility] [place], RX Clopidogrel and Statin indefinitely Bladder cancer (Chronic 05/19/15) Dr. Guy Lechuga- non-invasive papillary urothellal carcinoma, low grade. Acute midline low back pain without sciatica (Chronic 05/18/17) Atrial fibrillation (Chronic) Labile blood pressure (Chronic) Hx of thyroidectomy (Chronic) Medical History Acute midline low back pain Surgical History H/O cardiac catheterization (10/07/20) [facility] [place]-L atrial appendage closure for afib cystourethroscopy (08/07/17) Dr Brian Lechuga [facility]-extensive recurrent bladder tumor encompassint entire L hemitrigone and posterolateral bladder wall and neck cystourethroscopy (05/19/15) Dr Brian Lechuga [facility]-extensive recurrent bladder tumor encompassint entire L hemitrigone and posterolateral bladder wall and neck URO cysto (10/22/15) Guy Lechuga MD 12 weeks after her last BCG Thyroid (03/13/14) 9Complete thyroidectomy Dr. Sanchez [facility] [place], path: multinodular goiter Transurethral Resection of Bladder Tumor, 2-5cm (05/27/13) Dr. Ruano Cystoscopy (04/29/15) Dr. Lechuga 02/05/18 repeat cysto Colonoscopy - IV Sedation (03/22/16) Cholecystectomy Extraction of cataract (08/10/15) Dr Mayte Gonzalez eye R eye 2/2 Extraction of cataract (07/27/15) Dr Mayte Gonzalez eye R eye 2/2 Biopsy of breast (07/09/76) both breasts, biopsies benign Appendectomy Family History Brother Brain cancer Cancer Of the Face Father , Age 65 Heart attack Heart disease Sister , Lung Disease Age 80 Cancer Mother , Age 73 Amyloid disease Social History Smoking/Tobacco Use Status: Former Tobacco Use tobacco type: cigarettes Quit Date: 07/09/87 Pack-years: 52 Tobacco: How many years used: 52 Quit status: quit date established Smoking risk assessment performed?: Yes Alcohol Intake: never Drug use: Never Substance use type: does not use Caregiver/Support person: No Household members: spouse Housing: house Number of Children: 6 number of grandchildren: 17 Communication Needs: None current occupation: Retired Pets and animals: Yes (2 cats) Pets and animals: cat(s) Do you think of yourself as: straight/heterosexual Current gender identity: female What is your relationship status?: How often do you talk on the phone with friends or family?: three or more times per week How often do you get together with friends or relatives?: never How often do you attend tenriism or protestant services?: 4 or more times per year Panel score (0-1 are the most socially isolated patients): 3 What type of physical activity do you participate in: other Details: [employer] Bike Duration: 15-30 minutes/day Astrid/Episcopalian: Religious Seatbelt use: always Helmet use: No Drive intox or ride w/intox driver operator: No Do you feel safe at home: Yes Do you feel safe in your relationship?: Yes Sign Out Sign Out Data: Sign Out Comment: 87-year-old female presents with nausea vomiting diarrhea after being prescribed Augmentin for a UTI on Sunday. Patient does have some electrolyte imbalance magnesium 1.7 potassium 2.9. Is receiving 20 mill equivalents of potassium IV piggyback. Expected disposition is discharge after medication administration. Patient is tolerating p.o. without difficulty no further emesis noted. She will need some Zofran ODT to go. Last updated by Florina Lake NP at 08/03/23 15:40 Discharge Plan Disposition Patient Disposition: Home Condition: Improving Discharge Details Clinical Impression: Nausea vomiting and diarrhea, Electrolyte disturbance Primary Care Provider: Elvis Muñoz ED Provider: Florina Lake Home Meds and New Rx's Prescriptions: No Action aspirin [Gerald Chewable Aspirin] 81 mg tablet,chewable 81 mg PO DAILY montelukast 10 mg tablet 10 mg PO DAILY Qty: 90 3RF triamcinolone acetonide [Nasacort] 55 mcg aerosol,spray 1 spray intranasal DAILY Qty: 16.9 2RF Rx Instructions: administer into each nostril nitroglycerin [Nitrostat] 0.3 mg tablet, sublingual 0.3 mg Sublingual Q5-15M PRN (Reason: chest pain/esophageal spasm) 1 Days Qty: 25 6RF Neilmed Sinus Rinse Complete Packet With Rinse Device 1 packet .Route .3xweekly Rx Instructions: 1 packet 3XWEEKLY; packets .3xweekly; gabapentin 600 mg tablet See Rx Instructions PO BID Qty: 270 3RF Rx Instructions: 600mg at dinner and 1200mg HS PO twice a day; losartan 50 mg tablet 50 mg PO DAILY Qty: 90 3RF amlodipine 5 mg tablet 5 mg PO DAILY Qty: 180 3RF cholecalciferol (vitamin D3) 1,000 UNIT tablet 1,000 unit PO DAILY cyanocobalamin (vitamin B-12) [Vitamin B-12] 500 MCG tablet 500 mcg PO DAILY acetaminophen 500 MG tablet 1,000 mg PO Q4H PRN simvastatin 10 mg tablet 10 mg PO HS Qty: 90 3RF Rx Instructions: lower LDL cholesterol Dulera 100-5 mcg/actuation HFA aerosol inhaler 2 puff inhalation BID Qty: 13 12RF omeprazole 20 mg capsule,delayed release(DR/EC) 20 mg PO BID PRN (Reason: heart burn) Qty: 180 3RF hydrochlorothiazide 25 mg tablet 25 mg PO DAILY Qty: 90 3RF atenolol 25 mg tablet 25 mg PO BID Qty: 180 3RF levothyroxine 88 mcg tablet 88 mcg PO DAILY Qty: 90 3RF Metamucil [facility] Fiber 660 GM powder 1 oz PO HS ondansetron 4 mg tablet,disintegrating 4 mg PO Q8H PRNQty: 30 0RF amoxicillin-pot clavulanate 875-125 mg tablet 1 tab PO BID Qty: 10 0RF
[2023-08-03 12:43] LABS: Abs Immature Grans 0.06 10^3/uL (0.0-0.06); Absolute Basophil Count 0.03 10^3/uL (0.0-0.2); Absolute Lymphocyte Count 0.26 10^3/uL (1.2-3.4); Absolute Monocyte Count 0.22 10^3/uL (0.1-0.8); Absolute Neutrophil Count 11.03 10^3/uL (1.2-6.7); Basophils % 0.3; HGB 15.3 g/dL (11.2-15.7); Immature Grans % 0.5; Lymphocytes % 2.2; MCH 31.5 pg (27.0-33.0); MCHC 34.8 % (32.0-36.0); MCV 91 fL (80-95); MPV 9.3 fL (8.0-11.0); Monocytes % 1.9; Neutrophils % 95.1; Platelet Count 383 10^3/uL (130-400); RBC 4.86 10^6/uL (3.93-5.22); RDW-SD 42.7 fL
[2023-08-03] MEDS: Ondansetron 4 MG/2 ML VIAL IVP (12:43)
[2023-08-03] MEDS: Lactated Ringers 1,000 ML 1000 ML IV (12:47)
[2023-08-03 12:54] LABS: ALT 25 U/L (14-59); AST 22 U/L (15-37); Albumin 3.7 g/dL (3.4-5.0); Alkaline Phosphatase 72 U/L (46-116); Anion Gap 11.2 mmol/L (3-11); BUN 19 mg/dL (7-18); Bilirubin, Total 0.7 mg/dL (0.2-1.0); CO2 28.8 mmol/L (21.0-32.0); CREATININE 1.2 mg/dL (0.55-1.02); Calcium 9.3 mg/dL (8.5-10.1); Chloride 93 mmol/L (98-107); Estimated GFR 43.81 (mL/min/1.73m2); Glucose 139 mg/dL (74-106); Magnesium 1.7 mg/dL (1.8-2.4); Sodium 133 mmol/L (136-145); Total Protein 8.7 g/dL (6.4-8.2)
[2023-08-03 12:55] LABS: Potassium 2.9 mmol/L (3.5-5.1)
[2023-08-03] MEDS: MAGNESIUM SULFATE 1 GM/100 ML BAG IVPB (13:16)
[2023-08-03 13:21] LABS: Bilirubin Moderate (Negative); Blood Moderate (Negative); Clarity Cloudy (Clear); Glucose Negative (Negative); Ketones 15 mg/dL (Negative); Leukocyte Esterase Negative (Negative); Nitrite Negative (Negative); Specific Gravity 1.025 (1.005-1.025)
[2023-08-03 13:33] LABS: Bacteria Many HPF (Negative); C & S Indicated? Yes; Crystals Negative HPF (Negative); Epithelial Cells Few HPF (Negative); Mucus Heavy (Negative); Other Cells Negative (Negative)
[2023-08-03] MEDS: Potassium Chloride Liquid 20 MEQ PKT 40 MEQ PO (13:56)
[2023-08-03 14:07] LABS: C Diff PCR Negative (Negative)
[2023-08-03] MEDS: POTASSIUM CHLORIDE 20 MEQ/100 ML BAG 50 MEQ IVPB (14:34)
--- NOTE | 2023-08-03 16:00 | DI.RAD_ITS ---
Exam(s) XR PORTABLE CHEST AP EXAM: XR PORTABLE CHEST AP CLINICAL HISTORY: cough TECHNIQUE: 2D digital imaging was performed of the chest. One image was obtained. An AP view was ob tained. COMPARISON: CR,XR XR PORTABLE CHEST AP from 07/08/2020 CR XR CHEST 2V PA LATERAL from 07/30/2023 FINDINGS: MEDIASTINUM: Normal. HEART: Normal. PULMONARY VASCULATURE: Normal. LUNGS: Clear. PLEURAL SPACE: No pleural effusion or pneumothorax. BONE:Within normal limits for the patient's age. OTHER FINDINGS:Normal. IMPRESSION: No acute pulmonary findings. DATA REPOSITORY: RADIATION DOSE DELIVERED:
[2023-08-03 16:42] LABS: NT-proBNP 3260 pg/mL (<300)
--- NOTE | 2023-08-03 16:44 | W.EDPROG ---
Date of service: 08/03/23 Time of Service: 16:44 Medical Decision Making This dictation utilizes [id number] dictation software and may contain unedited grammatical errors. Patient received in sign-out from outgoing provider Florina Lake NP, see her prior note for full visit. 87 y/o F presents to ED today with a chief complaint of nausea/vomiting/diarrhea- seen earlier this week for respiratory symptoms with negative work-up, and started on Augmentin for UTI. The patient was found to have a potassium of 2.9 and is receiving p.o. and IV repletion, low magnesium which also received repletion. Has been stable throughout the visit without any acute abdominal pain, C. difficile was negative. Patient states her also had similar viral syndrome and resolved fully, she has the same symptoms days after him. Patients' medical history: Atrial fibrillation without anticoagulation and has a Watchman, emphysema, history of stroke, essential tremor, peripheral neuropathy, hyperlipidemia, GERD, hypertension, history of bladder cancer, history of thyroidectomy. Family and social history: Lives at home with her they have a handbag stitcher. Pertinent exam findings / vital signs include benign abdomen, no Rales to lungs, vitals stable. Differential / pathologies of concern include viral gastroenteritis, hypokalemia, pneumonia. Diagnostic studies of: -Reviewed prior studies- -Mild leukocytosis improved from prior visit on the 15.6 down to 11 -Mild CHRISTIANO with a creatinine of 1.2 likely in setting of GI losses, potassium 2.9, magnesium 1.7 -Added chest x-ray which showed no pulmonary edema due to the patient being observed at 89% on room air while sleeping, quickly magalie to 95-96% on room air with provider interview, no dyspnea. -Added BNP is elevated to 3260, baseline around 1,000. Interventions of: -Received IV Zofran, has been tolerating PO fluids, giving trial of PO snacks- plan to discharge with to-go Zofran tablets. ED Course/Assessment/Plan: Patient seen in signout with complaint of nausea vomiting and diarrhea for 1 day, had similar symptoms days prior, was seen Sunday for respiratory complaint without respiratory failure, negative for COVID and flu and RSV, is vaccinated for all, no pneumonia on chest x-ray then, no acute change on chest x-ray today, has chronic A-fib with Watchman. BNP is elevated likely mild dehydration in the setting of gastroenteritis, patient had significant hypokalemia as well as hypomagnesemia which was repleted. Patient passed p.o. challenge here in the department with both liquid and solids staying down. I sent home with tablets of Zofran as well as prescription for potassium repletion p.o, counseled on getting recheck at primary care, return for any worsening nausea or vomiting, any chest pain, feeling dizzy or faint, fevers, respiratory distress. Findings not consistent with heart failure with hypoxia, abdominal pain or significant peritonitis. Disposition of Gastroenteritis. Patient verbalized understanding of the plan and return to ED criteria and engaged in shared decision making. Medical Records Medical records reviewed: Yes I reviewed the patient's medical records. Imaging Data Radiologic Study: Attestation: I personally reviewed and interpreted this imaging study as follows: Imaging: X-Ray Radiologist's impression: EXAM: XR PORTABLE CHEST AP CLINICAL HISTORY: cough TECHNIQUE: 2D digital imaging was performed of the chest. One image was obtained. An AP view was obtained. COMPARISON: CR,XR XR PORTABLE CHEST AP from 07/08/2020 CR XR CHEST 2V PA LATERAL from 07/30/2023 FINDINGS: MEDIASTINUM: Normal. HEART: Normal. PULMONARY VASCULATURE: Normal. LUNGS: Clear. PLEURAL SPACE: No pleural effusion or pneumothorax. BONE:Within normal limits for the patient's age. OTHER FINDINGS:Normal. IMPRESSION: No acute pulmonary findings. Lab Data Lab results reviewed: Yes I reviewed the patient's lab results. Labs: 08/03/23 13:13 Urine - Reflex from Ua Urine Culture - Pending Laboratory Tests Range/Units 08/03/23 08/03/23 12:20 13:13 WBC (4.4-10.8) 10^3/uL 11.60 H RBC (3.93-5.22) 10^6/uL 4.86 Hgb (11.2-15.7) g/dL 15.3 Hct (36.0-46.0) % 44.0 MCV (80-95) fL 91 MCH (27.0-33.0) pg 31.5 MCHC (32.0-36.0) % 34.8 RDW (11.7-14.6) % 13.0 Plt Count (130-400) 10^3/uL 383 MPV (8.0-11.0) fL 9.3 Immature Gran % 0.5 Neutrophils % 95.1 Lymphocytes % 2.2 Monocytes % 1.9 Eosinophils % 0.0 Basophils % 0.3 Nucleated RBC % (0.0-0.3) % 0.0 Absolute Neutrophils (1.2-6.7) 10^3/uL 11.03 H Absolute Lymphocytes (1.2-3.4) 10^3/uL 0.26 L Absolute Monocytes (0.1-0.8) 10^3/uL 0.22 Absolute Eosinophils (0.0-0.7) 10^3/uL 0.00 Absolute Basophils (0.0-0.2) 10^3/uL 0.03 Sodium (136-145) mmol/L 133 L Potassium (3.5-5.1) mmol/L 2.9 L* Chloride (98-107) mmol/L 93 L Carbon Dioxide (21.0-32.0) mmol/L 28.8 Anion Gap (3-11) mmol/L 11.2 H BUN (7-18) mg/dL 19 H Creatinine (0.55-1.02) mg/dL 1.2 H Est GFR (CKD-EPI 2020) (mL/min/1.73m2) 43.81 Glucose (74-106) mg/dL 139 H Calcium (8.5-10.1) mg/dL 9.3 Magnesium (1.8-2.4) mg/dL 1.7 L Total Bilirubin (0.2-1.0) mg/dL 0.7 AST (15-37) U/L 22 ALT (14-59) U/L 25 Alkaline Phosphatase (46-116) U/L 72 NT-Pro-B Natriuret Pep (<300) pg/mL 3260 H Total Protein (6.4-8.2) g/dL 8.7 H Albumin (3.4-5.0) g/dL 3.7 Urine Color (Yellow) Yellow Urine Clarity (Clear) Cloudy Urine pH (5-8) 6.0 Ur Specific [place] (1.005-1.025) 1.025 Urine Protein (Negative) mg/dL 100 H Urine Ketones (Negative) mg/dL 15 H Urine Blood (Negative) Moderate H Urine Nitrite (Negative) Negative Urine Bilirubin (Negative) Moderate H Urine Urobilinogen (Up to 0.2) mg/dL 1.0 H Ur Leukocyte Esterase (Negative) Negative Urine RBC (0-2) HPF 10-20 H Urine WBC (0-5) HPF 5-10 Ur Epithelial Cells (Negative) HPF Few Urine Crystals (Negative) HPF Negative Urine Bacteria (Negative) HPF Many Urine Mucus (Negative) Heavy Urine Other (Negative) Negative Ur Culture Indicated? Yes Urine Glucose (Negative) mg/dL Negative Stl C.difficile Tox PCR (Negative) Negative Quality:[facility] Related Social Needs: No Data to Display Sign Out Sign Out Data: Sign Out Comment: 87-year-old female presents with nausea vomiting diarrhea after being prescribed Augmentin for a UTI on Sunday. Patient does have some electrolyte imbalance magnesium 1.7 potassium 2.9. Is receiving 20 mill equivalents of potassium IV piggyback. Expected disposition is discharge after medication administration. Patient is tolerating p.o. without difficulty no further emesis noted. She will need some Zofran ODT to go. Last updated by Florina Lake NP at 08/03/23 15:40 Discharge Plan Disposition Patient Disposition: Home Condition: Improving Discharge Details Clinical Impression: Nausea vomiting and diarrhea, Electrolyte disturbance Primary Care Provider: Elvis Muñoz ED Provider: Ayad Frey Home Meds and New Rx's Prescriptions: New potassium chloride 20 mEq tablet extended release 20 meq PO BID 7 Days Qty: 14 0RF No Action aspirin [Gerald Chewable Aspirin] 81 mg tablet,chewable 81 mg PO DAILY montelukast 10 mg tablet 10 mg PO DAILY Qty: 90 3RF triamcinolone acetonide [Nasacort] 55 mcg aerosol,spray 1 spray intranasal DAILY Qty: 16.9 2RF Rx Instructions: administer into each nostril nitroglycerin [Nitrostat] 0.3 mg tablet, sublingual 0.3 mg Sublingual Q5-15M PRN (Reason: chest pain/esophageal spasm) 1 Days Qty: 25 6RF Neilmed Sinus Rinse Complete Packet With Rinse Device 1 packet .Route .3xweekly Rx Instructions: 1 packet 3XWEEKLY; packets .3xweekly; gabapentin 600 mg tablet See Rx Instructions PO BID Qty: 270 3RF Rx Instructions: 600mg at dinner and 1200mg HS PO twice a day; losartan 50 mg tablet 50 mg PO DAILY Qty: 90 3RF amlodipine 5 mg tablet 5 mg PO DAILY Qty: 180 3RF cholecalciferol (vitamin D3) 1,000 UNIT tablet 1,000 unit PO DAILY cyanocobalamin (vitamin B-12) [Vitamin B-12] 500 MCG tablet 500 mcg PO DAILY acetaminophen 500 MG tablet 1,000 mg PO Q4H PRN simvastatin 10 mg tablet 10 mg PO HS Qty: 90 3RF Rx Instructions: lower LDL cholesterol Dulera 100-5 mcg/actuation HFA aerosol inhaler 2 puff inhalation BID Qty: 13 12RF omeprazole 20 mg capsule,delayed release(DR/EC) 20 mg PO BID PRN (Reason: heart burn) Qty: 180 3RF hydrochlorothiazide 25 mg tablet 25 mg PO DAILY Qty: 90 3RF atenolol 25 mg tablet 25 mg PO BID Qty: 180 3RF levothyroxine 88 mcg tablet 88 mcg PO DAILY Qty: 90 3RF Metamucil [facility] Fiber 660 GM powder 1 oz PO HS ondansetron 4 mg tablet,disintegrating 4 mg PO Q8H PRNQty: 30 0RF amoxicillin-pot clavulanate 875-125 mg tablet 1 tab PO BID Qty: 10 0RF Discharge Instructions Instructions: Potassium Chloride (By mouth), Ondansetron (By mouth), Potassium Content of Foods List (ED), Hypokalemia (ED), Acute Nausea and Vomiting (ED) Additional Instructions: You were seen in the emergency department for your acute nausea and vomiting for couple days, you state your had similar symptoms I think you have a viral gastroenteritis or stomach bug. You are found to have low magnesium and low potassium. I have sent a prescription for potassium supplements to the [facility] in [place] to start tomorrow, I have sent you home with 1 tablet of potassium to take before bed this evening, I have also sent you home with a to go bottle of Zofran, take this about 20 minutes prior to attempting p.o. intake of nutrition. I have also attached information on high potassium foods. Please have a recheck of your potassium at your primary care office after supplements have been completed later this week. You were negative for C. difficile, your chest x-ray shows no pneumonia or pulmonary edema, you had a mild elevation of your BNP which is a marker of possible heart failure but also can be due to mild dehydration as the kidneys related to substance too. You can follow-up with your primary care provider for recheck of your BNP. Please return to the ER for any increasing nausea vomiting, dizziness or feelings of near syncope, focal abdominal pain, black stools or bloody diarrhea, increasing fever cough or any respiratory distress. Referrals: Elvis Muñoz DO [Primary Care Provider] - Discharge Data Discharge Date/Time-TO BE ENTERED AT DEPARTURE: 08/03/23 17:25
[2023-08-04 11:01] LABS: Campylobacter PCR Negative (Negative); Salmonella PCR Negative (Negative); Shiga Toxin PCR Negative (Negative); Shigella/Enteroinvasive Ecoli Negative (Negative)
== END 2023-08-03 17:25 | disposition home or self-care (01) ==
PROVIDERS: Registered Nurse Emergency; Emergency Provider Physician Assistant; PCP Family Medicine
DX: R11.2 Nausea with vomiting, unspecified (principal); R19.7 Diarrhea, unspecified; E83.42 Hypomagnesemia; E87.6 Hypokalemia; I48.91 Unspecified atrial fibrillation; I10 Essential (primary) hypertension; E78.00 Pure hypercholesterolemia, unspecified; Z79.82 Long term (current) use of aspirin; Z79.899 Other long term (current) drug therapy
CPT/HCPCS: 00123; 80053; 87077; 87493; 87505; 96361; 96365; 96366; 96367; 96375; 99284; 71045; 81003; 81015; 83735; 83880; 85025; 87086; 87177; 87186; J2405; J3475; J3480

== ENCOUNTER → 2023-09-03 02:28 | Outpatient (CLI) | payer MEDICARE, SELFPAY ==
--- NOTE | 2023-09-03 08:00 | DI.US_ITS ---
Exam(s) US PELVIS TRANSVAGINAL EXAM: US PELVIS TRANSVAGINAL CLINICAL HISTORY: check stripe,THCKENED ENDOMETRIUM,R93.89 TECHNIQUE: Transabdominal and transvaginal imaging was performed using standard protocol. COMPARISON: CT CT ABDOMEN PELVIS W from 04/05/2023 US US PELVIS TRANSVAGINAL from 04/19/2023 FINDINGS: UTERUS: Anteverted. 5.2 x 2.2 x 3.2 cm Endometrium: 6 mm, thickened for a postmenopausal patient , not significantly changed from prior. No focal abnormality visible. Myometrium: Peripheral calcifications again noted. Cervix: Unremarkable. OVARIES: Right: Not visualized. Left: Cyst or mass: None. DOPPLER: Color: Symmetric and uniform flow to both ovaries. No hyperemia. CUL-DE-SAC: Free fluid: None. IMPRESSION: 1. Mild endometrial thickening is again demonstrated. No focal endometrial abnormality is visual. 2. Unremarkable left ovary. Right ovary not visualized. DATA REPOSITORY:
== END ==
PROVIDERS: PCP Family Medicine; Visit Provider Obstetrics & Gynecology
DX: R93.89 Abnormal findings on diagnostic imaging of other specified body structures (principal); N85.4 Malposition of uterus
CPT/HCPCS: 76830; 76856

== ENCOUNTER 2023-09-17 03:07 | Outpatient (CLI) | payer MEDICARE, SELFPAY ==
[2023-09-17 16:09] LABS: Anion Gap 9.6 mmol/L (3-11); BUN 16 mg/dL (7-18); CO2 28.4 mmol/L (21.0-32.0); CREATININE 0.9 mg/dL (0.55-1.02); Calcium 9.2 mg/dL (8.5-10.1); Chloride 97 mmol/L (98-107); Estimated GFR 61.87 (mL/min/1.73m2); Glucose 78 mg/dL (74-106); Potassium 3.8 mmol/L (3.5-5.1); Sodium 135 mmol/L (136-145)
== END 2023-09-17 03:08 | disposition home or self-care (01) ==
LOC: LBO 03:07
PROVIDERS: PCP Family Medicine; Visit Provider Family Medicine
DX: E87.6 Hypokalemia (principal); I10 Essential (primary) hypertension
CPT/HCPCS: 36415; 80048

== ENCOUNTER → 2023-10-31 13:05 | Outpatient (BNVA) | payer MEDICARE, SELFPAY | PROVIDERS: PCP Family Medicine; Referring Provider Family Medicine; Visit Provider Physician Assistant Surgical | DX: J45.909 Unspecified asthma, uncomplicated (principal); R05.9 Cough, unspecified; R09.82 Postnasal drip | CPT/HCPCS: 99214 ==

== ENCOUNTER 2023-11-09 05:33 | Outpatient (CLI) | payer MEDICARE, SELFPAY ==
[2023-11-09 10:52] LABS: BUN 14 mg/dL (7-18); CREATININE 0.8 mg/dL (0.55-1.02); Calcium 8.5 mg/dL (8.5-10.1); Cholesterol 120 mg/dL (<200); Estimated GFR 70.83 (mL/min/1.73m2); Glucose 75 mg/dL (74-106); HDL Cholesterol 38 mg/dL (40-60); Triglyceride 114 mg/dL (<150)
[2023-11-09 10:53] LABS: Anion Gap 9.3 mmol/L (3-11); CO2 30.7 mmol/L (21.0-32.0); Calculated LDL 60 mg/dL (<100); Chloride 96 mmol/L (98-107); Magnesium 1.7 mg/dL (1.8-2.4); Potassium 3.6 mmol/L (3.5-5.1); Sodium 136 mmol/L (136-145)
== END 2023-11-09 05:34 | disposition home or self-care (01) ==
LOC: LBO 05:33
PROVIDERS: PCP Family Medicine; Visit Provider Family Medicine
DX: E78.5 Hyperlipidemia, unspecified (principal); E87.8 Other disorders of electrolyte and fluid balance, not elsewhere classified
CPT/HCPCS: 36415; 80048; 80061; 83735

== ENCOUNTER → 2023-12-05 13:34 | Outpatient (BNVA) | payer MEDICARE, SELFPAY | PROVIDERS: PCP Family Medicine; Visit Provider Psychiatry & Neurology Neurology | DX: G60.9 Hereditary and idiopathic neuropathy, unspecified (principal); G47.61 Periodic limb movement disorder; M54.50 Low back pain, unspecified; I63.9 Cerebral infarction, unspecified | CPT/HCPCS: 99214 ==

== ENCOUNTER → 2023-12-14 01:56 | Outpatient (CLI) | payer MEDICARE, SELFPAY ==
--- NOTE | 2023-12-14 07:15 | DI.US_ITS ---
Exam(s) US SOFT TISSUE HEAD OR NECK EXAM: US SOFT TISSUE HEAD OR NECK CLINICAL HISTORY: anterior neck mass, mass neck, R22.1. TECHNIQUE: Ultrasound was performed using standard protocol. COMPARISON: No exams were available for comparison FINDINGS: Sonographic assessment utilizing grayscale and color Doppler imaging was performed and targeted to th e area of clinical concern. No cystic or solid mass is seen sonographically in the area of concern. IMPRESSION: Negative examination. DATA REPOSITORY:
== END ==
PROVIDERS: PCP Family Medicine; Visit Provider Emergency Medicine
DX: R22.1 Localized swelling, mass and lump, neck (principal)
CPT/HCPCS: 76536

== ENCOUNTER 2023-12-28 01:22 | Outpatient (CLI) | payer MEDICARE, SELFPAY ==
[2023-12-28 11:22] LABS: Anion Gap 5.4 mmol/L (3-11); BUN 16 mg/dL (7-18); CO2 30.6 mmol/L (21.0-32.0); CREATININE 0.9 mg/dL (0.55-1.02); Calcium 8.6 mg/dL (8.5-10.1); Chloride 99 mmol/L (98-107); Estimated GFR 61.49 (mL/min/1.73m2); Glucose 83 mg/dL (74-106); Magnesium 1.7 mg/dL (1.8-2.4); Potassium 3.9 mmol/L (3.5-5.1); Sodium 135 mmol/L (136-145)
[2023-12-28 11:59] LABS: Ferritin 60 ng/mL (8-252)
== END 2023-12-28 01:23 | disposition home or self-care (01) ==
LOC: LBO 01:22
PROVIDERS: PCP Family Medicine; Visit Provider Family Medicine
DX: E87.8 Other disorders of electrolyte and fluid balance, not elsewhere classified (principal); D64.9 Anemia, unspecified
CPT/HCPCS: 36415; 80048; 82728; 83735

== ENCOUNTER 2024-01-31 17:52 | Emergency (ER) | payer MEDICARE, SELFPAY ==
[2024-01-31 18:03] VITALS: PULSE 99; RESP 15; TEMP 36.8; O2SAT 94
--- NOTE | 2024-01-31 18:04 | W.ED.GENAD ---
Discharge Plan Disposition Patient Disposition: Home Condition: Good Discharge Details Clinical Impression: Headache Primary Care Provider: Elvis Muñoz ED Provider: Jack Howard [place] Meds and New Rx's Prescriptions: Continued aspirin [Gerald Chewable Aspirin] 81 mg tablet,chewable 81 mg PO DAILY triamcinolone acetonide [Nasacort] 55 mcg aerosol,spray 1 spray intranasal DAILY Qty: 16.9 2RF Rx Instructions: administer into each nostril losartan 50 mg tablet 75 mg PO DAILY MDD 75 mg 90 Days Qty: 135 4RF Rx Instructions: Take 1.5 tablets by mouth once daily as directed. nitroglycerin [Nitrostat] 0.3 mg tablet, sublingual 0.3 mg Sublingual Q5-15M PRN (Reason: chest pain/esophageal spasm) 1 Days Qty: 25 6RF hydrochlorothiazide 12.5 mg tablet 12.5 mg PO DAILY MDD 12.5 90 Days Qty: 90 3RF Rx Instructions: Take one 12.5 mg tablet once daily by mouth as directed. cholecalciferol (vitamin D3) 1,000 UNIT tablet 1,000 unit PO DAILY cyanocobalamin (vitamin B-12) [Vitamin B-12] 500 MCG tablet 500 mcg PO DAILY acetaminophen 500 MG tablet 1,000 mg PO Q4H PRN omeprazole 20 mg capsule,delayed release(DR/EC) 20 mg PO BID PRN (Reason: heart burn) Qty: 180 3RF atenolol 25 mg tablet 25 mg PO BID Qty: 180 3RF levothyroxine 88 mcg tablet 88 mcg PO DAILY Qty: 90 3RF gabapentin 600 mg tablet See Rx Instructions PO BID Qty: 270 3RF Rx Instructions: 600mg at dinner and 1200mg HS PO twice a day; simvastatin 10 mg tablet 10 mg PO HS Qty: 90 3RF Rx Instructions: lower LDL cholesterol Metamucil [facility] Fiber 660 GM powder 1 oz PO HS loratadine [Claritin] .ROUTE Discharge Instructions Instructions: Headache, Adult ED Additional Instructions: You were seen for headache. Your neurologic exam, laboratory studies, EKG, CT head are all reassuring. Get some rest and hydrate. Follow-up with primary care next week. Return to ED for any type of neurologic change, vision change, severe worsening headache, fever, other concerns. Referrals: Elvis Muñoz DO [Primary Care Provider] - Discharge Data Discharge Date/Time-TO BE ENTERED AT DEPARTURE: 01/31/24 20:47 HPI General Mode of arrival: EMS. Date/Time Provider Initiated Documentation: 01/31/24 18:04. Limitations to Documentation: no limitations. Information obtained by: patient, RN notes reviewed and old records reviewed. HPI Narrative: Patient presents to ED by ambulance with complaint of right-sided headache. Patient reports headache started around noon time. Initially thought it was a little headache but it became progressively worse and pounding in nature. She does have a history of migraines when younger but has not had significant headaches for quite some time. Did develop nausea and did vomit at home. Had taken 1 g of Tylenol twice over the afternoon. Denies any new neurologic change. Has peripheral neuropathy which affects mostly her legs. Denies any fever. Maybe had some chest pain earlier in the afternoon but none currently. Reporting that headache is significantly better at this point. Also reports nausea is better. However, blood pressure remained persistently high at home prompting her to call EMS and be transported in for evaluation. She does have a history of atrial fibrillation but is not on anticoagulation as she is status post Watchman procedure. Related Data Home Medications ?Medication ?Instructions ?Recorded ?Confirmed cholecalciferol (vitamin D3) 25 1,000 unit PO DAILY 09/17/12 01/31/24 mcg (1,000 unit) tablet psyllium husk (aspartame) 3.4 1 oz PO HS 05/27/13 01/31/24 gram/5.8 gram oral powder (Metamucil [facility] Fiber) cyanocobalamin (vitamin B-12) 500 500 mcg PO DAILY 11/19/15 01/31/24 mcg tablet (Vitamin B-12) acetaminophen 500 mg tablet 1,000 mg PO Q4H PRN 03/16/17 01/31/24 nitroglycerin 0.3 mg sublingual 0.3 mg sublingual Q5-15M PRN chest 09/09/19 01/31/24 tablet (Nitrostat) pain/esophageal spasm 1 day #25 tab-caps aspirin 81 mg chewable tablet 81 mg PO DAILY 10/26/20 01/31/24 (Gerald Chewable Low Dose Aspirin) triamcinolone acetonide 55 mcg 1 spray intranasal DAILY #16.9 mL 03/02/23 01/31/24 nasal spray aerosol (Nasacort) omeprazole 20 mg capsule,delayed 20 mg PO BID PRN heart burn #180 05/24/23 01/31/24 release tabs atenolol 25 mg tablet 25 mg PO BID #180 tabs 07/05/23 01/31/24 levothyroxine 88 mcg tablet 88 mcg PO DAILY #90 tabs 07/10/23 01/31/24 gabapentin 600 mg tablet See Rx Instructions PO BID #270 10/01/23 01/31/24 tabs hydrochlorothiazide 12.5 mg tablet 12.5 mg PO DAILY 90 days #90 tabs 10/02/23 01/31/24 simvastatin 10 mg tablet 10 mg PO HS #90 tab-caps 10/16/23 01/31/24 losartan 50 mg tablet 75 mg (1.5 x 50 mg) PO DAILY 90 01/14/24 01/31/24 days #135 tabs loratadine .ROUTE 01/31/24 Previous Rx's ?Medication ?Instructions ?Recorded nitroglycerin 0.3 mg sublingual 0.3 mg sublingual Q5-15M PRN chest 09/09/19 tablet (Nitrostat) pain/esophageal spasm 1 day #25 tab-caps triamcinolone acetonide 55 mcg 1 spray intranasal DAILY #16.9 mL 03/02/23 nasal spray aerosol (Nasacort) omeprazole 20 mg capsule,delayed 20 mg PO BID PRN heart burn #180 05/24/23 release tabs atenolol 25 mg tablet 25 mg PO BID #180 tabs 07/05/23 levothyroxine 88 mcg tablet 88 mcg PO DAILY #90 tabs 07/10/23 gabapentin 600 mg tablet See Rx Instructions PO BID #270 10/01/23 tabs hydrochlorothiazide 12.5 mg tablet 12.5 mg PO DAILY 90 days #90 tabs 10/02/23 simvastatin 10 mg tablet 10 mg PO HS #90 tab-caps 10/16/23 losartan 50 mg tablet 75 mg (1.5 x 50 mg) PO DAILY 90 01/14/24 days #135 tabs Allergies Allergy/AdvReac Type Severity Reaction Status Date / Time guaifenesin (From Mucinex) AdvReac Intermediate diarrhea Verified 01/31/24 18:14 amoxicillin (From Augmentin) AdvReac Diarrhea Verified 01/31/24 18:14 clavulanic acid (From AdvReac Diarrhea Verified 01/31/24 18:14 Augmentin) tramadol AdvReac constipatio Verified 01/31/24 18:14 n General YEE: 3 Review of Systems Narrative: Per HPI Exam Narrative Exam Narrative: Const: WDWN elderly female in NAD. VS per triage. HEENT: NC/AT. Normal facial exam. Mildly tender over the right latter-day area. Eyes: PERRL and EOMI. Neck: Supple. Trachea midline. Lungs: Normal respiratory effort. Lungs are clear. Cor: irr/irr without murmur. Good radial pulses. GI: Soft/ND/NT. Neuro: A+O x 3. Normal speech, mentation. Cranial nerves II - XII grossly intact. B foot drop chronic. Strength otherwise normal. Decreased sensation distal LE also chronic and unchanged. Medical Decision Making Patient presenting to ED from home with right-sided headache that she described as severe. It was not sudden in onset. Has since pretty much resolved. No new neurologic symptoms. Concerned because blood pressure remained elevated. Has prior history of migraines but has not had significant headaches for quite some time. Also reports some chest pain earlier in the afternoon after the onset of headache. Patient's exam is reassuring. Neurologically appears to be at baseline compared to neurology notes. Doubt temporal arteritis but she has mild tenderness so will check sed rate. Does describe the headache as severe but did not have sudden onset and it built up over time suggesting bleed is unlikely. However, she is past the 6-hour limit for noncontrast CT head rule out of SAH. As such we will obtain CTA of head. Did report chest pain earlier in the afternoon so will obtain EKG and a single troponin. Has residual headache and nausea so will give IV prochlorperazine and fluids. Patient's initial EKG is A-fib and appears to have limb lead reversal. Second EKG requested with attention to limb leads. This repeat EKG is A-fib with no ST changes and limb leads that are consistent with prior EKG. Laboratory studies with a normal white count. Hemoglobin little high at 16 suggesting some hemoconcentration. Sed rate is normal. Very minimal hyponatremia otherwise normal BMP. Negative troponin. None contrast CT head negative per preliminary radiology read. CTA head and neck negative for aneurysm, stenosis, occlusion. Discussed findings with patient. Feels about the same. Blood pressure has been reasonable here. Diastolic little high around 100 but systolic is now fine. Neurologic exam remains unchanged. Feel the patient is safe for discharge home to follow-up with primary care next week. Return precautions provided. Patient comfortable with plan. Medical Records Medical records reviewed: Yes I reviewed the patient's medical records. Medical records narrative: Neurology records Lab Data Lab results reviewed: Yes I reviewed the patient's lab results. ECG Data Attestation: I personally reviewed and interpreted this ECG (s) as follows: Prior ECG tracings: available for review Interpretation: See EKG/MDM PFSH All Active Problems Headache (Acute) Acute midline low back pain (Acute) Mass in neck (Acute) Eczema (Acute) Thickened endometrium (Acute) Cough (Acute) Emphysema of lung (Acute) Muscle pain (Acute) Muscle pain, myofascial (Acute) Post-nasal drip (Acute) Vasomotor rhinitis (Acute) Osteoarthritis of left knee (Acute) Steroid injection: 02/06/2022 Lumbosacral spondylosis without myelopathy (Acute) Rib pain on left side (Acute) Verruca vulgaris (Acute) [place] [facility] [place] Skin lesion of face (Acute) SCC? Stroke (Chronic) Tricuspid valve insufficiency (Chronic) By cath 07 October 2020 Flushing (Acute) Heart palpitations (Acute) Anterior epistaxis (Chronic) Recurrent, responds to AgNO3 cautery Primary osteoarthritis of left knee (Acute) Contusion of left knee (Acute) Knee pain, left anterior (Acute) Mitral valve insufficiency (Chronic) Chest pain (Acute) Neoplasm of large intestine (Acute 06/21/05) H/O POLYPS ON FIRST COLON IN [place]; NEG ON REPEAT; [place] [address] DR BLAKE [employer] [facility] HYPERPLASTIC POLYP Leg pain, left (Chronic 11/03/16) Acute midline low back pain without sciatica (Chronic 05/18/17) Labile blood pressure (Chronic) Medical History Asthma Presence of Watchman left atrial appendage closure device (~10/2020) [place]07[place] [facility] [place] Periodic limb movement disorder (PLMD) Essential tremor Peripheral neuropathy, idiopathic (06/08/98) KNEE DISTAL, BILAT; INTERMITTENT BURNING, SLEEPS BETTER AT NIGHT IF SHE HAS WORN TIGHT SOCKS DAYTIME; nortriptyline effective; Dr Oneill; worse balance 02/2015 Gastroesophageal reflux disease (07/05/04) RESPONDS TO OMEPRAZOLE, BEFORE DINNER; [place]HAGITIS [place] [facility] [place]; gastritis and diffuse esophagitis; DR MERCADO REC [place] PPI RX Hyperlipidemia (10/21/10) dyslipidemia: low HDL; statin begun by neuro 10/2010 after her TIA, along with Clopidogrel; target LDL<100 and HDL>40 Cerebrovascular disease, unspecified (10/07/10) 10/2010; small L THALAMIC CVA [place] [facility] [place] Clopidogrel and Statin indefinitely Essential hypertension (06/23/13) Bladder cancer (05/19/15) Dr. Guy Lechuga- non-invasive papillary urothellal carcinoma, low grade. Atrial fibrillation Surgical History H/O cardiac catheterization (10/07/20) [facility] [place]age [place] for afib cystourethroscopy (08/07/17) Dr Brian Lechuga [facility]-extensive recurrent bladder tumor encompassint entire L hemitrigone and posterolateral bladder wall and neck URO cysto (10/22/15) Guy Lechuga MD 12 weeks after her last BCG Thyroid (03/13/14) 9Complete thyroidectomy Dr. Sanchez [facility] [place]: multinodular goiter Transurethral Resection of Bladder Tumor, 2-5cm (05/27/13) Dr. Ruano Cystoscopy (04/29/15) Dr. Lechuga 02/05/18 repeat cysto Colonoscopy - IV Sedation (03/22/16) Cholecystectomy Extraction of cataract (08/10/15) Dr Hu L eye R eye 2/2 Extraction of cataract (07/27/15) Dr Hu L eye R eye 2/2 Biopsy of breast (07/09/76) both breasts, biopsies benign Appendectomy Family History Brother Brain cancer Cancer Of the Face Father , Age 65 Heart attack Heart disease Sister , Lung Disease Age 80 Cancer Mother , Age 73 Amyloid disease Social History Smoking/Tobacco Use Status: Former Tobacco Use tobacco type: cigarettes Quit Date: 07/09/87 Pack-years: 52 Tobacco: How many years used: 52 Quit status: quit date established Smoking risk assessment performed?: Yes Alcohol Intake: never Drug use: Never Substance use type: does not use Caregiver/Support person: No Household members: spouse Housing: house Number of Children: 6 number of grandchildren: 17 Communication Needs: None current occupation: Retired Pets and animals: Yes (2 cats) Pets and animals: cat(s) Do you think of yourself as: straight/heterosexual Current gender identity: female What is your relationship status?: How often do you talk on the phone with friends or family?: three or more times per week How often do you get together with friends or relatives?: never How often do you attend adventism or protestant services?: 4 or more times per year Panel score (0-1 are the most socially isolated patients): 3 What type of physical activity do you participate in: other Details: Recumbant Bike Duration: 15-30 minutes/day Astrid/Orthodoxy: Zoroastrianism Seatbelt use: always Helmet use: No 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
[2024-01-31 18:10] VITALS: O2SAT 94
--- NOTE | 2024-01-31 18:15 | RT.EKG_ITS ---
APPROVED REPORT Exam: Resting ECG Reason for Exam: chest pain Patient Location: E HR:94 bpm ECG Measurements Heart Rate 94 AXIS AL [id number] P [id number] QRSd 78 QRS 141 QT 362 T 140 QTc 453 Conclusion Atrial fibrillation...V-rate 79-104, irreg A-activity Right axis deviation...QRS axis ( 91,269) Abnormal T, consider ischemia, lateral leads...T <-0.20mV, I aVL V5 V6 Suspect limb lead reversal, new EKG requested. No precordial changes.
[2024-01-31] MEDS: Prochlorperazine 10 MG/2 ML VIAL 5 MG IVP (18:32)
[2024-01-31] MEDS: Lactated Ringers 1,000 ML 1000 ML IV (18:34)
[2024-01-31 18:48] LABS: Abs Immature Grans 0.04 10^3/uL (0.0-0.06); Absolute Basophil Count 0.06 10^3/uL (0.0-0.2); Absolute Eosinophil Count 0.12 10^3/uL (0.0-0.7); Absolute Lymphocyte Count 1.22 10^3/uL (1.2-3.4); Absolute Monocyte Count 0.54 10^3/uL (0.1-0.8); Absolute Neutrophil Count 5.92 10^3/uL (1.2-6.7); Basophils % 0.8 %; Eosinophils % 1.5 %; HCT 47.8 % (36.0-46.0); Immature Grans % 0.5 %; Lymphocytes % 15.4 %; MCH 32.1 pg (27.0-33.0); MCHC 33.5 % (32.0-36.0); MCV 96 fL (80-95); MPV 9.7 fL (8.0-11.0); Monocytes % 6.8 %; Platelet Count 343 10^3/uL (130-400); RBC 4.98 10^6/uL (3.93-5.22); RDW 12.5 % (11.7-14.6); RDW-SD 44.5 fL
[2024-01-31 18:50] LABS: ESR 25 mm/hr (0-30)
[2024-01-31 19:11] LABS: Anion Gap 5.7 mmol/L (3-11); BUN 16 mg/dL (7-18); CO2 31.3 mmol/L (21.0-32.0); CREATININE 0.8 mg/dL (0.55-1.02); Calcium 8.9 mg/dL (8.5-10.1); Chloride 97 mmol/L (98-107); Estimated GFR 70.83 (mL/min/1.73m2); Glucose 106 mg/dL (74-106); Potassium 4.3 mmol/L (3.5-5.1); Sodium 134 mmol/L (136-145); Troponin I < 50 ng/L (< or =60)
--- NOTE | 2024-01-31 19:15 | RT.EKG_ITS ---
APPROVED REPORT Exam: Resting ECG Reason for Exam: repeat for CP Patient Location: E HR:97 bpm ECG Measurements Heart Rate 97 AXIS MN [id number] P [id number] QRSd 84 QRS 68 QT 372 T 55 QTc 472 Conclusion Atrial fibrillation...V-rate 74-140, irreg A-activity Normal [place] Normal ST
[2024-01-31] MEDS: Omnipaque 350 MG/ML 100 ML BTL IJ (19:32)
[2024-01-31] MEDS: Normal Saline - Diluent 50 ML VIAL IJ (19:33)
--- NOTE | 2024-01-31 19:45 | DI.CT_ITS ---
Exam(s) CT BRAIN NECK CTA EXAM: CT BRAIN NECK CTA CLINICAL HISTORY: severe headache/elevated BP. TECHNIQUE: Imaging Protocol: Axial CT angiography was performed with multi-slice acquisition and mu lti-planar and/or 3D reconstructions. CONTRAST MATERIAL: Intravenous: Omnipaque 350 contrast volume:100 mL COMPARISON: CT HEAD WITHOUT CONTRAST from 10/19/2010 FINDINGS: CT Head W/O and W: Ventricles and Extra axial spaces: Normal in size and morphology for the patient's age. Hemorrhage: None. Cerebral parenchyma: There are areas of decreased attenuation in the white matter consistent with chr onic microvascular ischemic disease. No acute territorial infarct/mass effect. Midline shift: None. Brainstem/Cerebellum: Normal. Calvarium: Normal. Visualized Paranasal sinuses/Mastoids: Clear. Soft Tissues: Unremarkable. Enhancement: Unremarkable. CTA Neck W: Common Carotid: Atherosclerosis in the carotid bulbs without significant stenosis. Right: No dissection, occlusion or significant stenosis. Left: No dissection, occlusion or significant stenosis. There is less than 50 percent stenosis in th e carotid bulb. External Carotid: Right: No occlusion or significant stenosis. Left: No occlusion or significant stenosis. Internal Carotid: Atherosclerotic calcification in the proximal internal carotid arteries. Right: No dissection, occlusion or significant stenosis. Left: No dissection, occlusion or significant stenosis. Vertebral Artery: Right: No dissection, occlusion or significant stenosis. Left: No dissection, occlusion or significant stenosis. Lung Apices: Moderate centrilobular emphysematous changes are present. Bones: Within normal limits for the patient's age. Age-appropriate degenerative changes are present Soft Tissues: Normal. CTA Brain W: Internal Carotid Arteries: Atherosclerotic calcification. No significant stenosis. No aneurysm or o cclusion. Anterior Cerebral Arteries: Right: No aneurysm, occlusion or significant stenosis. Left: No aneurysm, occlusion or significant stenosis. Middle Cerebral Arteries: Right: No aneurysm, occlusion or significant stenosis. Left: No aneurysm, occlusion or significant stenosis. Posterior Cerebral Arteries: Right: No aneurysm, occlusion or significant stenosis. Left: No aneurysm, occlusion or significant stenosis. Vertebral Arteries: Right: No aneurysm, occlusion or significant stenosis. Left: No aneurysm, occlusion or significant stenosis. Basilar Artery: No aneurysm, occlusion or significant stenosis. IMPRESSION: 1. No large vessel occlusion or significant stenosis on the CT angiography of the head. 2. No acute intracranial process. 3. No occlusion or significant stenosis on the CT angiography of the neck. RADIATION DOSE DELIVERED: Total DLP DATA REPOSITORY: All CT scans at this facility are submitted to the National Radiology Data Registry (NRDR) Dose Index Registry (DIR) with the [employer] (ACR). RADIATION OPTIMIZATION: All CT scans at this facility use at least one of these dose optimization te chniques: automated exposure control; mA and/or kV adjustment per patient size (includes targeted exa ms where dose is matched to clinical indication); or iterative reconstruction.
--- NOTE | 2024-01-31 20:28 | DI.VRAD_ITS ---
PROCEDURE INFORMATION: Exam: CTA Head Without And With Contrast, Arteriography Exam date and time: 01/31/2024 7:32 PM Age: 88 years old Clinical indication: Pain; Headache; Additional info: Severe headache/elevated BP TECHNIQUE: Imaging protocol: Computed tomographic angiography of the head without and with contrast. Exam focused on the arteries. 3D rendering (Not supervised by radiologist): MIP and/or 3D reconstructed images were created by the technologist. Contrast material: OMNI 350; Contrast volume: 100 ml; Contrast route: INTRAVENOUS (IV); COMPARISON: MRI - BRAIN WO CONTRAST 09/25/2017 4:27 PM FINDINGS: ANTERIOR CIRCULATION: Right internal carotid artery: Intracranial segment is patent with no significant stenosis or occlusion. No aneurysm. Right middle cerebral artery: No occlusion or significant stenosis. No aneurysm. Right anterior cerebral artery: No occlusion or significant stenosis. No aneurysm. Left internal carotid artery: Intracranial segment is patent with no significant stenosis. No aneurysm. Left middle cerebral artery: No occlusion or significant stenosis. No aneurysm. Left anterior cerebral artery: No occlusion or significant stenosis. No aneurysm. POSTERIOR CIRCULATION: Right vertebral artery: No occlusion or significant stenosis. No aneurysm. Left vertebral artery: No occlusion or significant stenosis. No aneurysm. Basilar artery: No occlusion or significant stenosis. No aneurysm. Right posterior cerebral artery: No occlusion or significant stenosis. No aneurysm. Left posterior cerebral artery: No occlusion or significant stenosis. No aneurysm. HEAD: Brain: Normal. No hemorrhage. Unremarkable white matter. No mass effect. Cerebral ventricles: Normal. No ventriculomegaly. Bones: Unremarkable. No acute fracture. Paranasal sinuses: Visualized sinuses are normal. No fluid levels. Mastoid air cells: Visualized mastoids are normal. No mastoid effusion. Soft tissues: Unremarkable. IMPRESSION: 1. No large vessel occlusion. 2. Unremarkable CT head. PROCEDURE INFORMATION: Exam: CTA Neck Without And With Contrast Exam date and time: 01/31/2024 7:32 PM Age: 88 years old Clinical indication: Pain; Headache; Additional info: Severe headache/elevated BP TECHNIQUE: Imaging protocol: Computed tomographic angiography of the neck without and with contrast. Exam focused on the cervical segments of the vasculature. 3D rendering (Not supervised by radiologist): MIP and/or 3D reconstructed images were created by the technologist. Contrast material: OMNI 350; Contrast volume: 100 ml; Contrast route: INTRAVENOUS (IV); COMPARISON: US SOFT TISSUE HEAD OR NECK 12/14/2023 9:53 AM FINDINGS: Right common carotid artery: No stenosis. No dissection or occlusion. Right internal carotid artery: No stenosis of the extracranial segment. No dissection or occlusion. Right external carotid artery: No occlusion or stenosis of the origin. Left common carotid artery: No stenosis. No dissection or occlusion. Left internal carotid artery: Calcified plaque at the bulb with mild stenosis. No dissection or occlusion. Left external carotid artery: No occlusion or stenosis of the origin. Right vertebral artery: No stenosis. No dissection or occlusion. Left vertebral artery: No stenosis. No dissection or occlusion. Soft tissues: No significant soft tissue swelling. Bones/joints: No acute fracture. IMPRESSION: No stenosis or occlusion. REFERENCES: NASCET CRITERIA. The degree of stenosis in the cervical segment of the internal carotid artery is based on NASCET criteria. Normal is no stenosis. Mild is less than 50% stenosis. Moderate is 50-69% stenosis. Severe is 70% to 99% stenosis. Total occlusion is no detectable patent lumen. Dictated and Authenticated by: Alexis Queen MD. Ordering:HONEY Santiago MD
[2024-01-31 21:18] VITALS: BP 127/107; PULSE 89; RESP 19; TEMP 36; O2SAT 92
== END 2024-01-31 20:47 | disposition home or self-care (01) ==
PROVIDERS: Emergency Provider Emergency Medicine; PCP Family Medicine
DX: R51.9 Headache, unspecified (principal); R11.0 Nausea; I10 Essential (primary) hypertension; E78.5 Hyperlipidemia, unspecified; I48.91 Unspecified atrial fibrillation; Z79.82 Long term (current) use of aspirin; Z87.891 Personal history of nicotine dependence
CPT/HCPCS: 36415; 70496; 70498; 80048; 85652; 93005; 96361; 96374; 99285; 84484; 85025; 93010; 99284; J0780; J3490

== ENCOUNTER 2024-02-19 10:07 | Inpatient (IN) | payer MEDICARE, SELFPAY ==
[2024-02-19] VITALS (140 sets, daily range): BP systolic 85–222; BP diastolic 41–133; PULSE 58–107; RESP 12–26; TEMP 36.5–37; O2SAT 90–98
--- NOTE | 2024-02-19 10:00 | RT.EKG_ITS ---
APPROVED REPORT Exam: Resting ECG Reason for Exam: weakness Patient Location: E HR:85 bpm ECG Measurements Heart Rate 85 AXIS TN [id number] P [id number] QRSd 89 QRS 79 QT 376 T 60 QTc 448 Conclusion Atrial fibrillation 85 no stemi
--- NOTE | 2024-02-19 10:30 | DI.CT_ITS ---
Exam(s) CT HEAD WO EXAM: CT HEAD WO CLINICAL HISTORY: hypertensive emergency - headache. TECHNIQUE: Imaging Protocol: Axial computed tomography images with coronal and sagittal reformatted images were created and reviewed COMPARISON: CT HEAD WITHOUT CONTRAST from 10/19/[address] BRAIN NECK CTA from 01/31/2024 FINDINGS: Ventricles and Extra axial spaces: Normal in size and morphology for the patient's age. Hemorrhage: None. Cerebral parenchyma: No acute territorial infarct. There are areas of decreased attenuation in the w kinga matter most consistent with chronic microvascular ischemic disease. Midline shift: None. Brainstem/Cerebellum: Normal. Calvarium: Normal. Visualized Paranasal sinuses/Mastoids: Clear. Soft Tissues: Unremarkable. IMPRESSION: No acute intracranial process. RADIATION DOSE DELIVERED: Total DLP DATA REPOSITORY: All CT scans at this facility are submitted to the National Radiology Data Registry (NRDR) Dose Index Registry (DIR) with the [employer] (ACR). RADIATION OPTIMIZATION: All CT scans at this facility use at least one of these dose optimization te chniques: automated exposure control; mA and/or kV adjustment per patient size (includes targeted exa ms where dose is matched to clinical indication); or iterative reconstruction.
--- NOTE | 2024-02-19 10:30 | ED.GENADUL_ITS ---
Discharge Plan Disposition Patient Disposition: Admit to [facility] Condition: Stable Discharge Details Chief Complaint: GenMedical Clinical Impression: Hypertensive emergency Primary Care Provider: Elvis Muñoz ED Provider: Ayad Frey Home Meds and New Rx's Prescriptions: No Action aspirin [Gerald Chewable Aspirin] 81 mg tablet,chewable 81 mg PO DAILY triamcinolone acetonide [Nasacort] 55 mcg aerosol,spray 1 spray intranasal DAILY Qty: 16.9 2RF Rx Instructions: administer into each nostril losartan 50 mg tablet 75 mg PO DAILY MDD 75 mg 90 Days Qty: 135 4RF Rx Instructions: Take 1.5 tablets by mouth once daily as directed. nitroglycerin [Nitrostat] 0.3 mg tablet, sublingual 0.3 mg Sublingual Q5-15M PRN (Reason: chest pain/esophageal spasm) 1 Days Qty: 25 6RF hydrochlorothiazide 12.5 mg tablet 12.5 mg PO DAILY MDD 12.5 90 Days Qty: 90 3RF Rx Instructions: Take one 12.5 mg tablet once daily by mouth as directed. cholecalciferol (vitamin D3) 1,000 UNIT tablet 1,000 unit PO DAILY cyanocobalamin (vitamin B-12) [Vitamin B-12] 500 MCG tablet 500 mcg PO DAILY acetaminophen 500 MG tablet 1,000 mg PO Q4H PRN omeprazole 20 mg capsule,delayed release(DR/EC) 20 mg PO BID PRN (Reason: heart burn) Qty: 180 3RF atenolol 25 mg tablet 25 mg PO BID Qty: 180 3RF levothyroxine 88 mcg tablet 88 mcg PO DAILY Qty: 90 3RF gabapentin 600 mg tablet See Rx Instructions PO BID Qty: 270 3RF Rx Instructions: 600mg at dinner and 1200mg HS PO twice a day; simvastatin 10 mg tablet 10 mg PO HS Qty: 90 3RF Rx Instructions: lower LDL cholesterol Metamucil [facility] Fiber 660 GM powder 1 oz PO HS loratadine [Claritin] .Route HPI General Date/Time Provider Initiated Documentation: 02/19/24 10:29 . HPI Narrative: 88 year-old female presents to ED today by EMS with a chief complaint of elevated blood pressures at home- 220/110-120s, with facial flushing feeling, clouded thinking, palpitations, difficulty standing and walking this morning with onset since at least the past several days. Quality described as generally feels off, no radiation to visual changes, severe headache, chest pain, flank pain, decreased urinary output. Severity is described as severe. Palliating factors include taking her multiple anti-hypertensives as directed with recent increases in doses about a month ago - takes 75mg Losartan QD, 50mg atenolol BID, 12.5 HCTZ QD. Provoking factors include nothing specific. Events leading up to the incident/Associated Symptoms: Patient does have history of stroke, states this facial flushing and brain fog is new. Patient not anticoagulated. Related Data Home Medications ?Medication ?Instructions ?Recorded ?Confirmed cholecalciferol (vitamin D3) 25 1,000 unit PO DAILY 09/17/12 02/19/24 mcg (1,000 unit) tablet psyllium husk (aspartame) 3.4 1 oz PO HS 05/27/13 02/19/24 gram/5.8 gram oral powder (Metamucil [facility] Fiber) cyanocobalamin (vitamin B-12) 500 500 mcg PO DAILY 11/19/15 02/19/24 mcg tablet (Vitamin B-12) acetaminophen 500 mg tablet 1,000 mg PO Q4H PRN 03/16/17 02/19/24 nitroglycerin 0.3 mg sublingual 0.3 mg sublingual Q5-15M PRN chest 09/09/19 02/19/24 tablet (Nitrostat) pain/esophageal spasm 1 day #25 tab-caps aspirin 81 mg chewable tablet 81 mg PO DAILY 10/26/20 02/19/24 (Gerald Chewable Low Dose Aspirin) triamcinolone acetonide 55 mcg 1 spray intranasal DAILY #16.9 mL 03/02/23 02/19/24 nasal spray aerosol (Nasacort) omeprazole 20 mg capsule,delayed 20 mg PO BID PRN heart burn #180 05/24/23 release tabs atenolol 25 mg tablet 25 mg PO BID #180 tabs 07/05/23 02/19/24 levothyroxine 88 mcg tablet 88 mcg PO DAILY #90 tabs 07/10/23 02/19/24 gabapentin 600 mg tablet See Rx Instructions PO BID #270 10/01/23 02/19/24 tabs hydrochlorothiazide 12.5 mg tablet 12.5 mg PO DAILY 90 days #90 tabs 10/02/23 02/19/24 simvastatin 10 mg tablet 10 mg PO HS #90 tab-caps 10/16/23 02/19/24 losartan 50 mg tablet 75 mg (1.5 x 50 mg) PO DAILY 90 01/14/24 02/19/24 days #135 tabs loratadine .Route 01/31/24 02/11/24 Previous Rx's ?Medication ?Instructions ?Recorded nitroglycerin 0.3 mg sublingual 0.3 mg sublingual Q5-15M PRN chest 09/09/19 tablet (Nitrostat) pain/esophageal spasm 1 day #25 tab-caps triamcinolone acetonide 55 mcg 1 spray intranasal DAILY #16.9 mL 03/02/23 nasal spray aerosol (Nasacort) omeprazole 20 mg capsule,delayed 20 mg PO BID PRN heart burn #180 05/24/23 release tabs atenolol 25 mg tablet 25 mg PO BID #180 tabs 07/05/23 levothyroxine 88 mcg tablet 88 mcg PO DAILY #90 tabs 07/10/23 gabapentin 600 mg tablet See Rx Instructions PO BID #270 10/01/23 tabs hydrochlorothiazide 12.5 mg tablet 12.5 mg PO DAILY 90 days #90 tabs 10/02/23 simvastatin 10 mg tablet 10 mg PO HS #90 tab-caps 10/16/23 losartan 50 mg tablet 75 mg (1.5 x 50 mg) PO DAILY 90 01/14/24 days #135 tabs Allergies Allergy/AdvReac Type Severity Reaction Status Date / Time guaifenesin (From Mucinex) AdvReac Intermediate diarrhea Verified 02/19/24 10:19 amoxicillin (From Augmentin) AdvReac Diarrhea Verified 02/19/24 10:19 clavulanic acid (From AdvReac Diarrhea Verified 02/19/24 10:19 Augmentin) tramadol AdvReac constipatio Verified 02/19/24 10:19 n General Stated Complaint: GenMedical YEE: 3 Review of Systems All systems reviewed & are unremarkable except as noted in HPI and below Exam Narrative Exam Narrative: GENERAL APPEARANCE: Well-nourished, non-toxic, awake and alert, atraumatic, no acute distress. SKIN: Warm, pink, dry, intact, without rashes/lesions/ulcerations. HEAD: Normocephalic, atraumatic, normal hair distribution for gender/age. EYES: Normal conjunctiva, no exudates on lids/lashes. ENT: Nares patent, no circumoral cyanosis, no facial swelling NECK: Supple, trachea midline, painless cervical ROM. LUNGS/CHEST: Lungs CTA bilaterally, non-labored respirations, normal A/P diameter, symmetrical expansion, no chest wall deformity HEART (CV/PV): Regular rate and rhythm without murmur, no peripheral edema, no JVD. ABDOMEN: Soft, non-distended, no guarding. MSK: Normal ROM, no swelling/deformity to bilateral UEs or LEs, moving all extremities without weakness, no cyanosis, spine midline without tenderness, normal curvature. NEURO: Mental Status AAOx4 - alert to person, place, time, events No facial droop, no forehead involvement. Motor: No focal weakness - strength 5/5 in bilateral UEs and LEs, proximal and distal, symmetric. Sensory: sensation intact to light touch globally. Gait normal: patient ambulated without ataxia into ED room. PSYCH: euthymic, cooperative, pleasant, appropriate speech Course Vital Signs Vital signs: Vital Signs Pulse 86 02/19/24 10:08 Respiratory Rate 15 02/19/24 10:08 Blood Pressure 222/121 H 02/19/24 10:08 Pulse Oximetry 98 02/19/24 10:08 Pulse 86 02/19/24 10:11 Respiratory Rate 15 02/19/24 10:11 Respiratory Effort Normal 02/19/24 10:11 Respiratory Depth Normal 02/19/24 10:11 Respiratory Pattern Normal 02/19/24 10:11 Blood Pressure 222/121 H 02/19/24 10:11 Blood Pressure Mean 156 02/19/24 10:09 Blood Pressure Position Sitting 02/19/24 10:11 Pulse Oximetry 98 02/19/24 10:11 Oxygen Delivery Method Room Air 02/19/24 10:11 Oxygen Flow Rate 0 02/19/24 10:11 Medical Decision Making This dictation utilizes [id number] dictation software and may contain unedited grammatical errors. 88 year-old female presents to ED today by EMS with a chief complaint of elevated blood pressures at home- 220/110-120s, with facial flushing feeling, clouded thinking, palpitations, difficulty standing and walking this morning with onset since at least the past several days. Quality described as generally feels off, no radiation to visual changes, severe headache, chest pain, flank pain, decreased urinary output. Severity is described as severe. Palliating factors include taking her multiple anti-hypertensives as directed with recent increases in doses about a month ago - takes 75mg Losartan QD, 50mg atenolol BID, 12.5 HCTZ QD. Provoking factors include nothing specific. Events leading up to the incident/Associated Symptoms: Patient does have history of stroke, states this facial flushing and brain fog is new. Patients' medical history: Asthma, watchman's device in place for atrial fibrillation, essential tremor, history of CVA, hypertension, history of bladder cancer, mass and neck, neoplasms of large intestine, labile blood pressure. Family and social history: Noncontributory. Pertinent exam findings / vital signs include irregular heart rate and rhythm, no Rales at bases, neuro intact without baseline, vision intact, facial redness and flushing. Differential / pathologies of concern include hypertensive emergency, pheochromo cytoma, CHRISTIANO, volume overload less likely. Diagnostic studies of: -CBC, CMP, BNP, troponin I, lipase, magnesium, TSH, lactate, urinalysis, x-ray chest, CT head without contrast, CT abdomen/pelvis with contrast, EKG. -CBC shows no leukocytosis, no anemia -CMP shows no CHRISTIANO, mild hyponatremia, mildly low calcium -Magnesium mildly low 1.6 -BNP is 1750, about half of what it normally is -Troponin I negative -TSH low, free T4 high, has history of thyroid disease -UA with trace hematuria, 3-5 WBCs on micro -XR Chest benign -CT Head negative -CT ABD/Pelvis shows no renal or adrenal abnormality -EKG shows a fib, no ST changes Interventions of: -Gave additional 25mg PO losartan for 100mg PO dose increase trial, gave her afternoon dose of 50mg atenolol- no improvement. Gave 10mg IV hydralazine- still having refractory symptomatic HTN to 190s systolic, diastolic is somewhat lower around 90 - admit for Hypertensive Emergency. ED Course/Assessment/Plan: 88-year-old female presents with facial flushing, coordination difficulties this morning without neurologic deficit on exam and having incredibly high blood pressure despite being on 3 antihypertensive agents, I trialed p.o. increases of her home medicines and gave her her atenolol early, she failed to respond to this, 10 mg of IV hydralazine did improve down to 170 systolic but quickly refractory back up to 190. Patient likely needs medication regimen adjustment and possible 24-hour urine collection for definitive rule out pheochromocytoma though nothing was seen abnormal around either kidney on CT abdomen/pelvis. I spoke with hospitalist Dr. Leal who accepted the patient for admission at 1500. Findings not consistent with ICH, cardiac demand ischemia, CHRISTIANO. Disposition of hypertensive emergency. Patient verbalized understanding of the plan and return to ED criteria and engaged in shared decision making. Medical Records Medical records reviewed: Yes I reviewed the patient's medical records. Imaging Data Radiologic Study: Attestation: I personally reviewed and interpreted this imaging study as follows: Imaging: X-Ray Radiologist's impression: EXAM: XR CHEST 2V PA LATERAL CLINICAL HISTORY: hypertensive emergency - palpitations TECHNIQUE: 2D digital imaging was performed of the chest. Two images were obtained. PA and lateral views were obtained. COMPARISON: CR XR CHEST 2V PA LATERAL from 07/30/2023 CR XR PORTABLE CHEST AP from 08/03/2023 FINDINGS: MEDIASTINUM: Normal. HEART: Normal. Note is again made of a left atrial appendage cage. PULMONARY VASCULATURE: Normal. LUNGS: Clear. PLEURAL SPACE: No pleural effusion or pneumothorax. BONE:Within normal limits for the patient's age. OTHER FINDINGS:There is unchanged mild elevation of the right hemidiaphragm. IMPRESSION: No acute pulmonary findings. Radiologic Study #2: Attestation: I personally reviewed and interpreted this imaging study as follows: Imaging: CT Scan Radiologist's impression: EXAM: CT HEAD WO CLINICAL HISTORY: hypertensive emergency - headache. TECHNIQUE: Imaging Protocol: Axial computed tomography images with coronal and sagittal reformatted images were created and reviewed COMPARISON: CT HEAD WITHOUT CONTRAST from 10/19/[address] BRAIN NECK CTA from 01/31/2024 FINDINGS: Ventricles and Extra axial spaces: Normal in size and morphology for the patient's age. Hemorrhage: None. Cerebral parenchyma: No acute territorial infarct. There are areas of decreased attenuation in the white matter most consistent with chronic microvascular ischemic disease. Midline shift: None. Brainstem/Cerebellum: Normal. Calvarium: Normal. Visualized Paranasal sinuses/Mastoids: Clear. Soft Tissues: Unremarkable. IMPRESSION: No acute intracranial process. Radiologic Study #3: Attestation: I personally reviewed and interpreted this imaging study as follows: Imaging: CT Scan Radiologist's impression: EXAM: CT ABDOMEN PELVIS W CLINICAL HISTORY: HTN - flushing, ?pheochromocytoma TECHNIQUE: Imaging Protocol: Axial computed tomography images with coronal and sagittal reformatted images were created and reviewed. CONTRAST MATERIAL: Intravenous: Omnipaque 350 Contrast volume:100 mL Oral: No COMPARISON: CT CT ABDOMEN PELVIS W from 04/05/2023 FINDINGS: ABDOMEN: Lung Bases: No acute findings are seen in the lung bases. There is mild atelectasis. Liver: Normal density. There is a stable cyst in the right lobe of the liver. No suspicious hepatic masses are seen. Portal, Superior Mesenteric, and Splenic Veins: Unremarkable. Gallbladder and Biliary Tract: Status post cholecystectomy. There is unchanged intra and extrahepatic biliary ductal dilatation. The common duct measures up to 1.1 cm. Pancreas: Normal density, no abnormal calcifications or inflammatory process. Spleen: Normal. Adrenals: No masses seen. Kidneys: Normal size, contour and axis. No radiodense stones or obstructive uropathy. There is a stable simple right renal cyst. No follow-up is recommended. Abdominal Aorta: Abdominal portion non-dilated. Atherosclerotic calcification is present. Bowel: There is diverticulosis of the colon but no evidence of acute diverticulitis. There is no evidence of bowel obstruction or bowel wall thicken ing. Patient appears to be status post appendectomy. Peritoneal Cavity: No ascites, collection or mesenteric inflammatory response. No free air. Lymph Nodes: Within normal limits. Bones: Within normal limits for the patient's age. There is an old L2 compression fracture deformity. Soft Tissues: Unremarkable. PELVIS: Bladder: Symmetric distention, no gross wall thickening. Reproductive Organs: Unremarkable as visualized. Lymph Nodes: Within normal limits. Bones: Within normal limits for the patient's age. IMPRESSION: 1. No acute abdominal or pelvic process. 2. No retroperitoneal or adrenal mass. 3. Incidental findings in the abdomen and pelvis as described above. Lab Data Lab results reviewed: Yes I reviewed the patient's lab results. Labs: Laboratory Tests Range/Units 02/19/24 02/19/24 02/19/24 10:18 10:40 10:50 WBC (4.4-10.8) 10^3/uL 8.52 RBC (3.93-5.22) 10^6/uL 4.65 Hgb (11.2-15.7) g/dL 15.0 Hct (36.0-46.0) % 44.6 MCV (80-95) fL 96 H MCH (27.0-33.0) pg 32.3 MCHC (32.0-36.0) % 33.6 RDW (11.7-14.6) % 12.6 Plt Count (130-400) 10^3/uL 297 MPV (8.0-11.0) fL 9.3 Immature Gran % % 0.5 Neutrophils % % 78.5 Lymphocytes % % 10.8 Monocytes % % 8.3 Eosinophils % % 1.3 Basophils % % 0.6 Nucleated RBC % (0.0-0.3) % 0.0 Absolute Neutrophils (1.2-6.7) 10^3/uL 6.69 Absolute Lymphocytes (1.2-3.4) 10^3/uL 0.92 L Absolute Monocytes (0.1-0.8) 10^3/uL 0.71 Absolute Eosinophils (0.0-0.7) 10^3/uL 0.11 Absolute Basophils (0.0-0.2) 10^3/uL 0.05 VBG Lactate (0.6-1.4) mmol/L 1.3 Sodium (136-145) mmol/L 134 L Potassium (3.5-5.1) mmol/L 3.5 Chloride (98-107) mmol/L 97 L Carbon Dioxide (21.0-32.0) mmol/L 28.7 Anion Gap (3-11) mmol/L 8.3 BUN (7-18) mg/dL 9 Creatinine (0.55-1.02) mg/dL 0.7 Est GFR (CKD-EPI 2020) (mL/min/1.73m2) 83.13 Glucose (74-106) mg/dL 82 Calcium (8.5-10.1) mg/dL 8.2 L Magnesium (1.8-2.4) mg/dL 1.6 L Total Bilirubin (0.2-1.0) mg/dL 0.52 AST (15-37) U/L 24 ALT (14-59) U/L 19 Alkaline Phosphatase (46-116) U/L 53 Troponin I (< or =60) ng/L < 50 NT-Pro-B Natriuret Pep (<300) pg/mL 1754 H Total Protein (6.4-8.2) g/dL 6.8 Albumin (3.4-5.0) g/dL 3.2 L Lipase (16-77) U/L 24 TSH (0.36-3.74) uIU/mL 0.10 L Free T4 (0.76-1.46) ng/dL 1.76 H Urine Color (Yellow) Yellow Urine Clarity (Clear) Clear Urine pH (5-8) 7.5 Ur Specific [place] (1.005-1.025) 1.020 Urine Protein (Neg-Trace) mg/dL Negative Urine Ketones (Negative) mg/dL Negative Urine Blood (Negative) Trace-intact H Urine Nitrite (Negative) Negative Urine Bilirubin (Negative) Negative Urine Urobilinogen (Up to 0.2) mg/dL 0.2 Ur Leukocyte Esterase (Negative) Trace H Urine RBC (0-2) HPF 3-5 H Urine WBC (0-5) HPF 3-5 Ur Epithelial Cells (Negative) HPF Rare Urine Crystals (Negative) HPF Negative Urine Bacteria (Negative) HPF Rare Urine Casts (Negative) LPF Negative Urine Mucus (Negative) Negative Ur Culture Indicated? No Urine Glucose (Negative) mg/dL Negative Quality:SDOH Health Related Social Needs: No Data to Display PFSH All Active Problems (Updated 02/19/24 @ 15:24 by LESLYE Reid) Hypertensive emergency (Acute) Headache (Acute) Acute midline low back pain (Acute) Mass in neck (Acute) Eczema (Acute) Thickened endometrium (Acute) Cough (Acute) Emphysema of lung (Acute) Muscle pain (Acute) Muscle pain, myofascial (Acute) Post-nasal drip (Acute) Vasomotor rhinitis (Acute) Osteoarthritis of left knee (Acute) Steroid injection: 02/06/2022 Lumbosacral spondylosis without myelopathy (Acute) Rib pain on left side (Acute) Verruca vulgaris (Acute) 08/19/21 [facility] Derm note Skin lesion of face (Acute) SCC? Stroke (Chronic) Tricuspid valve insufficiency (Chronic) By cath 07 October 2020 Flushing (Acute) Heart palpitations (Acute) Anterior epistaxis (Chronic) Recurrent, responds to AgNO3 cautery Primary osteoarthritis of left knee (Acute) Contusion of left knee (Acute) Knee pain, left anterior (Acute) Mitral valve insufficiency (Chronic) Chest pain (Acute) Neoplasm of large intestine (Acute 06/21/05) H/O POLYPS ON FIRST COLON IN [place]; NEG ON REPEAT; [place] [address] [place] BLAKE [facility] ONE HYPERPLASTIC POLYP Leg pain, left (Chronic 11/03/16) Acute midline low back pain without sciatica (Chronic 05/18/17) Labile blood pressure (Chronic) Medical History Asthma Presence of Watchman left atrial appendage closure device (~10/2020) 10/07/20 [facility] following cardiac cath Periodic limb movement disorder (PLMD) Essential tremor Peripheral neuropathy, idiopathic (06/08/98) KNEE DISTAL, BILAT; INTERMITTENT BURNING, SLEEPS BETTER AT NIGHT IF SHE HAS WORN TIGHT SOCKS DAYTIME; nortriptyline effective; Dr Oneill; worse balance 02/2015 Gastroesophageal reflux disease (07/05/04) RESPONDS TO OMEPRAZOLE, BEFORE DINNER; ESOPHAGITIS ON EGD AT [facility]: 07/05/04; gastritis and diffuse esophagitis; DR MERCADO REC [place] PPI RX Hyperlipidemia (10/21/10) dyslipidemia: low HDL; statin begun by neuro 10/2010 after her TIA, along with Clopidogrel; target LDL<100 and HDL>40 Cerebrovascular disease, unspecified (10/07/10) 10/2010; small L THALAMIC CVA ON MRI, [facility], RX Clopidogrel and Statin indefinitely Essential hypertension (06/23/13) Bladder cancer (05/19/15) Dr. Guy Lechuga- non-invasive papillary urothellal carcinoma, low grade. Atrial fibrillation Surgical History H/O cardiac catheterization (10/07/20) [facility]-L atrial appendage closure for afib cystourethroscopy (08/07/17) Dr Brian Lechuga [facility]-extensive recurrent bladder tumor encompassint entire L hemitrigone and posterolateral bladder wall and neck URO cysto (10/22/15) Guy Lechuga MD 12 weeks after her last BCG Thyroid (03/13/14) 9Complete thyroidectomy Dr. Sanchez [facility], path: multinodular goiter Transurethral Resection of Bladder Tumor, 2-5cm (05/27/13) Dr. Ruano Cystoscopy (04/29/15) Dr. Lechuga 02/05/18 repeat cysto Colonoscopy - IV Sedation (03/22/16) Cholecystectomy Extraction of cataract (08/10/15) Dr Mayte Gonzalez eye R eye 2/2 Extraction of cataract (07/27/15) Dr Mayte Gonzalez eye R eye 2/2 Biopsy of breast (07/09/76) both breasts, biopsies benign Appendectomy Family History Brother Brain cancer Cancer Of the Face Father , Age 65 Heart attack Heart disease Sister , Lung Disease Age 80 Cancer Mother , Age 73 Amyloid disease Social History Smoking/Tobacco Use Status: Former Tobacco Use tobacco type: cigarettes Quit Date: 07/09/87 Pack-years: 52 Tobacco: How many years used: 52 Quit status: quit date established Smoking risk assessment performed?: Yes Alcohol Intake: never Drug use: Never Substance use type: does not use Caregiver/Support person: No Household members: spouse Housing: house Number of Children: 6 number of grandchildren: 17 Communication Needs: None current occupation: Retired Pets and animals: Yes (2 cats) Pets and animals: cat(s) Do you think of yourself as: straight/heterosexual Current gender identity: female What is your relationship status?: How often do you talk on the phone with friends or family?: three or more times per week How often do you get together with friends or relatives?: never How often do you attend amish or sabianist services?: 4 or more times per year Panel score (0-1 are the most socially isolated patients): 3 What type of physical activity do you participate in: other Details: [employer] Bike Duration: 15-30 minutes/day Astrid/Nondenominational: Hoahaoism Seatbelt use: always Helmet use: No Drive intox or ride w/intox rivet driver: No Do you feel safe at home: Yes Do you feel safe in your relationship?: Yes
--- NOTE | 2024-02-19 10:30 | DI.CT_ITS ---
Exam(s) CT ABDOMEN PELVIS W EXAM: CT ABDOMEN PELVIS W CLINICAL HISTORY: HTN - flushing, ?pheochromocytoma TECHNIQUE: Imaging Protocol: Axial computed tomography images with coronal and sagittal reformatted images were created and reviewed. CONTRAST MATERIAL: Intravenous: Omnipaque 350 Contrast volume:100 mL Oral: No COMPARISON: CT CT ABDOMEN PELVIS W from 04/05/2023 FINDINGS: ABDOMEN: Lung Bases: No acute findings are seen in the lung bases. There is mild atelectasis. Liver: Normal density. There is a stable cyst in the right lobe of the liver. No suspicious hepatic masses are seen. Portal, Superior Mesenteric, and Splenic Veins: Unremarkable. Gallbladder and Biliary Tract: Status post cholecystectomy. There is unchanged intra and extrahepati c biliary ductal dilatation. The common duct measures up to 1.1 cm. Pancreas: Normal density, no abnormal calcifications or inflammatory process. Spleen: Normal. Adrenals: No masses seen. Kidneys: Normal size, contour and axis. No radiodense stones or obstructive uropathy. There is a stab le simple right renal cyst. No follow-up is recommended. Abdominal Aorta: Abdominal portion non-dilated. Atherosclerotic calcification is present. Bowel: There is diverticulosis of the colon but no evidence of acute diverticulitis. There is no evan dence of bowel obstruction or bowel wall thickening. Patient appears to be status post appendectomy. Peritoneal Cavity: No ascites, collection or mesenteric inflammatory response. No free air. Lymph Nodes: Within normal limits. Bones: Within normal limits for the patient's age. There is an old L2 compression fracture deformity . Soft Tissues: Unremarkable. PELVIS: Bladder: Symmetric distention, no gross wall thickening. Reproductive Organs: Unremarkable as visualized. Lymph Nodes: Within normal limits. Bones: Within normal limits for the patient's age. IMPRESSION: 1. No acute abdominal or pelvic process. 2. No retroperitoneal or adrenal mass. 3. Incidental findings in the abdomen and pelvis as described above. RADIATION DOSE DELIVERED: Total DLP DATA REPOSITORY: All CT scans at this facility are submitted to the National Radiology Data Registry (NRDR) Dose Index Registry (DIR) with the [employer] (ACR). RADIATION OPTIMIZATION: All CT scans at this facility use at least one of these dose optimization te chniques: automated exposure control; mA and/or kV adjustment per patient size (includes targeted exa ms where dose is matched to clinical indication); or iterative reconstruction.
[2024-02-19 11:00] LABS: Bilirubin Negative (Negative); Blood Trace-intact (Negative); Clarity Clear (Clear); Glucose Negative (Negative); Ketones Negative (Negative); Leukocyte Esterase Trace (Negative); Nitrite Negative (Negative); Urobilinogen 0.2 mg/dL (Up to 0.2); pH 7.5 (5-8)
[2024-02-19 11:03] LABS: Lactate 1.3 mmol/L (0.6-1.4)
[2024-02-19 11:04] LABS: Abs Immature Grans 0.04 10^3/uL (0.0-0.06); Absolute Basophil Count 0.05 10^3/uL (0.0-0.2); Absolute Eosinophil Count 0.11 10^3/uL (0.0-0.7); Absolute Lymphocyte Count 0.92 10^3/uL (1.2-3.4); Absolute Monocyte Count 0.71 10^3/uL (0.1-0.8); Absolute Neutrophil Count 6.69 10^3/uL (1.2-6.7); Basophils % 0.6 %; Eosinophils % 1.3 %; HCT 44.6 % (36.0-46.0); Immature Grans % 0.5 %; Lymphocytes % 10.8 %; MCH 32.3 pg (27.0-33.0); MCHC 33.6 % (32.0-36.0); MCV 96 fL (80-95); MPV 9.3 fL (8.0-11.0); Monocytes % 8.3 %; Neutrophils % 78.5 %; Platelet Count 297 10^3/uL (130-400); RBC 4.65 10^6/uL (3.93-5.22); RDW 12.6 % (11.7-14.6); RDW-SD 44.2 fL; WBC 8.52 10^3/uL (4.4-10.8)
[2024-02-19 11:12] LABS: Bacteria Rare HPF (Negative); C & S Indicated? No; Casts Negative LPF (Negative); Crystals Negative HPF (Negative); Epithelial Cells Rare HPF (Negative); Mucus Negative (Negative)
[2024-02-19 11:23] LABS: ALT 19 U/L (14-59); AST 24 U/L (15-37); Albumin 3.2 g/dL (3.4-5.0); Alkaline Phosphatase 53 U/L (46-116); Anion Gap 8.3 mmol/L (3-11); BUN 9 mg/dL (7-18); Bilirubin, Total 0.52 mg/dL (0.2-1.0); CO2 28.7 mmol/L (21.0-32.0); CREATININE 0.7 mg/dL (0.55-1.02); Calcium 8.2 mg/dL (8.5-10.1); Chloride 97 mmol/L (98-107); Estimated GFR 83.13 (mL/min/1.73m2); Glucose 82 mg/dL (74-106); Lipase 24 U/L (16-77); Magnesium 1.6 mg/dL (1.8-2.4); NT-proBNP 1754 pg/mL (<300); Potassium 3.5 mmol/L (3.5-5.1); Sodium 134 mmol/L (136-145); Total Protein 6.8 g/dL (6.4-8.2); Troponin I < 50 ng/L (< or =60)
[2024-02-19] MEDS: Normal Saline - Diluent 50 ML VIAL IJ (11:50)
[2024-02-19] MEDS: Omnipaque 350 MG/ML 500 ML BTL-Imaging package 100 ML IJ (11:51)
[2024-02-19 11:58] LABS: FREE T4 1.76 ng/dL (0.76-1.46)
[2024-02-19] MEDS: Losartan 25 MG TAB PO (12:50)
[2024-02-19] MEDS: Atenolol 50 MG TAB PO (12:50)
[2024-02-19] MEDS: hydrALAZINE 20 MG/ML VIAL 10 MG IVP (13:47)
[2024-02-19] MEDS: Ondansetron 4 MG/2 ML VIAL IVP (15:35)
--- NOTE | 2024-02-19 17:14 | W.PM.HP.N ---
Date of service: 02/19/24 Time of Service: 17:16 Assessment and Plan Assessment and plan (1) Hypertensive emergency: Status: Acute Assessment and plan: With several recent episodes of labile and at times severe hypertension. This time, she is experiencing subtle mental status changes and lightheadedness which would indicate hypertensive encephalopathy. Given this, she will be admitted to ICU for close monitoring and IV treatment of hypertension. -Will use nicardipine drip. Inintal MAPs in 130-150s range, so I think goal 25% reduction to 100-110 range is reasonable in the first 24 hours. -Will adjust outpatient medication as well to get more even levels of antihypertensive agents (losartan to BID, change to chlorthalidone, change beta miah). -See below re: thyroid component. 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 This does put her at risk for thyroid storm. Per symptom score she is intermediate probability, but I think this is less likely given borderline values. Even so, I will transition beta miah to propranolol and start methimazole and hold her levothyroxine. Will not initiate iodine or steroid therapy for now. (3) Atrial fibrillation: Assessment and plan: She is s/p watchman, had bleeding with anticoagulation. Transitioning beta miah. 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 No focal findings or CT findings to suggest an acute event. She is maintained on ASA and statin. (5) DVT prophylaxis: Status: Acute Assessment and plan: enoxaparin History of Present Illness History of Present Illness Chief Complaint: flushing, agitation, high blood pressure at home Narrative: 88 yo F with history of hypertension, hypothyroidism on levothyroxine, remote h/o CVA, and recent visits for headaches and labile blood pressure who is presenting with severe hypertension associated with flushing and some lightheadness and mild confusion. She states her blood pressure is typically controlled but in the past several weeks it has been high. She was seen in the ED 01/30 with headaches, BP mildly elevated, reassuring work up including head CT. She was seen in follow up 02/10 and for headache and treated for sinus infection, BP was normal at that point. SHe has been working with clinic pharmacist several times to make small adjustments to her blood pressure regimen, but no major changes recently. She takes her three BP meds every day. She states she was messaging Teofilo the clincal pharmacist and he told her she should come in. She feels flushing and pressure in her face, which she gets when the BP is high. She also feels cloudy headed, like she isn't thinking totally strait. Of note, the timing of her visits on her reported history does not line up with documented notes, reflecting some possible memory issues. She states her thinking is typically very clear despite her age. No recent changes to other medication including thyroid. In the ED, she was given IV labetolol and hydralyzine, additional losartan and atenelol. BP stayed >200/120 and symptoms persisted so called to admit. Review of Systems All systems reviewed & are unremarkable except as noted in HPI and below Eyes Comments: no seeing double or other changes of vision Cardiovascular Comments: no chest pain or palpitations. no LOMBARDO or SOB. Genitourinary Comments: no changes in urination Neurologic Comments: no focal numbness or weakness, no change in speech or balance or coordiation. She has a mild tremor but this is not new. Face pain, like in sinuses, but no headache otherwise. 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 Stroke (Chronic) Tricuspid valve insufficiency (Chronic) By cath 07 October 2020 Flushing (Acute) Heart palpitations (Acute) Anterior epistaxis (Chronic) Recurrent, responds to AgNO3 cautery Primary osteoarthritis of left knee (Acute) Contusion of left knee (Acute) Knee pain, left anterior (Acute) Mitral valve insufficiency (Chronic) Chest pain (Acute) Neoplasm of large intestine (Acute 06/21/05) H/O POLYPS ON FIRST COLON IN [place]; NEG ON REPEAT; [place] DR BLAKE FOUND ONE HYPERPLASTIC POLYP Leg pain, left (Chronic 11/03/16) Acute midline low back pain without sciatica (Chronic 05/18/17) Labile blood pressure (Chronic) Medical History Asthma Presence of Watchman left atrial appendage closure device (~10/2020) 10/07/20 [facility] [place] following cardiac cath Periodic limb movement disorder (PLMD) Essential tremor Peripheral neuropathy, idiopathic (06/08/98) KNEE DISTAL, BILAT; INTERMITTENT BURNING, SLEEPS BETTER AT NIGHT IF SHE HAS WORN TIGHT SOCKS DAYTIME; nortriptyline effective; Dr Oneill; worse balance 02/2015 Hyperlipidemia (10/21/10) dyslipidemia: low HDL; statin begun by neuro 10/2010 after her TIA, along with Clopidogrel; target LDL<100 and HDL>40 Gastroesophageal reflux disease (07/05/04) RESPONDS TO OMEPRAZOLE, BEFORE DINNER; ESOPHAGITIS ON EGD AT [facility] [place]: 07/05/04; gastritis and diffuse esophagitis; DR MERCADO REC [place] PPI RX Essential hypertension (06/23/13) Cerebrovascular disease, unspecified (10/07/10) 10/2010; small L THALAMIC CVA ON MRI, [facility] [place], RX Clopidogrel and Statin indefinitely Bladder cancer (05/19/15) Dr. Guy Lechuga- non-invasive papillary urothellal carcinoma, low grade. Atrial fibrillation Surgical History H/O cardiac catheterization (10/07/20) [facility] [place]-L atrial appendage closure for afib cystourethroscopy (08/07/17) Dr Brian Lechuga [facility]-extensive recurrent bladder tumor encompassint entire L hemitrigone and posterolateral bladder wall and neck URO cysto (10/22/15) Guy Lechuga MD 12 weeks after her last BCG Thyroid (03/13/14) 9Complete thyroidectomy Dr. Sanchez [facility] [place], path: multinodular goiter Transurethral Resection of Bladder Tumor, 2-5cm (05/27/13) Dr. Ruano Cystoscopy (04/29/15) Dr. Lechuga 02/05/18 repeat cysto Colonoscopy - IV Sedation (03/22/16) Cholecystectomy Extraction of cataract (08/10/15) Dr Mayte Gonzalez eye R eye 2/2 Extraction of cataract (07/27/15) Dr Mayte Gonzalez eye R eye 2/2 Biopsy of breast (07/09/76) both breasts, biopsies benign Appendectomy Family History Brother Brain cancer Cancer Of the Face Father , Age 65 Heart attack Heart disease Sister , Lung Disease Age 80 Cancer Mother , Age 73 Amyloid disease Social History Smoking/Tobacco Use Status: Former Tobacco Use tobacco type: cigarettes Quit Date: 07/09/87 Pack-years: 52 Tobacco: How many years used: 52 Quit status: quit date established Smoking risk assessment performed?: Yes Alcohol Intake: never Drug use: Never Substance use type: does not use Caregiver/Support person: No Household members: spouse Housing: house Number of Children: 6 number of grandchildren: 17 Communication Needs: None current occupation: Retired Pets and animals: Yes (2 cats) Pets and animals: cat(s) Do you think of yourself as: straight/heterosexual Current gender identity: female What is your relationship status?: How often do you talk on the phone with friends or family?: three or more times per week How often do you get together with friends or relatives?: never How often do you attend confucianism or orthodox services?: 4 or more times per year Panel score (0-1 are the most socially isolated patients): 3 What type of physical activity do you participate in: other Details: [employer] Bike Duration: 15-30 minutes/day Astrid/Evangelical: Confucianism Seatbelt use: always Helmet use: No Drive intox or ride w/intox water tanker driver: No Do you feel safe at home: Yes Do you feel safe in your relationship?: Yes Meds Allergies and Home Medications Allergies Allergy/AdvReac Type Severity Reaction Status Date / Time guaifenesin (From Mucinex) AdvReac Intermediate diarrhea Verified 02/19/24 10:19 amoxicillin (From Augmentin) AdvReac Diarrhea Verified 02/19/24 10:19 clavulanic acid (From AdvReac Diarrhea Verified 02/19/24 10:19 Augmentin) tramadol AdvReac constipatio Verified 02/19/24 10:19 n Home Medications ?Medication ?Instructions ?Recorded ?Confirmed ?Type cholecalciferol (vitamin D3) 25 1,000 unit PO DAILY 09/17/12 02/19/24 History mcg (1,000 unit) tablet psyllium husk (aspartame) 3.4 1 oz PO HS 05/27/13 02/19/24 History gram/5.8 gram oral powder (Metamucil [facility] Fiber) cyanocobalamin (vitamin B-12) 500 500 mcg PO DAILY 11/19/15 02/19/24 History mcg tablet (Vitamin B-12) acetaminophen 500 mg tablet 1,000 mg PO Q4H PRN 03/16/17 02/19/24 History nitroglycerin 0.3 mg sublingual 0.3 mg sublingual Q5-15M PRN chest 09/09/19 02/19/24 Rx tablet (Nitrostat) pain/esophageal spasm 1 day #25 tab-caps aspirin 81 mg chewable tablet 81 mg PO DAILY 10/26/20 02/19/24 History (Gerald Chewable Low Dose Aspirin) triamcinolone acetonide 55 mcg 1 spray intranasal DAILY #16.9 mL 03/02/23 02/19/24 Rx nasal spray aerosol (Nasacort) omeprazole 20 mg capsule,delayed 20 mg PO BID PRN heart burn #180 05/24/23 02/19/24 Rx release tabs atenolol 25 mg tablet 25 mg PO BID #180 tabs 07/05/23 02/19/24 Rx levothyroxine 88 mcg tablet 88 mcg PO DAILY #90 tabs 07/10/23 02/19/24 Rx gabapentin 600 mg tablet See Rx Instructions PO BID #270 10/01/23 02/19/24 Rx tabs hydrochlorothiazide 12.5 mg tablet 12.5 mg PO DAILY 90 days #90 tabs 10/02/23 02/19/24 Rx simvastatin 10 mg tablet 10 mg PO HS #90 tab-caps 10/16/23 02/19/24 Rx losartan 50 mg tablet 75 mg (1.5 x 50 mg) PO DAILY 90 01/14/24 02/19/24 Rx days #135 tabs loratadine .Route 01/31/24 02/11/24 History Exam Narrative Exam Narrative: GEN: Alert and oriented x 4, pleasant and cooperative, gives linear history but missing details. No acute distress at rest. HEENT: Head atraumatic. Conjunctiva clear, no icterus. PEERL, EOMI. no rhinorrhea. MMM, OP benign. Neck is supple with no masses or lymphadenopathy, trachea midline LUNGS: CTAB with normal effort CV: RRR with no murmurs, gallops, or rubs. ABD: active bowel sounds, soft, nontender and nondistended. No masses. EXT: no cyanosis, clubbing, or edema MSK: No joint redness or swelling NEURO: CN 2-12 intact. Grossly nl visual buck to confrontation. Nl FNF. Neg pronator drift. STrength and sensation intact in 4 extremities. Normal speech and coordination. DTRs 2+ and symmetric. Mild intention and resting tremor SKIN: No rashes or open wounds. PSYCH: normal mood, affect slightly anxious. She does loose her train of thought and some word finding difficulty Results Imaging Chest x-ray: report reviewed and image reviewed (no congestion or infiltrates) EKG: report reviewed and image reviewed (atrial fibrillation, rate 85, no ischemic changes) Imaging Studies: CT head: no acute intracranial process CT abd/pelv: 1. No acute abdominal or pelvic process. 2. No retroperitoneal or adrenal mass. 3. Incidental findings in the abdomen and pelvis (see full report) Labs 02/19/24 10:18 02/19/24 10:18 Labs: Laboratory Results - last 24 hr 02/19/24 02/19/24 02/19/24 10:18 10:40 10:50 WBC 8.52 RBC 4.65 Hgb 15.0 Hct 44.6 MCV 96 H MCH 32.3 MCHC 33.6 RDW 12.6 Plt Count 297 MPV 9.3 Immature Gran % 0.5 Neutrophils % 78.5 Lymphocytes % 10.8 Monocytes % 8.3 Eosinophils % 1.3 Basophils % 0.6 Nucleated RBC % 0.0 Absolute Neutrophils 6.69 Absolute Lymphocytes 0.92 L Absolute Monocytes 0.71 Absolute Eosinophils 0.11 Absolute Basophils 0.05 VBG Lactate 1.3 Sodium 134 L Potassium 3.5 Chloride 97 L Carbon Dioxide 28.7 Anion Gap 8.3 BUN 9 Creatinine 0.7 Est GFR (CKD-EPI 2020) 83.13 Glucose 82 Calcium 8.2 L Magnesium 1.6 L Total Bilirubin 0.52 AST 24 ALT 19 Alkaline Phosphatase 53 Troponin I < 50 NT-Pro-B Natriuret Pep 1754 H Total Protein 6.8 Albumin 3.2 L Lipase 24 TSH 0.10 L Free T4 1.76 H Urine Color Yellow Urine Clarity Clear Urine pH 7.5 Ur Specific [place] 1.020 Urine Protein Negative Urine Ketones Negative Urine Blood Trace-intact H Urine Nitrite Negative Urine Bilirubin Negative Urine Urobilinogen 0.2 Ur Leukocyte Esterase Trace H Urine RBC 3-5 H Urine WBC 3-5 Ur Epithelial Cells Rare Urine Crystals Negative Urine Bacteria Rare Urine Casts Negative Urine Mucus Negative Ur Culture Indicated? No Urine Glucose Negative Last Vital Signs Pulse 75 02/19/24 16:32 Resp 16 02/19/24 16:32 BP 161/69 H 02/19/24 16:32 Pulse Ox 96 02/19/24 16:32 Time Spent Time spent with Patient: >75 minutes Time was spent: preparing to see the patient(eg.review tests), obtaining and/or reviewing separately otained hiistory, ordering medications,tests, procedures, referring, communicating with other health career development facilitator, indepentently interpreting results, counseling the patient and care coordination
--- NOTE | 2024-02-19 17:40 | W.PCEDHO ---
Registration Status: Primary Language: Preferred Language: ED Information & Data Chief Complaint GenMedical 02/19/24 10:33 Triage Note Persistent hypertension over 02/19/24 10:08 the past several days. Began feeling weak yesterday with difficulty standing and walking this morning. Medical / Surgical History (Last Reviewed 01/31/24 @ 23:13 by Jack Howard MD) Asthma Presence of Watchman left atrial appendage closure device (~10/2020) Periodic limb movement disorder (PLMD) Essential tremor Peripheral neuropathy, idiopathic (06/08/98) Gastroesophageal reflux disease (07/05/04) Hyperlipidemia (10/21/10) Cerebrovascular disease, unspecified (10/07/10) Essential hypertension (06/23/13) Bladder cancer (05/19/15) Atrial fibrillation (Last Reviewed 01/31/24 @ 20:38 by Jack Howard MD) H/O cardiac catheterization (10/07/20) cystourethroscopy (08/07/17) URO cysto (10/22/15) Thyroid (03/13/14) Transurethral Resection of Bladder Tumor, 2-5cm (05/27/13) Cystoscopy (04/29/15) Colonoscopy - IV Sedation (03/22/16) Cholecystectomy Extraction of cataract (08/10/15) Extraction of cataract (07/27/15) Biopsy of breast (07/09/76) Appendectomy Most Recent Vital Signs Pulse 80 02/19/24 17:30 Pulse 86 02/19/24 17:20 Respiratory Rate 22 02/19/24 17:31 Respiratory Effort Normal 02/19/24 10:11 Respiratory Depth Normal 02/19/24 10:11 Respiratory Pattern Normal 02/19/24 10:11 Blood Pressure 162/77 H 02/19/24 17:16 Blood Pressure Mean 120 02/19/24 17:30 Blood Pressure Position Sitting 02/19/24 10:11 Pulse Oximetry 95 02/19/24 17:20 Oxygen Delivery Method Room Air 02/19/24 10:11 Oxygen Flow Rate 0 02/19/24 10:11 Allergies guaifenesin (From Mucinex) Adverse Reaction (Intermediate, Verified 02/19/24 10:19) diarrhea reported 06/2017 amoxicillin (From Augmentin) Adverse Reaction (Verified 02/19/24 10:19) Diarrhea nausea clavulanic acid (From Augmentin) Adverse Reaction (Verified 02/19/24 10:19) Diarrhea nausea tramadol Adverse Reaction (Verified 02/19/24 10:19) constipation IV IV Catheter Type [Left Saline Lock Antecubital] IV Catheter Gauge [Left 20 Antecubital] Diet Orders Category Date Time Status Heart Healthy Eating [DIET] Nutrition 02/19/24 Dinner Active Diagnostics 02/19/24 02/19/24 02/19/24 Range/Units 10:50 10:40 10:18 WBC 8.52 (4.4-10.8) 10^3/uL RBC 4.65 (3.93-5.22) 10^6/uL Hgb 15.0 (11.2-15.7) g/dL Hct 44.6 (36.0-46.0) % MCV 96 H (80-95) fL MCH 32.3 (27.0-33.0) pg MCHC 33.6 (32.0-36.0) % RDW 12.6 (11.7-14.6) % Plt Count 297 (130-400) 10^3/uL MPV 9.3 (8.0-11.0) fL Immature Gran % 0.5 % Neutrophils % 78.5 % Lymphocytes % 10.8 % Monocytes % 8.3 % Eosinophils % 1.3 % Basophils % 0.6 % Nucleated RBC % 0.0 (0.0-0.3) % Absolute Neutrophils 6.69 (1.2-6.7) 10^3/uL Absolute Lymphocytes 0.92 L (1.2-3.4) 10^3/uL Absolute Monocytes 0.71 (0.1-0.8) 10^3/uL Absolute Eosinophils 0.11 (0.0-0.7) 10^3/uL Absolute Basophils 0.05 (0.0-0.2) 10^3/uL VBG Lactate 1.3 (0.6-1.4) mmol/L Sodium 134 L (136-145) mmol/L Potassium 3.5 (3.5-5.1) mmol/L Chloride 97 L (98-107) mmol/L Carbon Dioxide 28.7 (21.0-32.0) mmol/L Anion Gap 8.3 (3-11) mmol/L BUN 9 (7-18) mg/dL Creatinine 0.7 (0.55-1.02) mg/dL Est GFR (CKD-EPI 2020) 83.13 (mL/min/1.73m2) Glucose 82 (74-106) mg/dL Calcium 8.2 L (8.5-10.1) mg/dL Magnesium 1.6 L (1.8-2.4) mg/dL Total Bilirubin 0.52 (0.2-1.0) mg/dL AST 24 (15-37) U/L ALT 19 (14-59) U/L Alkaline Phosphatase 53 (46-116) U/L Troponin I < 50 (< or =60) ng/L NT-Pro-B Natriuret Pep 1754 H (<300) pg/mL Total Protein 6.8 (6.4-8.2) g/dL Albumin 3.2 L (3.4-5.0) g/dL Lipase 24 (16-77) U/L TSH 0.10 L (0.36-3.74) uIU/mL Free T4 1.76 H (0.76-1.46) ng/dL Urine Color Yellow (Yellow) Urine Clarity Clear (Clear) Urine pH 7.5 (5-8) Ur Specific [place] 1.020 (1.005-1.025) Urine Protein Negative (Neg-Trace) mg/dL Urine Ketones Negative (Negative) mg/dL Urine Blood Trace-intact H (Negative) Urine Nitrite Negative (Negative) Urine Bilirubin Negative (Negative) Urine Urobilinogen 0.2 (Up to 0.2) mg/dL Ur Leukocyte Esterase Trace H (Negative) Urine RBC 3-5 H (0-2) HPF Urine WBC 3-5 (0-5) HPF Ur Epithelial Cells Rare (Negative) HPF Urine Crystals Negative (Negative) HPF Urine Bacteria Rare (Negative) HPF Urine Casts Negative (Negative) LPF Urine Mucus Negative (Negative) Ur Culture Indicated? 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 Information / Comments: nicardipime drip not started due to MAP in range without the nicardipime. 18g left AC paient is confused, not her baseline. Report received from: Prieto Olivas RN
[2024-02-19] MEDS: niCARdipine 25 MG in Normal Saline 240 ML 50 MG IV (18:09)
[2024-02-19] MEDS: Propranolol 20 MG TAB PO (18:53)
[2024-02-19] MEDS: Gabapentin 600 MG TAB 1200 MG PO (20:45)
[2024-02-19] MEDS: Simvastatin 10 MG TAB PO (20:45)
[2024-02-19] MEDS: Acetaminophen 500 MG TAB 1000 MG PO (20:46)
[2024-02-19] MEDS: Losartan 50 MG TAB PO (20:46)
[2024-02-19] MEDS: methIMAzole 5 MG TAB 20 MG PO (20:47)
[2024-02-19] MEDS: Enoxaparin 40 MG/0.4 ML SYR SC (20:47)
[2024-02-19] MEDS: Psyllium PKT 1 EACH PO (20:48)
[2024-02-20] VITALS (74 sets, daily range): BP systolic 79–186; BP diastolic 39–106; PULSE 53–98; RESP 11–25; TEMP 36.2–37.6; O2SAT 78–98
[2024-02-20] MEDS: Normal Saline 250 ML IV
[2024-02-20] MEDS: Acetaminophen 500 MG TAB 1000 MG PO (00:20)
[2024-02-20] MEDS: Normal Saline 250 ML 500 ML IV (02:45)
[2024-02-20 07:07] LABS: Anion Gap 11.3 mmol/L (3-11); BUN 11 mg/dL (7-18); CO2 23.7 mmol/L (21.0-32.0); CREATININE 0.7 mg/dL (0.55-1.02); Calcium 8.1 mg/dL (8.5-10.1); Chloride 100 mmol/L (98-107); Estimated GFR 83.13 (mL/min/1.73m2); Glucose 67 mg/dL (74-106); Sodium 135 mmol/L (136-145)
--- NOTE | 2024-02-20 08:26 | INITIAL_ITS ---
Date of service: 02/20/24 Time of Service: 08:26 Care Management Initial Assmt Initial Assessment Reason for Hospitalization: Hypertensive emergency Functional Status/Living Situation Patient Presentation: Elvi was awake, lying in bed in the ICU when CM met with her. She is pleasant and easily engages in conversation. Elvi has 6 children from her first marriage and Jose has 4 from his first marriage; both have lost a son. lEvi maintains a long distance relationship the 8 remaining children that live in [place] and [place]. Elvi is originally from [place] and moved to the [place] with her after they retired. All of the children talk regularly and put money into a fund so Elvi and Jose can have caregiver/homemaker services 3Xwk on ,,. Other than the caregivers, another local support is her neighbor Morgan Hooper and he provides transportation and runs errands for them often. Town of Residence: [place] Resides with: Spouse (Reagan) Caregiver/Guardian: caregiver/ homemaker services 3 X wk on ,,. Employment Status: Retired Instrumental Activities of Daily Living (ADLs): Independent ( ) Medications Medication Management: No Issues/Barriers identified Physical Functioning/Mobility Assistive Device: Cane-outside Walker inside Advance Directives Advance Directives: Do you have an Advance Directive: Y 09/18/22 09:51 AD On File at [facility]: Y 09/18/22 09:51 Date Asked 01/31/24 01/31/24 18:14 AD Date Reviewed 02/19/24 02/19/24 10:37 COLST On File at [facility] COLST Date Scanned Code Status Resuscitation Status Full Code Insurance Coverage/Financial Issues Insurance: AARP [facility] Financial Issues: None identified Care Team Visit Care Team Role Provider Type Elvis Muñoz DO Primary Care Provider OSTEOPATHIC DOCTOR LESLYE Reid Emergency Provider PHYSICIANS SHUTTLE VENEERING SUPERVISOR Yvan Tolbert Admit Provider [facility] STAFF PHYSICIAN Attending Provider Discharge Potential Discharge Needs: PCP F/U Appt Anticipated Barriers to Discharge: None Identified Patient/Family Education Needs: Review discharge instructions, discuss Ask Me Three Transportation: Private vehicle Plan: Discharge home via private vehicle with family, follow up with community providers and her discharge plan, as recommended. Hospital Follow up will be on 02/26/24, as scheduled. No new services are anticipated at this time. 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 Derm note Skin lesion of face (Acute) SCC? Stroke (Chronic) Tricuspid valve insufficiency (Chronic) By cath 07 October 2020 Flushing (Acute) Heart palpitations (Acute) Anterior epistaxis (Chronic) Recurrent, responds to AgNO3 cautery Primary osteoarthritis of left knee (Acute) Contusion of left knee (Acute) Knee pain, left anterior (Acute) Mitral valve insufficiency (Chronic) Chest pain (Acute) Neoplasm of large intestine (Acute 06/21/05) H/O POLYPS ON FIRST COLON IN [place]; NEG ON REPEAT; [place] [address] DR BLAKE FOUND ONE HYPERPLASTIC POLYP Leg pain, left (Chronic 11/03/16) Acute midline low back pain without sciatica (Chronic 05/18/17) Labile blood pressure (Chronic) Medical History Asthma Presence of Watchman left atrial appendage closure device (~10/2020) 10/07/[address] [facility] following cardiac cath Periodic limb movement disorder (PLMD) Essential tremor Peripheral neuropathy, idiopathic (06/08/98) KNEE DISTAL, BILAT; INTERMITTENT BURNING, SLEEPS BETTER AT NIGHT IF SHE HAS WORN TIGHT SOCKS DAYTIME; nortriptyline effective; Dr Oneill; worse balance 02/2015 Hyperlipidemia (10/21/10) dyslipidemia: low HDL; statin begun by neuro 10/2010 after her TIA, along with Clopidogrel; target LDL<100 and HDL>40 Gastroesophageal reflux disease (07/05/04) RESPONDS TO OMEPRAZOLE, BEFORE DINNER; ESOPHAGITIS ON EGD AT [facility]: 07/05/04; gastritis and diffuse esophagitis; DR MERCADO REC LIFELONG PPI RX Essential hypertension (06/23/13) Cerebrovascular disease, unspecified (10/07/10) 10/2010; small L THALAMIC CVA ON MRI, [facility], RX Clopidogrel and Statin indefinitely Bladder cancer (05/19/15) Dr. Guy Lechuga- non-invasive papillary urothellal carcinoma, low grade. Atrial fibrillation Surgical History H/O cardiac catheterization (10/07/20) [facility]-L atrial appendage closure for afib cystourethroscopy (08/07/17) Dr Brian Lechuga [facility]-extensive recurrent bladder tumor encompassint entire L hemitrigone and posterolateral bladder wall and neck URO cysto (10/22/15) Guy Lechuga MD 12 weeks after her last BCG Thyroid (03/13/14) 9Complete thyroidectomy Dr. Sanchez [facility], path: multinodular goiter Transurethral Resection of Bladder Tumor, 2-5cm (05/27/13) Dr. Ruano Cystoscopy (04/29/15) Dr. Lechuga 02/05/18 repeat cysto Colonoscopy - IV Sedation (03/22/16) Cholecystectomy Extraction of cataract (08/10/15) Dr Mayte Gonzalez eye R eye 2/2 Extraction of cataract (07/27/15) Dr Hu L eye R eye 2/2 Biopsy of breast (07/09/76) both breasts, biopsies benign Appendectomy Family History Brother Brain cancer Cancer Of the Face Father , Age 65 Heart attack Heart disease Sister , Lung Disease Age 80 Cancer Mother , Age 73 Amyloid disease Social History Smoking/Tobacco Use Status: Former Tobacco Use tobacco type: cigarettes Quit Date: 07/09/87 Pack-years: 52 Tobacco: How many years used: 52 Quit status: quit date established Smoking risk assessment performed?: Yes Alcohol Intake: never Drug use: Never Substance use type: does not use Caregiver/Support person: No Household members: spouse Housing: house Number of Children: 6 number of grandchildren: 17 Communication Needs: None current occupation: Retired Pets and animals: Yes (2 cats) Pets and animals: cat(s) Do you think of yourself as: straight/heterosexual Current gender identity: female What is your relationship status?: How often do you talk on the phone with friends or family?: three or more times per week How often do you get together with friends or relatives?: never How often do you attend synagogue or moravian services?: 4 or more times per year Panel score (0-1 are the most socially isolated patients): 3 What type of physical activity do you participate in: other Details: Recumbant Bike Duration: 15-30 minutes/day Astrid/Druze: Adventism Seatbelt use: always Helmet use: No Drive intox or ride w/intox company driver: No Do you feel safe at home: Yes Do you feel safe in your relationship?: Yes SDOH(Care Management) Screening Will the Patient Participate in the Screening?: Yes Do you worry about having a steady place to live?: no In the past 12 months, have you had to go without electric, gas, oil or water in your home?: no Have you or anyone in your house had to go without enough food to eat?: no Has lack of transportation kept you from medical appointments or from doing things needed for daily living?: no Has anyone in your support network made you feel unsafe for any reason?: no
[2024-02-20] MEDS: Losartan 50 MG TAB PO (08:58)
[2024-02-20] MEDS: Cyanocobalamin 500 MCG TAB PO (08:59)
[2024-02-20] MEDS: Aspirin 81 MG CHEW PO (08:59)
[2024-02-20] MEDS: Cholecalciferol (Vitamin D3) 1,000 UNIT TAB 1000 UNITS PO (08:59)
[2024-02-20] MEDS: Loratidine 10 MG TAB PO (09:00)
[2024-02-20] MEDS: MAGNESIUM SULFATE 2 GM/50 ML BAG IVINF (12:47)
[2024-02-20] MEDS: Gabapentin 600 MG TAB PO (12:47)
[2024-02-20] MEDS: Potassium Chloride 20 MEQ TABCR 40 MEQ PO (12:48)
--- NOTE | 2024-02-20 14:07 | DSE_ITS ---
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: Status: Acute (3) Atrial fibrillation: (4) Cerebrovascular disease, unspecified: (5) DVT prophylaxis: Status: Acute Discharge Plan Disposition Patient Disposition: Home Condition: Stable Discharge Details Reason For Visit: Hypertensive Emergancy/Hypertensive Encephalopathy Admit Date/Time: 02/19/24 16:18 Admit Provider: Yvan Tolbert Attending Provider: Yvan Tolbert Primary Care Provider: Elvis Muñoz [facility] Course Hospital Course: 88 yo F with history of HTN with recent lability noted in outpatient and ED visits, hypothyroidism, remote CVA, atrial fibrillation s/p watchman who presented with blood pressure persistently in the >230/130 range. Treated with IV labetolol and hydralyzine and additional oral medication in the ED but BP persisted. Given new symptoms of cloudy mental status and facial pain in this setting she was admitted for hypertensive emergency with concern for hypertensive encephalopathy. CT head was negative, and no significant findings were found on CT abd/pelvis (including no renal adenoma). EKG was not ischemic and renal function and urine output was reassuring. IV nicardipine ordered but she only was on the drip for minutes and her blood pressure trended down. Her blood pressure went down overnight and she required two 250ml boluses to maintain normal blood pressure. Her TSH was noted low with elevated free T4. Reviewing her labs she had similar low TSH in 01/28 and high to high normal fT4 going back 10 years. Consideration was given to thryoid storm in the setting of prolonged overcorrection of thyroid hormone. She was breifly treated with propanolol and methimazole. This was stopped after her blood pressure came down and her symptoms resolved. Levothyroxine was held, and it was recommended she not resume until new Rx at lower dose arrives from mail order in a few days. A goal TSH of 2-4 would be reasonable given her age and comorbidities. We discussed adjusting her medications to longer acting options for more level dosing. Chlorthalidone was substituted for HCTZ at the same dose of 12.5. Losartan was changed to even BID dosing. Metoprolol succinate was substituted for atenolol at equivalent dose. Additional testing for resistant/labile HTN was considered. Given association with flushing and eating, 24hr urine for 5HIAA (carcinoid) ordered along with initial screen for pheochromocytoma. She should collect this the day before her follow up visit, which should be in a week or so. As above, she did not have a renal adenoma to suggest pheochromocytoma so this is less likely, though the paroxysmal pattern could fit. Home Meds and New Rx's Prescriptions: New losartan 50 mg Tablet 50 mg PO BID Qty: 180 0RF chlorthalidone 25 mg Tablet 12.5 mg PO DAILY Qty: 45 1RF levothyroxine 75 mcg capsule 75 mcg PO DAILY Qty: 90 0RF metoprolol succinate 100 mg tablet extended release 24 hr 100 mg PO DAILY Qty: 90 0RF chlorthalidone 25 mg tablet 12.5 mg PO DAILY Qty: 14 0RF metoprolol succinate 100 mg tablet extended release 24 hr 100 mg PO DAILY Qty: 14 0RF Continued aspirin [Gerald Chewable Aspirin] 81 mg tablet,chewable 81 mg PO DAILY triamcinolone acetonide [Nasacort] 55 mcg aerosol,spray 1 spray intranasal DAILY Qty: 16.9 2RF Rx Instructions: administer into each nostril nitroglycerin [Nitrostat] 0.3 mg tablet, sublingual 0.3 mg Sublingual Q5-15M PRN (Reason: chest pain/esophageal spasm) 1 Days Qty : 25 6RF cholecalciferol (vitamin D3) 1,000 UNIT tablet 1,000 unit PO DAILY cyanocobalamin (vitamin B-12) [Vitamin B-12] 500 MCG tablet 500 mcg PO DAILY acetaminophen 500 MG tablet 1,000 mg PO Q4H PRN omeprazole 20 mg capsule,delayed release(DR/EC) 20 mg PO BID PRN (Reason: heart burn) Qty: 180 3RF gabapentin 600 mg tablet See Rx Instructions PO BID Qty: 270 3RF Rx Instructions: 600mg at dinner and 1200mg HS PO twice a day; simvastatin 10 mg tablet 10 mg PO HS Qty: 90 3RF Rx Instructions: lower LDL cholesterol Metamucil [facility] Fiber 660 GM powder 1 oz PO HS loratadine [Claritin] .Route Discontinued losartan 50 mg tablet 75 mg PO DAILY MDD 75 mg 90 Days Qty: 135 4RF Rx Instructions: Take 1.5 tablets by mouth once daily as directed. hydrochlorothiazide 12.5 mg tablet 12.5 mg PO DAILY MDD 12.5 90 Days Qty: 90 3RF Rx Instructions: Take one 12.5 mg tablet once daily by mouth as directed. atenolol 25 mg tablet 25 mg PO BID Qty: 180 3RF levothyroxine 88 mcg tablet 88 mcg PO DAILY Qty: 90 3RF Discharge Instructions Instructions: High blood pressure emergencies Additional Instructions: We are changing your blood pressure medications, see above. The losartan is the same pill but should be twice a day. The other medications are new. We are sending a lower dose of thyroid hormone, as you high levels may be causing high blood pressure. You should NOT take any thyroid supplement for the next few days until the lower dose pill arrives in the pharmacy Referrals: Elvis Muñoz DO [Primary Care Provider] - 02/26/24 11:15 am Activity:: Activity as Tolerated Equipment/Supplies:: No Equipment Needed Diet:: Low Sodium Discharge Orders Discharge Orders: Discharge Order (Routine); Ordered 02/20/24 Ordered By: Yvna Tolbert Other Ambulatory Orders: 5-Hydroxyindoleacetic Acid, Ur (Routine) Timeframe: 1 Week Facility: [facility] - Location: Laboratory Nonpatient Ordered By: Yvan Tolbert Catecholamine Fract,Free 24H U (Routine) Timeframe: 1 Week Facility: [facility] - Location: Laboratory Nonpatient Ordered By: Yvan Tolbert Creatinine 24 Hr Urine (Routine) Timeframe: 1 Week Facility: [facility] - Location: Laboratory Outpatient - [facility] Ordered By: Yvan Tolbert Basic Metabolic Panel (Routine) Timeframe: 1 Week Facility: [facility] - Location: Laboratory Outpatient - [facility] Ordered By: Yvan Tolbert Discharge Data Discharge Date/Time-TO BE ENTERED AT DEPARTURE: 02/20/24 16:40 DS: Summary Time Spent with Patient providing and/or coordinating discharge services: Greater than 30 minutes Status at Discharge Functional status at discharge: independent ambulation Overall status at discharge: patient is back to baseline Mental Status: mental status grossly normal Speech and Movement: speech and movement normal Mood: congruent mood Affect: normal affect Quality:SDOH Health Related Social Needs: No Data to Display Exam Narrative Exam Narrative: GEN: Alert and oriented x 4. No acute distress at rest. speaking clearly HEENT: no thyromegaly or tenderness LUNGS: CTAB with normal effort CV: RRR with no murmurs, gallops, or rubs. ABD: active bowel sounds, soft, nontender and nondistended. No masses. EXT: no cyanosis, clubbing, or edema Psych Mental Status: mental status grossly normal Speech and Movement: speech and movement normal Mood: congruent mood Affect: normal affect DS: Data Vitals/I&O Vitals and I&O: Vital Signs Temperature 37.6 C H 02/20/24 12:31 Temperature Source Temporal Artery Scan 02/20/24 09:13 Pulse 80 02/20/24 13:39 Pulse 88 02/20/24 13:45 Respiratory Rate 19 02/20/24 13:45 Respiratory Effort Normal, Non-Labored 02/20/24 09:13 Respiratory Depth Normal 02/20/24 09:13 Respiratory Pattern Normal 02/20/24 09:13 Blood Pressure 186/90 H 02/20/24 13:39 Blood Pressure Mean 117 02/20/24 13:39 Blood Pressure Position Supine 02/19/24 18:19 Pulse Oximetry 96 02/20/24 13:45 Oxygen Delivery Method Room Air 02/20/24 09:13 Oxygen Flow Rate 0 02/20/24 09:13 Pain Level 2 02/20/24 03:35 Intake & Output 02/19/24 02/20/24 02/20/24 23:59 11:59 23:59 Intake Total 6.667 / 6.667 860 / 1100 240 / 1100 Output Total 400 / 500 100 / 500 Balance 6.667 / -393.333 460 / 600 140 / 600 Weight 66.366 kg Intake: IV 6.667 / 6.667 500 / 500 Oral 360 / 600 240 / 600 Output: Urine 400 / 500 100 / 500 Other: Urine Color Yellow Yellow Urine Appearance Clear Clear Urine Odor Normal Normal Comment unmeasured Voiding Methods Bedside Commode Data Completed and Pending Labs on day of discharge: Labs from last 24 hours 02/20/24 05:46 Sodium 135 L Potassium 3.0 L Chloride 100 Carbon Dioxide 23.7 Anion Gap 11.3 H BUN 11 Creatinine 0.7 Est GFR (CKD-EPI 2020) 83.13 Glucose 67 L Calcium 8.1 L PFSH All Active Problems DVT prophylaxis (Acute) 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 Stroke (Chronic) Tricuspid valve insufficiency (Chronic) By cath 07 October 2020 Flushing (Acute) Heart palpitations (Acute) Anterior epistaxis (Chronic) Recurrent, responds to AgNO3 cautery Primary osteoarthritis of left knee (Acute) Contusion of left knee (Acute) Knee pain, left anterior (Acute) Mitral valve insufficiency (Chronic) Chest pain (Acute) Neoplasm of large intestine (Acute 06/21/05) H/O POLYPS ON FIRST COLON IN [place]; NEG ON REPEAT; [place] DR BLAKE FOUND ONE HYPERPLASTIC POLYP Leg pain, left (Chronic 11/03/16) Acute midline low back pain without sciatica (Chronic 05/18/17) Labile blood pressure (Chronic) Medical History Asthma Presence of Watchman left atrial appendage closure device (~10/2020) 10/07/20 [facility] following cardiac cath Periodic limb movement disorder (PLMD) Essential tremor Peripheral neuropathy, idiopathic (06/08/98) KNEE DISTAL, BILAT; INTERMITTENT BURNING, SLEEPS BETTER AT NIGHT IF SHE HAS WORN TIGHT SOCKS DAYTIME; nortriptyline effective; Dr Oneill; worse balance 02/2015 Hyperlipidemia (10/21/10) dyslipidemia: low HDL; statin begun by neuro 10/2010 after her TIA, along with Clopidogrel; target LDL<100 and HDL>40 Gastroesophageal reflux disease (07/05/04) RESPONDS TO OMEPRAZOLE, BEFORE DINNER; ESOPHAGITIS ON EGD AT [facility]: 07/05/04; gastritis and diffuse esophagitis; DR MERCADO REC [place] PPI RX Essential hypertension (06/23/13) Cerebrovascular disease, unspecified (10/07/10) 10/2010; small L THALAMIC CVA ON MRI, [facility], RX Clopidogrel and Statin indefinitely Bladder cancer (05/19/15) Dr. Guy Lechuga- non-invasive papillary urothellal carcinoma, low grade. Atrial fibrillation Surgical History H/O cardiac catheterization (10/07/20) [facility]-L atrial appendage closure for afib cystourethroscopy (08/07/17) Dr Brian Lechuga H-extensive recurrent bladder tumor encompassint entire L hemitrigone and posterolateral bladder wall and neck URO cysto (10/22/15) Guy Lechuga MD 12 weeks after her last BCG Thyroid (03/13/14) 9Complete thyroidectomy Dr. Sanchez [facility], path: multinodular goiter Transurethral Resection of Bladder Tumor, 2-5cm (05/27/13) Dr. Ruano Cystoscopy (04/29/15) Dr. Lechuga 02/05/18 repeat cysto Colonoscopy - IV Sedation (03/22/16) Cholecystectomy Extraction of cataract (08/10/15) Dr Hu L eye R eye 2/2 Extraction of cataract (07/27/15) Dr Mayte Gonzalez eye R eye 2/2 Biopsy of breast (07/09/76) both breasts, biopsies benign Appendectomy Family History Brother Brain cancer Cancer Of the Face Father , Age 65 Heart attack Heart disease Sister , Lung Disease Age 80 Cancer Mother , Age 73 Amyloid disease Social History Smoking/Tobacco Use Status: Former Tobacco Use tobacco type: cigarettes Quit Date: 07/09/87 Pack-years: 52 Tobacco: How many years used: 52 Quit status: quit date established Smoking risk assessment performed?: Yes Alcohol Intake: never Drug use: Never Substance use type: does not use Caregiver/Support person: No Household members: spouse Housing: house Number of Children: 6 number of grandchildren: 17 Communication Needs: None current occupation: Retired Pets and animals: Yes (2 cats) Pets and animals: cat(s) Do you think of yourself as: straight/heterosexual Current gender identity: female What is your relationship status?: How often do you talk on the phone with friends or family?: three or more times per week How often do you get together with friends or relatives?: never How often do you attend gnosticism or evangelical services?: 4 or more times per year Panel score (0-1 are the most socially isolated patients): 3 What type of physical activity do you participate in: other Details: Recumbant Bike Duration: 15-30 minutes/day Astrid/Yarsanism: Mosque Seatbelt use: always Helmet use: No Drive intox or ride w/intox limb driver: No Do you feel safe at home: Yes Do you feel safe in your relationship?: Yes Time Spent with Patient Time Spent with Patient: <45 minutes Time was spent: preparing to see the patient(eg.review tests), obtaining and/or reviewing separately otained hiistory, ordering medications,tests, procedures, referring, communicating with other health rn coronary care unit, indepentently interpreting results, counseling the patient and care coordination
[2024-02-20] MEDS: Metoprolol CR 100 MG TABCR PO (14:15)
--- NOTE | 2024-02-20 15:15 | PDOC.CMDIS ---
Date of service: 02/20/24 Time of Service: 15:15 LACE Index Scoring Tool Questions: Length of Stay (in days): 1 Was the patient admitted via the E.D.?: Yes Comorbidities: Cerebrovascular Disease (HX stroke) E.D. Visits: 2 Answers: Total Score: 7 Risk of Readmission: Low Risk Care Management Discharge Plan Reason for Hospitalization: Afib Discharge Plan: Discharge home via private vehicle with family, follow up with community providers and her discharge plan, as recommended. Hospital Follow up will be on 02/26/24, as scheduled. No new services are ordered prior to this discharge. Patient/Family Education Needs: Review discharge instructions, limitations, medications and plan to follow up with community providers. Discuss ask me three. SDOH Health Related Social Needs: No Data to Display
== END 2024-02-20 16:40 | disposition home or self-care (01) | DRG 305 ==
LOC: ER 17:27 → ICU 18:10
PROVIDERS: Admitting Provider Family Medicine; Emergency Provider Physician Assistant; PCP Family Medicine; Visit Provider Family Medicine
DX: I16.1 Hypertensive emergency (principal); I67.4 Hypertensive encephalopathy; E05.80 Other thyrotoxicosis without thyrotoxic crisis or storm; T38.1X5A Adverse effect of thyroid hormones and substitutes, initial encounter; I48.0 Paroxysmal atrial fibrillation; Z86.73 Personal history of transient ischemic attack (TIA), and cerebral infarction without residual deficits; R51.9 Headache, unspecified; L30.9 Dermatitis, unspecified; M54.50 Low back pain, unspecified; M17.12 Unilateral primary osteoarthritis, left knee; M47.817 Spondylosis without myelopathy or radiculopathy, lumbosacral region; J43.9 Emphysema, unspecified; I34.0 Nonrheumatic mitral (valve) insufficiency; G47.61 Periodic limb movement disorder; Z95.818 Presence of other cardiac implants and grafts; C67.9 Malignant neoplasm of bladder, unspecified; K21.9 Gastro-esophageal reflux disease without esophagitis; I10 Essential (primary) hypertension; G60.8 Other hereditary and idiopathic neuropathies; G25.0 Essential tremor
CPT/HCPCS: 00123; 36415; 80048; 80053; 83690; 93005; J1650; 70450; 71046; 74177; 81003; 81015; 83605; 83735; 83880; 84439; 84443; 84484; 85025; 93010; 99223; 99238; J0360; J2404; J2405; J3475

== ENCOUNTER 2024-02-22 10:57 | Outpatient (REF) | payer MEDICARE, SELFPAY ==
[2024-02-22 14:47] LABS: Creatinine,24hr Ur 0.56 g/24hr (0.60-1.80); Total Volume 1700 ml
[2024-02-25 17:13] LABS: 5-Hydroxyindoleacetic Acid, U 6.6 mg/24 h (<=8.3); Urine Volume 1700 mL
[2024-02-26 14:03] LABS: Urine Volume 1700 mL
== END 2024-02-22 10:58 | disposition home or self-care (01) ==
LOC: LBN 10:57
PROVIDERS: PCP Family Medicine; Visit Provider Family Medicine
DX: R09.89 Other specified symptoms and signs involving the circulatory and respiratory systems (principal); I10 Essential (primary) hypertension
CPT/HCPCS: 81050; 82384; 82570; 83497

== ENCOUNTER 2024-02-22 15:46 | Inpatient (IN) | payer MEDICARE, SELFPAY ==
[2024-02-22] VITALS (68 sets, daily range): BP systolic 126–234; BP diastolic 57–137; PULSE 74–105; RESP 10–30; O2SAT 89–98
--- NOTE | 2024-02-22 17:15 | RT.EKG_ITS ---
APPROVED REPORT Exam: Resting ECG Reason for Exam: Hypertension, arm pain Patient Location: E HR:91 bpm ECG Measurements Heart Rate 91 AXIS NE [id number] P [id number] QRSd 79 QRS 69 QT 365 T 49 QTc 449 Conclusion Atrial fibrillation 91 normal axis no stemi
[2024-02-22] MEDS: Metoprolol 5 MG/5 ML VIAL IVP ×2 (18:58→20:39)
[2024-02-22 19:06] LABS: Abs Immature Grans 0.02 10^3/uL (0.0-0.06); Absolute Basophil Count 0.05 10^3/uL (0.0-0.2); Absolute Eosinophil Count 0.26 10^3/uL (0.0-0.7); Absolute Lymphocyte Count 1.82 10^3/uL (1.2-3.4); Absolute Monocyte Count 0.82 10^3/uL (0.1-0.8); Absolute Neutrophil Count 5.35 10^3/uL (1.2-6.7); Basophils % 0.6 %; Eosinophils % 3.1 %; HCT 45.6 % (36.0-46.0); HGB 15.5 g/dL (11.2-15.7); Immature Grans % 0.2 %; Lymphocytes % 21.9 %; MCH 32.4 pg (27.0-33.0); MCV 95 fL (80-95); Monocytes % 9.9 %; Neutrophils % 64.3 %; Platelet Count 303 10^3/uL (130-400); RBC 4.78 10^6/uL (3.93-5.22); RDW 12.6 % (11.7-14.6); RDW-SD 44.7 fL; WBC 8.32 10^3/uL (4.4-10.8)
[2024-02-22] MEDS: Losartan 25 MG TAB 50 MG PO (19:13)
[2024-02-22 19:21] LABS: ALT 24 U/L (14-59); AST 27 U/L (15-37); Alkaline Phosphatase 61 U/L (46-116); Anion Gap 7.1 mmol/L (3-11); BUN 8 mg/dL (7-18); Bilirubin, Total 0.52 mg/dL (0.2-1.0); CO2 29.9 mmol/L (21.0-32.0); CREATININE 0.7 mg/dL (0.55-1.02); Calcium 9.4 mg/dL (8.5-10.1); Chloride 96 mmol/L (98-107); Estimated GFR 83.13 (mL/min/1.73m2); Glucose 97 mg/dL (74-106); Magnesium 1.8 mg/dL (1.8-2.4); Potassium 3.9 mmol/L (3.5-5.1); Sodium 133 mmol/L (136-145)
[2024-02-22 19:30] LABS: TSH (W/Ref FT4) 0.41 uIU/mL (0.36-3.74); Troponin I < 50 ng/L (< or =60)
--- NOTE | 2024-02-22 20:08 | W.ED.GENAD ---
Discharge Plan Disposition Patient Disposition: Admit to [facility] Discharge Details Clinical Impression: Severe uncontrolled hypertension Admit Date/Time: 02/22/24 23:23 Admit Provider: Aldo Gregg Attending Provider: Aldo Gregg Primary Care Provider: Elvis Muñoz ED Provider: Merritt Raygoza Discharge Data Discharge Date/Time-TO BE ENTERED AT DEPARTURE: 02/23/24 00:19 HPI General Mode of arrival: wheelchair. Date/Time Provider Initiated Documentation: 02/22/24 16:17. Limitations to Documentation: no limitations. Information obtained by: patient and RN notes reviewed. History of Present Illness 88 year old F presents to the emergency department with the chief complaint of High blood pressure, right arm pain, face flushing, described as moderate and similar to prior episodes, Patient started experiencing this hour(s) (1) and it has been constant. No relieving factors improve symptom(s), No exacerbating factors reported . Patient notes no other symptoms.. Patient did receive the following treatments prior to arrival, other (Took no metoprolol at 2:30) Related Data Home Medications ?Medication ?Instructions ?Recorded ?Confirmed cholecalciferol (vitamin D3) 25 1,000 unit PO DAILY 09/17/12 02/22/24 mcg (1,000 unit) tablet psyllium husk (aspartame) 3.4 1 oz PO HS 05/27/13 02/22/24 gram/5.8 gram oral powder (Metamucil [facility] Fiber) cyanocobalamin (vitamin B-12) 500 500 mcg PO DAILY 11/19/15 02/22/24 mcg tablet (Vitamin B-12) acetaminophen 500 mg tablet 1,000 mg PO Q4H PRN 03/16/17 02/22/24 nitroglycerin 0.3 mg sublingual 0.3 mg sublingual Q5-15M PRN chest 09/09/19 02/22/24 tablet (Nitrostat) pain/esophageal spasm 1 day #25 tab-caps aspirin 81 mg chewable tablet 81 mg PO DAILY 10/26/20 02/22/24 (Gerald Chewable Low Dose Aspirin) triamcinolone acetonide 55 mcg 1 spray intranasal DAILY #16.9 mL 03/02/23 02/22/24 nasal spray aerosol (Nasacort) omeprazole 20 mg capsule,delayed 20 mg PO BID PRN heart burn #180 05/24/23 02/22/24 release tabs gabapentin 600 mg tablet See Rx Instructions PO BID #270 10/01/23 02/22/24 tabs simvastatin 10 mg tablet 10 mg PO HS #90 tab-caps 10/16/23 02/22/24 loratadine .Route 01/31/24 02/22/24 chlorthalidone 25 mg tablet 12.5 mg (1/2 x 25 mg) PO DAILY #14 02/20/24 02/22/24 tabs chlorthalidone 25 mg tablet 12.5 mg (1/2 x 25 mg) PO DAILY #45 02/20/24 02/22/24 tabs losartan 50 mg tablet 50 mg PO BID #180 tabs 02/20/24 02/22/24 metoprolol succinate 100 mg 100 mg PO DAILY #14 tabs 02/20/24 02/22/24 tablet,extended release 24 hr metoprolol succinate 100 mg 100 mg PO DAILY #90 tabs 02/20/24 02/22/24 tablet,extended release 24 hr levothyroxine 75 mcg tablet 75 mcg PO DAILY 90 days #90 tabs 02/22/24 02/22/24 Previous Rx's ?Medication ?Instructions ?Recorded nitroglycerin 0.3 mg sublingual 0.3 mg sublingual Q5-15M PRN chest 09/09/19 tablet (Nitrostat) pain/esophageal spasm 1 day #25 tab-caps triamcinolone acetonide 55 mcg 1 spray intranasal DAILY #16.9 mL 03/02/23 nasal spray aerosol (Nasacort) omeprazole 20 mg capsule,delayed 20 mg PO BID PRN heart burn #180 05/24/23 release tabs gabapentin 600 mg tablet See Rx Instructions PO BID #270 10/01/23 tabs simvastatin 10 mg tablet 10 mg PO HS #90 tab-caps 10/16/23 chlorthalidone 25 mg tablet 12.5 mg (1/2 x 25 mg) PO DAILY #14 02/20/24 tabs chlorthalidone 25 mg tablet 12.5 mg (1/2 x 25 mg) PO DAILY #45 02/20/24 tabs losartan 50 mg tablet 50 mg PO BID #180 tabs 02/20/24 metoprolol succinate 100 mg 100 mg PO DAILY #14 tabs 02/20/24 tablet,extended release 24 hr metoprolol succinate 100 mg 100 mg PO DAILY #90 tabs 02/20/24 tablet,extended release 24 hr levothyroxine 75 mcg tablet 75 mcg PO DAILY 90 days #90 tabs 02/22/24 Allergies Allergy/AdvReac Type Severity Reaction Status Date / Time guaifenesin (From Mucinex) AdvReac Intermediate diarrhea Verified 02/19/24 10:19 amoxicillin (From Augmentin) AdvReac Diarrhea Verified 02/19/24 10:19 clavulanic acid (From AdvReac Diarrhea Verified 02/19/24 10:19 Augmentin) tramadol AdvReac constipatio Verified 02/19/24 10:19 n General Stated Complaint: Recheck YEE: 3 Review of Systems Constitutional Constitutional: Denies fatigue and Denies headache(s) Eyes Eyes: Denies change in vision ENT Ears, Nose, Mouth, and Throat: Denies headache(s) Cardiovascular Cardiovascular: Denies chest pain and Denies dyspnea Respiratory Respiratory: Denies dyspnea Gastrointestinal Gastrointestinal: Denies abdominal pain, Denies nausea and Denies vomiting Musculoskeletal Musculoskeletal: Reports myalgias Neurologic Neurologic: Denies abnormal movements, Denies abnormal speech and Denies headache(s) Psychiatric Psychiatric: Denies anxiety Endocrine Endocrine: Denies fatigue Exam Cardio Rate: tachycardic Rhythm: abnormal rhythm irregularly irregular Heart Sounds: S1 normal and S2 normal Course Vital Signs Vital signs: Vital Signs Pulse 98 H 02/22/24 15:52 Respiratory Rate 16 02/22/24 15:52 Blood Pressure 183/119 H 02/22/24 15:52 Pulse Oximetry 95 02/22/24 15:52 Pulse 93 H 02/22/24 19:01 Pulse 91 H 02/22/24 19:10 Respiratory Rate 21 02/22/24 19:10 Respiratory Effort Normal, Non-Labored 02/22/24 18:30 Blood Pressure 227/123 H 02/22/24 19:01 Blood Pressure Mean 154 02/22/24 19:01 Blood Pressure Position Sitting 02/22/24 15:52 Pulse Oximetry 96 02/22/24 19:10 Oxygen Delivery Method Room Air 02/22/24 18:27 Oxygen Flow Rate 0 02/22/24 18:27 Pain Level 0 02/22/24 15:52 Lab/Test Results Lab/Test Results: Laboratory Tests Range/Units 02/22/24 18:54 WBC (4.4-10.8) 10^3/uL 8.32 RBC (3.93-5.22) 10^6/uL 4.78 Hgb (11.2-15.7) g/dL 15.5 Hct (36.0-46.0) % 45.6 MCV (80-95) fL 95 MCH (27.0-33.0) pg 32.4 MCHC (32.0-36.0) % 34.0 RDW (11.7-14.6) % 12.6 Plt Count (130-400) 10^3/uL 303 MPV (8.0-11.0) fL 9.0 Immature Gran % % 0.2 Neutrophils % % 64.3 Lymphocytes % % 21.9 Monocytes % % 9.9 Eosinophils % % 3.1 Basophils % % 0.6 Nucleated RBC % (0.0-0.3) % 0.0 Absolute Neutrophils (1.2-6.7) 10^3/uL 5.35 Absolute Lymphocytes (1.2-3.4) 10^3/uL 1.82 Absolute Monocytes (0.1-0.8) 10^3/uL 0.82 H Absolute Eosinophils (0.0-0.7) 10^3/uL 0.26 Absolute Basophils (0.0-0.2) 10^3/uL 0.05 Sodium (136-145) mmol/L 133 L Potassium (3.5-5.1) mmol/L 3.9 Chloride (98-107) mmol/L 96 L Carbon Dioxide (21.0-32.0) mmol/L 29.9 Anion Gap (3-11) mmol/L 7.1 BUN (7-18) mg/dL 8 Creatinine (0.55-1.02) mg/dL 0.7 Est GFR (CKD-EPI 2020) (mL/min/1.73m2) 83.13 Glucose (74-106) mg/dL 97 Calcium (8.5-10.1) mg/dL 9.4 Magnesium (1.8-2.4) mg/dL 1.8 Total Bilirubin (0.2-1.0) mg/dL 0.52 AST (15-37) U/L 27 ALT (14-59) U/L 24 Alkaline Phosphatase (46-116) U/L 61 Troponin I (< or =60) ng/L < 50 Total Protein (6.4-8.2) g/dL 8.0 Albumin (3.4-5.0) g/dL 4.0 TSH (0.36-3.74) uIU/mL 0.41 Medical Decision Making Patient presenting to the emergency department for chief complaint of high blood pressure causing her to feel some right arm discomfort and facial flushing. Patient has history of hypertension, hypothyroidism on levothyroxine, Watchman procedure, remote h/o CVA, and recent visits for headaches and labile blood pressure. Patient was discharged 2 days ago after similar presentation but with headaches causing her to be admitted for hypertensive emergency. Medications were changed and patient states that she is taking them as prescribed but still having high blood pressure. Patient does state that her symptoms did not begin until after she saw about elevated blood pressure reading but when it became 230s over 130 she got concerned and her primary care provider sent her to the emergency department. Patient was symptomatic at arrival but once she was placed in her room after significant weight she inform me that she did not have any further symptoms but was still having elevated blood pressure readings at time of my assessment. My exam was otherwise unremarkable with no contributing findings. Will plan on rechecking patient's labs as there was concern of possible thyroid storm, Pheochromocytoma, idiopathic hypertension. Patient states that she took her metoprolol succinate at 230 which was approximately an hour and a half prior to arrival. Pending results given noted hypertension of 183/119 will give patient her losartan and push dose of metoprolol. Please see physician interpretation for full interpretation of EKG but upon my review patient is in atrial fibrillation rate of 91 otherwise no findings to suggest acute ischemia. Reviewed patient's labs and they were overall unremarkable unchanged with a negative troponin. Patient's blood pressure remained elevated and she did state that she developed a headache. She received total of 2 push doses of metoprolol along with the losartan with still blood pressure remaining 204/135. Spoke to hospitalist who recommended a head CT scan given that she is starting to have a headache again with the elevated blood pressure. If CT scan is negative we will start nicardipine drip and admit her to the ICU given uncontrolled hypertension. I personally reviewed CT imaging and see no evidence of intercranial bleed so we will proceed with nicardipine drip and admission Lab Data Lab results reviewed: Yes I reviewed the patient's lab results. Quality:SDOH Health Related Social Needs: Health related social needs transpo insecurity Critical Care Time Critical Care Time Total Critical Care Time: 35 Attestation: Due to uncontrolled hypertension with high probability of imminent or life threatening deterioration in the patient's condition without intervention and treatment. Time spent documenting, reviewing labs and radiographs, monitoring titration/ Vital signs, and speaking with hospitalist and discussion of ICU admission. 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 Stroke (Chronic) Tricuspid valve insufficiency (Chronic) By cath 07 October 2020 Flushing (Acute) Heart palpitations (Acute) Anterior epistaxis (Chronic) Recurrent, responds to AgNO3 cautery Primary osteoarthritis of left knee (Acute) Contusion of left knee (Acute) Knee pain, left anterior (Acute) Mitral valve insufficiency (Chronic) Chest pain (Acute) Neoplasm of large intestine (Acute 06/21/05) H/O POLYPS ON FIRST COLON IN [place]; NEG ON REPEAT; [place] BLAKE [facility] [facility] HYPERPLASTIC POLYP Leg pain, left (Chronic 11/03/16) Acute midline low back pain without sciatica (Chronic 05/18/17) Labile blood pressure (Chronic) Medical History Asthma Presence of Watchman left atrial appendage closure device (~10/2020) [place] [facility] [place] Periodic limb movement disorder (PLMD) Essential tremor Peripheral neuropathy, idiopathic (06/08/98) KNEE DISTAL, BILAT; INTERMITTENT BURNING, SLEEPS BETTER AT NIGHT IF SHE HAS WORN TIGHT SOCKS DAYTIME; nortriptyline effective; Dr Oneill; worse balance 02/2015 Gastroesophageal reflux disease (07/05/04) RESPONDS TO OMEPRAZOLE, BEFORE DINNER; [place] [facility] [place]; gastritis and diffuse esophagitis; DR MERCADO REC [place] PPI RX Hyperlipidemia (10/21/10) dyslipidemia: low HDL; statin begun by neuro 10/2010 after her TIA, along with Clopidogrel; target LDL<100 and HDL>40 Cerebrovascular disease, unspecified (10/07/10) 10/2010; small L THALAMIC CV[place] [facility] [place]op[place] and Statin indefinitely Essential hypertension (06/23/13) Bladder cancer (05/19/15) Dr. Guy Lechuga- non-invasive papillary urothellal carcinoma, low grade. Atrial fibrillation Surgical History H/O cardiac catheterization [place]10/07/20[place] [facility] [place]age [place] for afib cystourethroscopy (08/07/17) Dr Brian Lechuga [facility]-extensive recurrent bladder tumor encompassint entire L hemitrigone and posterolateral bladder wall and neck URO cysto (10/22/15) Guy Lechuga MD 12 weeks after her last BCG Thyroid (03/13/14) 9Complete [place]ide[place]. [place] [facility] [place]: multinodular goiter Transurethral Resection of Bladder Tumor, 2-5cm (05/27/13) Dr. Ruano Cystoscopy (04/29/15) Dr. Lechuga 02/05/18 repeat cysto Colonoscopy - IV Sedation (03/22/16) Cholecystectomy Extraction of cataract (08/10/15) Dr Mayte Gonzalez eye R eye 2/2 Extraction of cataract (07/27/15) Dr Mayte Gonzalez eye R eye 2/2 Biopsy of breast (07/09/76) both breasts, biopsies benign Appendectomy Family History Brother Brain cancer Cancer Of the Face Father , Age 65 Heart attack Heart disease Sister , Lung Disease Age 80 Cancer Mother , Age 73 Amyloid disease Social History (Reviewed 02/22/24 @ 23:19 by Aldo Masters Smoking/Tobacco Use Status: Former Tobacco Use tobacco type: cigarettes Quit Date: 07/09/87 Pack-years: 52 Tobacco: How many years used: 52 Quit status: quit date established Smoking risk assessment performed?: Yes Alcohol Intake: never Drug use: Never Substance use type: does not use Caregiver/Support person: No Household members: spouse Housing: house Number of Children: 6 number of grandchildren: 17 Communication Needs: None current occupation: Retired Pets and animals: Yes (2 cats) Pets and animals: cat(s) Do you think of yourself as: straight/heterosexual Current gender identity: female What is your relationship status?: How often do you talk on the phone with friends or family?: three or more times per week How often do you get together with friends or relatives?: never How often do you attend buddhism or yarsanism services?: 4 or more times per year Panel score (0-1 are the most socially isolated patients): 3 What type of physical activity do you participate in: other Details: [employer] Bike Duration: 15-30 minutes/day Astrid/Hoahaoism: Baptist Seatbelt use: always Helmet use: No Drive intox or ride w/intox tow driver: No Do you feel safe at home: Yes Do you feel safe in your relationship?: Yes
[2024-02-22] MEDS: Normal Saline Flush 10 ML SYR IVP (20:40)
[2024-02-22] MEDS: Acetaminophen 325 MG TAB 650 MG PO (21:35)
--- NOTE | 2024-02-22 21:45 | DI.CT_ITS ---
Exam(s) CT HEAD WO EXAM: CT HEAD WO CLINICAL HISTORY: headache. TECHNIQUE: Imaging Protocol: Axial computed tomography images with coronal and sagittal reformatted images were created and reviewed COMPARISON: CT CT HEAD WO from 02/19/2024 FINDINGS: Ventricles and Extra axial spaces: Normal in size and morphology for the patient's age. Hemorrhage: None. Cerebral parenchyma: Areas of decreased attenuation in the white matter consistent with chronic micro vascular ischemic disease. No acute territorial infarct is present. Midline shift: None. Brainstem/Cerebellum: Normal. Calvarium: Normal. Visualized Paranasal sinuses/Mastoids: Clear. Soft Tissues: Unremarkable. IMPRESSION: No acute intracranial process. RADIATION DOSE DELIVERED: Total DLP DATA REPOSITORY: All CT scans at this facility are submitted to the National Radiology Data Registry (NRDR) Dose Index Registry (DIR) with the [employer] (ACR). RADIATION OPTIMIZATION: All CT scans at this facility use at least one of these dose optimization te chniques: automated exposure control; mA and/or kV adjustment per patient size (includes targeted exa ms where dose is matched to clinical indication); or iterative reconstruction.
[2024-02-22] MEDS: niCARdipine 25 MG in Normal Saline 240 ML IV (23:02)
--- NOTE | 2024-02-22 23:04 | W.PM.HP.N ---
Date of service: 02/22/24 Time of Service: 23:04 Assessment and Plan Assessment and plan (1) Severe uncontrolled hypertension: Start date: 02/22/24 Status: Acute Assessment and plan: This is an 88-year-old lady with recurrent uncontrolled hypertension with home measurements escalating once again after recent hospitalization for same problem. She has finished a 24-hour urine evaluation with results pending and previously she did have a CT of the abdomen looking for mass but this was not a CTA looking at renal circulation which will be done this hospitalization. She is very anxious which makes blood pressure worse. She does have chronic atrial fibrillation with slight tachycardia on nicardipine infusion with was low-dose and now is being held with blood pressure only slightly elevated. This will be adjusted during the ICU evaluation with her metoprolol given in split doses and increased to 50 mg, 4 times daily, chlorthalidone will be increased to 25 mg daily with weaning and nicardipine as possible. Follow-up imaging as above evaluating for other etiologies of secondary hypertension. She is anxious. She is a full code. (2) Headache: Start date: 02/22/24 Status: Acute Assessment and plan: Patient does have a history of migraine headaches and this headache has resolved. CT of the head was once again negative for hemorrhage. Continue to follow clinically. No specific treatment. This may be associated with her hypertension being uncontrolled. Qualifiers: Headache type: other vascular headache Qualified Code(s): G44.1 - Vascular headache, not elsewhere classified (3) Hypothyroidism (acquired): Status: Chronic Assessment and plan: Patient's TSH was suppressed at last hospitalization and Synthroid is being held. TSH upon this admission was in the normal range. Levothyroxine will continue to be held. (4) Atrial fibrillation: Assessment and plan: Chronic and usually rate controlled slightly exacerbated with nicardipine infusion. Patient does have Watchman procedure and is not on anticoagulation. She has had atrial fibrillation since 2018. She had a previous TIA with left CVA in 2010 which may have been embolic and associated with PAF at that time, though she had no diagnosis. Last echocardiogram 2022 did show dilated atria with preserved left ventricular ejection fraction. Qualifiers: Atrial fibrillation type: paroxysmal Qualified Code(s): I48.0 - Paroxysmal atrial fibrillation History of Present Illness History of Present Illness Chief Complaint: Uncontrolled hypertension with flushing and right arm pain and headache Narrative: This is an 88-year-old female patient with recent hospital for severe hypertension treated with nicardipine infusion with an episode of sharp drop in her blood pressure and then eventually stabilized with modification and adjustment of previous home meds and sent home with stable and controlled BP. At that time she had a headache with no evidence of cerebral hemorrhage. Before that admission she had a history of severe headache 3 weeks prior and then a recurrent headache with flushing and nausea vomiting on the day she was admitted with severe hypertension. Since discharged and on evaluation this admission, she began to have recurrent symptoms of flushing with right arm discomfort and high blood pressure measurements but had no nausea or vomiting or chest pain and no headache with presentation to the ED. Her systolic blood pressure at this presentation to the ED was well above 200 and diastolic above 120. She recently did do a 24-hour urine for screening pheochromocytoma with results pending. CT of the abdomen during her last hospitalization did not reveal any adrenal tumors. In the ED the patient began to have a recurrent headache and repeat CT of the head revealed no acute hemorrhage. Her blood pressure was treated in the ED with IV metoprolol which was not bringing her blood pressure down and then she was once again initiated on nicardipine infusion at a low rate to be titrated slowly because of her recent sudden drop in blood pressure on same treatment. She was not having chest pain with negative troponins and she has had a problem with hypomagnesemia with low normal normal magnesium to be repleted with IV magnesium. Her potassium is normal and will be trended on chlorthalidone. Her home medications will be reconciled with increase in dosing and ongoing evaluation for secondary hypertension. We will proceed with CTA of the abdomen to evaluate renal artery blood flow. She will be admitted to the ICU. She is a full code. Review of Systems Narrative: 13 point review of systems positive for slight anxiety with her increased blood pressure and overtreatment with thyroid supplement with this being held presently, otherwise unrevealing or stable. She has had no weight with chronic nonpitting edema over lower extremities and chronic tactile pain in both legs from neuropathy. She is not diabetic. She is overweight. 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 Stroke (Chronic) Tricuspid valve insufficiency (Chronic) By cath 07 October 2020 Flushing (Acute) Heart palpitations (Acute) Anterior epistaxis (Chronic) Recurrent, responds to AgNO3 cautery Primary osteoarthritis of left knee (Acute) Contusion of left knee (Acute) Knee pain, left anterior (Acute) Mitral valve insufficiency (Chronic) Chest pain (Acute) Neoplasm of large intestine (Acute 06/21/05) H/O POLYPS ON FIRST COLON IN [place]; NEG ON REPEAT; [place] DR BLAKE FOUND ONE HYPERPLASTIC POLYP Leg pain, left (Chronic 11/03/16) Acute midline low back pain without sciatica (Chronic 05/18/17) Labile blood pressure (Chronic) Medical History Asthma Presence of Watchman left atrial appendage closure device (~10/2020) 10/07/20 [facility] following cardiac cath Periodic limb movement disorder (PLMD) Essential tremor Peripheral neuropathy, idiopathic (06/08/98) KNEE DISTAL, BILAT; INTERMITTENT BURNING, SLEEPS BETTER AT NIGHT IF SHE HAS WORN TIGHT SOCKS DAYTIME; nortriptyline effective; Dr Oneill; worse balance 02/2015 Gastroesophageal reflux disease (07/05/04) RESPONDS TO OMEPRAZOLE, BEFORE DINNER; ESOPHAGITIS ON EGD AT [facility]: 07/05/04; gastritis and diffuse esophagitis; DR MERCADO REC [place] PPI RX Hyperlipidemia (10/21/10) dyslipidemia: low HDL; statin begun by neuro 10/2010 after her TIA, along with Clopidogrel; target LDL<100 and HDL>40 Cerebrovascular disease, unspecified (10/07/10) 10/2010; small L THALAMIC CVA ON MRI, [facility], RX Clopidogrel and Statin indefinitely Essential hypertension (06/23/13) Bladder cancer (05/19/15) Dr. Guy Lechuga- non-invasive papillary urothellal carcinoma, low grade. Atrial fibrillation Surgical History H/O cardiac catheterization (10/07/20) [facility]-L atrial appendage closure for afib cystourethroscopy (08/07/17) Dr Biran Lechuga H-extensive recurrent bladder tumor encompassint entire L hemitrigone and posterolateral bladder wall and neck URO cysto (10/22/15) Guy Lechuga MD 12 weeks after her last BCG Thyroid (03/13/14) 9Complete thyroidectomy Dr. Sanchez [facility], path: multinodular goiter Transurethral Resection of Bladder Tumor, 2-5cm (05/27/13) Dr. Ruano Cystoscopy (04/29/15) Dr. eLchuga 02/05/18 repeat cysto Colonoscopy - IV Sedation (03/22/16) Cholecystectomy Extraction of cataract (08/10/15) Dr Mayte Gonzalez eye R eye 2/2 Extraction of cataract (07/27/15) Dr Mayte Gonzalez eye R eye 2/2 Biopsy of breast (07/09/76) both breasts, biopsies benign Appendectomy Family History Brother Brain cancer Cancer Of the Face Father , Age 65 Heart attack Heart disease Sister , Lung Disease Age 80 Cancer Mother , Age 73 Amyloid disease Social History Smoking/Tobacco Use Status: Former Tobacco Use tobacco type: cigarettes Quit Date: 07/09/87 Pack-years: 52 Tobacco: How many years used: 52 Quit status: quit date established Smoking risk assessment performed?: Yes Alcohol Intake: never Drug use: Never Substance use type: does not use Caregiver/Support person: No Household members: spouse Housing: house Number of Children: 6 number of grandchildren: 17 Communication Needs: None current occupation: Retired Pets and animals: Yes (2 cats) Pets and animals: cat(s) Do you think of yourself as: straight/heterosexual Current gender identity: female What is your relationship status?: How often do you talk on the phone with friends or family?: three or more times per week How often do you get together with friends or relatives?: never How often do you attend latter-day or anabaptism services?: 4 or more times per year Panel score (0-1 are the most socially isolated patients): 3 What type of physical activity do you participate in: other Details: Recumbant Bike Duration: 15-30 minutes/day Astrid/Baptism: Shinto Seatbelt use: always Helmet use: No Drive intox or ride w/intox show horse driver: No Do you feel safe at home: Yes Do you feel safe in your relationship?: Yes Meds Allergies and Home Medications Allergies Allergy/AdvReac Type Severity Reaction Status Date / Time guaifenesin (From Mucinex) AdvReac Intermediate diarrhea Verified 02/19/24 10:19 amoxicillin (From Augmentin) AdvReac Diarrhea Verified 02/19/24 10:19 clavulanic acid (From AdvReac Diarrhea Verified 02/19/24 10:19 Augmentin) tramadol AdvReac constipatio Verified 02/19/24 10:19 n Home Medications ?Medication ?Instructions ?Recorded ?Confirmed ?Type cholecalciferol (vitamin D3) 25 1,000 unit PO DAILY 09/17/12 02/22/24 History mcg (1,000 unit) tablet psyllium husk (aspartame) 3.4 1 oz PO HS 05/27/13 02/22/24 History gram/5.8 gram oral powder (Metamucil [facility] Fiber) cyanocobalamin (vitamin B-12) 500 500 mcg PO DAILY 11/19/15 02/22/24 History mcg tablet (Vitamin B-12) acetaminophen 500 mg tablet 1,000 mg PO Q4H PRN 03/16/17 02/22/24 History nitroglycerin 0.3 mg sublingual 0.3 mg sublingual Q5-15M PRN chest 09/09/19 02/22/24 Rx tablet (Nitrostat) pain/esophageal spasm 1 day #25 tab-caps aspirin 81 mg chewable tablet 81 mg PO DAILY 10/26/20 02/22/24 History (Gerald Chewable Low Dose Aspirin) triamcinolone acetonide 55 mcg 1 spray intranasal DAILY #16.9 mL 03/02/23 02/22/24 Rx nasal spray aerosol (Nasacort) omeprazole 20 mg capsule,delayed 20 mg PO BID PRN heart burn #180 05/24/23 02/22/24 Rx release tabs gabapentin 600 mg tablet See Rx Instructions PO BID #270 10/01/23 02/22/24 Rx tabs simvastatin 10 mg tablet 10 mg PO HS #90 tab-caps 10/16/23 02/22/24 Rx loratadine .Route 01/31/24 02/22/24 History chlorthalidone 25 mg tablet 12.5 mg (1/2 x 25 mg) PO DAILY #14 02/20/24 02/22/24 Rx tabs chlorthalidone 25 mg tablet 12.5 mg (1/2 x 25 mg) PO DAILY #45 02/20/24 02/22/24 Rx tabs losartan 50 mg tablet 50 mg PO BID #180 tabs 02/20/24 02/22/24 Rx metoprolol succinate 100 mg 100 mg PO DAILY #14 tabs 02/20/24 02/22/24 Rx tablet,extended release 24 hr metoprolol succinate 100 mg 100 mg PO DAILY #90 tabs 02/20/24 02/22/24 Rx tablet,extended release 24 hr levothyroxine 75 mcg tablet 75 mcg PO DAILY 90 days #90 tabs 02/22/24 02/22/24 Rx Exam Narrative Exam Narrative: General: Patient is moderately obese, anxious with facial flushing with good eye contact and in no acute distress. She does have pressured speech. She is alert and oriented x 3. HEENT: Normocephalic, eyes with pupils equal and react to light symmetrically, extraocular movement intact and sclera anicteric. Oropharynx moist Koza and fair dentition. Neck: Supple without JVD. Back: Slightly kyphotic without CVA tenderness. Lungs: Aeration normal and clear to auscultation percussion without focalizing rales or rhonchi. No expiratory wheeze. Breast: Exam deferred. Heart: Irregularly irregular rhythm with tachycardic rate at the time of my exam. No murmurs or gallops appreciated. Abdomen: Obese contour, soft nontender to palpation no palpable hepatosplenomegaly. No auscultated abdominal bruits. Bowel sounds positive all quadrants. Genitalia/rectal: Exam deferred. Extremities: Nonpitting edema both lower extremities with loss of hair and slightly shiny skin but no atrophy and no hyperpigmentation. Extremity tender to palpation over legs. Good cap refill. Neuro: Cranial nerves II through XII gross intact, no focal motor deficits and no tremor. Psych: Anxious affect with normal mood. Pressured speech. No abnormal thought processes. Remote and recent memory intact. Results Imaging Imaging Studies: Exam: CT Head Without Contrast Exam date and time: 02/22/2024 10:17 PM Age: 88 years old Clinical indication: Pain; Headache TECHNIQUE: Imaging protocol: Computed tomography of the head without contrast. COMPARISON: CT HEAD WO 02/19/2024 11:52 AM FINDINGS: Brain: There are areas of diminished density in the white matter bilaterally . Findings likely represent foci of chronic small vessel ischemic changes. Cerebrum is otherwise unremarkable. Garcia-white matter differentiation is intact and otherwise unremarkable. No mass lesion is seen. No mass effect or midline shift. Thalamus is unremarkable. No evidence of subdural or epidural bleed. No evidence of intraparenchymal hemorrhage. Cerebellum is unremarkable. No posterior fossa mass lesion or mass effect. No pathologic edema. No evidence of cerebellar hemorrhage. Cerebral ventricles: No ventriculomegaly. Paranasal sinuses: Visualized sinuses are unremarkable. No fluid levels. Mastoid air cells: Visualized mastoid air cells are well aerated. Bones: Unremarkable. No acute fracture. Soft tissues: Unremarkable. IMPRESSION: 1. No evidence of acute pathology. 2. Areas of diminished density in bilateral white matter likely representing chronic small vessel ischemic changes. EXAM: XR CHEST 2V PA LATERAL CLINICAL HISTORY: hypertensive emergency - palpitations TECHNIQUE: 2D digital imaging was performed of the chest. Two images were obtained. PA and lateral views were obtained. COMPARISON: CR XR CHEST 2V PA LATERAL from 07/30/2023 CR XR PORTABLE CHEST AP from 08/03/2023 FINDINGS: MEDIASTINUM: Normal. HEART: Normal. Note is again made of a left atrial appendage cage. PULMONARY VASCULATURE: Normal. LUNGS: Clear. PLEURAL SPACE: No pleural effusion or pneumothorax. BONE:Within normal limits for the patient's age. OTHER FINDINGS:There is unchanged mild elevation of the right hemidiaphragm. IMPRESSION: No acute pulmonary findings. EXAM: CT ABDOMEN PELVIS W CLINICAL HISTORY: HTN - flushing, ?pheochromocytoma TECHNIQUE: Imaging Protocol: Axial computed tomography images with coronal and sagittal reformatted images were created and reviewed. CONTRAST MATERIAL: Intravenous: Omnipaque 350 Contrast volume:100 mL Oral: No COMPARISON: CT CT ABDOMEN PELVIS W from 04/05/2023 FINDINGS: ABDOMEN: Lung Bases: No acute findings are seen in the lung bases. There is mild atelectasis. Liver: Normal density. There is a stable cyst in the right lobe of the liver. No suspicious hepatic masses are seen. Portal, Superior Mesenteric, and Splenic Veins: Unremarkable. Gallbladder and Biliary Tract: Status post cholecystectomy. There is unchanged intra and extrahepatic biliary ductal dilatation. The common duct measures up to 1.1 cm. Pancreas: Normal density, no abnormal calcifications or inflammatory process. Spleen: Normal. Adrenals: No masses seen. Kidneys: Normal size, contour and axis. No radiodense stones or obstructive uropathy. There is a stable simple right renal cyst. No follow-up is recommended. Abdominal Aorta: Abdominal portion non-dilated. Atherosclerotic calcification is present. Bowel: There is diverticulosis of the colon but no evidence of acute diverticulitis. There is no evidence of bowel obstruction or bowel wall thickening. Patient appears to be status post appendectomy. Peritoneal Cavity: No ascites, collection or mesenteric inflammatory response. No free air. Lymph Nodes: Within normal limits. Bones: Within normal limits for the patient's age. There is an old L2 compression fracture deformity. Soft Tissues: Unremarkable. PELVIS: Bladder: Symmetric distention, no gross wall thickening. Reproductive Organs: Unremarkable as visualized. Lymph Nodes: Within normal limits. Bones: Within normal limits for the patient's age. IMPRESSION: 1. No acute abdominal or pelvic process. 2. No retroperitoneal or adrenal mass. 3. Incidental findings in the abdomen and pelvis as described above. Date: 03/07/23 EXAM: Comprehensive 2D, Doppler, and color-flow Echocardiogram Patient Location: Out-Patient Beater Engineer Helper: Gildardo Marie RDCS (AE) Indications: afib, mitral and tricuspid regurg, paroxysmal afib Other Information Study Quality: Good Conclusion Normal left ventricular wall thickness and chamber size. Ejection fraction is 55 to 60%. No segmental wall motion abnormalities were identified Right ventricle is mildly dilated, grossly normal systolic function Both atria are moderately enlarged Trileaflet aortic valve without stenosis or regurgitation Normal mitral valve with moderate regurgitation Mild tricuspid valve with moderate to severe regurgitation. Estimated right ventricular systolic pressure is 35 mmHg Patient was in atrial fibrillation, rate controlled throughout with [id number] variation Labs 02/23/24 05:51 02/23/24 05:31 Labs: Laboratory Results - last 24 hr 02/22/24 18:54 WBC 8.32 RBC 4.78 Hgb 15.5 Hct 45.6 MCV 95 MCH 32.4 MCHC 34.0 RDW 12.6 Plt Count 303 MPV 9.0 Immature Gran % 0.2 Neutrophils % 64.3 Lymphocytes % 21.9 Monocytes % 9.9 Eosinophils % 3.1 Basophils % 0.6 Nucleated RBC % 0.0 Absolute Neutrophils 5.35 Absolute Lymphocytes 1.82 Absolute Monocytes 0.82 H Absolute Eosinophils 0.26 Absolute Basophils 0.05 Sodium 133 L Potassium 3.9 Chloride 96 L Carbon Dioxide 29.9 Anion Gap 7.1 BUN 8 Creatinine 0.7 Est GFR (CKD-EPI 2020) 83.13 Glucose 97 Calcium 9.4 Magnesium 1.8 Total Bilirubin 0.52 AST 27 ALT 24 Alkaline Phosphatase 61 Troponin I < 50 Total Protein 8.0 Albumin 4.0 TSH 0.41 Last Vital Signs Pulse 82 02/22/24 23:01 Resp 23 02/22/24 23:01 BP 203/108 H 02/22/24 23:01 Pulse Ox 97 02/22/24 23:01 Time Spent Time spent with Patient: >75 minutes Time was spent: preparing to see the patient(eg.review tests), obtaining and/or reviewing separately otained hiistory, ordering medications,tests, procedures, indepentently interpreting results, counseling the patient and care coordination
--- NOTE | 2024-02-22 23:18 | DI.VRAD_ITS ---
PROCEDURE INFORMATION: Exam: CT Head Without Contrast Exam date and time: 02/22/2024 10:17 PM Age: 88 years old Clinical indication: Pain; Headache TECHNIQUE: Imaging protocol: Computed tomography of the head without contrast. COMPARISON: CT HEAD WO 02/19/2024 11:52 AM FINDINGS: Brain: There are areas of diminished density in the white matter bilaterally . Findings likely represent foci of chronic small vessel ischemic changes. Cerebrum is otherwise unremarkable. Garcia-white matter differentiation is intact and otherwise unremarkable. No mass lesion is seen. No mass effect or midline shift. Thalamus is unremarkable. No evidence of subdural or epidural bleed. No evidence of intraparenchymal hemorrhage. Cerebellum is unremarkable. No posterior fossa mass lesion or mass effect. No pathologic edema. No evidence of cerebellar hemorrhage. Cerebral ventricles: No ventriculomegaly. Paranasal sinuses: Visualized sinuses are unremarkable. No fluid levels. Mastoid air cells: Visualized mastoid air cells are well aerated. Bones: Unremarkable. No acute fracture. Soft tissues: Unremarkable. IMPRESSION: 1. No evidence of acute pathology. 2. Areas of diminished density in bilateral white matter likely representing chronic small vessel ischemic changes. Dictated and Authenticated by: Joshua Hendrix MD. Ordering:MARIE Bang MD
[2024-02-23] VITALS (85 sets, daily range): BP systolic 77–186; BP diastolic 48–114; PULSE 60–105; RESP 12–27; TEMP 36.5–37.2; O2SAT 92–97
[2024-02-23] MEDS: MAGNESIUM SULFATE 2 GM/50 ML BAG IVINF (01:28)
[2024-02-23] MEDS: Simvastatin 10 MG TAB PO ×2 (01:47→20:42)
[2024-02-23] MEDS: Metoprolol 50 MG TAB PO ×4 (01:47→20:43)
[2024-02-23] MEDS: Acetaminophen 325 MG TAB PO (04:16)
[2024-02-23 06:53] LABS: HGB 15.4 g/dL (11.2-15.7); MCH 32.2 pg (27.0-33.0); MCHC 34.2 % (32.0-36.0); MCV 94 fL (80-95); MPV 9.5 fL (8.0-11.0); Platelet Count 316 10^3/uL (130-400); RBC 4.78 10^6/uL (3.93-5.22); RDW-SD 44.9 fL; WBC 7.12 10^3/uL (4.4-10.8)
[2024-02-23 07:18] LABS: ALT 26 U/L (14-59); AST 28 U/L (15-37); Albumin 3.8 g/dL (3.4-5.0); Alkaline Phosphatase 60 U/L (46-116); Anion Gap 11.7 mmol/L (3-11); BUN 7 mg/dL (7-18); Bilirubin, Total 0.81 mg/dL (0.2-1.0); CO2 26.3 mmol/L (21.0-32.0); CREATININE 0.7 mg/dL (0.55-1.02); Calcium 9.1 mg/dL (8.5-10.1); Chloride 95 mmol/L (98-107); Estimated GFR 83.13 (mL/min/1.73m2); Glucose 89 mg/dL (74-106); Magnesium 2.2 mg/dL (1.8-2.4); Potassium 3.4 mmol/L (3.5-5.1); Sodium 133 mmol/L (136-145); Total Protein 7.7 g/dL (6.4-8.2)
--- NOTE | 2024-02-23 08:00 | DI.CT_ITS ---
Exam(s) CT ABDOMEN/RENAL CTA EXAM: CT ABDOMEN/RENAL CTA CLINICAL HISTORY: Hypertensive crisis. TECHNIQUE: Imaging Protocol: Axial CT angiography was performed with multi-slice acquisition and mul ti-planar and/or 3D reconstructions. CONTRAST MATERIAL: Intravenous: Omnipaque 350 Contrast volume:100 Oral: No COMPARISON: CT CT ABDOMEN PELVIS W from 02/19/2024 FINDINGS: Vascular Structures: Abdomen: Celiac [place]/SMA: There is atherosclerotic calcification seen at the origins of the SMA and celiac ax is. No occlusion or significant stenosis results. Renal Arteries: No evidence of occlusion. Mild atherosclerotic calcification is seen at the origins. Aorta: No aneurysm or dissection. Atherosclerotic calcification is present. No occlusion or signif icant stenosis. Pelvis: Proximal Common iliac Arteries: Atherosclerotic calcification is seen. No occlusion or significant stenosis. Soft Tissues: Liver: Normal density. There is a stable cyst in the liver. No suspicious hepatic masses are seen. Gallbladder and biliary tract: Status post cholecystectomy. Stable size of the extrahepatic common b ile duct. This likely is reflecting post cholecystectomy state. Pancreas: Normal density, no abnormal calcifications or inflammatory process. Spleen: Normal. Kidneys: Normal size, contour and axis. No radiodense stones or obstructive uropathy. There is a stab le right renal cyst. No follow-up is recommended. Adrenal glands: No masses seen. Aorta: Abdominal portion non-dilated. Bowel: There is diverticulosis of the colon without evidence of acute diverticulitis. There is no ev idence of bowel obstruction or bowel wall thickening. Peritoneal cavity: No ascites, collection or mesenteric inflammatory response. No pneumoperitoneum. Bones: Within normal limits. There is an old L2 compression fracture deformity. Degenerative changes are seen in the spine. IMPRESSION: 1. Moderate atherosclerotic disease is seen in the abdomen. 2. No occlusion or significant stenosis. Specifically, no occlusion or significant stenosis is seen in the renal arteries. 3. No acute abdominal process. RADIATION DOSE DELIVERED: Total DLP DATA REPOSITORY: All CT scans at this facility are submitted to the National Radiology Data Registry (NRDR) Dose Index Registry (DIR) with the [employer] (ACR). RADIATION OPTIMIZATION: All CT scans at this facility use at least one of these dose optimization te chniques: automated exposure control; mA and/or kV adjustment per patient size (includes targeted exa ms where dose is matched to clinical indication); or iterative reconstruction.
[2024-02-23] MEDS: Losartan 50 MG TAB PO ×2 (08:04→17:56)
[2024-02-23] MEDS: Cholecalciferol (Vitamin D3) 1,000 UNIT TAB 1000 UNITS PO (08:05)
[2024-02-23] MEDS: Chlorthalidone 25 MG TAB PO (08:05)
[2024-02-23] MEDS: Cyanocobalamin 500 MCG TAB PO (08:05)
[2024-02-23] MEDS: Aspirin 81 MG CHEW PO (08:05)
[2024-02-23] MEDS: Normal Saline Flush 10 ML SYR IVP ×3 (08:06→20:43)
[2024-02-23] MEDS: Normal Saline - Diluent 50 ML VIAL IJ (08:49)
[2024-02-23] MEDS: Omnipaque 350 MG/ML 100 ML BTL IJ (08:51)
--- NOTE | 2024-02-23 09:28 | PGE_ITS ---
Date of Service Date of service: 02/23/24 Time of Service: 09:28 Assessment and Plan Assessment and plan (1) Hypertensive urgency: Status: Acute Assessment and plan: -presented to the ED with systolics >200, mild headache and right arm pain but otherwise without signs of end-organ damage -had recent hospitalization only a few days ago for similarly acutely elevated BP -patient also recently completed 24hr urine collection for metanephrines and evaluation of possible Pheochromocytoma, will follow-up results -admitting physician also ordered renal CT, will follow-up results -patient had been on nicardipine drip overnight but has since been discontinued as systolic BPs have been in the 160's -will continue to monitor blood pressure and adjust PO meds as needed -continue home antihypertensives including chlorthalidone and losartan (2) Headache: Start date: 02/22/24 Status: Acute Assessment and plan: -secondary to hypertensive urgency as noted above Qualifiers: Headache type: other vascular headache Qualified Code(s): G44.1 - Vascular headache, not elsewhere classified (3) Hypothyroidism (acquired): Status: Chronic Assessment and plan: -Patient's TSH was suppressed at last hospitalization and Synthroid is being held. -TSH upon this admission was in the normal range. -Levothyroxine will continue to be held. (4) Atrial fibrillation: Assessment and plan: -Chronic and usually rate controlled slightly exacerbated with nicardipine infusion. -Patient does have Watchman procedure and is not on anticoagulation. -will continue home toprol-XL Qualifiers: Atrial fibrillation type: paroxysmal Qualified Code(s): I48.0 - Paroxysmal atrial fibrillation Subjective Subjective Interval history since last seen: Patient states that she is feeling better today then she has over the last few weeks. However, she expresses understandable frustration while acutely dealing with her elevated blood pressure. She understands the plan to have renal CT today and to continue to monitor her blood pressure now that she is off of the nicardipine drip. Exam Narrative Exam Narrative: well appearing older female laying in bed in noacute distress, AOx4, heart irregularly irregular, rate ~60bpm, lungs CTAB, abdomen soft, non-tender, non- distended Objective Last Vital Signs Temp 98.2 F 02/23/24 00:43 Pulse 86 02/23/24 07:31 Resp 20 02/23/24 07:31 BP 168/92 H 02/23/24 07:31 Pulse Ox 94 02/23/24 05:31 Laboratory Results - last 24 hr 02/22/24 02/23/24 02/23/24 18:54 05:31 05:51 WBC 8.32 7.12 RBC 4.78 4.78 Hgb 15.5 15.4 Hct 45.6 45.0 MCV 95 94 MCH 32.4 32.2 MCHC 34.0 34.2 RDW 12.6 13.0 Plt Count 303 316 MPV 9.0 9.5 Immature Gran % 0.2 Neutrophils % 64.3 Lymphocytes % 21.9 Monocytes % 9.9 Eosinophils % 3.1 Basophils % 0.6 Nucleated RBC % 0.0 Absolute Neutrophils 5.35 Absolute Lymphocytes 1.82 Absolute Monocytes 0.82 H Absolute Eosinophils 0.26 Absolute Basophils 0.05 Sodium 133 L 133 L Potassium 3.9 3.4 L Chloride 96 L 95 L Carbon Dioxide 29.9 26.3 Anion Gap 7.1 11.7 H BUN 8 7 Creatinine 0.7 0.7 Est GFR (CKD-EPI 2020) 83.13 83.13 Glucose 97 89 Calcium 9.4 9.1 Magnesium 1.8 2.2 Total Bilirubin 0.52 0.81 AST 27 28 ALT 24 26 Alkaline Phosphatase 61 60 Troponin I < 50 Total Protein 8.0 7.7 Albumin 4.0 3.8 TSH 0.41 Time Spent with Patient Time Spent with Patient: >50 minutes Time was spent: preparing to see the patient(eg.review tests), obtaining and/or reviewing separately otained hiistory, ordering medications,tests, procedures, referring, communicating with other health health care analyst, indepentently interpreting results, counseling the patient and care coordination
--- NOTE | 2024-02-23 10:07 | INITIAL_ITS ---
Date of service: 02/23/24 Time of Service: 10:07 Care Management Initial Assmt Initial Assessment Reason for Hospitalization: Hypertensive crisis with headache Functional Status/Living Situation Patient Presentation: Elvi was lying in bed when CM met with her. She was pleasant and engaged well in conversation. She stated that she was hoping to be discharged today, but is comfortable remaining at [facility] if MD is not ready to discharge her home. CM discussed her readmission in a short period of time; she stated that she felt ready for discharge, and had follow up scheduled, but returned to the ED when her symptoms presented again. Per MD, Elvi was scheduled to have a CT of her kidneys this morning, and her medications are being adjusted. CM will continue to follow. Town of Residence: [place] Resides with: Spouse Significant Other/Family: Local Caregiver/Guardian: Isabella's children fund caregiver/homemaker services for them, 3x/week on , , . Natural Supports: , Reagan Sister in law, Suzie Neighbor, Morgan, provides transportation and runs errands Elvi has six children and Reagan has four; they both have lost a son. Per report, Elvi keeps in touch with the remaining eight children, who live out of state. Employment Status: Retired Instrumental Activities of Daily Living (ADLs): Independent Medications Medication Management: No Issues/Barriers identified Physical Functioning/Mobility Assistive Device: Cane-outside Walker-inside Advance Directives Advance Directives: Do you have an Advance Directive: Y 09/18/22 09:51 AD On File at [facility]: Y 09/18/22 09:51 Date Asked 01/31/24 01/31/24 18:14 AD Date Reviewed 02/19/24 02/19/24 10:37 COLST On File at [facility] COLST Date Scanned Code Status Resuscitation Status Full Code Insurance Coverage/Financial Issues Insurance: [facility] supplement [facility] Care Team Visit Care Team Role Provider Type Elvis Muñoz DO Primary Care Provider OSTEOPATHIC DOCTOR Merritt Raygoza NP Emergency Provider NURSE PRACTITIONER Aldo Gregg Admit Provider NON-[facility] STAFF PHYSICIAN Attending Provider Discharge Potential Discharge Needs: PCP F/U Appt Anticipated Barriers to Discharge: None Identified Patient/Family Education Needs: Review discharge instructions, discuss Ask Me Three Transportation: Private vehicle Plan: Anticipate Elvi will return home once medically cleared. She will transport via private vehicle by family. She will follow up with her PCP and discharge plan of care. CM will continue to follow. 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 Stroke (Chronic) Tricuspid valve insufficiency (Chronic) By cath 07 October 2020 Flushing (Acute) Heart palpitations (Acute) Anterior epistaxis (Chronic) Recurrent, responds to AgNO3 cautery Primary osteoarthritis of left knee (Acute) Contusion of left knee (Acute) Knee pain, left anterior (Acute) Mitral valve insufficiency (Chronic) Chest pain (Acute) Neoplasm of large intestine (Acute 06/21/05) H/O POLYPS ON FIRST COLON IN [place]; NEG ON REPEAT; [place] DR BLAKE [employer] [facility] HYPERPLASTIC POLYP Leg pain, left (Chronic 11/03/16) Acute midline low back pain without sciatica (Chronic 05/18/17) Labile blood pressure (Chronic) Medical History Asthma Presence of Watchman left atrial appendage closure device (~10/2020) [place] [facility] [place] Periodic limb movement disorder (PLMD) Essential tremor Peripheral neuropathy, idiopathic (06/08/98) KNEE DISTAL, BILAT; INTERMITTENT BURNING, SLEEPS BETTER AT NIGHT IF SHE HAS WORN TIGHT SOCKS DAYTIME; nortriptyline effective; Dr Oneill; worse balance 02/2015 Gastroesophageal reflux disease (07/05/04) RESPONDS TO OMEPRAZOLE, BEFORE DINNER; [place]HAGITIS [place] [facility] [place]; gastritis and diffuse esophagitis; DR MERCADO REC [place] PPI RX Hyperlipidemia (10/21/10) dyslipidemia: low HDL; statin begun by neuro 10/2010 after her TIA, along with Clopidogrel; target LDL<100 and HDL>40 Cerebrovascular disease, unspecified (10/07/10) 10/2010; small L THALAMIC CVA [place] [facility] [place] Clopidogrel and Statin indefinitely Essential hypertension (06/23/13) Bladder cancer (05/19/15) Dr. Guy Lechuga- non-invasive papillary urothellal carcinoma, low grade. Atrial fibrillation Surgical History H/O cardiac catheterization (10/07/20) [facility] [place] atrial appendage closure for afib cystourethroscopy (08/07/17) Dr Brian Lechuga [facility]-extensive recurrent bladder tumor encompassint entire L hemitrigone and posterolateral bladder wall and neck URO cysto (10/22/15) Guy Lechuga MD 12 weeks after her last BCG Thyroid (03/13/14) 9Complete thyroidectomy Dr. Sanchez [facility] [place]: multinodular goiter Transurethral Resection of Bladder Tumor, 2-5cm (05/27/13) Dr. Ruano Cystoscopy (04/29/15) Dr. Lechuga 02/05/18 repeat cysto Colonoscopy - IV Sedation (03/22/16) Cholecystectomy Extraction of cataract (08/10/15) Dr Hu L eye R eye 2/2 Extraction of cataract (07/27/15) Dr Hu L eye R eye 2/2 Biopsy of breast (07/09/76) both breasts, biopsies benign Appendectomy Family History Brother Brain cancer Cancer Of the Face Father , Age 65 Heart attack Heart disease Sister , Lung Disease Age 80 Cancer Mother , Age 73 Amyloid disease Social History Smoking/Tobacco Use Status: Former Tobacco Use tobacco type: cigarettes Quit Date: 07/09/87 Pack-years: 52 Tobacco: How many years used: 52 Quit status: quit date established Smoking risk assessment performed?: Yes Alcohol Intake: never Drug use: Never Substance use type: does not use Caregiver/Support person: No Household members: spouse Housing: house Number of Children: 6 number of grandchildren: 17 Communication Needs: None current occupation: Retired Pets and animals: Yes (2 cats) Pets and animals: cat(s) Do you think of yourself as: straight/heterosexual Current gender identity: female What is your relationship status?: How often do you talk on the phone with friends or family?: three or more times per week How often do you get together with friends or relatives?: never How often do you attend samaritan or congregational services?: 4 or more times per year Panel score (0-1 are the most socially isolated patients): 3 What type of physical activity do you participate in: other Details: Recumbant Bike Duration: 15-30 minutes/day Astrid/Jew: [employer] Seatbelt use: always Helmet use: No Drive 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 Interview patient and/or Family Difficulty reaching your doctor or getting an office appt?: No Have you had trouble purchasing/ or taking medication?: No How do you take your medications and set up your pills?: independently Have you had trouble with getting meals at home?: No Did you feel ready for discharge when you left the last time: Yes Reason there were no orders at discharge: No services indicated Did you call your physician beore you came to the ED?: No ED visits How many ED visits in the past 12 months: 4 Assessment for Readmission Summary of readmission circumstances, based upon interviews: Elvi was hospitalized earlier this week for hypertension, and discharged home a few days prior to this admission. She reported that she felt ready for discharge, and did not have any needs at that time; she has private caregivers/homemakers that come to her home three days a week. She stated that her symptoms returned, therefore she presented at the ED, days after her discharge. She is comfortable staying at the hospital while her medications are adjusted, but is hopeful to return home soon. CM does not anticipate the need for further services at this time, if she continues to improve. SDOH(Care Management) Screening Will the Patient Participate in the Screening?: Yes Do you worry about having a steady place to live?: no Problems where you live: no known problems In the past 12 months, have you had to go without electric, gas, oil or water in your home?: no Have you or anyone in your house had to go without enough food to eat?: no Has lack of transportation kept you from medical appointments or from doing things needed for daily living?: yes Has anyone in your support network made you feel unsafe for any reason?: no Health Related Social Needs Health related social needs: transportation insecurity(Z59.82)
--- NOTE | 2024-02-23 10:33 | DI.VRAD_ITS ---
PROCEDURE INFORMATION: Exam: CTA Abdomen With Contrast Exam date and time: 02/23/2024 8:49 AM Age: 88 years old Clinical indication: Condition or disease; Other: Hypertensive crisis TECHNIQUE: Imaging protocol: Computed tomographic angiography of the abdomen with contrast. Exam focused on the arteries. 3D rendering (Not supervised by radiologist): MIP and/or 3D reconstructed images were created by the technologist. Contrast material: OMNIPAQUE 350; Contrast volume: 100 ml; Contrast route: INTRAVENOUS (IV); COMPARISON: CT ABDOMEN PELVIS W 02/19/2024 12:06 PM FINDINGS: Aorta: Moderate aortic atherosclerosis. No aneurysm or stenosis. Celiac trunk and mesenteric arteries: No occlusion or significant stenosis. Renal arteries: No occlusion or significant stenosis. Liver: Normal. No mass. Gallbladder and biliary ducts: Gallbladder is absent. Pancreas: Normal. No ductal dilation. Spleen: Normal. No splenomegaly. Adrenal glands: Normal. No mass. Kidneys and ureters: 15 mm right renal cyst. No renal calculus or obstruction. Stomach and bowel: Visualized small bowel is normal. Moderate amount of retained fecal material in the colon. Extensive diverticular disease in the left colon. Lymph nodes: Unremarkable. No enlarged lymph nodes. Intraperitoneal space: Unremarkable. No free air. No significant fluid collection. Bones/joints: Lumbar spondylosis. Soft tissues: Unremarkable. IMPRESSION: No acute findings. Dictated and Authenticated by: Rajendra Harrell MD. Ordering:KIRSTIE Carlson MD
[2024-02-23] MEDS: Enoxaparin 40 MG/0.4 ML SYR SC (10:48)
[2024-02-23] MEDS: Ondansetron 4 MG/2 ML VIAL IVP (17:55)
[2024-02-23] MEDS: Gabapentin 600 MG TAB PO (17:56)
[2024-02-23] MEDS: Gabapentin 600 MG TAB 1200 MG PO (20:42)
[2024-02-23] MEDS: Normal Saline 500 ML IV (22:37)
[2024-02-24] VITALS (48 sets, daily range): BP systolic 72–181; BP diastolic 45–100; PULSE 61–92; RESP 10–27; TEMP 36.2–36.8; O2SAT 93–95
[2024-02-24] MEDS: Normal Saline Flush 10 ML SYR IVP ×3 (01:19→19:34)
[2024-02-24 07:14] LABS: HCT 41.6 % (36.0-46.0); HGB 14.4 g/dL (11.2-15.7); MCH 32.8 pg (27.0-33.0); MCHC 34.6 % (32.0-36.0); MCV 95 fL (80-95); MPV 9.5 fL (8.0-11.0); Platelet Count 265 10^3/uL (130-400); RBC 4.39 10^6/uL (3.93-5.22); RDW-SD 45.5 fL; WBC 6.17 10^3/uL (4.4-10.8)
[2024-02-24 07:24] LABS: Anion Gap 8.7 mmol/L (3-11); BUN 14 mg/dL (7-18); CO2 28.3 mmol/L (21.0-32.0); CREATININE 0.8 mg/dL (0.55-1.02); Calcium 8.4 mg/dL (8.5-10.1); Chloride 95 mmol/L (98-107); Estimated GFR 70.83 (mL/min/1.73m2); Glucose 74 mg/dL (74-106); Potassium 3.2 mmol/L (3.5-5.1); Sodium 132 mmol/L (136-145)
[2024-02-24] MEDS: Cyanocobalamin 500 MCG TAB PO (08:11)
[2024-02-24] MEDS: Cholecalciferol (Vitamin D3) 1,000 UNIT TAB 1000 UNITS PO (08:11)
[2024-02-24] MEDS: Losartan 50 MG TAB PO ×2 (08:11→19:33)
[2024-02-24] MEDS: Aspirin 81 MG CHEW PO (08:11)
[2024-02-24] MEDS: Chlorthalidone 25 MG TAB PO (08:11)
[2024-02-24] MEDS: Metoprolol CR 50 MG TABCR 150 MG PO (08:19)
--- NOTE | 2024-02-24 08:38 | PGE_ITS ---
Date of Service Date of service: 02/24/24 Time of Service: 08:38 Assessment and Plan Assessment and plan (1) Hypertensive urgency: Status: Acute Assessment and plan: -presented to the ED for the second time in a week with systolics >200, mild headache and right arm pain but otherwise without signs of end-organ damage -patient also recently completed 24hr urine collection for 5-HIAA and catecholamines for evaluation of possible Pheochromocytoma or Carcinoid given flushing/GI symptoms, results pending -No signs of SERVANDO on renal CT -Was on nicardipine drip overnight 02/21-, not since. BP low while sleeping but normal now. -will continue to monitor blood pressure and adjust PO meds as needed -continue home antihypertensives metoprolol, chlorthalidone and losartan (out patient CLD dose corrected to 12.5 as she has issues with K+ running low) (2) Headache: Start date: 02/22/24 Status: Acute Assessment and plan: -secondary to hypertensive urgency as noted above, has resolved Qualifiers: Headache type: other vascular headache Qualified Code(s): G44.1 - Vascular headache, not elsewhere classified (3) Hypothyroidism (acquired): Status: Chronic Assessment and plan: -Patient's TSH was suppressed at last hospitalization and Synthroid is being held. -TSH upon this admission was in the normal range but still lower than ideal for her age. -Levothyroxine will continue to be held, resume at lower 75mcg dose as outpatient. (4) Atrial fibrillation: Assessment and plan: -Chronic and rate controlled with metoprolol (was on atenolol before previous admission). -Patient does have Watchman procedure and is not on anticoagulation. -getting higher overall metoprolol dose here 50mg QID or 200mg/day, will transition back to long acting at 150mg up from outpatient 100mg Qualifiers: Atrial fibrillation type: paroxysmal Qualified Code(s): I48.0 - Paroxysmal atrial fibrillation (5) Hypokalemia: Status: Acute Assessment and plan: replace orally, going back down on thiazide dose. (6) DVT prophylaxis: Status: Acute Assessment and plan: on enoxaparin Subjective Subjective Patient reports: feels better and voiding w/o difficulty Interval history since last seen: Feels better this morning after sleeping like log for 10 hours. She doesn't feel queasy or nauseous this morning, yesterday she vomited after lunch and vomit still had her breakfast in it. This was similar to what happened before her first admission. She doesn't have chest pain or SOB this morning. Exam Narrative Exam Narrative: well appearing older female laying in bed in noacute distress, AOx4, heart irregularly irregular, rate ~60bpm, lungs CTAB, abdomen soft, non-tender, non- distended. Extremities without pitting edema. Diffusely sensitive to touch, no focal tenderness. Objective Last Vital Signs Temp 36.5 C 02/24/24 08:23 Pulse 72 02/24/24 06:01 Resp 19 02/24/24 06:01 BP 112/57 L 02/24/24 06:01 Pulse Ox 93 02/24/24 05:22 Laboratory Results - last 24 hr 02/24/24 05:44 WBC 6.17 RBC 4.39 Hgb 14.4 Hct 41.6 MCV 95 MCH 32.8 MCHC 34.6 RDW 13.0 Plt Count 265 MPV 9.5 Sodium 132 L Potassium 3.2 L Chloride 95 L Carbon Dioxide 28.3 Anion Gap 8.7 BUN 14 Creatinine 0.8 Est GFR (CKD-EPI 2020) 70.83 Glucose 74 Calcium 8.4 L Time Spent with Patient Time Spent with Patient: >50 minutes Time was spent: preparing to see the patient(eg.review tests), obtaining and/or reviewing separately otained hiistory, ordering medications,tests, procedures, referring, communicating with other health health care sanitary technician, indepentently interpreting results, counseling the patient and care coordination
[2024-02-24] MEDS: Potassium Chloride 20 MEQ TABCR 40 MEQ PO (09:11)
[2024-02-24] MEDS: Loratidine 10 MG TAB PO (09:11)
[2024-02-24] MEDS: Enoxaparin 40 MG/0.4 ML SYR SC (11:57)
[2024-02-24] MEDS: Gabapentin 600 MG TAB PO (17:18)
[2024-02-24] MEDS: Gabapentin 600 MG TAB 1200 MG PO (19:33)
[2024-02-24] MEDS: Simvastatin 10 MG TAB PO (19:33)
[2024-02-25] VITALS (13 sets, daily range): BP systolic 117–160; BP diastolic 61–97; PULSE 61–93; RESP 13–22; TEMP 36.3–36.6; O2SAT 95–96
[2024-02-25 07:32] LABS: Anion Gap 9.2 mmol/L (3-11); BUN 16 mg/dL (7-18); CO2 27.8 mmol/L (21.0-32.0); CREATININE 0.7 mg/dL (0.55-1.02); Chloride 94 mmol/L (98-107); Estimated GFR 83.13 (mL/min/1.73m2); Glucose 85 mg/dL (74-106); Potassium 3.5 mmol/L (3.5-5.1); Sodium 131 mmol/L (136-145)
[2024-02-25] MEDS: Normal Saline Flush 10 ML SYR IVP (08:04)
[2024-02-25] MEDS: Chlorthalidone 25 MG TAB 12.5 MG PO (08:05)
[2024-02-25] MEDS: Metoprolol CR 50 MG TABCR 150 MG PO (08:05)
[2024-02-25] MEDS: Potassium Chloride 20 MEQ TABCR PO (08:06)
[2024-02-25] MEDS: Cholecalciferol (Vitamin D3) 1,000 UNIT TAB 1000 UNITS PO (08:06)
[2024-02-25] MEDS: Cyanocobalamin 500 MCG TAB PO (08:06)
[2024-02-25] MEDS: Loratidine 10 MG TAB PO (08:06)
[2024-02-25] MEDS: Losartan 50 MG TAB PO (08:07)
[2024-02-25] MEDS: Aspirin 81 MG CHEW PO (08:07)
--- NOTE | 2024-02-25 08:39 | W.PM.DS.N ---
Date of service: 02/25/24 Time of Service: 08:40 DS: Diagnosis Discharge Diagnosis (1) Hypertensive urgency: Status: Acute (2) Headache: Status: Acute (3) Hypothyroidism (acquired): Status: Chronic (4) Atrial fibrillation: (5) Hypokalemia: Status: Acute (6) DVT prophylaxis: Status: Acute Discharge Plan Disposition Patient Disposition: Home Condition: Good Discharge Details Reason For Visit: Hypertensive Crisis with Headache Admit Date/Time: 02/22/24 23:23 Admit Provider: Aldo Gregg Attending Provider: Aldo Gregg [facility] Hospital Course: 88 yo F with history of chronic atrial fibrillation s/p watchman, surgical hypothyroidism, and several weeks of blood pressure lability with episodes of severe hypertension associated with headaches. She was first admitted overnight 02/18 to 02/19. At that visit her thyroid levels were high and she was breifly treated with methimazole and propranolol. Her blood pressure was low overnight but stabilized and she was sent home on longer acting versions of her medications (chlorthalidone for HCTZ, losartan changed to BID, metoprolol succinatee replacing atenolol). She returned 02/21 with SBP in the 200s with headaches and flushing. Her head CT was again negative. She was on nicardipine drip in the ICU but was off of this after the first night. There was no ischemia on EKG and troponins. Renal function was stable, though she had mild hyponatremia. Her metoprolol was increased. Her CTA showed no renal artery stenosis She again had some overnight blood pressures with SBP in 80s, but higher during the day. She had another episode of vomiting and flushing 02/22, but this did not recur. Over the final 24 hours her blood pressure was more stable. Potassium was supplemented. She was discharged on 20mEq a day. BMP should be followed as per outpatient plan. Her thyroid supplement continue to be held. She was instructed to resume at the lower dose of 75mcg as an outpatient. 24 hour urine testing for pheochromocytoma and carcinoid syndrome was still pending at the time of discharge. Home Meds and New Rx's Prescriptions: New potassium chloride [Klor-Con M20] 20 mEq Tablet,Er Particles/Crystals 20 meq PO DAILY Qty: 30 0RF ondansetron 4 mg tablet,disintegrating 4 mg PO Q8H PRNQty: 10 1RF Continued aspirin [Gerald Chewable Aspirin] 81 mg tablet,chewable 81 mg PO DAILY triamcinolone acetonide [Nasacort] 55 mcg aerosol,spray 1 spray intranasal DAILY Qty: 16.9 2RF Rx Instructions: administer into each nostril nitroglycerin [Nitrostat] 0.3 mg tablet, sublingual 0.3 mg Sublingual Q5-15M PRN (Reason: chest pain/esophageal spasm) 1 Days Qty: 25 6RF cholecalciferol (vitamin D3) 1,000 UNIT tablet 1,000 unit PO DAILY cyanocobalamin (vitamin B-12) [Vitamin B-12] 500 MCG tablet 500 mcg PO DAILY acetaminophen 500 MG tablet 1,000 mg PO Q4H PRN omeprazole 20 mg capsule,delayed release(DR/EC) 20 mg PO BID PRN (Reason: heart burn) Qty: 180 3RF gabapentin 600 mg tablet See Rx Instructions PO BID Qty: 270 3RF Rx Instructions: 600mg at dinner and 1200mg HS PO twice a day; simvastatin 10 mg tablet 10 mg PO HS Qty: 90 3RF Rx Instructions: lower LDL cholesterol levothyroxine 75 mcg tablet 75 mcg PO DAILY MDD 75 mcg 90 Days Qty: 90 4RF Rx Instructions: Take one 75 mcg tablet once daily by mouth as directed Metamucil [facility] Fiber 660 GM powder 1 oz PO HS losartan 50 mg Tablet 50 mg PO BID Qty: 180 0RF chlorthalidone 25 mg Tablet 12.5 mg PO DAILY Qty: 45 1RF loratadine [Claritin] .Route Changed metoprolol succinate 100 mg tablet extended release 24 hr 150 mg PO DAILY Qty: 90 0RF Discontinued chlorthalidone 25 mg tablet 12.5 mg PO DAILY Qty: 14 0RF metoprolol succinate 100 mg tablet extended release 24 hr 100 mg PO DAILY Qty: 14 0RF Discharge Instructions Instructions: High blood pressure emergencies Additional Instructions: Your metoprolol (long acting version) was increased to 150mg per day. This is 1 1/2 tablets You have been in atrial fibrillation chronically for years. This did not change You can resume your thyroid supplement (levothyroxine) at the lower dose of 75mcg daily tomorrow morning. You should recheck the thyroid levels in 4-6 weeks. Your potassium has been low, related to your water pill. We sent a supplement to take daily. You should plan labs with your primary care to follow this up. We sent some [id number] nausea medication in case you get this again. Your special urine labs have not returned yet. You should follow up on this with Dr. Muñoz. Referrals: Elvis Muñoz DO [Primary Care Provider] - 02/26/24 11:15 am (Per patient.) Activity:: Activity as Tolerated Equipment/Supplies:: No Equipment Needed Diet:: Low Sodium Discharge Orders Discharge Orders: Discharge Order (Routine); Ordered 02/25/24 Ordered By: Yvan Tolbert Discharge Data Discharge Date/Time-TO BE ENTERED AT DEPARTURE: 02/25/24 10:35 DS: Summary Time Spent with Patient providing and/or coordinating discharge services: Greater than 30 minutes Status at Discharge Functional status at discharge: independent ambulation Overall status at discharge: patient is back to baseline Mental Status: mental status grossly normal Speech and Movement: speech and movement normal Mood: congruent mood Affect: normal affect Quality:SDOH Health Related Social Needs: Health related social needs transpo insecurity Exam Narrative Exam Narrative: well appearing older female laying in bed in noacute distress, AOx4 but didn't remember some things like the fact that she has chronic atrial fibrillation for years. heart irregularly irregular, rate 70s, lungs CTAB, abdomen soft, non-tender, non-distended. Lower extremities puffy but without pitting edema. Psych Mental Status: mental status grossly normal Speech and Movement: speech and movement normal Mood: congruent mood Affect: normal affect DS: Data Vitals/I&O Vitals and I&O: Vital Signs Temperature 36.3 C L 02/25/24 08:09 Temperature Source Tympanic 02/25/24 08:09 Pulse 79 02/25/24 08:02 Pulse Rhythm Irregular 02/25/24 08:09 Pulse 93 H 02/25/24 08:02 Respiratory Rate 21 02/25/24 08:02 Respiratory Effort Normal, Non-Labored 02/25/24 08:09 Respiratory Depth Normal 02/25/24 08:09 Respiratory Pattern Normal 02/25/24 08:09 Blood Pressure 150/97 H 02/25/24 08:02 Blood Pressure Mean 112 02/25/24 08:02 Blood Pressure Position Supine 02/24/24 08:23 Pulse Oximetry 95 02/25/24 06:01 Oxygen Delivery Method Room Air 02/25/24 05:01 Oxygen Flow Rate 0 02/25/24 05:01 Pain Level 0 02/25/24 08:09 Comment Darren Raygoza [employer] aware, gtt decreased 02/22/24 23:46 Intake & Output 02/24/24 02/24/24 02/25/24 11:59 23:59 11:59 Intake Total 740 / 1220 480 / 1220 430 / 430 Output Total 400 / 925 525 / 925 550 / 550 Balance 340 / 295 -45 / 295 -120 / -120 Weight 67.4 kg 67.8 kg Intake: IV 500 / 500 10 / 10 Oral 240 / 720 480 / 720 420 / 420 Output: Urine 400 / 925 525 / 925 550 / 550 Other: Urine Color Light Dipti Yellow Yellow Urine Appearance Clear Clear Clear Urine Odor Normal Normal Comment Nidia pads in place. Up to bedside commode. 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 Stroke (Chronic) Tricuspid valve insufficiency (Chronic) By cath 07 October 2020 Flushing (Acute) Heart palpitations (Acute) Anterior epistaxis (Chronic) Recurrent, responds to AgNO3 cautery Primary osteoarthritis of left knee (Acute) Contusion of left knee (Acute) Knee pain, left anterior (Acute) Mitral valve insufficiency (Chronic) Chest pain (Acute) Neoplasm of large intestine (Acute 06/21/05) H/O POLYPS ON FIRST COLON IN [place]; NEG ON REPEAT; [place] DR BLAKE FOUND ONE HYPERPLASTIC POLYP Leg pain, left (Chronic 11/03/16) Acute midline low back pain without sciatica (Chronic 05/18/17) Labile blood pressure (Chronic) Medical History Asthma Presence of Watchman left atrial appendage closure device (~10/2020) [place] [facility] [place] Periodic limb movement disorder (PLMD) Essential tremor Peripheral neuropathy, idiopathic (06/08/98) KNEE DISTAL, BILAT; INTERMITTENT BURNING, SLEEPS BETTER AT NIGHT IF SHE HAS WORN TIGHT SOCKS DAYTIME; nortriptyline effective; Dr Oneill; worse balance 02/2015 Gastroesophageal reflux disease (07/05/04) RESPONDS TO OMEPRAZOLE, BEFORE DINNER; ESOPHAGITIS [place] E[place] [facility] [place]; gastritis and diffuse esophagitis; DR MERCADO REC [place] PPI RX Hyperlipidemia (10/21/10) dyslipidemia: low HDL; statin begun by neuro 10/2010 after her TIA, along with Clopidogrel; target LDL<100 and HDL>40 Cerebrovascular disease, unspecified (10/07/10) 10/2010; small L THALAMIC CVA [place] [facility] [place] Clop[place] and Statin indefinitely Essential hypertension (06/23/13) Bladder cancer (05/19/15) Dr. Guy Lechuga- non-invasive papillary urothellal carcinoma, low grade. Atrial fibrillation Surgical History H/O cardiac catheterization (10/07/20) [facility] [place]age [place] for afib cystourethroscopy (08/07/17) Dr Brian Lechuga [facility]-extensive recurrent bladder tumor encompassint entire L hemitrigone and posterolateral bladder wall and neck URO cysto (10/22/15) Guy Lechuga MD 12 weeks after her last BCG Thyroid (03/13/14) 9Complete thyro[place] Sanchez [facility] [place]: multinodular goiter Transurethral Resection of Bladder Tumor, 2-5cm (05/27/13) Dr. Ruano Cystoscopy (04/29/15) Dr. Lechuga 02/05/18 repeat cysto Colonoscopy - IV Sedation (03/22/16) Cholecystectomy Extraction of cataract (08/10/15) Dr Mayte Gonzalez eye R eye 2/2 Extraction of cataract (07/27/15) Dr Mayte Gonzalez eye R eye 2/2 Biopsy of breast (07/09/76) both breasts, biopsies benign Appendectomy Family History Brother Brain cancer Cancer Of the Face Father , Age 65 Heart attack Heart disease Sister , Lung Disease Age 80 Cancer Mother , Age 73 Amyloid disease Social History Smoking/Tobacco Use Status: Former Tobacco Use tobacco type: cigarettes Quit Date: 07/09/87 Pack-years: 52 Tobacco: How many years used: 52 Quit status: quit date established Smoking risk assessment performed?: Yes Alcohol Intake: never Drug use: Never Substance use type: does not use Caregiver/Support person: No Household members: spouse Housing: house Number of Children: 6 number of grandchildren: 17 Communication Needs: None current occupation: Retired Pets and animals: Yes (2 cats) Pets and animals: cat(s) Do you think of yourself as: straight/heterosexual Current gender identity: female What is your relationship status?: How often do you talk on the phone with friends or family?: three or more times per week How often do you get together with friends or relatives?: never How often do you attend restorationism or church services?: 4 or more times per year Panel score (0-1 are the most socially isolated patients): 3 What type of physical activity do you participate in: other Details: Recumbant Bike Duration: 15-30 minutes/day Astrid/Temple: Tenriism Seatbelt use: always Helmet use: No Drive intox or ride w/intox pizza driver: No Do you feel safe at home: Yes Do you feel safe in your relationship?: Yes Time Spent with Patient Time Spent with Patient: <45 minutes Time was spent: preparing to see the patient(eg.review tests), obtaining and/or reviewing separately otained hiistory, ordering medications,tests, procedures, referring, communicating with other health nurse healthcare manager, indepentently interpreting results, counseling the patient and care coordination
--- NOTE | 2024-02-25 10:55 | PDOC.CMDIS ---
Date of service: 02/25/24 Time of Service: 10:55 LACE Index Scoring Tool Questions: Length of Stay (in days): 3 Was the patient admitted via the E.D.?: Yes E.D. Visits: 2 Answers: Total Score: 8 Risk of Readmission: Low Risk Care Management Discharge Plan Reason for Hospitalization: hypertensive crisis with headache Discharge Plan: Elvi returned home today with no new services. She was driven home via private vehicle by family. She will follow up with her PCP and discharge plan of care. She is happy to be going home. Patient/Family Education Needs: Review discharge instructions and limitations, discussion of self care needs including ask me three. SDOH Health Related Social Needs: Health related social needs transpo insecurity Health related social needs: transportation insecurity(Z59.82)
== END 2024-02-25 10:35 | disposition home or self-care (01) | DRG 305 ==
LOC: ER 02-23 → ICU 02-23 00:17
PROVIDERS: Family Medicine; Admitting Provider Family Medicine; Emergency Provider Nurse Practitioner Family; PCP Family Medicine; Visit Provider Family Medicine
DX: E87.1 Hypo-osmolality and hyponatremia (principal); I10 Essential (primary) hypertension; E83.42 Hypomagnesemia; I16.0 Hypertensive urgency; G44.1 Vascular headache, not elsewhere classified; I48.0 Paroxysmal atrial fibrillation; Z95.818 Presence of other cardiac implants and grafts; J43.9 Emphysema, unspecified; Z86.73 Personal history of transient ischemic attack (TIA), and cerebral infarction without residual deficits; I08.1 Rheumatic disorders of both mitral and tricuspid valves; G25.0 Essential tremor; G47.61 Periodic limb movement disorder; C67.9 Malignant neoplasm of bladder, unspecified; E78.5 Hyperlipidemia, unspecified; K21.9 Gastro-esophageal reflux disease without esophagitis; G62.9 Polyneuropathy, unspecified; E87.6 Hypokalemia; E89.0 Postprocedural hypothyroidism
CPT/HCPCS: 00123; 36415; 71275; 80048; 80053; 85027; 93005; 96365; 96375; 96376; 99291; J1650; 70450; 83735; 84443; 84484; 85025; 93010; 99223; 99233; 99238; J2404; J2405; J3475; J3490

== ENCOUNTER → 2024-03-05 10:54 | Outpatient (BNVA) | payer MEDICARE, SELFPAY | PROVIDERS: PCP Family Medicine; Visit Provider Psychiatry & Neurology Neurology | DX: G60.9 Hereditary and idiopathic neuropathy, unspecified (principal); G25.0 Essential tremor; G47.61 Periodic limb movement disorder; I63.9 Cerebral infarction, unspecified | CPT/HCPCS: 99214 ==

== ENCOUNTER → 2024-03-25 10:02 | Outpatient (BNVA) | payer MEDICARE, SELFPAY | PROVIDERS: PCP Family Medicine; Visit Provider Internal Medicine Cardiovascular Disease | DX: I10 Essential (primary) hypertension (principal); I48.0 Paroxysmal atrial fibrillation | CPT/HCPCS: 99214 ==

== ENCOUNTER 2024-03-25 18:42 | Outpatient (CLI) | payer MEDICARE, SELFPAY ==
[2024-03-25 12:10] LABS: Anion Gap 5.7 mmol/L (3-11); BUN 15 mg/dL (7-18); CO2 31.3 mmol/L (21.0-32.0); CREATININE 0.9 mg/dL (0.55-1.02); Calcium 9.2 mg/dL (8.5-10.1); Chloride 94 mmol/L (98-107); Estimated GFR 61.49 (mL/min/1.73m2); Glucose 82 mg/dL (74-106); Potassium 4.1 mmol/L (3.5-5.1); Sodium 131 mmol/L (136-145)
[2024-03-25 12:22] LABS: Magnesium 1.8 mg/dL (1.8-2.4); TSH (W/Ref FT4) 33.49 uIU/mL (0.36-3.74)
[2024-03-25 12:43] LABS: FREE T4 0.43 ng/dL (0.76-1.46)
== END 2024-03-25 18:43 | disposition home or self-care (01) ==
LOC: LBO 18:51
PROVIDERS: Family Medicine; PCP Family Medicine; Visit Provider Family Medicine
DX: E83.42 Hypomagnesemia (principal); E03.9 Hypothyroidism, unspecified; R09.89 Other specified symptoms and signs involving the circulatory and respiratory systems
CPT/HCPCS: 36415; 80048; 99214; 83735; 84439; 84443

== ENCOUNTER 2024-05-13 13:55 | Outpatient (CLI) | payer MEDICARE, SELFPAY ==
--- NOTE | 2024-05-13 09:15 | DI.RAD_ITS ---
Exam(s) XR LUMBAR SPINE AP, LAT EXAM: XR LUMBAR SPINE AP, LAT CLINICAL HISTORY: M54.5 Low back pain, New onset L sided back pain. TECHNIQUE: 2D digital imaging was performed of the lumbar spine. Three images were obtained. AP, l ateral and L5-S1 spot views were obtained. COMPARISON: CR XR LUMBAR SPINE COMPLETE from 11/16/[address] ABDOMEN PELVIS W from 02/19/[address] ABDOMEN/RENAL CTA from 02/23/2024 FINDINGS: BONES: No fracture or destructive lesion. There is a stable old compression deformity of L2. There a re endplate osteophytes at all levels of the lumbar spine. Degenerative changes of the facets are se en at L5-S1. DISKS: There is disc space narrowing at L1-L2, L2-L3, L3-L4 and L5-S1. ALIGNMENT: There is a mild right convex curvature of the lumbar spine. No spondylolysis or spondylol isthesis. SOFT TISSUE: Atherosclerotic calcification is present. IMPRESSION: Stable marked degenerative changes seen in the lumbar spine. DATA REPOSITORY: RADIATION DOSE DELIVERED:
--- NOTE | 2024-05-13 10:15 | DI.RAD_ITS ---
Exam(s) XR HIP LT COMPLETE AP PELVIS EXAM: XR HIP LT COMPLETE AP PELVIS CLINICAL HISTORY: M54.5 Low back pain, New onset left sided back pain. TECHNIQUE: 2D digital imaging was performed of the left hip. Two views were obtained. AP pelvis an d lateral left hip views were obtained. COMPARISON: CR XR LUMBAR SPINE COMPLETE from 11/16/[address] ABDOMEN/RENAL CTA from 02/23/2024 FINDINGS: BONES: No acute fracture is present. No bony destructive lesion is seen. JOINTS: No dislocation present. There is mild narrowing of the left hip joint. The sacroiliac joints and symphysis pubis are intact. SOFT TISSUE: Vascular calcifications are present. IMPRESSION: Mild joint space narrowing of the left hip. DATA REPOSITORY: RADIATION DOSE DELIVERED:
--- NOTE | 2024-05-13 10:15 | DI.RAD_ITS ---
Exam(s) XR KNEE LT 3V AP,LAT,MABEL EXAM: XR KNEE LT 3V AP,LAT,MABEL CLINICAL HISTORY: M25.362 Other instability left knee Unstable knee. TECHNIQUE: 2D digital imaging was performed of the left knee. Four images were obtained. AP, later al and PA tunnel views were obtained. COMPARISON: CR XR KNEE LT 3V AP,LAT,MABEL from 12/19/2021 FINDINGS: BONES: No acute fracture is present. No bony destructive lesion is seen. Enthesophyte is seen at the anterior superior patella. JOINTS: Small osteophytes are seen at the posterior patella. There is marked narrowing of the latera l femoral tibial joint which is [id number]. No joint effusion is seen. No loose body. SOFT TISSUE: Atherosclerotic calcification is present. IMPRESSION: Marked arthrosis of the left knee particularly involving the lateral femoral tibial joint. DATA REPOSITORY: RADIATION DOSE DELIVERED:
== END 2024-05-13 14:15 ==
LOC: DI 13:56
PROVIDERS: PCP Family Medicine; Visit Provider Family Medicine
DX: M16.12 Unilateral primary osteoarthritis, left hip (principal); M17.12 Unilateral primary osteoarthritis, left knee; M51.370 Other intervertebral disc degeneration, lumbosacral region with discogenic back pain only
CPT/HCPCS: 73562; 72100; 73502

== ENCOUNTER 2024-05-19 02:45 | Outpatient (RCR) | payer MEDICARE, SELFPAY ==
[2024-05-19] MEDS: Normal Saline Flush 10 ML SYR IVP (11:43)
[2024-05-19] MEDS: ZOLEDRONIC ACID/MANNITOL/WATER 5 MG/100 ML BTL 300 MG IVPB (11:43)
== END 2024-06-07 23:59 | disposition home or self-care (01) ==
LOC: INF 02:45
PROVIDERS: PCP Family Medicine; Visit Provider Family Medicine
DX: M81.0 Age-related osteoporosis without current pathological fracture (principal)
CPT/HCPCS: 96365; J3489

== ENCOUNTER 2024-06-17 13:57 | Outpatient (CLI) | payer MEDICARE, SELFPAY ==
[2024-06-17 12:37] LABS: TSH (W/Ref FT4) 46.48 uIU/mL (0.36-3.74)
== END 2024-06-17 13:58 | disposition home or self-care (01) ==
LOC: LBO 14:02
PROVIDERS: PCP Family Medicine; Visit Provider Family Medicine
DX: E03.9 Hypothyroidism, unspecified (principal)
CPT/HCPCS: 36415; 84439; 84443

== ENCOUNTER 2024-07-12 10:49 | Emergency (ER) | payer MEDICARE, SELFPAY ==
[2024-07-12] VITALS (12 sets, daily range): BP systolic 168–196; BP diastolic 86–110; PULSE 77–92; RESP 15–23; TEMP 37; O2SAT 94–98
--- NOTE | 2024-07-12 10:57 | ED.GENADUL_ITS ---
Discharge Plan Disposition Patient Disposition: Home Condition: Stable Discharge Details Clinical Impression: COVID-19 Primary Care Provider: Elvis Muñoz ED Provider: Ayad Frey Home Meds and New Rx's Prescriptions: Continued aspirin [Gerald Chewable Aspirin] 81 mg tablet,chewable 81 mg PO DAILY triamcinolone acetonide [Nasacort] 55 mcg aerosol,spray 1 spray intranasal DAILY Qty: 16.9 2RF Rx Instructions: administer into each nostril potassium chloride 20 mEq tablet,ER particles/crystals 20 meq PO DAILY 90 Days Qty: 90 4RF Rx Instructions: Take one 20mEq tablet by mouth once daily as directed. nitroglycerin [Nitrostat] 0.3 mg tablet, sublingual 0.3 mg Sublingual Q5-15M PRN (Reason: chest pain/esophageal spasm) 1 Days Qty: 25 6RF budesonide-formoterol [Symbicort] 160-4.5 mcg/actuation HFA aerosol inhaler 2 puff inhalation BID metoprolol succinate 100 mg tablet extended release 24 hr 100 mg PO DAILY omeprazole 20 mg capsule,delayed release(DR/EC) 20 mg PO QDAY PRN (Reason: heart burn) cholecalciferol (vitamin D3) 1,000 UNIT tablet 1,000 unit PO DAILY cyanocobalamin (vitamin B-12) [Vitamin B-12] 500 MCG tablet 500 mcg PO DAILY acetaminophen 500 MG tablet 1,000 mg PO Q4H PRN gabapentin 600 mg tablet See Rx Instructions PO BID Qty: 270 3RF Rx Instructions: 600mg at dinner and 1200mg HS PO twice a day; simvastatin 10 mg tablet 10 mg PO HS Qty: 90 3RF Rx Instructions: lower LDL cholesterol levothyroxine 75 mcg tablet 75 mcg PO DAILY MDD 75 mcg 90 Days Qty: 90 4RF Rx Instructions: Take one 75 mcg tablet once daily by mouth as directed metoprolol succinate 100 mg tablet extended release 24 hr 100 mg PO DAILY 90 Days Qty: 180 4RF Rx Instructions: Take two (2) 100 mg tablets in the morning by mouth once daily as directed. Metamucil [facility] Fiber 660 GM powder 1 oz PO HS losartan 50 mg Tablet 50 mg PO BID Qty: 180 0RF chlorthalidone 25 mg Tablet 12.5 mg PO DAILY Qty: 45 1RF loratadine [Claritin] 1 tab PO DAILY potassium chloride [Klor-Con M20] 20 mEq Tablet,Er Particles/Crystals 20 meq PO DAILY Qty: 30 0RF Discharge Instructions Instructions: COVID-19 ED Additional Instructions: You were seen in the emergency department for your nausea without intractable vomiting, you have Zofran at home, your laboratory workup reveals that you have COVID-19. You have mildly low magnesium and you should take 400 mg supplement once per day for 10 days and seek a recheck with your primary care provider. Please use Tylenol and [id number] cold medicines as needed for your COVID infection, please return for any severe increase in respiratory distress, intractable nausea or vomiting, profound weakness. Referrals: Elvis Muñoz DO [Primary Care Provider] - Discharge Data Discharge Date/Time-TO BE ENTERED AT DEPARTURE: 07/12/24 12:52 HPI General Date/Time Provider Initiated Documentation: 07/12/24 10:57 . HPI Narrative: 88 year-old female presents to ED today by [facility] with a chief complaint of urged to come to an ED by PCP phone triage for nausea overnight and this morning without overt vomiting. Quality described as general malaise, no radiation to chest pain, shortness of breath, abdominal pain, intractable vomiting, diarrhea, headache, endorses mild cough. Severity is described as mild. Palliating factors include took Zofran at 0600 with good effect. Provoking factors include nothing specific. Patient not anticoagulated. Related Data Home Medications ?Medication ?Instructions ?Recorded ?Confirmed cholecalciferol (vitamin D3) 25 1,000 unit PO DAILY 09/17/12 07/12/24 mcg (1,000 unit) tablet psyllium husk (aspartame) 3.4 1 oz PO HS 05/27/13 07/12/24 gram/5.8 gram oral powder (Metamucil [facility] Fiber) cyanocobalamin (vitamin B-12) 500 500 mcg PO DAILY 11/19/15 07/12/24 mcg tablet (Vitamin B-12) acetaminophen 500 mg tablet 1,000 mg PO Q4H PRN 03/16/17 07/12/24 nitroglycerin 0.3 mg sublingual 0.3 mg sublingual Q5-15M PRN chest 09/09/19 07/12/24 tablet (Nitrostat) pain/esophageal spasm 1 day #25 tab-caps aspirin 81 mg chewable tablet 81 mg PO DAILY 10/26/20 07/12/24 (Gerald Chewable Low Dose Aspirin) triamcinolone acetonide 55 mcg 1 spray intranasal DAILY #16.9 mL 03/02/23 07/12/24 nasal spray aerosol (Nasacort) gabapentin 600 mg tablet See Rx Instructions PO BID #270 10/01/23 07/12/24 tabs simvastatin 10 mg tablet 10 mg PO HS #90 tab-caps 10/16/23 07/12/24 loratadine 1 tab PO DAILY 01/31/24 07/12/24 chlorthalidone 25 mg tablet 12.5 mg (1/2 x 25 mg) PO DAILY #45 02/20/24 07/12/24 tabs losartan 50 mg tablet 50 mg PO BID #180 tabs 02/20/24 07/12/24 levothyroxine 75 mcg tablet 75 mcg PO DAILY 90 days #90 tabs 02/22/24 07/12/24 potassium chloride 20 mEq 20 meq PO DAILY #30 tabs 02/25/24 07/12/24 tablet,extended release(part/cryst) (Klor-Con M) potassium chloride 20 mEq 20 meq PO DAILY 90 days #90 tabs 03/11/24 07/12/24 tablet,extended release(part/cryst) metoprolol succinate 100 mg 100 mg PO DAILY 90 days #180 tabs 04/14/24 07/12/24 tablet,extended release 24 hr metoprolol succinate 100 mg 100 mg PO DAILY 05/13/24 07/12/24 tablet,extended release 24 hr omeprazole 20 mg capsule,delayed 20 mg PO QDAY PRN heart burn 05/13/24 07/12/24 release budesonide-formoterol HFA 160 2 puff inhalation BID 05/19/24 07/12/24 mcg-4.5 mcg/actuation aerosol inhaler (Symbicort) Previous Rx's ?Medication ?Instructions ?Recorded nitroglycerin 0.3 mg sublingual 0.3 mg sublingual Q5-15M PRN chest 09/09/19 tablet (Nitrostat) pain/esophageal spasm 1 day #25 tab-caps triamcinolone acetonide 55 mcg 1 spray intranasal DAILY #16.9 mL 03/02/23 nasal spray aerosol (Nasacort) gabapentin 600 mg tablet See Rx Instructions PO BID #270 10/01/23 tabs simvastatin 10 mg tablet 10 mg PO HS #90 tab-caps 10/16/23 chlorthalidone 25 mg tablet 12.5 mg (1/2 x 25 mg) PO DAILY #45 02/20/24 tabs losartan 50 mg tablet 50 mg PO BID #180 tabs 02/20/24 levothyroxine 75 mcg tablet 75 mcg PO DAILY 90 days #90 tabs 02/22/24 potassium chloride 20 mEq 20 meq PO DAILY #30 tabs 02/25/24 tablet,extended release(part/cryst) (Klor-Con M) potassium chloride 20 mEq 20 meq PO DAILY 90 days #90 tabs 03/11/24 tablet,extended release(part/cryst) metoprolol succinate 100 mg 100 mg PO DAILY 90 days #180 tabs 04/14/24 tablet,extended release 24 hr Allergies Allergy/AdvReac Type Severity Reaction Status Date / Time guaifenesin (From Mucinex) AdvReac Intermediate diarrhea Verified 07/12/24 11:06 amoxicillin (From Augmentin) AdvReac Diarrhea Verified 07/12/24 11:06 clavulanic acid (From AdvReac Diarrhea Verified 07/12/24 11:06 Augmentin) tramadol AdvReac constipatio Verified 07/12/24 11:06 n General YEE: 3 Review of Systems All systems reviewed & are unremarkable except as noted in HPI and below Exam Narrative Exam Narrative: GENERAL APPEARANCE: Well-nourished, non-toxic, awake and alert, atraumatic, no acute distress. SKIN: Warm, pink, dry, intact, without rashes/lesions/ulcerations. HEAD: Normocephalic, atraumatic, normal hair distribution for gender/age. EYES: Normal conjunctiva, no exudates on lids/lashes. ENT: Nares patent, no circumoral cyanosis, no facial swelling NECK: Supple, trachea midline, painless cervical ROM. LUNGS/CHEST: Lungs CTA bilaterally, non-labored respirations, normal A/P diameter, symmetrical expansion, no chest wall deformity HEART (CV/PV): Regular rate and rhythm without murmur, no peripheral edema, no JVD. ABDOMEN: Soft, non-distended, no guarding. MSK: Normal ROM, no swelling/deformity to bilateral UEs or LEs, moving all extremities without weakness, no cyanosis, spine midline without tenderness, normal curvature. NEURO: Mental Status AAOx4 - alert to person, place, time, events No facial droop, no forehead involvement. Motor: No focal weakness - strength 5/5 in bilateral UEs and LEs, proximal and distal, symmetric. Sensory: sensation intact to light touch globally. Gait normal: patient ambulated without ataxia into ED room. PSYCH: euthymic, cooperative, pleasant, appropriate speech Medical Decision Making This dictation utilizes [id number] dictation software and may contain unedited grammatical errors. 88 year-old female presents to ED today by [facility] with a chief complaint of urged to come to an ED by PCP phone triage for nausea overnight and this morning without overt vomiting. Quality described as general malaise, no radiation to chest pain, shortness of breath, abdominal pain, intractable vomiting, diarrhea, headache, endorses mild cough. Severity is described as mild. Palliating factors include took Zofran at 0600 with good effect. Provoking factors include nothing specific. Patients' medical history: Asthma, essential tremor, peripheral neuropathy, GERD, hyperlipidemia, hypertension, bladder cancer, atrial fibrillation, history of stroke, labile blood pressure. Family and social history: Noncontributory. Pertinent exam findings / vital signs include benign cardiopulmonary status, benign abdomen, no respiratory distress, no active vomiting, neuro intact. Differential / pathologies of concern include gastroenteritis, less likely biliary colic, viral syndrome, electrolyte abnormality. Diagnostic studies of: -CBC, CMP, magnesium, troponin, lipase, COVID/flu/RSV PCR. -CBC shows no actionable abnormality -CMP shows mildly low sodium at 130 -Magnesium mildly low patient has at home supplements -Lipase negative -COVID-positive Interventions of: -400mg PO magnesium. ED Course/Assessment/Plan: 88-year-old female presents to the ED by EMS from [place] for some subjective nausea without vomiting since last night, called her PCP and they urged to ED evaluation. Patient has no focal abdominal pain, no respiratory distress, endorses a mild cough and is positive for COVID, there is no actionable abnorma lities on her labs and her magnesium is mildly low but she has at home supplements and it should normalize with normal p.o. intake of which she is tolerating p.o. currently. I counseled on strict return criteria for any severe increase in her symptoms or focal abdominal pain, respiratory distress. Findings not consistent with beer electrolyte derangement, intractable nausea or vomiting, respiratory distress, myocarditis. Disposition of COVID-19. Patient verbalized understanding of the plan and return to ED criteria and engaged in shared decision making. Medical Records Medical records reviewed: Yes I reviewed the patient's medical records. Lab Data Lab results reviewed: Yes I reviewed the patient's lab results. Labs: Laboratory Tests Range/Units 07/12/24 07/12/24 11:19 11:32 WBC (4.4-10.8) 10^3/uL 4.95 RBC (3.93-5.22) 10^6/uL 4.46 Hgb (11.2-15.7) g/dL 15.2 Hct (36.0-46.0) % 43.5 MCV (80-95) fL 98 H MCH (27.0-33.0) pg 34.1 H MCHC (32.0-36.0) % 34.9 RDW (11.7-14.6) % 12.7 Plt Count (130-400) 10^3/uL 279 MPV (8.0-11.0) fL 8.8 Immature Gran % % 0.4 Neutrophils % % 66.7 Lymphocytes % % 19.4 Monocytes % % 11.5 Eosinophils % % 1.4 Basophils % % 0.6 Nucleated RBC % (0.0-0.3) % 0.0 Absolute Neutrophils (1.2-6.7) 10^3/uL 3.30 Absolute Lymphocytes (1.2-3.4) 10^3/uL 0.96 L Absolute Monocytes (0.1-0.8) 10^3/uL 0.57 Absolute Eosinophils (0.0-0.7) 10^3/uL 0.07 Absolute Basophils (0.0-0.2) 10^3/uL 0.03 Sodium (136-145) mmol/L 130 L Potassium (3.5-5.1) mmol/L 4.0 Chloride (98-107) mmol/L 92 L Carbon Dioxide (21.0-32.0) mmol/L 33.4 H Anion Gap (3-11) mmol/L 4.6 BUN (7-18) mg/dL 11 Creatinine (0.55-1.02) mg/dL 0.9 Est GFR (CKD-EPI 2020) (mL/min/1.73m2) 61.49 Glucose (74-106) mg/dL 97 Calcium (8.5-10.1) mg/dL 9.0 Magnesium (1.8-2.4) mg/dL 1.5 L Total Bilirubin (0.2-1.0) mg/dL 0.64 AST (15-37) U/L 36 ALT (14-59) U/L 29 Alkaline Phosphatase (46-116) U/L 65 Troponin I (<or=51) ng/L 9 Total Protein (6.4-8.2) g/dL 8.0 Albumin (3.4-5.0) g/dL 3.9 Lipase (<78) U/L 22 COVID-19 Source Nasopharynx SARS-CoV-2 (PCR) (Negative) Positive A Influenza Type A (PCR) (Negative) Negative Influenza Type B (PCR) (Negative) Negative RSV (PCR) (Negative) Negative Quality:SDOH Health Related Social Needs: No Data to Display PFSH All Active Problems (Updated 07/12/24 @ 12:28 by LESLYE Reid) COVID-19 (Acute) Vomiting (Acute) Other instability, left knee (Acute) Witnessed apneic spells (Acute) Hypothyroidism (acquired) (Chronic) Severe uncontrolled hypertension (Acute) 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 Stroke (Chronic) Tricuspid valve insufficiency (Chronic) By cath 07 October 2020 Flushing (Acute) Heart palpitations (Acute) Anterior epistaxis (Chronic) Recurrent, responds to AgNO3 cautery Primary osteoarthritis of left knee (Acute) Contusion of left knee (Acute) Knee pain, left anterior (Acute) Mitral valve insufficiency (Chronic) Chest pain (Acute) Neoplasm of large intestine (Acute 06/21/05) H/O POLYPS ON FIRST COLON IN [place]; NEG ON REPEAT; [place] DR BLAKE FOUND ONE HYPERPLASTIC POLYP Leg pain, left (Chronic 11/03/16) Acute midline low back pain without sciatica (Chronic 05/18/17) Labile blood pressure (Chronic) Medical History Asthma Presence of Watchman left atrial appendage closure device (~10/2020) 10/07/20 [facility] cardiac cath Periodic limb movement disorder (PLMD) Essential tremor Peripheral neuropathy, idiopathic (06/08/98) KNEE DISTAL, BILAT; INTERMITTENT BURNING, SLEEPS BETTER AT NIGHT IF SHE HAS WORN TIGHT SOCKS DAYTIME; nortriptyline effective; Dr Oneill; worse balance 02/2015 Gastroesophageal reflux disease (07/05/04) RESPONDS TO OMEPRAZOLE, BEFORE DINNER; ESOPHAGITIS ON EGD AT [facility]: 07/05/04; gastritis and diffuse esophagitis; DR MERCADO REC [place] PPI RX Hyperlipidemia (10/21/10) dyslipidemia: low HDL; statin begun by neuro 10/2010 after her TIA, along with Clopidogrel; target LDL<100 and HDL>40 Cerebrovascular disease, unspecified (10/07/10) 10/2010; small L THALAMIC CVA ON MRI, [facility], [place] Clopidogrel and Statin inde finitely Essential hypertension (06/23/13) Bladder cancer (05/19/15) Dr. Guy Lechuga- non-invasive papillary urothellal carcinoma, low grade. Atrial fibrillation Surgical History H/O cardiac catheterization (10/07/20) [facility] atrial appendage closure for afib cystourethroscopy (08/07/17) Dr Brian Lechuga [facility]-extensive recurrent bladder tumor encompassint entire L hemitrigone and posterolateral bladder wall and neck URO cysto (10/22/15) Guy Lechuga MD 12 weeks after her last BCG Thyroid (03/13/14) 9Complete thyroidectomy Dr. Sanchez [facility], path: multinodular goiter Transurethral Resection of Bladder Tumor, 2-5cm (05/27/13) Dr. Ruano Cystoscopy (04/29/15) Dr. Lechuga 02/05/18 repeat cysto Colonoscopy - IV Sedation (03/22/16) Cholecystectomy Extraction of cataract (08/10/15) Dr Mayte Gonzalez eye R eye 2/2 Extraction of cataract (07/27/15) Dr Mayte Gonzalez eye R eye 2/2 Biopsy of breast (07/09/76) both breasts, biopsies benign Appendectomy Family History Brother Brain cancer Cancer Of the Face Father , Age 65 Heart attack Heart disease Sister , Lung Disease Age 80 Cancer Mother , Age 73 Amyloid disease Social History (Updated 04/04/24 @ 13:03 by Mellissa Justin) Smoking/Tobacco Use Status: Former Tobacco Use tobacco type: cigarettes Quit Date: 07/09/87 Pack-years: 52 Tobacco: How many years used: 35 Quit status: quit date established (1987) Smoking risk assessment performed?: Yes Alcohol Intake: never Drug use: Never Substance use type: does not use Adopted: No Caregiver/Support person: Yes Foster care: No Household members: spouse Housing: house Number of Children: 6 number of grandchildren: 17 Communication Needs: None Education Level: high school current occupation: Retired Pets and animals: Yes (1) Pets and animals: cat(s) Sexually active: No Do you think of yourself as: straight/heterosexual What is your relationship status?: How often do you talk on the phone with friends or family?: twice per week How often do you get together with friends or relatives?: once per week How often do you attend anglican or christian services?: 4 or more times per year Do you belong to any clubs or organized social groups?: no Panel score (0-1 are the most socially isolated patients): 3 What type of physical activity do you participate in: other Details: [employer] Bike Duration: 15-30 minutes/day Frequency: 3-4 times per week Astrid/Hindu: Denominational Seatbelt use: always Helmet use: No (Never) Drive intox or ride w/intox superintendent drivers: No Do you feel safe at home: Yes Do you feel safe in your relationship?: Yes
[2024-07-12 11:41] LABS: Abs Immature Grans 0.02 10^3/uL (0.0-0.06); Absolute Basophil Count 0.03 10^3/uL (0.0-0.2); Absolute Eosinophil Count 0.07 10^3/uL (0.0-0.7); Absolute Lymphocyte Count 0.96 10^3/uL (1.2-3.4); Absolute Monocyte Count 0.57 10^3/uL (0.1-0.8); Basophils % 0.6 %; Eosinophils % 1.4 %; HCT 43.5 % (36.0-46.0); HGB 15.2 g/dL (11.2-15.7); Immature Grans % 0.4 %; Lymphocytes % 19.4 %; MCH 34.1 pg (27.0-33.0); MCHC 34.9 % (32.0-36.0); MCV 98 fL (80-95); MPV 8.8 fL (8.0-11.0); Monocytes % 11.5 %; Neutrophils % 66.7 %; Platelet Count 279 10^3/uL (130-400); RBC 4.46 10^6/uL (3.93-5.22); RDW 12.7 % (11.7-14.6); RDW-SD 45.6 fL; WBC 4.95 10^3/uL (4.4-10.8)
[2024-07-12 11:59] LABS: ALT 29 U/L (14-59); AST 36 U/L (15-37); Albumin 3.9 g/dL (3.4-5.0); Alkaline Phosphatase 65 U/L (46-116); Anion Gap 4.6 mmol/L (3-11); BUN 11 mg/dL (7-18); Bilirubin, Total 0.64 mg/dL (0.2-1.0); CO2 33.4 mmol/L (21.0-32.0); CREATININE 0.9 mg/dL (0.55-1.02); Chloride 92 mmol/L (98-107); Estimated GFR 61.49 (mL/min/1.73m2); Glucose 97 mg/dL (74-106); Lipase 22 U/L (<78); Magnesium 1.5 mg/dL (1.8-2.4); Sodium 130 mmol/L (136-145); Troponin I 9 ng/L (<or=51)
[2024-07-12 12:07] LABS: Influenza A PCR Negative (Negative); Influenza B PCR Negative (Negative); RSV PCR Negative (Negative)
[2024-07-12 12:08] LABS: Source Nasopharynx
[2024-07-12 12:09] LABS: COVID-19 PCR Positive (Negative)
[2024-07-12] MEDS: Magnesium Oxide 400 MG TAB PO (12:39)
== END 2024-07-12 12:52 | disposition home or self-care (01) ==
PROVIDERS: Emergency Provider Physician Assistant; PCP Family Medicine
DX: U07.1 COVID-19 (principal); Z11.52 Encounter for screening for COVID-19; R11.0 Nausea; E61.2 Magnesium deficiency
CPT/HCPCS: 36415; 80053; 83690; 87637; 99283; 83735; 84484; 85025

== ENCOUNTER → 2024-07-28 13:16 | Outpatient (BNVA) | payer MEDICARE, SELFPAY | PROVIDERS: PCP Family Medicine; Referring Provider Family Medicine; Visit Provider Student in an Organized Health Care Education/Training Program | DX: M17.12 Unilateral primary osteoarthritis, left knee (principal); M21.062 Valgus deformity, not elsewhere classified, left knee | CPT/HCPCS: 20610; 99214; J1010 ==

== ENCOUNTER 2024-08-22 10:08 | Outpatient (CLI) | payer MEDICARE, SELFPAY ==
[2024-08-22 10:48] LABS: TSH (W/Ref FT4) 8.52 uIU/mL (0.36-3.74)
[2024-08-22 11:04] LABS: FREE T4 1.21 ng/dL (0.76-1.46)
== END 2024-08-22 10:09 | disposition home or self-care (01) ==
LOC: LBO 10:11
PROVIDERS: PCP Family Medicine; Visit Provider Family Medicine
DX: E03.9 Hypothyroidism, unspecified (principal)
CPT/HCPCS: 36415; 84439; 84443

== ENCOUNTER → 2024-08-27 09:21 | Outpatient (BNVA) | payer MEDICARE, SELFPAY | PROVIDERS: PCP Family Medicine; Referring Provider Family Medicine; Visit Provider Psychiatry & Neurology Neurology | DX: G60.9 Hereditary and idiopathic neuropathy, unspecified (principal); G25.0 Essential tremor; G47.61 Periodic limb movement disorder; I63.9 Cerebral infarction, unspecified | CPT/HCPCS: 99214 ==

== ENCOUNTER 2024-09-02 01:33 | Outpatient (CLI) | payer MEDICARE, SELFPAY ==
--- NOTE | 2024-09-02 07:15 | DI.CT_ITS ---
Exam(s) CT RENAL COLIC WO EXAM: CT RENAL COLIC WO CLINICAL HISTORY: Known renal stone, please evaluate for migration,hematuria,flank pain,r10.9. TECHNIQUE: Imaging Protocol: Axial computed tomography images with coronal and sagittal reformatted images were created and reviewed. COMPARISON: CT CT ABDOMEN PELVIS W from 02/19/[address] ABDOMEN/RENAL CTA from 02/23/2024 FINDINGS: Lung Bases: No acute findings. Fibrotic changes are noted at the right lung base. Liver: Normal density. No measurable mass. Gallbladder and biliary tract: No radiodense calculus. No biliary ductal dilation. Pancreas: No abnormal calcifications or inflammatory process. Spleen: Normal size. Kidneys: Normal size, contour and axis.No radiodense stones or obstructive uropathy. Stable small ri ght renal cyst. No suspicious masses seen. Adrenal glands: No mass is seen. Lymph nodes: Within normal limits. Vasculature: Abdominal aorta non-dilated. Sclerotic calcification. Bladder:No stones. No gross wall thickening. No evidence of mass. Bowel: No obstruction. No bowel wall thickening. Status post appendectomy. Prominent diverticulos is of the descending and sigmoid colon. No evidence of diverticulitis. Normal quantity of stool. Peritoneal cavity: No ascites.No free air. No focal collection. No mesenteric inflammatory response. Reproductive organs: Small uterine fibroids. Bones: Stable L2 compression fracture. Soft Tissues: Within normal limits. IMPRESSION: No evidence of urinary tract calculi or hydronephrosis. No acute abnormality of the abdomen or pelvis. RADIATION DOSE DELIVERED: 666.69mGy.cm Total DLP 666.69mGy.cm Total DLP DATA REPOSITORY: All CT scans at this facility are submitted to the National Radiology Data Registry (NRDR) Dose Index Registry (DIR) with the [employer] (ACR). RADIATION OPTIMIZATION: All CT scans at this facility use at least one of these dose optimization te chniques: automated exposure control; mA and/or kV adjustment per patient size (includes targeted exa ms where dose is matched to clinical indication); or iterative reconstruction.
== END 2024-09-02 01:53 ==
LOC: DI 01:33
PROVIDERS: PCP Family Medicine; Visit Provider Family Medicine
DX: R31.9 Hematuria, unspecified (principal); R10.9 Unspecified abdominal pain
CPT/HCPCS: 74176

== ENCOUNTER 2024-09-16 15:46 | Outpatient (CLI) | payer MEDICARE, SELFPAY ==
--- NOTE | 2024-09-16 | DI.RAD_ITS ---
Exam(s) XR CHEST 2V PA LATERAL EXAM: XR CHEST 2V PA LATERAL CLINICAL HISTORY: Worsening cough x10 days, R05.9; decreased breath sounds/?crackles LLL TECHNIQUE: 2D digital imaging was performed of the chest. Two images were obtained. PA and lateral views were obtained. COMPARISON: CR XR CHEST 2V PA LATERAL from 02/19/2024 CR XR LUMBAR SPINE AP, LAT from 05/13/2024 FINDINGS: MEDIASTINUM: Normal. HEART: Normal. PULMONARY VASCULATURE: Normal. LUNGS: Mild fibrotic changes are seen in the lungs. No focal consolidating infiltrates are present. PLEURAL SPACE: No pleural effusion or pneumothorax. BONE:Within normal limits for the patient's age. There is a stable old L2 compression fracture defor mity. OTHER FINDINGS:Normal. IMPRESSION: No acute pulmonary findings. DATA REPOSITORY: RADIATION DOSE DELIVERED:
== END 2024-09-16 16:06 ==
LOC: DI 15:46
PROVIDERS: PCP Family Medicine; Visit Provider Nurse Practitioner Family
DX: R05.9 Cough, unspecified (principal)
CPT/HCPCS: 71046

== ENCOUNTER 2024-09-18 02:56 | Inpatient (IN) | payer MEDICARE, SELFPAY ==
[2024-09-18] VITALS (161 sets, daily range): BP systolic 137–218; BP diastolic 78–199; PULSE 39–158; RESP 3–36; TEMP 35.7–37.8; O2SAT 85–100
--- NOTE | 2024-09-18 03:00 | RT.EKG_ITS ---
APPROVED REPORT Exam: Resting ECG Reason for Exam: cough Patient Location: E HR:130 bpm ECG Measurements Heart Rate 130 AXIS IN [id number] P [id number] QRSd 83 QRS 73 QT 305 T 38 QTc 449 Conclusion Atrial fibrillation...V-rate 113-156, irreg A-activity Physician: no stemi
[2024-09-18] MEDS: Normal Saline 1,000 ML 150 ML IV (03:24)
[2024-09-18 03:31] LABS: BE (Venous) 7 mmol/L (-2-3); HCO3 (Venous) 32 mmol/L (23-28); Lactate 1.3 mmol/L (<or=2.0); O2 Sat (Venous) 42 %; TCO2 (Venous) 28 mmol/L (24-29); pCO2 (Venous) 49 mmHg (41-51); pH (Venous) 7.41 (7.31-7.41); pO2 (Venous) 24 mmHg
[2024-09-18 03:34] LABS: Abs Immature Grans 0.04 10^3/uL (0.0-0.06); Absolute Basophil Count 0.01 10^3/uL (0.0-0.2); Absolute Monocyte Count 0.61 10^3/uL (0.1-0.8); Absolute Neutrophil Count 7.58 10^3/uL (1.2-6.7); Basophils % 0.1 %; HCT 43.4 % (36.0-46.0); HGB 14.8 g/dL (11.2-15.7); Immature Grans % 0.4 %; Lymphocytes % 8.8 %; MCHC 34.1 % (32.0-36.0); MCV 100 fL (80-95); MPV 9.2 fL (8.0-11.0); Monocytes % 6.7 %; Platelet Count 299 10^3/uL (130-400); RBC 4.35 10^6/uL (3.93-5.22); RDW-SD 45.1 fL; WBC 9.04 10^3/uL (4.4-10.8)
[2024-09-18] MEDS: Albuterol/Ipratropium 3 ML UPD VIAL 6 ML UPD (03:37)
[2024-09-18] MEDS: Omnipaque 350 MG/ML 100 ML BTL 65 ML IJ (03:44)
[2024-09-18] MEDS: Normal Saline - Diluent 50 ML VIAL IJ (03:45)
--- NOTE | 2024-09-18 03:53 | ED.GENADUL_ITS ---
Discharge Plan Disposition Patient Disposition: Admit to [facility] Condition: Improving Discharge Details Chief Complaint: RespSymp Clinical Impression: Community acquired pneumonia, Atrial fibrillation with RVR, COPD exacerbation Primary Care Provider: Elvis Muñoz ED Provider: Ayad Casas Home Meds and New Rx's Prescriptions: No Action aspirin [Gerald Chewable Aspirin] 81 mg tablet,chewable 81 mg PO DAILY triamcinolone acetonide [Nasacort] 55 mcg aerosol,spray 1 spray intranasal DAILY Qty: 16.9 2RF Rx Instructions: administer into each nostril nitroglycerin [Nitrostat] 0.3 mg tablet, sublingual 0.3 mg Sublingual Q5-15M PRN (Reason: chest pain/esophageal spasm) 1 Days Qty: 25 6RF budesonide-formoterol [Symbicort] 160-4.5 mcg/actuation HFA aerosol inhaler 2 puff inhalation BID metoprolol succinate 100 mg tablet extended release 24 hr 100 mg PO DAILY omeprazole 20 mg capsule,delayed release(DR/EC) 20 mg PO QDAY PRN (Reason: heart burn) suzetrigine 50 mg tablet See Rx Instructions PO Q12H PRN PRN (Reason: Severe pain) Qty: 29 0RF Rx Instructions: t2 tabs for first dose, then t1 tab bid orally every 12 hours, as needed PRN; prednisone 20 mg tablet See Rx Instructions PO DAILY Qty: 24 0RF Rx Instructions: t3 tabs for 5 days, then t2 tabs for 3 days, then t1 tab for 3 days orally daily; cholecalciferol (vitamin D3) 1,000 UNIT tablet 1,000 unit PO DAILY cyanocobalamin (vitamin B-12) [Vitamin B-12] 500 MCG tablet 500 mcg PO DAILY acetaminophen 500 MG tablet 1,000 mg PO Q4H PRN levothyroxine 75 mcg tablet 75 mcg PO DAILY MDD 75 mcg 90 Days Qty: 90 4RF Rx Instructions: Take one 75 mcg tablet once daily by mouth as directed gabapentin 600 mg tablet See Rx Instructions PO BID Qty: 270 3RF Rx Instructions: 600mg at dinner and 1200mg HS PO twice a day; chlorthalidone 25 mg tablet 12.5 mg PO DAILY Qty: 45 1RF simvastatin 10 mg tablet 10 mg PO HS Qty: 90 3RF Rx Instructions: lower LDL cholesterol Metamucil [facility] Fiber 660 GM powder 1 oz PO HS losartan 50 mg Tablet 50 mg PO BID Qty: 180 0RF loratadine [Claritin] 1 tab PO DAILY potassium chloride [Klor-Con M20] 20 mEq Tablet,Er Particles/Crystals 20 meq PO DAILY Qty: 30 0RF budesonide-formoterol [Symbicort] 80-4.5 mcg/actuation HFA aerosol inhaler 2 puff INHALATION BID azithromycin 250 mg tablet 250 mg PO BID Patient Comments: X5 DAYS HPI General Date/Time Provider Initiated Documentation: 09/18/24 03:13 . HPI Narrative: This is a pleasant 88-year-old female with a past medical history of atrial fibrillation with subsequent Watchman procedure, currently on daily aspirin, stroke in 2010, peripheral neuropathy, hypothyroidism, COPD, GERD, who presents today for evaluation of cough. Patient states that for the last 2 weeks she has developed a cough, productive sputum, shortness of breath. She has been taking her inhalers at home with no improvement. She went to the urgent care 2 days ago secondary to her symptoms. X-ray was ordered and was read as negative. She was started on azithromycin and prednisone at that time. She just took the first dose yesterday after getting it filled. She notes no improvement since then. This evening her cough got notably worse and she contacted EMS and was brought for further evaluation. She denies any significant chest pain. She denies any vomiting or diarrhea. She denies any current fever. No other complaints at this time. No other modifying factors. Related Data Home Medications ?Medication ?Instructions ?Recorded ?Confirmed cholecalciferol (vitamin D3) 25 1,000 unit PO DAILY 09/17/12 09/18/24 mcg (1,000 unit) tablet psyllium husk (aspartame) 3.4 1 oz PO HS 05/27/13 09/18/24 gram/5.8 gram oral powder (Metamucil [facility] Fiber) cyanocobalamin (vitamin B-12) 500 500 mcg PO DAILY 11/19/15 09/18/24 mcg tablet (Vitamin B-12) acetaminophen 500 mg tablet 1,000 mg PO Q4H PRN 03/16/17 09/18/24 nitroglycerin 0.3 mg sublingual 0.3 mg sublingual Q5-15M PRN chest 09/09/19 09/18/24 tablet (Nitrostat) pain/esophageal spasm 1 day #25 tab-caps aspirin 81 mg chewable tablet 81 mg PO DAILY 10/26/20 09/18/24 (Gerald Chewable Low Dose Aspirin) triamcinolone acetonide 55 mcg 1 spray intranasal DAILY #16.9 mL 03/02/23 09/18/24 nasal spray aerosol (Nasacort) loratadine 1 tab PO DAILY 01/31/24 09/18/24 losartan 50 mg tablet 50 mg PO BID #180 tabs 02/20/24 09/18/24 levothyroxine 75 mcg tablet 75 mcg PO DAILY 90 days #90 tabs 02/22/24 09/18/24 potassium chloride 20 mEq 20 meq PO DAILY #30 tabs 02/25/24 09/18/24 tablet,extended release(part/cryst) (Klor-Con M) metoprolol succinate 100 mg 100 mg PO DAILY 05/13/24 09/18/24 tablet,extended release 24 hr omeprazole 20 mg capsule,delayed 20 mg PO QDAY PRN heart burn 05/13/24 09/18/24 release budesonide-formoterol HFA 160 2 puff inhalation BID 05/19/24 09/18/24 mcg-4.5 mcg/actuation aerosol inhaler (Symbicort) gabapentin 600 mg tablet See Rx Instructions PO BID #270 07/31/24 09/18/24 tabs chlorthalidone 25 mg tablet 12.5 mg (1/2 x 25 mg) PO DAILY #45 08/21/24 09/18/24 tabs prednisone 20 mg tablet See Rx Instructions PO DAILY #24 08/22/24 09/18/24 tabs suzetrigine See Rx Instructions PO Q12H PRN 08/22/24 09/18/24 PRN Severe pain #29 tabs simvastatin 10 mg tablet 10 mg PO HS #90 tab-caps 09/15/24 09/18/24 azithromycin 250 mg tablet 250 mg PO BID 09/18/24 09/18/24 budesonide-formoterol HFA 80 2 puff inhalation BID 09/18/24 09/18/24 mcg-4.5 mcg/actuation aerosol inhaler (Symbicort) Previous Rx's ?Medication ?Instructions ?Recorded nitroglycerin 0.3 mg sublingual 0.3 mg sublingual Q5-15M PRN chest 09/09/19 tablet (Nitrostat) pain/esophageal spasm 1 day #25 tab-caps triamcinolone acetonide 55 mcg 1 spray intranasal DAILY #16.9 mL 03/02/23 nasal spray aerosol (Nasacort) losartan 50 mg tablet 50 mg PO BID #180 tabs 02/20/24 levothyroxine 75 mcg tablet 75 mcg PO DAILY 90 days #90 tabs 02/22/24 potassium chloride 20 mEq 20 meq PO DAILY #30 tabs 02/25/24 tablet,extended release(part/cryst) (Klor-Con M) gabapentin 600 mg tablet See Rx Instructions PO BID #270 07/31/24 tabs chlorthalidone 25 mg tablet 12.5 mg (1/2 x 25 mg) PO DAILY #45 08/21/24 tabs prednisone 20 mg tablet See Rx Instructions PO DAILY #24 08/22/24 tabs suzetrigine See Rx Instructions PO Q12H PRN 08/22/24 PRN Severe pain #29 tabs simvastatin 10 mg tablet 10 mg PO HS #90 tab-caps 09/15/24 Allergies Allergy/AdvReac Type Severity Reaction Status Date / Time guaifenesin (From Mucinex) AdvReac Intermediate diarrhea Verified 09/18/24 03:15 amoxicillin (From Augmentin) AdvReac Diarrhea Verified 09/18/24 03:15 clavulanic acid (From AdvReac Diarrhea Verified 09/18/24 03:15 Augmentin) tramadol AdvReac constipatio Verified 09/18/24 03:15 n General Stated Complaint: RespSymp YEE: 3 Exam Narrative Exam Narrative: 1.Const: Well-nourished, Well-developed, appearing stated age 2.Eyes: PERRL, no conjunctival injection, and symmetrical lids. 3.ENT: Atraumatic external nose and ears. Moist MM. Neck: Symmetric, trachea midline, No thyromegaly. 4.CVS: +S1/S2, Peripheral pulses 2+ and equal in all extremities. Brisk capillary refill in all extremities. 5.RESP: Diffuse wheezes and rhonchi throughout. 6.GI: Soft, Nontender/Nondistended, No hepatosplenomegaly. No guarding or rebound. 7.MSK: Normocephalic/Atraumatic, Extremities w/o deformity or ttp No cyanosis or clubbing, Normal movement of all extremities 8.Skin: Warm, Dry. No rashes or lesions. 9.Neuro: plastic cutter II-XII grossly intact. Sensation grossly intact, no focal neurologic deficits. 10.Psych: (AAO) x3. Appropriate mood and affect Course Vital Signs Vital signs: Vital Signs Temperature 36.7 C 09/18/24 03:03 Pulse 114 H 09/18/24 03:03 Respiratory Rate 26 H 09/18/24 03:03 Blood Pressure 170/140 H 09/18/24 03:03 Pulse Oximetry 95 09/18/24 03:03 Temperature 36.6 C 09/18/24 03:10 Temperature Source Temporal Artery Scan 09/18/24 03:10 Pulse 129 H 09/18/24 03:10 Respiratory Rate 20 09/18/24 03:10 Respiratory Effort Short of Breath 09/18/24 03:10 Respiratory Depth Normal 09/18/24 03:10 Blood Pressure 170/140 H 09/18/24 03:03 Blood Pressure Position Sitting 09/18/24 03:10 Pulse Oximetry 95 09/18/24 03:10 Oxygen Delivery Method Room Air 09/18/24 03:10 Oxygen Flow Rate 0 09/18/24 03:03 Pain Level 4 09/18/24 03:03 Lab/Test Results Lab/Test Results: 09/18/24 03:19 Blood Blood Culture - Pending 09/18/24 03:14 Blood Blood Culture - Pending Laboratory Tests Range/Units 09/18/24 03:19 WBC (4.4-10.8) 10^3/uL 9.04 RBC (3.93-5.22) 10^6/uL 4.35 Hgb (11.2-15.7) g/dL 14.8 Hct (36.0-46.0) % 43.4 MCV (80-95) fL 100 H MCH (27.0-33.0) pg 34.0 H MCHC (32.0-36.0) % 34.1 RDW (11.7-14.6) % 12.0 Plt Count (130-400) 10^3/uL 299 MPV (8.0-11.0) fL 9.2 Immature Gran % % 0.4 Neutrophils % % 84.0 Lymphocytes % % 8.8 Monocytes % % 6.7 Eosinophils % % 0.0 Basophils % % 0.1 Nucleated RBC % (0.0-0.3) % 0.0 Absolute Neutrophils (1.2-6.7) 10^3/uL 7.58 H Absolute Lymphocytes (1.2-3.4) 10^3/uL 0.80 L Absolute Monocytes (0.1-0.8) 10^3/uL 0.61 Absolute Eosinophils (0.0-0.7) 10^3/uL 0.00 Absolute Basophils (0.0-0.2) 10^3/uL 0.01 VBG pH (7.31-7.41) 7.41 VBG pCO2 (41-51) mmHg 49 VBG pO2 mmHg 24 VBG HCO3 (23-28) mmol/L 32 H VBG Total CO2 (24-29) mmol/L 28 VBG O2 Saturation % 42 VBG Base Excess (-2-3) mmol/L 7 H VBG Lactate (<or=2.0) mmol/L 1.3 Medical Decision Making This is a pleasant 88-year-old female with a past medical history of atrial fibrillation with subsequent Watchman procedure, currently on daily aspirin, stroke in 2010, peripheral neuropathy, hypothyroidism, COPD, GERD, who presents today for evaluation of cough. Patient states that for the last 2 weeks she has developed a cough, productive sputum, shortness of breath. She has been taking her inhalers at home with no improvement. She went to the urgent care 2 days ago secondary to her symptoms. X-ray was ordered and was read as negative. She was started on azithromycin and prednisone at that time. She just took the first dose yesterday after getting it filled. She notes no improvement since then. This evening her cough got notably worse and she contacted EMS and was brought for further evaluation. She denies any significant chest pain. She denies any vomiting or diarrhea. She denies any current fever. No other complaints at this time. No other modifying factors. Exam demonstrates diffuse wheezes and rhonchi throughout, oxygen saturation stable at 91 to 92%. No signs of severe respiratory distress. Differential includes pneumonia, COPD/asthma exacerbation, less likely congestive heart failure. Will give breathing treatment, get a CT scan as a chest x-ray was recently negative, perform laboratory evaluation, monitor closely and reassess. 5:50 AM Laboratory workup has returned, no white count, she does have a mild left shift, procalcitonin is elevated at 0.22. Troponins normal. Renal function stable, electrolytes benign. COVID flu and RSV negative. proBNP is high at 1900 however he does not look fluid overloaded at this time. CT scan results show evidence of multifocal pneumonia, no evidence of pulmonary embolus. Patient has persistent severe cough even after 2 DuoNebs. We did give Tessalon Perles to help with the cough. With the patient's multifocal pneumonia, and borderline oxygenation status in conjunction with her age and risk factors I do feel that she would benefit from admission. We will add 2 g of ceftriaxone and given additional dose of 250 mg of azithromycin as she has had the first loading dose already. Of note, during the patient's treatment time when she got the breathing treatments she did have a jump in her heart rate with atrial fibrillation with a rapid ventricular response in the 180s. She was given 5 mg of metoprolol x 2, and came down to the 120s. Gentle fluids were started at 150 cc/h. I did contact the hospitalist and discussed the case with Dr. Gregg, he agrees with the assessment and plan. He does request dosing of Solu-Medrol, which we will give here. Patient will be admitted for further medical management. I have extensively reviewed the treatment plan with the patient. I have addressed all patient concerns at this time. I have also discussed the plan with the admitting physician and they agree with the current assessment and plan and have agreed to assume responsibility for the patient. All parties demonstrate verbal understanding and agreement with our assessment and plan at this time. The documentation in this chart was dictated using [employer] dictation software. Please excuse any dictation errors. FINDINGS: Tubes, catheters and devices: Left apical appendage occlusion device. Pulmonary arteries: Normal. No pulmonary emboli. Aorta: Severe atherosclerotic disease aorta extending into the major branches. Lungs: COPD changes. Few nodular infiltrates of the lung bases are seen bilaterally, some of which are in a bronchovascular/tree-in-bud nodularity distribution. Mild bronchial wall prominence of the lung bases. Sub 6 mm nodule noted in the superior right middle lobe (series 7, image 22). Pleural spaces: Unremarkable. No pneumothorax. No pleural effusion. Heart: Unremarkable. No cardiomegaly. No pericardial effusion. Coronary arteries: Severe coronary calcified atherosclerotic disease. Lymph nodes: Reactive lymph nodes of the mediastinum. Liver: Stable anterior right superior hepatic lobe cyst. Bones/joints: Degenerative change of the visualized osseous structures. Soft tissues: Unremarkable. IMPRESSION: 1. No embolus 2. Findings compatible multifocal pneumonia, however, could represent viral etiologies, inflammatory changes. Overall nonspecific. Correlate clinically. 3. Superimposed bronchitis given bronchial thickening of the lung bases. 4. Sub 6 mm nodule superior right middle lobe, recommend re-evaluation in 812 weeks after treatment for this clinical presentation. Thank you for allowing us to participate in the care of your patient. Dictated and Authenticated by: Jerry Valle DO 09/18/2024 5:29 AM Eastern Time ([place] & [place]) Quality:SDOH Health Related Social Needs: No Data to Display Critical Care Time Critical Care Time Critical Care Time: Yes Total Critical Care Time: 45 Attestation: Upon my evaluation, this patient had a high probability of imminent or life- threatening deterioration, which required my direct attention, intervention, and personal management. I have personally provided 45 minutes of critical care time exclusive of time spent on separately billable procedures. Time includes review of laboratory data, radiology results, discussion with consultants, and monitoring for potential decompensation. Interventions were performed as documented. 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 Stroke (Chronic) Tricuspid valve insufficiency (Chronic) By cath 07 October 2020 Flushing (Acute) Heart palpitations (Acute) Anterior epistaxis (Chronic) Recurrent, responds to AgNO3 cautery Primary osteoarthritis of left knee (Acute) Contusion of left knee (Acute) Knee pain, left anterior (Acute) Mitral valve insufficiency (Chronic) Chest pain (Acute) Neoplasm of large intestine (Acute 06/21/05) H/O POLYPS ON FIRST COLON IN [place]; NEG ON REPEAT; [place] [address] DR BLAKE FOUND ONE HYPERPLASTIC POLYP Leg pain, left (Chronic 11/03/16) Acute midline low back pain without sciatica (Chronic 05/18/17) Labile blood pressure (Chronic) Medical History Asthma Presence of Watchman left atrial appendage closure device (~10/2020) 10/07/20 [facility] following cardiac cath Periodic limb movement disorder (PLMD) Essential tremor Peripheral neuropathy, idiopathic (06/08/98) KNEE DISTAL, BILAT; INTERMITTENT BURNING, SLEEPS BETTER AT NIGHT IF SHE HAS WORN TIGHT SOCKS DAYTIME; nortriptyline effective; Dr Oneill; worse balance 02/2015 Gastroesophageal reflux disease (07/05/04) RESPONDS TO OMEPRAZOLE, BEFORE DINNER; ESOPHAGITIS ON EGD AT [facility]: 07/05/04; gastritis and diffuse esophagitis; DR MERCADO REC [place] PPI RX Hyperlipidemia (10/21/10) dyslipidemia: low HDL; statin begun by neuro 10/2010 after her TIA, along with Clopidogrel; target LDL<100 and HDL>40 Cerebrovascular disease, unspecified (10/07/10) 10/2010; small L THALAMIC CVA ON MRI, [facility], RX Clopidogrel and Statin indefinitely Essential hypertension (06/23/13) Bladder cancer (05/19/15) Dr. Guy Lechuga- non-invasive papillary urothellal carcinoma, low grade. Atrial fibrillation Surgical History H/O cardiac catheterization (10/07/20) [facility]-L atrial appendage closure for afib cystourethroscopy (08/07/17) Dr Brian Lechuga [facility]-extensive recurrent bladder tumor encompassint entire L hemitrigone and posterolateral bladder wall and neck URO cysto (10/22/15) Guy Lechuga MD 12 weeks after her last BCG Thyroid (03/13/14) 9Complete thyroidectomy Dr. Sanchez [facility], path: multinodular goiter Transurethral Resection of Bladder Tumor, 2-5cm (05/27/13) Dr. Ruano Cystoscopy (04/29/15) Dr. Lechuga 02/05/18 repeat cysto Colonoscopy - IV Sedation (03/22/16) Cholecystectomy Extraction of cataract (08/10/15) Dr Mayte Gonzalez eye R eye 2/2 Extraction of cataract (07/27/15) Dr Mayte Gonzalez eye R eye 2/2 Biopsy of breast (07/09/76) both breasts, biopsies benign Appendectomy Family History Brother Brain cancer Cancer Of the Face Father , Age 65 Heart attack Heart disease Sister , Lung Disease Age 80 Cancer Mother , Age 73 Amyloid disease Social History Smoking/Tobacco Use Status: Former Tobacco Use tobacco type: cigarettes Quit Date: 07/09/87 Pack-years: 52 Tobacco: How many years used: 35 Quit status: quit date established (1987) Smoking risk assessment performed?: Yes Alcohol Intake: never Drug use: Never Substance use type: does not use Adopted: No Caregiver/Support person: Yes Foster care: No Household members: spouse Housing: house Number of Children: 6 number of grandchildren: 17 Communication Needs: None Education Level: high school current occupation: Retired Pets and animals: Yes (1) Pets and animals: cat(s) Sexually active: No Do you think of yourself as: straight/heterosexual What is your relationship status?: How often do you talk on the phone with friends or family?: twice per week How often do you get together with friends or relatives?: once per week How often do you attend congregational or jehovah's witness services?: 4 or more times per year Do you belong to any clubs or organized social groups?: no Panel score (0-1 are the most socially isolated patients): 3 What type of physical activity do you participate in: other Details: [employer] Bike Duration: 15-30 minutes/day Frequency: 3-4 times per week Astrid/Worship: [employer] Seatbelt use: always Helmet use: No (Never) 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
[2024-09-18 04:01] LABS: ALT 28 U/L (14-59); AST 29 U/L (15-37); Albumin 3.5 g/dL (3.4-5.0); Alkaline Phosphatase 63 U/L (46-116); Anion Gap 10.4 mmol/L (3-11); BUN 26 mg/dL (7-18); Bilirubin, Total 0.5 mg/dL (0.2-1.0); CO2 31.6 mmol/L (21.0-32.0); CREATININE 0.9 mg/dL (0.55-1.02); Calcium 8.7 mg/dL (8.5-10.1); Chloride 92 mmol/L (98-107); Estimated GFR 61.49 (mL/min/1.73m2); Glucose 109 mg/dL (74-106); NT-proBNP 1901 pg/mL (<300); Potassium 3.6 mmol/L (3.5-5.1); Procalcitonin 0.22 ng/mL; Sodium 134 mmol/L (136-145); Total Protein 7.9 g/dL (6.4-8.2); Troponin I 9 ng/L (<or=51)
[2024-09-18 04:12] LABS: COVID-19 PCR Negative (Negative); Influenza A PCR Negative (Negative); Influenza B PCR Negative (Negative); RSV PCR Negative (Negative); Source Nasopharynx
[2024-09-18 04:39] LABS: Troponin I 5 ng/L (<or=51)
--- NOTE | 2024-09-18 04:40 | DI.CT_ITS ---
Exam(s) CT CHEST PE CTA EXAM: CT CHEST PE CTA CLINICAL HISTORY: cough, SOB, eval for pneumonia, PE. TECHNIQUE: Imaging Protocol: Axial CT angiography was performed with multi-slice acquisition and mu lti-planar and/or 3D reconstructions. Lung Computer Aided Detection (CAD) was utilized. CONTRAST MATERIAL: Intravenous: Omnipaque 350 contrast volume:65 mL COMPARISON: CT CT CHEST/ABD/PEL W from 09/27/[address] RENAL COLIC WO from 09/02/2024 CR XR CHEST 2V PA LATERAL from 09/16/2024 FINDINGS: Tracheobronchial tree: Patent where visualized. There is peribronchial thickening. Mild bronchiectat ic changes are seen in the lung bases. There is mucous plugging distally in the right lower lobe. Pulmonary parenchyma: [id number] centrilobular emphysematous changes are present in the lungs. There is biapical scarring present. There are infiltrates seen in the lower lobes bilaterally which are new compared to 09/02/2024. There is also patchy infiltrate in the posterior aspect of the right upper lobe. Pulmonary Arteries: No evidence of filling defect to suggest pulmonary emboli. Mediastinum and [place]: No dominant adenopathy or fluid collection. The esophagus is unremarkable. Th ere is a tiny hiatal hernia. Pleura: No effusion or pneumothorax. Heart: Mild cardiomegaly. Three vessel coronary artery calcifications are present. No pericardial e ffusion. Stable appearance location of the left atrial device. Aorta: Thoracic aorta non-dilated. No evidence of dissection. Atherosclerotic calcification is presen t. Upper abdomen: Stable hepatic cyst. There is colonic diverticulosis. Soft tissues: Unremarkable. Bones: Within normal limits for the patient's age. IMPRESSION: 1. No evidence of pulmonary embolism, thoracic aortic dissection or aneurysm. 2. New bilateral lower lobe infiltrates. Infection should be considered. Please correlate clinicall y. 3. Bronchial wall thickening and mucous plugging which can be seen with bronchitis. 4. A follow-up examination in 2-3 months is recommended to document resolution of the nodular infiltr ates. RADIATION DOSE DELIVERED: 129.6mGy.cm Total DLP DATA REPOSITORY: All CT scans at this facility are submitted to the National Radiology Data Registry (NRDR) Dose Index Registry (DIR) with the [employer] (ACR). RADIATION OPTIMIZATION: All CT scans at this facility use at least one of these dose optimization te chniques: automated exposure control; mA and/or kV adjustment per patient size (includes targeted exa ms where dose is matched to clinical indication); or iterative reconstruction.
[2024-09-18] MEDS: Metoprolol 5 MG/5 ML VIAL IVP ×3 (04:52→13:11)
--- NOTE | 2024-09-18 05:29 | DI.VRAD_ITS ---
PROCEDURE INFORMATION: Exam: CTA Chest With Contrast Exam date and time: 09/18/2024 4:20 AM Age: 88 years old Clinical indication: Cough and shortness of breath; Cough, SOB, eval for pneumonia/pe TECHNIQUE: Imaging protocol: Computed tomographic angiography of the chest with contrast. Exam focused on the arteries. 3D rendering (Not supervised by radiologist): MIP and/or 3D reconstructed images were created by the technologist. Radiation optimization: All CT scans at this facility use at least one of these dose optimization techniques: automated exposure control; mA and/or kV adjustment per patient size (includes targeted exams where dose is matched to clinical indication); or iterative reconstruction. Contrast material: [id number]; Contrast volume: 65 ml; Contrast route: INTRAVENOUS (IV); COMPARISON: CT CHEST/ABD/PEL W 09/27/2021 12:02 PM FINDINGS: Tubes, catheters and devices: Left apical appendage occlusion device. Pulmonary arteries: Normal. No pulmonary emboli. Aorta: Severe atherosclerotic disease aorta extending into the major branches. Lungs: COPD changes. Few nodular infiltrates of the lung bases are seen bilaterally, some of which are in a bronchovascular/tree-in-bud nodularity distribution. Mild bronchial wall prominence of the lung bases. Sub 6 mm nodule noted in the superior right middle lobe (series 7, image 22). Pleural spaces: Unremarkable. No pneumothorax. No pleural effusion. Heart: Unremarkable. No cardiomegaly. No pericardial effusion. Coronary arteries: Severe coronary calcified atherosclerotic disease. Lymph nodes: Reactive lymph nodes of the mediastinum. Liver: Stable anterior right superior hepatic lobe cyst. Bones/joints: Degenerative change of the visualized osseous structures. Soft tissues: Unremarkable. IMPRESSION: 1. No embolus 2. Findings compatible multifocal pneumonia, however, could represent viral etiologies, inflammatory changes. Overall nonspecific. Correlate clinically. 3. Superimposed bronchitis given bronchial thickening of the lung bases. 4. Sub 6 mm nodule superior right middle lobe, recommend re-evaluation in 812 weeks after treatment for this clinical presentation. Dictated and Authenticated by: Jerry Valle MD. Orderin Augusto Lion MD
[2024-09-18] MEDS: Benzonatate 100 MG CAP PO ×4 (05:30→20:00)
[2024-09-18] MEDS: cefTRIAXone 2 GM/50 ML BAG IVPB (05:47)
--- NOTE | 2024-09-18 05:49 | HPE_ITS ---
Date of service: 09/18/24 Time of Service: 05:50 Assessment and Plan Assessment and plan (1) Pneumonia: Start date: 09/18/24 Status: Acute Assessment and plan: This is an 88-year-old lady who has failed outpatient therapy for her respiratory symptoms and appears to probably have a viral, multifocal pneumonia but is negative for flu/RSV/COVID. She does not have an elevated WBC or fever but is having distress from her paroxysms of cough and mild hypoxemia from her baseline. She appears to have poorly controlled chronic cough on Symbicort but no rescue inhaler. She is not chronically on steroids. She will be admitted for treatment of possible community-acquired pneumonia with Rocephin and Zithromax IV as well as initial treatment with Solu-Medrol to be converted to oral prednisone in the next 24 to 48 hours. She will have more aggressive nebulizer treatments. She also will have oxygen supplementation as needed. night monitor because of her tachycardia with atrial fibrillation and her metoprolol will be given in a split dose and possibly increase if needed. She will continue on aspirin and not on anticoagulation status post Watchman procedure. Consider updating echocardiogram with elevated BNP and on gentle IV hydration from the ED. She is a full code. (2) COPD exacerbation: Start date: 09/18/24 Status: Acute Assessment and plan: As above, IV Solu-Medrol converted to oral prednisone and IV antibiotics converting to oral antibiotics and since patient stabilizes. (3) Atrial fibrillation with RVR: Start date: 09/18/24 Status: Acute Assessment and plan: Patient usually is on metoprolol succinate 100 mg 2 tablets daily and this will be split to 100 mg twice a day and advance as needed for control of her hypertension. (4) Hyponatremia: Status: Chronic Assessment and plan: Chronic and stable with trending labs while hospitalized. (5) HTN (hypertension): Status: Chronic Assessment and plan: Not controlled with patient to have metoprolol split dose and increase if needed. Continue other outpatient antihypertensives as ordered. This exacerbation may also be secondary to her respiratory distress with coughing paroxysms. (6) Hypothyroidism associated with surgical procedure: Status: Chronic Assessment and plan: On Synthroid with TSH to be checked. This is status post surgical removal of the thyroid for a nodule which patient states was noncancerous. (7) Hyperlipidemia: Assessment and plan: Continue statin therapy. History of Present Illness History of Present Illness Chief Complaint: Dyspnea with persistent cough for 2 weeks Narrative: This is an 88-year-old female patient with past medical history of asthma type COPD treated with Symbicort along without rescue inhalers and was told she had allergies. She has had COVID in the recent past without complications. She presents with a 2-week history of progressive cough which is irritating and was evaluated as an outpatient 2 days prior to presentation to the ED. Her chest x- ray was negative and to be placed on Zithromax. She presented with worsening cough and presented to the ED for evaluation. She was mildly hypoxic not on home O2, had paroxysms of cough which were very symptomatic causing her to flush and appeared to exacerbate her atrial fibrillation with rapid ventricular response requiring an additional dose of metoprolol. She usually takes 200 mg of metoprolol daily. She does have a smoking history quitting many years ago and she has never had a history of asthma. She does have hypothyroidism status post thyroidectomy for thyroid nodule without evidence of cancer. She also has a history of previous stroke in 2010 which was prior to her knowledge of having atrial fibrillation. She had a Watchman procedure and is on aspirin alone at this time. She also has neuropathy on treatment, hypothyroidism which is surgically induced as mentioned and GERD. She has had echocardiogram in the past showing elevated PA pressures and her BNP is slightly elevated not as high as in the past upon presentation today. She does not have elevated WBC and has not had fever. Chest x-ray as an outpatient was negative which was started on Zithromax but CT angiogram was negative for PE and positive for multifocal pneumonia. This appears viral but her COVID/flu/RSV screening was negative. She was requiring a low amount of oxygen supplement and she did respond to nebulizer but persists with cough which is paroxysmal with wheeze and difficulty breathing. She was given IV Solu-Medrol after receiving 1 dose of prednisone today prior to presentation. She will continue on IV Solu-Medrol dosing for 24 to 48 hours open to improve her bronchospasm and was switched to IV azithromycin and initiated on IV ceftriaxone. These will be continued. Patient's other labs did revealed stable chronic hyponatremia and macrocytosis with patient stating that she does not drink alcohol. Patient is a full code. Review of Systems Narrative: 13 point review of systems otherwise unrevealing or stable. 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 Stroke (Chronic) Tricuspid valve insufficiency (Chronic) By cath 07 October 2020 Flushing (Acute) Heart palpitations (Acute) Anterior epistaxis (Chronic) Recurrent, responds to AgNO3 cautery Primary osteoarthritis of left knee (Acute) Contusion of left knee (Acute) Knee pain, left anterior (Acute) Mitral valve insufficiency (Chronic) Chest pain (Acute) Neoplasm of large intestine (Acute 06/21/05) H/O POLYPS ON FIRST COLON IN [place]; NEG ON REPEAT; [place] DR BLAKE FOUND ONE HYPERPLASTIC POLYP Leg pain, left (Chronic 11/03/16) Acute midline low back pain without sciatica (Chronic 05/18/17) Labile blood pressure (Chronic) Medical History Asthma Presence of Watchman left atrial appendage closure device (~10/2020) 10/07/20 [facility] [place] following cardiac cath Periodic limb movement disorder (PLMD) Essential tremor Peripheral neuropathy, idiopathic (06/08/98) KNEE DISTAL, BILAT; INTERMITTENT BURNING, SLEEPS BETTER AT NIGHT IF SHE HAS WORN TIGHT SOCKS DAYTIME; nortriptyline effective; Dr Stommel; worse balance 02/2015 Gastroesophageal reflux disease (07/05/04) RESPONDS TO OMEPRAZOLE, BEFORE DINNER; ESOPHAGITIS ON EGD AT [facility] [place] [facility]: 07/05/04; gastritis and diffuse esophagitis; DR MERCADO REC [place] PPI RX Hyperlipidemia (10/21/10) dyslipidemia: low HDL; statin begun by neuro 10/2010 after her TIA, along with Clopidogrel; target LDL<100 and HDL>40 Cerebrovascular disease, unspecified (10/07/10) 10/2010; small L THALAMIC CVA ON MRI, [facility] [place], RX Clopidogrel and Statin indefinitely Essential hypertension (06/23/13) Bladder cancer (05/19/15) Dr. Guy Lechuga- non-invasive papillary urothellal carcinoma, low grade. Atrial fibrillation Surgical History H/O cardiac catheterization (10/07/20) [facility] [place]-L atrial appendage closure for afib cystourethroscopy (08/07/17) Dr Brian Lechuga [facility]-extensive recurrent bladder tumor encompassint entire L hemitrigone and posterolateral bladder wall and neck URO cysto (10/22/15) Guy Lechuga MD 12 weeks after her last BCG Thyroid (03/13/14) 9Complete thyroidectomy Dr. Sanchez [facility] [place], path: multinodular goiter Transurethral Resection of Bladder Tumor, 2-5cm (05/27/13) Dr. Ruano Cystoscopy (04/29/15) Dr. Lechuga 02/05/18 repeat cysto Colonoscopy - IV Sedation (03/22/16) Cholecystectomy Extraction of cataract (08/10/15) Dr Hu L eye R eye 2/2 Extraction of cataract (07/27/15) Dr Mayte Gonzalez eye R eye 2/2 Biopsy of breast (07/09/76) both breasts, biopsies benign Appendectomy Family History Brother Brain cancer Cancer Of the Face Father , Age 65 Heart attack Heart disease Sister , Lung Disease Age 80 Cancer Mother , Age 73 Amyloid disease Social History Smoking/Tobacco Use Status: Former Tobacco Use tobacco type: cigarettes Quit Date: 07/09/87 Pack-years: 52 Tobacco: How many years used: 35 Quit status: quit date established (1987) Smoking risk assessment performed?: Yes Alcohol Intake: never Drug use: Never Substance use type: does not use Adopted: No Caregiver/Support person: Yes Foster care: No Household members: spouse Housing: house Number of Children: 6 number of grandchildren: 17 Communication Needs: None Education Level: high school current occupation: Retired Pets and animals: Yes (1) Pets and animals: cat(s) Sexually active: No Do you think of yourself as: straight/heterosexual What is your relationship status?: How often do you talk on the phone with friends or family?: twice per week How often do you get together with friends or relatives?: once per week How often do you attend hindu or anabaptist services?: 4 or more times per year Do you belong to any clubs or organized social groups?: no Panel score (0-1 are the most socially isolated patients): 3 What type of physical activity do you participate in: other Details: [employer] Bike Duration: 15-30 minutes/day Frequency: 3-4 times per week Astrid/Scientology: Anabaptism Seatbelt use: always Helmet use: No (Never) Drive intox or ride w/intox retail delivery driver: No Do you feel safe at home: Yes Do you feel safe in your relationship?: Yes Meds Allergies and Home Medications Allergies Allergy/AdvReac Type Severity Reaction Status Date / Time guaifenesin (From Mucinex) AdvReac Intermediate diarrhea Verified 09/18/24 03:15 amoxicillin (From Augmentin) AdvReac Diarrhea Verified 09/18/24 03:15 clavulanic acid (From AdvReac Diarrhea Verified 09/18/24 03:15 Augmentin) tramadol AdvReac constipatio Verified 09/18/24 03:15 n Home Medications ?Medication ?Instructions ?Recorded ?Confirmed ?Type cholecalciferol (vitamin D3) 25 1,000 unit PO DAILY 09/17/12 09/18/24 History mcg (1,000 unit) tablet psyllium husk (aspartame) 3.4 1 oz PO HS 05/27/13 09/18/24 History gram/5.8 gram oral powder (Metamucil [facility] Fiber) cyanocobalamin (vitamin B-12) 500 500 mcg PO DAILY 11/19/15 09/18/24 History mcg tablet (Vitamin B-12) acetaminophen 500 mg tablet 1,000 mg PO Q4H PRN 03/16/17 09/18/24 History nitroglycerin 0.3 mg sublingual 0.3 mg sublingual Q5-15M PRN chest 09/09/19 09/18/24 Rx tablet (Nitrostat) pain/esophageal spasm 1 day #25 tab-caps aspirin 81 mg chewable tablet 81 mg PO DAILY 10/26/20 09/18/24 History (Gerald Chewable Low Dose Aspirin) triamcinolone acetonide 55 mcg 1 spray intranasal DAILY #16.9 mL 03/02/23 09/18/24 Rx nasal spray aerosol (Nasacort) loratadine 1 tab PO DAILY 01/31/24 09/18/24 History losartan 50 mg tablet 50 mg PO BID #180 tabs 02/20/24 09/18/24 Rx levothyroxine 75 mcg tablet 75 mcg PO DAILY 90 days #90 tabs 02/22/24 09/18/24 Rx potassium chloride 20 mEq 20 meq PO DAILY #30 tabs 02/25/24 09/18/24 Rx tablet,extended release(part/cryst) (Klor-Con M) metoprolol succinate 100 mg 100 mg PO DAILY 05/13/24 09/18/24 History tablet,extended release 24 hr omeprazole 20 mg capsule,delayed 20 mg PO QDAY PRN heart burn 05/13/24 09/18/24 History release budesonide-formoterol HFA 160 2 puff inhalation BID 05/19/24 09/18/24 History mcg-4.5 mcg/actuation aerosol inhaler (Symbicort) gabapentin 600 mg tablet See Rx Instructions PO BID #270 07/31/24 09/18/24 Rx tabs chlorthalidone 25 mg tablet 12.5 mg (1/2 x 25 mg) PO DAILY #45 08/21/24 09/18/24 Rx tabs prednisone 20 mg tablet See Rx Instructions PO DAILY #24 08/22/24 09/18/24 Rx tabs suzetrigine See Rx Instructions PO Q12H PRN 08/22/24 09/18/24 Rx PRN Severe pain #29 tabs simvastatin 10 mg tablet 10 mg PO HS #90 tab-caps 09/15/24 09/18/24 Rx azithromycin 250 mg tablet 250 mg PO BID 09/18/24 09/18/24 History budesonide-formoterol HFA 80 2 puff inhalation BID 09/18/24 09/18/24 History mcg-4.5 mcg/actuation aerosol inhaler (Symbicort) Exam Narrative Exam Narrative: General: Patient has paroxysms of cough during interview, alert and oriented x 3 and in moderate distress from her cough. HEENT: Normocephalic, coarsened facial features with flushing of her cheeks. Eyes with pupils equal and reactive to light symmetrically, extraocular movement intact and sclera anicteric. Oropharynx with slightly dry mucosa and fair dentition. Neck: Supple without JVD. Surgical scar at base of neck. Back: Kyphotic without CVA tenderness. Lungs: Coarse expiratory crackles right base with sparse rhonchi and coarse crackles over the rest of lung buck, fair aeration with bronchovesicular breath sounds diffusely. Increased expiratory phase with diffuse expiratory wheeze especially with cough. Breast: Exam deferred. Heart: Irregular irregular rhythm with tachycardic rate. No appreciable murmur or gallop. Abdomen: Obese contour, soft and nontender to palpation no palpable hepatosplenomegaly. Bowel sounds positive all quadrants. Genitalia/rectal: Exam deferred. Extremity: Without clubbing, cyanosis or pitting edema. Good capillary refill. Skin: Actinic changes over sun exposed areas, pale, warm and dry. Neuro: Cranial nerves II through XII grossly intact, no resting tremor appreciated. No focalizing motor deficits. Psych: Slightly anxious, pressured speech, normal mood. No abnormal thought processes. Remote and recent memory grossly intact. Results Imaging Imaging Studies: Exam: CTA Chest With Contrast Exam date and time: 09/18/2024 4:20 AM Age: 88 years old Clinical indication: Cough and shortness of breath; Cough, SOB, eval for pneumonia/pe COMPARISON: CT CHEST/ABD/PEL W 09/27/2021 12:02 PM FINDINGS: Tubes, catheters and devices: Left apical appendage occlusion device. Pulmonary arteries: Normal. No pulmonary emboli. Aorta: Severe atherosclerotic disease aorta extending into the major branches. Lungs: COPD changes. Few nodular infiltrates of the lung bases are seen bilaterally, some of which are in a bronchovascular/tree-in-bud nodularity distribution. Mild bronchial wall prominence of the lung bases. Sub 6 mm nodule noted in the superior right middle lobe (series 7, image 22). Pleural spaces: Unremarkable. No pneumothorax. No pleural effusion. Heart: Unremarkable. No cardiomegaly. No pericardial effusion. Coronary arteries: Severe coronary calcified atherosclerotic disease. Lymph nodes: Reactive lymph nodes of the mediastinum. Liver: Stable anterior right superior hepatic lobe cyst. Bones/joints: Degenerative change of the visualized osseous structures. Soft tissues: Unremarkable. IMPRESSION: 1. No embolus 2. Findings compatible multifocal pneumonia, however, could represent viral etiologies, inflammatory changes. Overall nonspecific. Correlate clinically. 3. Superimposed bronchitis given bronchial thickening of the lung bases. 4. Sub 6 mm nodule superior right middle lobe, recommend re-evaluation in 812 weeks after treatment for this clinical presentation. EXAM: Comprehensive 2D, Doppler, and color-flow Echocardiogram Date of Exam: 03/07/23 Indications: afib, mitral and tricuspid regurg, paroxysmal afib Other Information Study Quality: Good Conclusion Normal left ventricular wall thickness and chamber size. Ejection fraction is 55 to 60%. No segmental wall motion abnormalities were identified Right ventricle is mildly dilated, grossly normal systolic function Both atria are moderately enlarged Trileaflet aortic valve without stenosis or regurgitation Normal mitral valve with moderate regurgitation Mild tricuspid valve with moderate to severe regurgitation. Estimated right ventricular systolic pressure is 35 mmHg Patient was in atrial fibrillation, rate controlled throughout with [id number] variation Labs 09/18/24 03:19 09/18/24 03:19 Labs: Laboratory Results - last 24 hr 09/18/24 09/18/24 03:19 04:14 WBC 9.04 RBC 4.35 Hgb 14.8 Hct 43.4 MCV 100 H MCH 34.0 H MCHC 34.1 RDW 12.0 Plt Count 299 MPV 9.2 Immature Gran % 0.4 Neutrophils % 84.0 Lymphocytes % 8.8 Monocytes % 6.7 Eosinophils % 0.0 Basophils % 0.1 Nucleated RBC % 0.0 Absolute Neutrophils 7.58 H Absolute Lymphocytes 0.80 L Absolute Monocytes 0.61 Absolute Eosinophils 0.00 Absolute Basophils 0.01 VBG pH 7.41 VBG pCO2 49 VBG pO2 24 VBG HCO3 32 H VBG Total CO2 28 VBG O2 Saturation 42 VBG Base Excess 7 H VBG Lactate 1.3 Sodium 134 L Potassium 3.6 Chloride 92 L Carbon Dioxide 31.6 Anion Gap 10.4 BUN 26 H Creatinine 0.9 Est GFR (CKD-EPI 2020) 61.49 Glucose 109 H Calcium 8.7 Total Bilirubin 0.5 AST 29 ALT 28 Alkaline Phosphatase 63 Troponin I 9 5 NT-Pro-B Natriuret Pep 1901 H Total Protein 7.9 Albumin 3.5 Procalcitonin 0.22 COVID-19 Source Nasopharynx SARS-CoV-2 (PCR) Negative Influenza Type A (PCR) Negative Influenza Type B (PCR) Negative RSV (PCR) Negative Last Vital Signs Temp 36.6 C 09/18/24 03:10 Pulse 117 H 09/18/24 05:23 Resp 23 09/18/24 05:23 BP 208/107 H 09/18/24 05:16 Pulse Ox 93 09/18/24 05:23 Time Spent Time spent with Patient: >75 minutes Time was spent: preparing to see the patient(eg.review tests), obtaining and/or reviewing separately otained hiistory, ordering medications,tests, procedures, indepentently interpreting results, counseling the patient and care coordination
[2024-09-18] MEDS: methylPREDNISolone SUCC 125 MG VIAL IVP (06:27)
[2024-09-18] MEDS: AZITHROMYCIN 250 MG in Normal Saline 250 ML IVPB (06:27)
[2024-09-18 07:04] LABS: TSH (W/Ref FT4) 1.68 uIU/mL (0.36-3.74)
[2024-09-18 07:42] LABS: Magnesium 1.7 mg/dL (1.8-2.4)
--- NOTE | 2024-09-18 08:49 | W.PC.ACHO ---
Registration Status: Primary Language: Preferred Language: ED Information & Data Chief Complaint RespSymp 09/18/24 03:59 Triage Note BIBEMS d/t ongoing cough 09/18/24 03:03 that's not improving s/p steroids and abx started s/p visit to urgent care Medical / Surgical History (Last Reviewed 09/18/24 @ 06:05 by Aldo Gregg) Asthma Presence of Watchman left atrial appendage closure device (~10/2020) Periodic limb movement disorder (PLMD) Essential tremor Peripheral neuropathy, idiopathic (06/08/98) Gastroesophageal reflux disease (07/05/04) Hyperlipidemia (10/21/10) Cerebrovascular disease, unspecified (10/07/10) Essential hypertension (06/23/13) Bladder cancer (05/19/15) Atrial fibrillation (Last Reviewed 09/18/24 @ 06:05 by Aldo Gregg) H/O cardiac catheterization (10/07/20) cystourethroscopy (08/07/17) URO cysto (10/22/15) Thyroid (03/13/14) Transurethral Resection of Bladder Tumor, 2-5cm (05/27/13) Cystoscopy (04/29/15) Colonoscopy - IV Sedation (03/22/16) Cholecystectomy Extraction of cataract (08/10/15) Extraction of cataract (07/27/15) Biopsy of breast (07/09/76) Appendectomy Most Recent Vital Signs Temperature 37.8 C H 09/18/24 08:02 Temperature Source Temporal Artery Scan 09/18/24 03:10 Pulse 124 H 09/18/24 08:02 Pulse Rhythm Irregular 09/18/24 08:02 Pulse 121 H 09/18/24 07:30 Respiratory Rate 20 09/18/24 08:02 Respiratory Effort Short of Breath 09/18/24 08:02 Respiratory Depth Normal 09/18/24 08:02 Respiratory Pattern Normal 09/18/24 08:02 Blood Pressure 137/90 09/18/24 08:02 Blood Pressure Mean 149 09/18/24 06:31 Blood Pressure Position Sitting 09/18/24 03:10 Pulse Oximetry 95 09/18/24 07:39 Oxygen Delivery Method Nasal Cannula 09/18/24 08:02 Oxygen Flow Rate 1 09/18/24 08:02 Pain Level 0 09/18/24 08:02 Allergies guaifenesin (From Mucinex) Adverse Reaction (Intermediate, Verified 09/18/24 03:15) diarrhea reported 06/2017 amoxicillin (From Augmentin) Adverse Reaction (Verified 09/18/24 03:15) Diarrhea nausea clavulanic acid (From Augmentin) Adverse Reaction (Verified 09/18/24 03:15) Diarrhea nausea tramadol Adverse Reaction (Verified 09/18/24 03:15) constipation Precautions Isolation Standard precaution 09/18/24 03:10 Active Medications Generic Name Dose Route Start Last Admin Trade Name Freq PRN Reason Stop Dose Admin Sodium Chloride 1,000 mls @ 150 mls/hr 09/18/24 03:14 09/18/24 03:24 Saline 1000ml Bag IV 09/18/24 09:53 150 mls/hr INFUSION STA Administration IV IV Catheter Type [Left Saline Lock Antecubital] IV Catheter Gauge [Left 18 Antecubital] Diet Orders Category Date Time Status Heart Healthy Eating [DIET] Nutrition 09/18/24 Breakfast Active Diagnostics 09/18/24 09/18/24 09/18/24 Range/Units 06:14 04:14 03:19 WBC 9.04 (4.4-10.8) 10^3/uL RBC 4.35 (3.93-5.22) 10^6/uL Hgb 14.8 (11.2-15.7) g/dL Hct 43.4 (36.0-46.0) % MCV 100 H (80-95) fL MCH 34.0 H (27.0-33.0) pg MCHC 34.1 (32.0-36.0) % RDW 12.0 (11.7-14.6) % Plt Count 299 (130-400) 10^3/uL MPV 9.2 (8.0-11.0) fL Immature Gran % 0.4 % Neutrophils % 84.0 % Lymphocytes % 8.8 % Monocytes % 6.7 % Eosinophils % 0.0 % Basophils % 0.1 % Nucleated RBC % 0.0 (0.0-0.3) % Absolute Neutrophils 7.58 H (1.2-6.7) 10^3/uL Absolute Lymphocytes 0.80 L (1.2-3.4) 10^3/uL Absolute Monocytes 0.61 (0.1-0.8) 10^3/uL Absolute Eosinophils 0.00 (0.0-0.7) 10^3/uL Absolute Basophils 0.01 (0.0-0.2) 10^3/uL VBG pH 7.41 (7.31-7.41) VBG pCO2 49 (41-51) mmHg VBG pO2 24 mmHg VBG HCO3 32 H (23-28) mmol/L VBG Total CO2 28 (24-29) mmol/L VBG O2 Saturation 42 % VBG Base Excess 7 H (-2-3) mmol/L VBG Lactate 1.3 (<or=2.0) mmol/L Sodium 134 L (136-145) mmol/L Potassium 3.6 (3.5-5.1) mmol/L Chloride 92 L (98-107) mmol/L Carbon Dioxide 31.6 (21.0-32.0) mmol/L Anion Gap 10.4 (3-11) mmol/L BUN 26 H (7-18) mg/dL Creatinine 0.9 (0.55-1.02) mg/dL Est GFR (CKD-EPI 2020) 61.49 (mL/min/1.73m2) Glucose 109 H (74-106) mg/dL Calcium 8.7 (8.5-10.1) mg/dL Magnesium 1.7 L (1.8-2.4) mg/dL Total Bilirubin 0.5 (0.2-1.0) mg/dL AST 29 (15-37) U/L ALT 28 (14-59) U/L Alkaline Phosphatase 63 (46-116) U/L Troponin I Cancelled 5 9 (<or=51) ng/L NT-Pro-B Natriuret Pep 1901 H (<300) pg/mL Total Protein 7.9 (6.4-8.2) g/dL Albumin 3.5 (3.4-5.0) g/dL Procalcitonin 0.22 ng/mL TSH 1.68 (0.36-3.74) uIU/mL COVID-19 Source Nasopharynx SARS-CoV-2 (PCR) Negative (Negative) Influenza Type A (PCR) Negative (Negative) Influenza Type B (PCR) Negative (Negative) RSV (PCR) Negative (Negative) 09/18/24 06:55 Blood Culture - Pending Blood 09/18/24 03:19 Blood Culture - Pending Blood Intake and Output - 24 Hour Total 09/18/24 02:12 thru 09/18/24 08:02 Intake Total 300 Balance 300 Weight 70.307 kg Intake: IV 300 Other: Urine Appearance Clear Falls Risk Assessment History of Falls No History 09/18/24 08:02 Contributing Factors Impairments 09/18/24 08:02 Ambulatory Aids Uses ambulatory device 09/18/24 08:02 Tubes/Lines W/no contributing factors 09/18/24 08:02 Gait Evaluation W/no contributing factors 09/18/24 08:02 Cognition No cognitive impairment 09/18/24 08:02 Fall Total Score 38 09/18/24 08:02 Level of Risk Moderate Risk 09/18/24 08:02 Problems (Last Reviewed 09/18/24 @ 06:05 by Aldo Gregg) Hyponatremia (Chronic) Hypothyroidism associated with surgical procedure (Chronic) HTN (hypertension) (Chronic) Pneumonia (Acute) COPD exacerbation (Acute) Atrial fibrillation with RVR (Acute) v v v v v v v v v Sending and/or Receiving Nurses: Please use comment section below to note any information pertinent to the patient hand-off not included above. Information / Comments: Pt came to ED via ambulance for worsening cough x onset 2 weeks ago. Pt has Hx of afib and a watchman in place. Pt has audible expiratory wheeze that can be heard without aucultation. Pt is on 2L O2 sating at 96%. On xray pt found to have PNA and is currently receiving ceftriaxone and azitromycin. Pt with scheduled updraft treatments as well. Pt is on telemetrty showing afib with rvr tachy at 124. BP was elevated in ED but has come down some on floor at 134/90. Pt is a/o x 4 and able to make needs known. Uses a walker 100% of the time at home. Pt has been having good relief with tessalon pearls and solumedrol. Pt with Hx of COPD and HTN. Pt uses call sky appropriately. Walker in room for ambulation asssitance. Bed alarm activated and call sky within reach. Pt settled in bed, pleasent and cooperative with no immediate needs or questions. Report received from: [facility]
[2024-09-18] MEDS: Losartan 50 MG TAB PO ×2 (09:18→20:00)
[2024-09-18] MEDS: Aspirin 81 MG CHEW PO (09:18)
[2024-09-18] MEDS: Metoprolol CR 50 MG TABCR 100 MG PO (09:18)
[2024-09-18] MEDS: Potassium Chloride 20 MEQ TABCR PO (09:18)
[2024-09-18] MEDS: Enoxaparin 40 MG/0.4 ML SYR SC (09:19)
[2024-09-18] MEDS: Loratidine 10 MG TAB PO (09:19)
[2024-09-18] MEDS: Cholecalciferol (Vitamin D3) 1,000 UNIT TAB 1000 UNITS PO (09:19)
[2024-09-18] MEDS: Chlorthalidone 25 MG TAB 12.5 MG PO (09:19)
--- NOTE | 2024-09-18 09:28 | INITIAL_ITS ---
Date of service: 09/18/24 Time of Service: 09:28 Care Management Initial Assmt Initial Assessment Reason for Hospitalization: Pneumonia Functional Status/Living Situation Patient Presentation: Elvi was awake and lying in bed when CM met with her. She is pleasant and easily engages in conversation and is currently visiting with her Jose. She is originally from [place] and moved to the [place] with her after they retired. Elvi has 6 children from her first marriage and Jose has 4 from his first marriage; both have lost a son. They maintain a long distance relationship their 8 [place] The children communicate in a group chat regularly and pay for caregiver services (4 hours a day/5 days a week) through the visiting [employer]. Town of Residence: [place] Resides with: Spouse (Jose) Significant Other/Family: Out of area Caregiver/Guardian: Caregiver supports through visiting [employer] for 4 hours a day/5 days a week. Natural Supports: Children are all supportive Employment Status: Retired Instrumental Activities of Daily Living (ADLs): Independent (ADLs) and Requires support with Dishes/food prep, Groceries, Laundry and Transportation Medications Medication Management: No Issues/Barriers identified Physical Functioning/Mobility Assistive Device: Walker and Cane Advance Directives Advance Directives: Do you have an Advance Directive: Y 09/18/22 09:51 AD On File at [facility]: Y 09/18/22 09:51 Date Asked AD Date Reviewed 09/18/24 09/18/24 03:45 COLST On File at [facility] COLST Date Scanned Code Status Resuscitation Status Full Code Portal Pt does not currently have a portal and education provided: Yes Insurance Coverage/Financial Issues Insurance: AARP [facility] Financial Issues: None identified Care Team Visit Care Team Role Provider Type Jarred Wyatt MD MD [facility] STAFF PHYSICIAN Elvis Muñoz, DO Primary Care Provider OSTEOPATHIC DOCTOR Ayad Casas, Emergency Provider [facility] STAFF PHYSICIAN Aldo Gregg Admit Provider NON-[facility] STAFF PHYSICIAN Attending Provider Discharge Potential Discharge Needs: PCP F/U Appt Anticipated Barriers to Discharge: None Identified Patient/Family Education Needs: Review discharge instructions, discuss Ask Me Three Transportation: Private vehicle Plan: Elvi will discharge home via private vehicle with family, follow up with community providers and her discharge plan, as recommended. No new services are anticipated at this time. CM will follow and support discharge considerations. CM will follow. Social Determinants of Health Screening Social Determinants of Health last assessed: 09/18/24 Will the Patient Participate in the Screening?: Yes Do you worry about having a steady place to live?: no Problems where you live: no known problems In the past 12 months, have you had to go without electric, gas, oil or water in your home?: no Have you or anyone in your house had to go without enough food to eat?: no Has lack of transportation kept you from medical appointments or from doing things needed for daily living?: no Has anyone in your life made you feel unsafe or unsupported?: no How hard is it for you to pay for the very basics like food, housing, medical care, and heating? Would you say it is:: Not hard at all Do you want help finding or keeping work or a job?: I do not need or want help If for any reason you need help with day-to-day activities such as bathing, preparing meals, shopping, managing finances, etc., do you get the help you need?: I get all the help I need How often do you feel lonely or isolated from those around you?: Never Do you speak a language other than [place] at home?: Yes Does the patient want assistance with any of the above?: No Health Related Social Needs Health related social needs: education (Z55.6) PFSH All Active Problems (Updated 09/18/24 @ 06:48 by Aldo Gregg) Hyponatremia (Chronic) Hypothyroidism associated with surgical procedure (Chronic) HTN (hypertension) (Chronic) Pneumonia (Acute) COPD exacerbation (Acute) Atrial fibrillation with RVR (Acute) Community acquired pneumonia (Acute) Valgus deformity, not elsewhere classified, left knee (Chronic) COVID-19 (Acute) Other instability, left knee (Acute) Witnessed apneic spells (Acute) Hypothyroidism (acquired) (Chronic) Severe uncontrolled hypertension (Acute) 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 Stroke (Chronic) Tricuspid valve insufficiency (Chronic) By cath 07 October 2020 Flushing (Acute) Heart palpitations (Acute) Anterior epistaxis (Chronic) Recurrent, responds to AgNO3 cautery Primary osteoarthritis of left knee (Acute) Contusion of left knee (Acute) Knee pain, left anterior (Acute) Mitral valve insufficiency (Chronic) Chest pain (Acute) Neoplasm of large intestine (Acute 06/21/05) H/O POLYPS ON FIRST COLON IN [place]; NEG ON REPEAT; [place] DR BLAKE FOUND ONE HYPERPLASTIC POLYP Leg pain, left (Chronic 11/03/16) Acute midline low back pain without sciatica (Chronic 05/18/17) Labile blood pressure (Chronic) Medical History Asthma Presence of Watchman left atrial appendage closure device (~10/2020) 10/07/20 [facility] [place] following cardiac cath Periodic limb movement disorder (PLMD) Essential tremor Peripheral neuropathy, idiopathic (06/08/98) KNEE DISTAL, BILAT; INTERMITTENT BURNING, SLEEPS BETTER AT NIGHT IF SHE HAS WORN TIGHT SOCKS DAYTIME; nortriptyline effective; Dr Oneill; worse balance 02/2015 Gastroesophageal reflux disease (07/05/04) RESPONDS TO OMEPRAZOLE, BEFORE DINNER; ESOPHAGITIS ON EGD AT [facility] [place]: 07/05/04; gastritis and diffuse esophagitis; DR MERCADO [facility] [place] PPI RX Hyperlipidemia (10/21/10) dyslipidemia: low HDL; statin begun by neuro 10/2010 after her TIA, along with Clopidogrel; target LDL<100 and HDL>40 Cerebrovascular disease, unspecified (10/07/10) 10/2010; 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 Guy Lechuga- non-invasive papillary urothellal carcinoma, low grade. Atrial fibrillation Surgical History H/O cardiac catheterization (10/07/20) [facility] [place]-L atrial appendage closure for afib cystourethroscopy (08/07/17) Dr Brian Lechuga [facility]-extensive recurrent bladder tumor encompassint entire L hemitrigone and posterolateral bladder wall and neck URO cysto (10/22/15) Guy Lechuga MD 12 weeks after her last BCG Thyroid (03/13/14) 9Complete thyroidectomy Dr. Sanchez [facility] [place], path: multinodular goiter Transurethral Resection of Bladder Tumor, 2-5cm (05/27/13) Dr. Ruano Cystoscopy (04/29/15) Dr. Lechuga 02/05/18 repeat cysto Colonoscopy - IV Sedation (03/22/16) Cholecystectomy Extraction of cataract (08/10/15) Dr Hu L eye R eye 2/2 Extraction of cataract (07/27/15) Dr Mayte Gonzalez eye R eye 2/2 Biopsy of breast (07/09/76) both breasts, biopsies benign Appendectomy Family History Brother Brain cancer Cancer Of the Face Father , Age 65 Heart attack Heart disease Sister , Lung Disease Age 80 Cancer Mother , Age 73 Amyloid disease Social History Smoking/Tobacco Use Status: Former Tobacco Use tobacco type: cigarettes Quit Date: 07/09/87 Pack-years: 52 Tobacco: How many years used: 35 Quit status: quit date established (1987) Smoking risk assessment performed?: Yes Alcohol Intake: never Drug use: Never Substance use type: does not use Adopted: No Caregiver/Support person: Yes Foster care: No Household members: spouse Housing: house Number of Children: 6 number of grandchildren: 17 Communication Needs: None Education Level: high school current occupation: Retired Pets and animals: Yes (1) Pets and animals: cat(s) Sexually active: No Do you think of yourself as: straight/heterosexual What is your relationship status?: How often do you talk on the phone with friends or family?: twice per week How often do you get together with friends or relatives?: once per week How often do you attend adventist or mandaeism services?: 4 or more times per year Do you belong to any clubs or organized social groups?: no Panel score (0-1 are the most socially isolated patients): 3 What type of physical activity do you participate in: other Details: [employer] Bike Duration: 15-30 minutes/day Frequency: 3-4 times per week Astrid/Zoroastrian: Mormonism Seatbelt use: always Helmet use: No (Never) Drive intox or ride w/intox haul driver: No Do you feel safe at home: Yes Do you feel safe in your relationship?: Yes
[2024-09-18] MEDS: methylPREDNISolone SUCC 125 MG VIAL 60 MG IVP ×2 (14:25→22:47)
[2024-09-18] MEDS: Cyanocobalamin 500 MCG TAB PO (14:25)
--- NOTE | 2024-09-18 14:45 | CHAPLAIN ---
Elvi was resting in bed when I visited. She said she's had trouble sleeping for a couple of days because of her coughing. She's hoping to nap today. Neither she or her drive any more, so she said a caregiver will be driving her in later. I explained my role and offered support.
[2024-09-18] MEDS: Gabapentin 600 MG TAB PO (16:28)
[2024-09-18] MEDS: Albuterol/Ipratropium 3 ML UPD VIAL UPD (16:31)
[2024-09-18] MEDS: dilTIAZem 60 MG TAB PO (18:16)
--- NOTE | 2024-09-18 18:45 | RT.EKG_ITS ---
APPROVED REPORT Exam: Resting ECG Reason for Exam: AFIB RVR, VOMITING Patient Location: I HR:135 bpm ECG Measurements Heart Rate 135 AXIS AR [id number] P [id number] QRSd 83 QRS 66 QT 323 T 48 QTc 484 Conclusion Atrial fibrillation...V-rate 98-161, irreg A-activity
[2024-09-18 19:36] LABS: Troponin I 12 ng/L (<or=51)
[2024-09-18] MEDS: Psyllium PKT 1 EACH PO (19:59)
[2024-09-18] MEDS: Metoprolol CR 50 MG TABCR 150 MG PO (19:59)
[2024-09-18] MEDS: Gabapentin 600 MG TAB 1200 MG PO (20:00)
[2024-09-18] MEDS: Simvastatin 10 MG TAB PO (20:00)
[2024-09-18] MEDS: Budesonide/Formoterol 80/4.5 6.9 GM 60 PUFF INH IH (20:20)
[2024-09-18] MEDS: Ipratropium 0.5 MG/2.5 ML UPD VIAL UPD (21:28)
[2024-09-18] MEDS: Levalbuterol 1.25 MG/3 ML UPD VIAL UPD (21:28)
[2024-09-19] VITALS (19 sets, daily range): BP systolic 121–152; BP diastolic 71–98; PULSE 68–161; RESP 3–20; TEMP 36.6–37.1; O2SAT 92–97
[2024-09-19] MEDS: Levalbuterol 1.25 MG/3 ML UPD VIAL UPD ×4 (04:20→22:03)
[2024-09-19] MEDS: Ipratropium 0.5 MG/2.5 ML UPD VIAL UPD ×4 (04:21→22:03)
[2024-09-19] MEDS: cefTRIAXone 1 GM/50 ML BAG IVPB (05:31)
[2024-09-19] MEDS: methylPREDNISolone SUCC 125 MG VIAL 60 MG IVP (05:31)
[2024-09-19] MEDS: Levothyroxine 75 MCG TAB PO (05:31)
[2024-09-19] MEDS: AZITHROMYCIN 250 MG in Normal Saline 250 ML IVPB (06:15)
[2024-09-19 06:41] LABS: HCT 38.8 % (36.0-46.0); HGB 13.6 g/dL (11.2-15.7); MCH 34.2 pg (27.0-33.0); MCHC 35.1 % (32.0-36.0); MCV 98 fL (80-95); MPV 9.4 fL (8.0-11.0); Platelet Count 297 10^3/uL (130-400); RBC 3.98 10^6/uL (3.93-5.22); RDW 11.9 % (11.7-14.6); RDW-SD 43.4 fL; WBC 8.94 10^3/uL (4.4-10.8)
[2024-09-19 06:56] LABS: ALT 25 U/L (14-59); AST 28 U/L (15-37); Alkaline Phosphatase 54 U/L (46-116); Anion Gap 11.4 mmol/L (3-11); BUN 18 mg/dL (7-18); Bilirubin, Total 0.5 mg/dL (0.2-1.0); CO2 29.6 mmol/L (21.0-32.0); CREATININE 0.8 mg/dL (0.55-1.02); Calcium 8.4 mg/dL (8.5-10.1); Chloride 92 mmol/L (98-107); Estimated GFR 70.83 (mL/min/1.73m2); Glucose 142 mg/dL (74-106); Magnesium 1.8 mg/dL (1.8-2.4); Potassium 3.1 mmol/L (3.5-5.1); Sodium 133 mmol/L (136-145); Total Protein 7.2 g/dL (6.4-8.2)
[2024-09-19] MEDS: Budesonide/Formoterol 80/4.5 6.9 GM 60 PUFF INH IH ×2 (08:36→19:42)
[2024-09-19] MEDS: Aspirin 81 MG CHEW PO (08:56)
[2024-09-19] MEDS: Losartan 50 MG TAB PO ×2 (08:56→20:05)
[2024-09-19] MEDS: Cyanocobalamin 500 MCG TAB PO (08:56)
[2024-09-19] MEDS: Metoprolol CR 50 MG TABCR 150 MG PO ×2 (08:56→20:05)
[2024-09-19] MEDS: Cholecalciferol (Vitamin D3) 1,000 UNIT TAB 1000 UNITS PO (08:56)
[2024-09-19] MEDS: dilTIAZem 60 MG TAB PO ×2 (08:57→20:05)
[2024-09-19] MEDS: Potassium Chloride 20 MEQ TABCR PO (08:57)
[2024-09-19] MEDS: Loratidine 10 MG TAB PO (08:57)
[2024-09-19] MEDS: Benzonatate 100 MG CAP PO ×3 (08:57→20:05)
[2024-09-19] MEDS: Chlorthalidone 25 MG TAB 12.5 MG PO (08:57)
[2024-09-19] MEDS: Enoxaparin 40 MG/0.4 ML SYR SC (08:58)
--- NOTE | 2024-09-19 09:31 | W.PM.PROGNOT ---
Date of Service Date of service: 09/19/24 Time of Service: 09:31 Assessment and Plan Assessment and plan (1) Sepsis: Status: Acute Assessment and plan: - On admission patient met criteria for sepsis with respiratory rate as high as 26, heart rate in the 130s, and source of infection being a multifocal community-acquired pneumonia -She did not meet criteria for severe sepsis as there were no signs of endorgan damage -Patient was started on IV Rocephin and raise azithromycin -will transition to p.o. azithromycin and cefpodoxime on the morning of 09/19/2024 (2) Pneumonia: Start date: 09/18/24 Status: Acute Assessment and plan: - (3) COPD exacerbation: Start date: 09/18/24 Status: Acute Assessment and plan: -, 125 Solu-Medrol in the emergency department -Transitioning to p.o. prednisone as of the morning of 09/19/2024 -Continue DuoNebs and as needed inhalers (4) Atrial fibrillation with RVR: Start date: 09/18/24 Status: Acute Assessment and plan: - Pulmonary control medications were continued which included Toprol-XL 100 mg twice daily -Patient continued to be tachycardic likely due to a combination of acute illness and nebulizers -P.o. metoprolol has been increased 250 mg twice daily and patient was also started on 60 mg p.o. diltiazem with improvement of her heart rate -Patient does not appear to be on anticoagulation chronically (5) HTN (hypertension): Status: Chronic Assessment and plan: Not controlled with patient to have metoprolol split dose and increase if needed. Continue other outpatient antihypertensives as ordered. This exacerbation may also be secondary to her respiratory distress with coughing paroxysms. (6) Hypothyroidism associated with surgical procedure: Status: Chronic Assessment and plan: -Continue home Synthroid (7) Hyperlipidemia: Assessment and plan: -Continue statin therapy. Subjective Subjective Interval history since last seen: Patient states that she feels much better as compared to previous day. She understands she will continue on IV antibiotics and will continue to monitor her heart rate as she was significantly tachycardic over the last 24 hours. Otherwise she has no other complaints or concerns at this time. Exam Narrative Exam Narrative: Well-appearing older female laying in bed in no acute distress, ANO x 4, heart irregularly irregular with rates in the 80s, lungs with diffuse bilateral coarse breath sounds, abdomen soft, nontender, nondistended Objective Last Vital Signs Temp 98.2 F 09/19/24 07:20 Pulse 86 09/19/24 07:20 Resp 20 09/19/24 07:20 BP 148/90 H 09/19/24 07:20 Pulse Ox 94 09/19/24 07:20 Laboratory Results - last 24 hr 09/18/24 09/19/24 19:10 05:36 WBC 8.94 RBC 3.98 Hgb 13.6 Hct 38.8 MCV 98 H MCH 34.2 H MCHC 35.1 RDW 11.9 Plt Count 297 MPV 9.4 Sodium 133 L Potassium 3.1 L Chloride 92 L Carbon Dioxide 29.6 Anion Gap 11.4 H BUN 18 Creatinine 0.8 Est GFR (CKD-EPI 2020) 70.83 Glucose 142 H Calcium 8.4 L Magnesium 1.8 Total Bilirubin 0.5 AST 28 ALT 25 Alkaline Phosphatase 54 Troponin I 12 Total Protein 7.2 Albumin 3.0 L Time Spent with Patient Time Spent with Patient: >50 minutes Time was spent: preparing to see the patient(eg.review tests), obtaining and/or reviewing separately otained hiistory, ordering medications,tests, procedures, referring, communicating with other health career orientation teacher, indepentently interpreting results, counseling the patient and care coordination
--- NOTE | 2024-09-19 11:05 | PHA.REVIEW2 ---
Pharmacy Admission Review Admission Clinical Review Admission Pharmacy Review: Sepsis (Acute) Pneumonia (Acute) COPD exacerbation (Acute) Atrial fibrillation with RVR (Acute) guaifenesin (From Mucinex) Adverse Reaction (Intermediate, Verified 09/18/24 03:15) diarrhea amoxicillin (From Augmentin) Adverse Reaction (Verified 09/18/24 03:15) Diarrhea clavulanic acid (From Augmentin) Adverse Reaction (Verified 09/18/24 03:15) Diarrhea tramadol Adverse Reaction (Verified 09/18/24 03:15) constipation Resuscitation Status Full Code Height 5 ft 3 in Weight 73.1 kg Pharmacy Admission Review Renal Dosing Renal Dosing: BUN 18 mg/dL (7-18) 09/19/24 05:36 Creatinine 0.8 mg/dL (0.55-1.02) 09/19/24 05:36 Medications needing adjustments: Reviewed (CrCl 37.25 mL/min, BUN decreased from 26) List of meds needing interventions: Current medications are okay Anticoagulation Anticoagulation: Hgb 13.6 g/dL (11.2-15.7) 09/19/24 05:36 Hct 38.8 % (36.0-46.0) 09/19/24 05:36 Plt Count 297 10^3/uL (130-400) 09/19/24 05:36 Creatinine 0.8 mg/dL (0.55-1.02) 09/19/24 05:36 DVT Prophylaxis: Reviewed Medications: Enoxaparin (40mg daily) Relevant Labs Relevant Labs: Sodium 133 mmol/L (136-145) L 09/19/24 05:36 Potassium 3.1 mmol/L (3.5-5.1) L 09/19/24 05:36 Chloride 92 mmol/L (98-107) L 09/19/24 05:36 Magnesium 1.8 mg/dL (1.8-2.4) 09/19/24 05:36 Electrolytes, C-Reactive P, ESR: Reviewed (Na 133, K 3.1 - has order for 20mEq PO daily) Cardiac Review Cardiac Review: Troponin I 12 ng/L (<or=51) 09/18/24 19:10 NT-Pro-B Natriuret Pep 1901 pg/mL (<300) H 09/18/24 03:19 BP, HR, EF%: Intervened (BP 148/90 and HR 112) List meds needing interventions: Has order for chlorthalidone 12.5mg daily, diltiazem 60mg BID, losartan 50mg BID and metoprolol XL 150mg BID. Spoke with provider regarding metoprolol dose. Patient takes 150mg daily at home and per H+P was going to do split dosing, order was put in as 150mg BID. Per provider seems to be working for patient so will keep as is for now. QTc Review QTc: Reviewed (484 from 09/18/24) IV to PO Switch IV Medications: Intervened (Changed prochlorperazine from IV to PO - provider aware) Home Meds Home Med List reviewed: Reviewed Relevent Home Meds Not ordered & why?: suzetrigine (PRN) Current Meds Current Medication Order Review: Intervened Comments: Added IV access order Pharmacy Antibiotic Review Relevant Labs: WBC 8.94 10^3/uL (4.4-10.8) 09/19/24 05:36 Procalcitonin 0.22 ng/mL 09/18/24 03:19 Temperature 36.8 C Temperature 36.4 C Microbiology 09/18/24 06:55 Blood Culture - Preliminary Blood NO GROWTH 24 HOURS 09/18/24 03:19 Blood Culture - Preliminary Blood NO GROWTH 24 HOURS Pharmacy Antibiotic Activity: C/S review and IV to PO Comments: Patient is on cefpodoxime and azithromycin, day 2 total, for pneumonia. Was switched this morning from IV (ceftriaxone) to PO. Blood cultures showing no growth at 24 hours.
[2024-09-19] MEDS: predniSONE 20 MG TAB 40 MG PO (11:44)
--- NOTE | 2024-09-19 12:45 | PDOC.CMPRO ---
Date of service: 09/19/24 Time of Service: 12:45 Care Management Progress Note Progress Note Text Progress Note Text: Elvi was awake and sitting in a chair when CM met with her. She is pleasant and easy to engage in conversation. Elvi feels better than she did yesterday and is planning to stay another night for additional cardiac monitoring. No new services are anticipated on discharge. Elvi lives with her and has caregiver services through [facility]. CM will follow. Discharge Potential Discharge Needs: PCP F/U Appt Anticipated Barriers to Discharge: None Identified Patient/Family Education Needs: Review discharge instructions, discuss Ask Me Three Transportation: Private vehicle Plan: Elvi will discharge home with resumption of caregiver supports through [facility]. Pt will follow up with community providers and her discharge plan, as recommended. No new services are anticipated at this time. Family will transport. CM will follow. Social Determinants of Health Screening Social Determinants of Health last assessed: 09/19/24 Will the Patient Participate in the Screening?: Yes Do you worry about having a steady place to live?: no Problems where you live: no known problems In the past 12 months, have you had to go without electric, gas, oil or water in your home?: no Have you or anyone in your house had to go without enough food to eat?: no Has lack of transportation kept you from medical appointments or from doing things needed for daily living?: no Has anyone in your life made you feel unsafe or unsupported?: no How hard is it for you to pay for the very basics like food, housing, medical care, and heating? Would you say it is:: Not hard at all Do you want help finding or keeping work or a job?: I do not need or want help If for any reason you need help with day-to-day activities such as bathing, preparing meals, shopping, managing finances, etc., do you get the help you need?: I get all the help I need How often do you feel lonely or isolated from those around you?: Never Do you speak a language other than Setswana at home?: Yes Does the patient want assistance with any of the above?: No Health Related Social Needs Health related social needs: education (Z55.6)
[2024-09-19] MEDS: Gabapentin 600 MG TAB PO (15:46)
[2024-09-19] MEDS: Psyllium PKT 1 EACH PO (20:04)
[2024-09-19] MEDS: Gabapentin 600 MG TAB 1200 MG PO (20:05)
[2024-09-19] MEDS: Simvastatin 10 MG TAB PO (20:05)
[2024-09-19] MEDS: Cefpodoxime 200 MG TAB PO (20:05)
[2024-09-19] MEDS: Normal Saline Flush 10 ML SYR IVP (20:08)
[2024-09-20 02:55] VITALS: BP 138/75; PULSE 85; RESP 15; TEMP 36.3; O2SAT 94
[2024-09-20 04:15] VITALS: PULSE 85; RESP 16; RESP 2; RESP 9; O2SAT 95
[2024-09-20] MEDS: Levalbuterol 1.25 MG/3 ML UPD VIAL UPD ×2 (04:15→09:14)
[2024-09-20] MEDS: Ipratropium 0.5 MG/2.5 ML UPD VIAL UPD ×2 (04:15→09:13)
[2024-09-20 04:21] VITALS: PULSE 77; RESP 18; RESP 2; RESP 9; O2SAT 95
[2024-09-20] MEDS: Levothyroxine 75 MCG TAB PO (05:29)
[2024-09-20 06:41] LABS: HCT 39.2 % (36.0-46.0); HGB 13.4 g/dL (11.2-15.7); MCH 33.8 pg (27.0-33.0); MCHC 34.2 % (32.0-36.0); MCV 99 fL (80-95); MPV 9.2 fL (8.0-11.0); Platelet Count 355 10^3/uL (130-400); RBC 3.97 10^6/uL (3.93-5.22); RDW 11.9 % (11.7-14.6); RDW-SD 43.7 fL; WBC 12.47 10^3/uL (4.4-10.8)
[2024-09-20 07:03] LABS: ALT 35 U/L (14-59); AST 28 U/L (15-37); Albumin 2.8 g/dL (3.4-5.0); Alkaline Phosphatase 53 U/L (46-116); Anion Gap 7.9 mmol/L (3-11); BUN 23 mg/dL (7-18); Bilirubin, Total 0.5 mg/dL (0.2-1.0); CO2 31.1 mmol/L (21.0-32.0); CREATININE 0.8 mg/dL (0.55-1.02); Calcium 8.3 mg/dL (8.5-10.1); Chloride 92 mmol/L (98-107); Estimated GFR 70.83 (mL/min/1.73m2); Glucose 128 mg/dL (74-106); Potassium 3.2 mmol/L (3.5-5.1); Sodium 131 mmol/L (136-145); Total Protein 6.7 g/dL (6.4-8.2)
[2024-09-20 07:31] VITALS: BP 147/88; PULSE 82; RESP 20; TEMP 36.6; O2SAT 93
[2024-09-20] MEDS: Benzonatate 100 MG CAP PO (08:31)
[2024-09-20] MEDS: Potassium Chloride 20 MEQ TABCR PO (08:31)
[2024-09-20] MEDS: Cholecalciferol (Vitamin D3) 1,000 UNIT TAB 1000 UNITS PO (08:32)
[2024-09-20] MEDS: Cyanocobalamin 500 MCG TAB PO (08:32)
[2024-09-20] MEDS: Loratidine 10 MG TAB PO (08:32)
[2024-09-20] MEDS: Aspirin 81 MG CHEW PO (08:32)
[2024-09-20] MEDS: Metoprolol CR 50 MG TABCR 150 MG PO (08:32)
[2024-09-20] MEDS: Chlorthalidone 25 MG TAB 12.5 MG PO (08:32)
[2024-09-20] MEDS: Losartan 50 MG TAB PO (08:32)
[2024-09-20] MEDS: Cefpodoxime 200 MG TAB PO (08:32)
[2024-09-20] MEDS: Azithromycin 250 MG TAB PO (08:32)
[2024-09-20] MEDS: dilTIAZem 60 MG TAB PO (08:32)
[2024-09-20] MEDS: predniSONE 20 MG TAB 40 MG PO (08:32)
[2024-09-20] MEDS: Normal Saline Flush 10 ML SYR IVP (08:33)
[2024-09-20] MEDS: Enoxaparin 40 MG/0.4 ML SYR SC (08:33)
[2024-09-20] MEDS: Budesonide/Formoterol 80/4.5 6.9 GM 60 PUFF INH IH (09:13)
[2024-09-20 09:14] VITALS: PULSE 94; RESP 5; O2SAT 95
[2024-09-20 09:17] VITALS: RESP 5
--- NOTE | 2024-09-20 11:03 | W.PM.DS.N ---
Date of service: 09/20/24 Time of Service: 11:03 DS: Diagnosis Discharge Diagnosis (1) Sepsis: Status: Acute (2) Pneumonia: Status: Acute (3) COPD exacerbation: Status: Acute (4) Atrial fibrillation with RVR: Status: Acute (5) HTN (hypertension): Status: Chronic (6) Hypothyroidism associated with surgical procedure: Status: Chronic (7) Hyperlipidemia: Discharge Plan Disposition Patient Disposition: Home Condition: Good Discharge Details Reason For Visit: multifocal pneumonia, COPD exacerbation, AF with Admit Date/Time: 09/18/24 06:18 Admit Provider: Aldo Gregg Attending Provider: Aldo Gregg Primary Care Provider: Elvis Muñoz [facility] Course Hospital Course: Patient initially presented with signs and symptoms consistent with sepsis secondary to community-acquired pneumonia and COPD exacerbation. She was initially treated with IV Rocephin and azithromycin which was subsequently transition to p.o. cefpodoxime and azithromycin and patient had significant improvement of her symptoms. Additionally, she initially received IV Solu-Medrol in the emergency department which was transitioned to p.o. prednisone. While hospitalized she also had elevation of her heart rate with A-fib RVR and rates reaching as high as 160 briefly and sometimes sustained into the 130s. She had her p.o. Toprol XL increased from 100 250 twice daily which did not improve her symptoms. She was also started on p.o. diltiazem 60 mg twice daily, both of which will be continued at discharge. Given that patient had significant proven of her symptoms it was determined that she was stable for discharge home. Home Meds and New Rx's Prescriptions: New cefpodoxime 200 mg Tablet 200 mg PO BID 4 Days Qty: 8 0RF azithromycin 250 mg Tablet 250 mg PO DAILY 2 Days Qty: 2 0RF metoprolol succinate 50 mg Tablet Extended Release 24 Hr 150 mg PO BID 90 Days Qty: 540 0RF prednisone 20 mg Tablet 40 mg PO DAILY 5 Days Qty: 10 0RF diltiazem HCl [Cardizem] 60 mg Tablet 60 mg PO BID Qty: 90 0RF Continued aspirin [Gerald Chewable Aspirin] 81 mg tablet,chewable 81 mg PO DAILY triamcinolone acetonide [Nasacort] 55 mcg aerosol,spray 1 spray intranasal DAILY Qty: 16.9 2RF Rx Instructions: administer into each nostril nitroglycerin [Nitrostat] 0.3 mg tablet, sublingual 0.3 mg Sublingual Q5-15M PRN (Reason: chest pain/esophageal spasm) 1 Days Qty: 25 6RF omeprazole 20 mg capsule,delayed release(DR/EC) 20 mg PO QDAY PRN (Reason: heart burn) suzetrigine 50 mg tablet See Rx Instructions PO Q12H PRN PRN (Reason: Severe pain) Qty: 29 0RF Rx Instructions: t2 tabs for first dose, then t1 tab bid orally every 12 hours, as needed PRN; cholecalciferol (vitamin D3) 1,000 UNIT tablet 1,000 unit PO DAILY cyanocobalamin (vitamin B-12) [Vitamin B-12] 500 MCG tablet 500 mcg PO DAILY acetaminophen 500 MG tablet 1,000 mg PO Q4H PRN levothyroxine 75 mcg tablet 75 mcg PO DAILY MDD 75 mcg 90 Days Qty: 90 4RF Rx Instructions: Take one 75 mcg tablet once daily by mouth as directed gabapentin 600 mg tablet See Rx Instructions PO BID Qty: 270 3RF Rx Instructions: 600mg at dinner and 1200mg HS PO twice a day; chlorthalidone 25 mg tablet 12.5 mg PO DAILY Qty: 45 1RF simvastatin 10 mg tablet 10 mg PO HS Qty: 90 3RF Rx Instructions: lower LDL cholesterol Metamucil [facility] Fiber 660 GM powder 1 oz PO HS losartan 50 mg Tablet 50 mg PO BID Qty: 180 0RF loratadine [Claritin] 1 tab PO DAILY potassium chloride [Klor-Con M20] 20 mEq Tablet,Er Particles/Crystals 20 meq PO DAILY Qty: 30 0RF budesonide-formoterol [Symbicort] 80-4.5 mcg/actuation HFA aerosol inhaler 2 puff INHALATION BID Discontinued metoprolol succinate 100 mg tablet extended release 24 hr 100 mg PO DAILY prednisone 20 mg tablet See Rx Instructions PO DAILY Qty: 24 0RF Rx Instructions: t3 tabs for 5 days, then t2 tabs for 3 days, then t1 tab for 3 days orally daily; azithromycin 250 mg tablet 250 mg PO BID Patient Comments: X5 DAYS Discharge Instructions Activity:: Activity as Tolerated Equipment/Supplies:: No Equipment Needed Diet:: As Tolerated Discharge Orders Discharge Orders: Discharge Order (Routine); Ordered 09/20/24 Ordered By: Jarred Wyatt DS: Summary Time Spent with Patient providing and/or coordinating discharge services: Greater than 30 minutes Status at Discharge Functional status at discharge: independent ambulation Overall status at discharge: patient is back to baseline Mental Status: mental status grossly normal Speech and Movement: speech and movement normal Mood: congruent mood Affect: normal affect Quality:SDOH Health Related Social Needs: Health related social needs education (Z55.6) Exam Narrative Exam Narrative: Well-appearing older female laying in bed in no acute distress, ANO x 4, heart irregularly irregular with rates in the 80s, lungs with diffuse bilateral coarse breath sounds, abdomen soft, nontender, nondistended Psych Mental Status: mental status grossly normal Speech and Movement: speech and movement normal Mood: congruent mood Affect: normal affect DS: Data Vitals/I&O Vitals and I&O: Vital Signs Temperature 97.9 F 09/20/24 07:31 Temperature Source Temporal Artery Scan 09/20/24 07:31 Pulse 94 H 09/20/24 09:14 Pulse Rhythm Irregular 09/18/24 08:02 Pulse 121 H 09/18/24 07:30 Respiratory Rate 20 09/20/24 07:31 Respiratory Effort Short of Breath 09/18/24 08:02 Respiratory Depth Normal 09/18/24 08:02 Respiratory Pattern Normal 09/18/24 08:02 Blood Pressure 147/88 H 09/20/24 07:31 Blood Pressure Mean 149 09/18/24 06:31 Blood Pressure Position Sitting 09/18/24 03:10 Pulse Oximetry 95 09/20/24 09:14 Oxygen Delivery Method Room Air 09/20/24 09:14 Oxygen Flow Rate 0 09/20/24 09:14 Pain Level 0 09/20/24 07:31 Comment patient asked to not be woken up at 3am because she has not slept in 36 hours per patient 09/19/24 04:00 Intake & Output 09/19/24 09/20/24 09/20/24 17:59 05:59 17:59 Intake Total 1270 / 1270 800 / 2070 420 / 420 Output Total 850 / 850 Balance 1270 / 1270 -50 / 1220 420 / 420 Weight 161 lb 2.526 oz Intake: IV 300 / 300 Oral 970 / 970 800 / 1770 420 / 420 Output: Urine 850 / 850 Other: Urine Color Straw Pale Yellow Urine Appearance Clear Clear Urine Odor Normal Normal Data Completed and Pending Labs on day of discharge: Labs from last 24 hours 09/20/24 09/20/24 06:15 05:35 WBC 12.47 H RBC 3.97 Hgb 13.4 Hct 39.2 MCV 99 H MCH 33.8 H MCHC 34.2 RDW 11.9 Plt Count 355 MPV 9.2 Sodium 131 L Cancelled Potassium 3.2 L Cancelled Chloride 92 L Cancelled Carbon Dioxide 31.1 Cancelled Anion Gap 7.9 Cancelled BUN 23 H Cancelled Creatinine 0.8 Cancelled Est GFR (CKD-EPI 2020) 70.83 Cancelled Glucose 128 H Cancelled Calcium 8.3 L Cancelled Total Bilirubin 0.5 AST 28 ALT 35 Alkaline Phosphatase 53 Total Protein 6.7 Albumin 2.8 L Preliminary micro results at discharge 09/18/24 06:55 Blood Culture - Preliminary Blood NO GROWTH 48 HOURS 09/18/24 03:19 Blood Culture - Preliminary Blood NO GROWTH 48 HOURS PFSH All Active Problems (Updated 09/19/24 @ 09:33 by Jarred Wyatt MD) Sepsis (Acute) Hyponatremia (Chronic) Hypothyroidism associated with surgical procedure (Chronic) HTN (hypertension) (Chronic) Pneumonia (Acute) COPD exacerbation (Acute) Atrial fibrillation with RVR (Acute) Community acquired pneumonia (Acute) Valgus deformity, not elsewhere classified, left knee (Chronic) COVID-19 (Acute) Other instability, left knee (Acute) Witnessed apneic spells (Acute) Hypothyroidism (acquired) (Chronic) Severe uncontrolled hypertension (Acute) 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 Stroke (Chronic) Tricuspid valve insufficiency (Chronic) By cath 07 October 2020 Flushing (Acute) Heart palpitations (Acute) Anterior epistaxis (Chronic) Recurrent, responds to AgNO3 cautery Primary osteoarthritis of left knee (Acute) Contusion of left knee (Acute) Knee pain, left anterior (Acute) Mitral valve insufficiency (Chronic) Chest pain (Acute) Neoplasm of large intestine (Acute 06/21/05) H/O POLYPS ON FIRST COLON IN [place]; NEG ON REPEAT; [place] [address] [place] [facility] HYPERPLASTIC POLYP Leg pain, left (Chronic 11/03/16) Acute midline low back pain without sciatica (Chronic 05/18/17) Labile blood pressure (Chronic) Medical History Asthma Presence of Watchman left atrial appendage closure device (~10/2020) 10/07/20 [facility] [place] cardiac cath Periodic limb movement disorder (PLMD) Essential tremor Peripheral neuropathy, idiopathic (06/08/98) KNEE DISTAL, BILAT; INTERMITTENT BURNING, SLEEPS BETTER AT NIGHT IF SHE HAS WORN TIGHT SOCKS DAYTIME; nortriptyline effective; Dr Oneill; worse balance 02/2015 Gastroesophageal reflux disease (07/05/04) RESPONDS TO OMEPRAZOLE, BEFORE DINNER; ESOPHAGITIS ON EGD AT [facility] [place]: 07/05/04; gastritis and diffuse esophagitis; DR MERCADO REC [place] PPI RX Hyperlipidemia (10/21/10) dyslipidemia: low HDL; statin begun by neuro 10/2010 after her TIA, along with Clopidogrel; target LDL<100 and HDL>40 Cerebrovascular disease, unspecified (10/07/10) 10/2010; small L THALAMIC CVA ON MRI, [facility] [place], RX Clopidogrel and Statin indefinitely Essential hypertension (06/23/13) Bladder cancer (05/19/15) Dr. Guy Lechuga- non-invasive papillary urothellal carcinoma, low grade. Atrial fibrillation Surgical History H/O cardiac catheterization (10/07/20) [facility] [place] atrial appendage closure for afib cystourethroscopy (08/07/17) Dr Biran Lechuga [facility]-extensive recurrent bladder tumor encompassint entire L hemitrigone and posterolateral bladder wall and neck URO cysto (10/22/15) Guy Lechuga MD 12 weeks after her last BCG Thyroid (03/13/14) 9Complete thyroidectomy Dr. Sanchez [facility] [place], path: multinodular goiter Transurethral Resection of Bladder Tumor, 2-5cm (05/27/13) Dr. Ruano Cystoscopy (04/29/15) Dr. Lechuga 02/05/18 repeat cysto Colonoscopy - IV Sedation (03/22/16) Cholecystectomy Extraction of cataract (08/10/15) Dr Mayte Gonzalez eye R eye 2/2 Extraction of cataract (07/27/15) Dr Mayte Gonzalez eye R eye 2/2 Biopsy of breast (07/09/76) both breasts, biopsies benign Appendectomy Family History Brother Brain cancer Cancer Of the Face Father , Age 65 Heart attack Heart disease Sister , Lung Disease Age 80 Cancer Mother , Age 73 Amyloid disease Social History Smoking/Tobacco Use Status: Former Tobacco Use tobacco type: cigarettes Quit Date: 07/09/87 Pack-years: 52 Tobacco: How many years used: 35 Quit status: quit date established (1987) Smoking risk assessment performed?: Yes Alcohol Intake: never Drug use: Never Substance use type: does not use Adopted: No Caregiver/Support person: Yes Foster care: No Household members: spouse Housing: house Number of Children: 6 number of grandchildren: 17 Communication Needs: None Education Level: high school current occupation: Retired Pets and animals: Yes (1) Pets and animals: cat(s) Sexually active: No Do you think of yourself as: straight/heterosexual What is your relationship status?: How often do you talk on the phone with friends or family?: twice per week How often do you get together with friends or relatives?: once per week How often do you attend sikh or spiritism services?: 4 or more times per year Do you belong to any clubs or organized social groups?: no Panel score (0-1 are the most socially isolated patients): 3 What type of physical activity do you participate in: other Details: Recumbant Bike Duration: 15-30 minutes/day Frequency: 3-4 times per week Astrid/Evangelical: Temple Seatbelt use: always Helmet use: No (Never) Drive intox or ride w/intox paratransit driver: No Do you feel safe at home: Yes Do you feel safe in your relationship?: Yes Time Spent with Patient Time Spent with Patient: <45 minutes Time was spent: preparing to see the patient(eg.review tests), obtaining and/or reviewing separately otained hiistory, ordering medications,tests, procedures, referring, communicating with other health personal caregiver, indepentently interpreting results, counseling the patient and care coordination
--- NOTE | 2024-09-20 11:21 | PDOC.HHF2F_ITS ---
Home Health Referral Home Health Orders Clinical synopsis of why skilled professionals are needed: Sepsis, pneumonia, COPD, A-fib, hypothyroidism, chronic pain, ambulatory dysfunction Registered Nurse: Check all that apply Instruct on new or changed medication(s)/assess compliance: Ordered Physical Therapist: Check all that apply Increase strength & endurance for safe mobility at home: Ordered To design/establish home maintenance program: Ordered Fall reduction therapy program for patient with history of frequent falls: Ordered Home safety evaluation and teaching/gait training including stair management (if applicable): Ordered Aerospace Mechanic: Assist with community resources: Ordered Assist with senior living care planning: Ordered Encounter Date and Reason: I certify that a FTF encounter for this patient was performed on September 20, 2024 and that such encounter was related to the primary reason the patient requires home health services. The encounter was conducted in the following manner: * By me as the certifying physician, WIND TURBINE ERECTOR, PA or * By an inpatient physician, WIND TURBINE ERECTOR or PA during an inpatient stay who communicated findings to me, Certification And Authentication I certify that I composed the above information based on my clinical judgment relating to this patient's medical condition and, if applicable, clinical findings communicated to me by the NPP or inpatient physician who performed the FTF encounter. Name of Provider that will be monitoring home health services: Elvis Muñoz
--- NOTE | 2024-09-20 12:33 | CMDISCH_ITS ---
Date of service: 09/20/24 Time of Service: 11:15 LACE Index Scoring Tool Questions: Length of Stay (in days): 2 Was the patient admitted via the E.D.?: Yes Comorbidities: Cerebrovascular Disease, Chronic Pulmonary Disease and Any Tumor E.D. Visits: 2 Answers: Total Score: 12 Risk of Readmission: High Risk Care Management Discharge Plan Reason for Hospitalization: pneumonia Discharge Plan: Elvi is discharged home today with a continuation of her HH services and her caregivers through [facility]. Elvi stated that the care through [facility] had not been suspended, because they care for her as well, so no notification needs to be sent. She will f/u with her PCP at a previously scheduled appt on 09/25/24, and continue per her plan of care. Elvi will be transported home by her caregiver. Patient/Family Education Needs: Review of discharge instructions, activity, limitations and discuss ask me 3. Services Needed at Discharge: Home Health Care Services (resumption of HH PT, noted that provider also ordered RN and DIGITAL MEDIA BUYER) SDOH Health Related Social Needs: Health related social needs education (Z55.6)
== END 2024-09-20 12:25 | disposition home health service (06) | DRG 871 ==
LOC: ER 07:04 → MS 07:40
PROVIDERS: Admitting Provider Family Medicine; Emergency Provider Student in an Organized Health Care Education/Training Program; PCP Family Medicine; Responsible Provider Family Medicine; Visit Provider Family Medicine
DX: A41.9 Sepsis, unspecified organism (principal); J18.9 Pneumonia, unspecified organism; J44.0 Chronic obstructive pulmonary disease with (acute) lower respiratory infection; J44.1 Chronic obstructive pulmonary disease with (acute) exacerbation; E87.1 Hypo-osmolality and hyponatremia; I10 Essential (primary) hypertension; E78.5 Hyperlipidemia, unspecified; R09.02 Hypoxemia; Z95.818 Presence of other cardiac implants and grafts; Z87.891 Personal history of nicotine dependence; E89.0 Postprocedural hypothyroidism; Z79.82 Long term (current) use of aspirin; K21.9 Gastro-esophageal reflux disease without esophagitis; I08.1 Rheumatic disorders of both mitral and tricuspid valves; Z86.73 Personal history of transient ischemic attack (TIA), and cerebral infarction without residual deficits; M47.817 Spondylosis without myelopathy or radiculopathy, lumbosacral region; G60.8 Other hereditary and idiopathic neuropathies; Z85.850 Personal history of malignant neoplasm of thyroid; Z85.51 Personal history of malignant neoplasm of bladder; R05.8 Other specified cough; I48.0 Paroxysmal atrial fibrillation
CPT/HCPCS: 00123; 36415; 71275; 80048; 80053; 82805; 84145; 85027; 87040; 87637; 93005; 94640; 96365; 96367; 96375; 99291; J1650; 83605; 83735; 83880; 84443; 84484; 85025; 93010; 94664; 94760; 99223; 99233; 99239; J0456; J0696; J2919; J3490; J7512; J7614; J7620; J7644

== ENCOUNTER 2024-10-11 16:28 | Inpatient (IN) | payer MEDICARE, SELFPAY ==
[2024-10-11] VITALS (44 sets, daily range): BP systolic 123–208; BP diastolic 79–163; PULSE 96–196; RESP 15–36; TEMP 36.1–36.6; O2SAT 87–93
--- NOTE | 2024-10-11 16:30 | RT.EKG_ITS ---
APPROVED REPORT Exam: Resting ECG Reason for Exam: A Fib RVR Patient Location: E HR:143 bpm ECG Measurements Heart Rate 143 AXIS CO [id number] P [id number] QRSd 81 QRS 88 QT 294 T 59 QTc 456 Conclusion Atrial fibrillation with RVR, rate 143 <1mm ST depression, diffuse leads, likely rate related No STEMI No significant changes from prior
--- NOTE | 2024-10-11 16:47 | ED.GENADUL_ITS ---
Discharge Plan Disposition Patient Disposition: Admit to [facility] Condition: Stable Discharge Details Chief Complaint: Arrhythmia Clinical Impression: Vomiting, Dehydration, Hypomagnesemia, Atrial fibrillation with rapid ventricular response Primary Care Provider: Elvis Muñoz ED Provider: Aleida Khalil Home Meds and New Rx's Prescriptions: No Action aspirin [Gerald Chewable Aspirin] 81 mg tablet,chewable 81 mg PO DAILY triamcinolone acetonide [Nasacort] 55 mcg aerosol,spray 1 spray intranasal DAILY Qty: 16.9 2RF Rx Instructions: administer into each nostril nitroglycerin [Nitrostat] 0.3 mg tablet, sublingual 0.3 mg Sublingual Q5-15M PRN (Reason: chest pain/esophageal spasm) 1 Days Qty: 25 6RF omeprazole 20 mg capsule,delayed release(DR/EC) 20 mg PO QDAY PRN (Reason: heart burn) losartan 50 mg tablet 50 mg PO BID Qty: 180 3RF suzetrigine 50 mg tablet See Rx Instructions PO Q12H PRN PRN (Reason: Severe pain) Qty: 29 0RF Rx Instructions: t2 tabs for first dose, then t1 tab bid orally every 12 hours, as needed PRN; cholecalciferol (vitamin D3) 1,000 UNIT tablet 1,000 unit PO DAILY cyanocobalamin (vitamin B-12) [Vitamin B-12] 500 MCG tablet 500 mcg PO DAILY acetaminophen 500 MG tablet 1,000 mg PO Q4H PRN levothyroxine 75 mcg tablet 75 mcg PO DAILY MDD 75 mcg 90 Days Qty: 90 4RF Rx Instructions: Take one 75 mcg tablet once daily by mouth as directed gabapentin 600 mg tablet See Rx Instructions PO BID Qty: 270 3RF Rx Instructions: 600mg at dinner and 1200mg HS PO twice a day; chlorthalidone 25 mg tablet 12.5 mg PO DAILY Qty: 45 1RF simvastatin 10 mg tablet 10 mg PO HS Qty: 90 3RF Rx Instructions: lower LDL cholesterol Metamucil [facility] Fiber 660 GM powder 1 oz PO HS diltiazem HCl 60 mg tablet 60 mg PO BID Patient Comments: TAKE ONE TABLET BY MOUTH TWICE A DAY loratadine [Claritin] 1 tab PO DAILY potassium chloride [Klor-Con M20] 20 mEq Tablet,Er Particles/Crystals 20 meq PO DAILY Qty: 30 0RF budesonide-formoterol [Symbicort] 80-4.5 mcg/actuation HFA aerosol inhaler 2 puff INHALATION BID metoprolol succinate 50 mg Tablet Extended Release 24 Hr 150 mg PO BID 90 Days Qty: 540 0RF Patient Comments: resumed meds HPI General Mode of arrival: wheelchair . Date/Time Provider Initiated Documentation: 10/11/24 16:29 . Limitations to Documentation: no limitations . Information obtained by: patient, family and old records reviewed . HPI Narrative: HPI: This is an 89-year-old female patient with a past medical history significant for atrial fibrillation, Watchman device in place, not anticoagulated, history of hypertension, COPD, hypothyroidism, and a recent admission to this hospital for pneumonia, presenting for evaluation of nausea with vomiting. For the last several nights the patient has had nausea with vomiting, states that the symptoms have been intermittent. She does feel like she has been able to drink water in between these episodes, did vomit after her medications last night but was able to take her morning meds today. She reports that she tried some Zofran at home for her nausea without improvement. She denies diarrhea, last normal stool today, has not had abdominal pain or dysuria. The patient states that she has not had any sick contacts, called her primary care provider who advised seeking care in the emergency department. She does not have palpitations or chest pain, has no history of heart failure. Exam: Gen: Awake and alert, nauseated and appears unwell HEENT: Non-icteric sclera Neck: Supple Lungs: No apparent respiratory distress, normal respiratory effort. Lung sounds clear and equal bilaterally without wheezes, rhonchi, rales CV: Appears well perfused, strong distal pulses, tachycardic rate and irregularly irregular rhythm Abdomen: Non-distended, soft, nontender to palpation without rigidity, rebound, or guarding MSK: Moves 4 extremities without apparent limitation in ROM. No peripheral edema, no unilateral calf tenderness or swelling Skin: Visualized skin without rashes, cyanosis. Neuro: No obvious focal deficits or facial asymmetry. Speaks in full, clear sentences. Psych: Appropriate for situation. MDM: This is an 89-year-old female patient presenting for evaluation of nausea and vomiting as well as tachycardia/A-fib with RVR. My differential includes but is not limited to gastroenteritis, dehydration, metabolic derangement, kidney injury, missed medication effect. There is an infectious gastroenteritis going around our community, no diarrhea to suggest C. difficile in the setting of her recent hospitalization or antibiotic use. The patient has no abdominal tenderness to significantly increase my concern for severe intra-abdominal pathology such as pancreatitis, bowel obstruction, diverticulitis, etc. No urinary symptoms to suggest UTI. The patient is not experiencing chest pain and I have a lower concern for ACS and suspect that her A-fib with RVR is likely due to her fluid losses and metabolic derangements in the setting of her nausea and vomiting. Additionally, she vomited immediately after taking her metoprolol last night, which could be contributing to her tachycardia. We will obtain an EKG, and laboratory studies to include CBC, CMP, magnesium, lipase, lactate, and troponin. I will provide the patient with a liter of IV fluids, 2 g of magnesium given that she has not been able to take her oral supplementation due to her vomiting, as well as a dose of Zofran. At this time we will hold with advanced imaging given her benign abdominal examination. ED Course: I reviewed the patient's laboratory studies, which show no leukocytosis, anemia or thrombocytopenia. Her chemistry panel is notable for a mild hyponatremia, as well as a low magnesium at 1.4. No renal dysfunction, liver abnormalities, or elevation in the lipase. I reviewed the EKG, which shows an atrial fibrillation with RVR, with no evidence for acute ischemia. Troponin was negative, with no significant delta change on the 1 hour repeat, no additional troponins indicated per our high-sensitivity troponin protocol. The patient did have borderline low SpO2's of 89 to 91% on room air, and endorses ongoing coughing since her admission for pneumonia 1 month ago. For this reason I did proceed with an x-ray of her chest, which shows peribronchial thickening concerning for bronchitis which was noted on her prior CT, as well as scattered opacities presumed to be infectious in nature. When compared to her prior CT scans, her opacities at that time were located in the bilateral bases. The patient has had ongoing tachycardia despite fluid and electrolyte repletion, and given her age and comorbidities I do feel that she would benefit from an admission for ongoing rehydration, metabolic correction. Given her lack of fever and white count we will hold on antibiosis empirically as she is likely resolving from her prior pneumonia. I reached out to the hospitalist who is graciously accepted this patient for admission to their service. Transferred to the floor without incident. Aleida Khalil MD Related Data Home Medications ?Medication ?Instructions ?Recorded ?Confirmed cholecalciferol (vitamin D3) 25 1,000 unit PO DAILY 09/17/12 10/11/24 mcg (1,000 unit) tablet psyllium husk (aspartame) 3.4 1 oz PO HS 05/27/13 10/11/24 gram/5.8 gram oral powder (Metamucil [facility] Fiber) cyanocobalamin (vitamin B-12) 500 500 mcg PO DAILY 11/19/15 10/11/24 mcg tablet (Vitamin B-12) acetaminophen 500 mg tablet 1,000 mg PO Q4H PRN 03/16/17 10/11/24 nitroglycerin 0.3 mg sublingual 0.3 mg sublingual Q5-15M PRN chest 09/09/19 10/11/24 tablet (Nitrostat) pain/esophageal spasm 1 day #25 tab-caps aspirin 81 mg chewable tablet 81 mg PO DAILY 10/26/20 10/11/24 (Gerald Chewable Low Dose Aspirin) triamcinolone acetonide 55 mcg 1 spray intranasal DAILY #16.9 mL 03/02/23 10/11/24 nasal spray aerosol (Nasacort) loratadine 1 tab PO DAILY 01/31/24 10/11/24 levothyroxine 75 mcg tablet 75 mcg PO DAILY 90 days #90 tabs 02/22/24 10/11/24 potassium chloride 20 mEq 20 meq PO DAILY #30 tabs 02/25/24 10/11/24 tablet,extended release(part/cryst) (Klor-Con M) omeprazole 20 mg capsule,delayed 20 mg PO QDAY PRN heart burn 05/13/24 10/11/24 release gabapentin 600 mg tablet See Rx Instructions PO BID #270 07/31/24 10/11/24 tabs chlorthalidone 25 mg tablet 12.5 mg (1/2 x 25 mg) PO DAILY #45 08/21/24 10/11/24 tabs suzetrigine See Rx Instructions PO Q12H PRN 08/22/24 10/11/24 PRN Severe pain #29 tabs simvastatin 10 mg tablet 10 mg PO HS #90 tab-caps 09/15/24 10/11/24 budesonide-formoterol HFA 80 2 puff inhalation BID 09/18/24 10/11/24 mcg-4.5 mcg/actuation aerosol inhaler (Symbicort) metoprolol succinate 50 mg 150 mg (3 x 50 mg) PO BID 90 days 09/20/24 10/11/24 tablet,extended release 24 hr #540 tabs losartan 50 mg tablet 50 mg PO BID #180 tabs 09/25/24 10/11/24 diltiazem HCl 60 mg tablet 60 mg PO BID 10/11/24 10/11/24 Previous Rx's ?Medication ?Instructions ?Recorded nitroglycerin 0.3 mg sublingual 0.3 mg sublingual Q5-15M PRN chest 09/09/19 tablet (Nitrostat) pain/esophageal spasm 1 day #25 tab-caps triamcinolone acetonide 55 mcg 1 spray intranasal DAILY #16.9 mL 03/02/23 nasal spray aerosol (Nasacort) levothyroxine 75 mcg tablet 75 mcg PO DAILY 90 days #90 tabs 02/22/24 potassium chloride 20 mEq 20 meq PO DAILY #30 tabs 02/25/24 tablet,extended release(part/cryst) (Klor-Con M) gabapentin 600 mg tablet See Rx Instructions PO BID #270 07/31/24 tabs chlorthalidone 25 mg tablet 12.5 mg (1/2 x 25 mg) PO DAILY #45 08/21/24 tabs suzetrigine See Rx Instructions PO Q12H PRN 08/22/24 PRN Severe pain #29 tabs simvastatin 10 mg tablet 10 mg PO HS #90 tab-caps 09/15/24 metoprolol succinate 50 mg 150 mg (3 x 50 mg) PO BID 90 days 09/20/24 tablet,extended release 24 hr #540 tabs losartan 50 mg tablet 50 mg PO BID #180 tabs 09/25/24 Allergies Allergy/AdvReac Type Severity Reaction Status Date / Time guaifenesin (From Mucinex) AdvReac Intermediate diarrhea Verified 09/25/24 10:24 amoxicillin (From Augmentin) AdvReac Diarrhea Verified 09/25/24 10:24 clavulanic acid (From AdvReac Diarrhea Verified 09/25/24 10:24 Augmentin) tramadol AdvReac constipatio Verified 09/25/24 10:24 n General Stated Complaint: Arrhythmia YEE: 2 Course Vital Signs Vital signs: Vital Signs Pulse Oximetry 90 L 10/11/24 16:35 Temperature 36.6 C 10/11/24 16:40 Temperature Source Oral 10/11/24 16:40 Pulse 161 H 10/11/24 16:40 Pulse 146 H 10/11/24 16:40 Respiratory Rate 25 H 10/11/24 16:40 Blood Pressure 190/163 H 10/11/24 16:40 Blood Pressure Mean 167 10/11/24 16:39 Blood Pressure Position Supine 10/11/24 16:40 Pulse Oximetry 88 L 10/11/24 16:40 Oxygen Delivery Method Room Air 10/11/24 16:40 Oxygen Flow Rate 0 10/11/24 16:40 Pain Level 8 10/11/24 16:40 Comment a-fib 10/11/24 16:39 Medical Decision Making Quality:SDOH Health Related Social Needs: Health related social needs education (Z55.6) PFSH All Active Problems (Updated 10/11/24 @ 20:14 by Aleida Khalil MD) Atrial fibrillation with rapid ventricular response (Acute) Hypomagnesemia (Acute) Dehydration (Acute) Vomiting (Acute) Hypothyroidism associated with surgical procedure (Chronic) HTN (hypertension) (Chronic) COPD exacerbation (Acute) Community acquired pneumonia (Acute) Valgus deformity, not elsewhere classified, left knee (Chronic) COVID-19 (Acute) Other instability, left knee (Acute) Witnessed apneic spells (Acute) Hypothyroidism (acquired) (Chronic) Severe uncontrolled hypertension (Acute) 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 Stroke (Chronic) Tricuspid valve insufficiency (Chronic) By cath 07 October 2020 Flushing (Acute) Heart palpitations (Acute) Anterior epistaxis (Chronic) Recurrent, responds to AgNO3 cautery Primary osteoarthritis of left knee (Acute) Contusion of left knee (Acute) Knee pain, left anterior (Acute) Mitral valve insufficiency (Chronic) Chest pain (Acute) Neoplasm of large intestine (Acute 06/21/05) H/O POLYPS ON FIRST COLON IN [place]; NEG ON REPEAT; [place] DR BLAKE FOUND ONE HYPERPLASTIC POLYP Leg pain, left (Chronic 11/03/16) Acute midline low back pain without sciatica (Chronic 05/18/17) Labile blood pressure (Chronic) Medical History (Updated 10/11/24 @ 20:14 by Aleida Khalil MD) Pneumonia Asthma Presence of Watchman left atrial appendage closure device (~10/2020) 10/07/20 [facility] [place] following cardiac cath Periodic limb movement disorder (PLMD) Essential tremor Peripheral neuropathy, idiopathic (06/08/98) KNEE DISTAL, BILAT; INTERMITTENT BURNING, SLEEPS BETTER AT NIGHT IF SHE HAS WORN TIGHT SOCKS DAYTIME; nortriptyline effective; Dr Oneill; worse balance 02/2015 Gastroesophageal reflux disease (07/05/04) RESPONDS TO OMEPRAZOLE, BEFORE DINNER; ESOPHAGITIS ON EGD AT [facility] [place] [facility]: 07/05/04; gastritis and diffuse esophagitis; DR MERCADO REC [place] PPI RX Hyperlipidemia (10/21/10) dyslipidemia: low HDL; statin begun by neuro 10/2010 after her TIA, along with Clopidogrel; target LDL<100 and HDL>40 Cerebrovascular disease, unspecified (10/07/10) 10/2010; small L THALAMIC CVA ON MRI, [facility] [place], RX Clopidogrel and Statin indefinitely Essential hypertension (06/23/13) Bladder cancer (05/19/15) Dr. Guy Lechuga- non-invasive papillary urothellal carcinoma, low grade. Atrial fibrillation Surgical History H/O cardiac catheterization (10/07/20) [facility] [place]-L atrial appendage closure for afib cystourethroscopy (08/07/17) Dr Brian Lechuga [facility]-extensive recurrent bladder tumor encompassint entire L hemitrigone and posterolateral bladder wall and neck URO cysto (10/22/15) Guy Lechuga MD 12 weeks after her last BCG Thyroid (03/13/14) 9Complete thyroidectomy Dr. Sanchez [facility], path: multinodular goiter Transurethral Resection of Bladder Tumor, 2-5cm (05/27/13) Dr. Ruano Cystoscopy (04/29/15) Dr. Lechuga 02/05/18 repeat cysto Colonoscopy - IV Sedation (03/22/16) Cholecystectomy Extraction of cataract (08/10/15) Dr Hu L eye R eye 2/2 Extraction of cataract (07/27/15) Dr Hu L eye R eye 2/2 Biopsy of breast (07/09/76) both breasts, biopsies benign Appendectomy Family History Brother Brain cancer Cancer Of the Face Father , Age 65 Heart attack Heart disease Sister , Lung Disease Age 80 Cancer Mother , Age 73 Amyloid disease Social History Smoking/Tobacco Use Status: Former Tobacco Use tobacco type: cigarettes Quit Date: 07/09/87 Pack-years: 52 Tobacco: How many years used: 35 Quit status: quit date established (1987) Smoking risk assessment performed?: Yes Alcohol Intake: never Drug use: Never Substance use type: does not use Adopted: No Caregiver/Support person: Yes Foster care: No Household members: spouse Housing: house Number of Children: 6 number of grandchildren: 17 Communication Needs: None Education Level: high school current occupation: Retired Pets and animals: Yes (1) Pets and animals: cat(s) Sexually active: No Do you think of yourself as: straight/heterosexual What is your relationship status?: How often do you talk on the phone with friends or family?: twice per week How often do you get together with friends or relatives?: once per week How often do you attend congregation or yazidism services?: 4 or more times per year Do you belong to any clubs or organized social groups?: no Panel score (0-1 are the most socially isolated patients): 3 What type of physical activity do you participate in: other Details: [employer] Bike Duration: 15-30 minutes/day Frequency: 3-4 times per week Astrid/Quaker: Anabaptist Seatbelt use: always Helmet use: No (Never) Drive intox 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
[2024-10-11 16:54] LABS: Abs Immature Grans 0.09 10^3/uL (0.0-0.06); Absolute Basophil Count 0.04 10^3/uL (0.0-0.2); Absolute Eosinophil Count 0.44 10^3/uL (0.0-0.7); Absolute Neutrophil Count 6.06 10^3/uL (1.2-6.7); Basophils % 0.5 %; Eosinophils % 5.5 %; HCT 42.6 % (36.0-46.0); HGB 14.4 g/dL (11.2-15.7); Immature Grans % 1.1 %; Lactate 1.2 mmol/L (<or=2.0); Lymphocytes % 7.5 %; MCH 33.3 pg (27.0-33.0); MCHC 33.8 % (32.0-36.0); MCV 98 fL (80-95); MPV 8.8 fL (8.0-11.0); Neutrophils % 75.4 %; Platelet Count 387 10^3/uL (130-400); RBC 4.33 10^6/uL (3.93-5.22); RDW 11.7 % (11.7-14.6); RDW-SD 42.5 fL; WBC 8.03 10^3/uL (4.4-10.8)
[2024-10-11 17:13] LABS: ALT 26 U/L (14-59); AST 22 U/L (15-37); Alkaline Phosphatase 73 U/L (46-116); Anion Gap 7.4 mmol/L (3-11); BUN 13 mg/dL (7-18); Bilirubin, Total 0.7 mg/dL (0.2-1.0); CO2 29.6 mmol/L (21.0-32.0); CREATININE 0.8 mg/dL (0.55-1.02); Calcium 8.9 mg/dL (8.5-10.1); Chloride 92 mmol/L (98-107); Estimated GFR 70.39 (mL/min/1.73m2); Glucose 118 mg/dL (74-106); Lipase 26 U/L (<78); Magnesium 1.4 mg/dL (1.8-2.4); Potassium 3.8 mmol/L (3.5-5.1); Sodium 129 mmol/L (136-145); Total Protein 7.6 g/dL (6.4-8.2); Troponin I 6 ng/L (<or=51)
[2024-10-11] MEDS: Ondansetron 4 MG/2 ML VIAL IVP (17:29)
[2024-10-11] MEDS: Lactated Ringers 1,000 ML 1000 ML IV (17:29)
[2024-10-11] MEDS: MAGNESIUM SULFATE 2 GM/50 ML BAG IV_INF (17:30)
--- NOTE | 2024-10-11 18:15 | DI.RAD_ITS ---
Exam(s) XR CHEST 2V PA LATERAL EXAM: XR CHEST 2V PA LATERAL CLINICAL HISTORY: Cough, hypoxia TECHNIQUE: 2D digital imaging was performed of the chest. Two images were obtained. PA and lateral views were obtained. COMPARISON: CR XR CHEST 2V PA LATERAL from 09/16/2024 FINDINGS: There is poor inspiration. MEDIASTINUM: Normal. HEART: Normal. PULMONARY VASCULATURE: Normal. LUNGS: No focal consolidations are present. PLEURAL SPACE: No pleural effusion or pneumothorax. BONE:Within normal limits for the patient's age. There is a left convex scoliosis of the thoracic sp ine. OTHER FINDINGS:There is unchanged mild elevation of the right hemidiaphragm. IMPRESSION: No focal consolidations or definite infiltrates are seen at this time. If there is continued clinica l concern, a follow-up examination may be obtained for re-evaluation. DATA REPOSITORY: RADIATION DOSE DELIVERED:
[2024-10-11 18:43] LABS: Troponin I 10 ng/L (<or=51)
--- NOTE | 2024-10-11 18:56 | DI.VRAD_ITS ---
PROCEDURE INFORMATION: Exam: XR Chest Exam date and time: 10/11/2024 6:43 PM Age: 89 years old Clinical indication: Cough and other: Hypoxia; Cough, hypoxia TECHNIQUE: Imaging protocol: Radiologic exam of the chest. Views: 2 views. COMPARISON: CT CHEST PE CTA 09/18/2024 4:20 AM FINDINGS: Lungs: There are scattered small hazy opacities. There is apparent bronchial wall thickening. Pleural spaces: No pleural effusion or pneumothorax is demonstrated. Heart/Mediastinum: The heart appears normal in size. Diaphragm: There is elevation of the right hemidiaphragm. Bones/joints: The visualized bony structures appear grossly intact. There are osteophytes along the thoracic spinal margin. Degenerative changes are noted at both shoulder joints. IMPRESSION: 1. Suggestion of bronchial wall thickening. This appearance is nonspecific but commonly seen in the setting of acute and chronic bronchitis. Clinical correlation is recommended. 2. Scattered small hazy opacities. An acute infectious process is suspected primarily although clinical correlation is recommended. No region of frankly consolidated pneumonia is demonstrated. Dictated and Authenticated by: Zhou Suarez MD. Orderin St. Tito Shin MD
--- NOTE | 2024-10-11 20:42 | HPE_ITS ---
Date of service: 10/11/24 Time of Service: 20:42 Assessment and Plan Assessment and plan (1) Atrial fibrillation with rapid ventricular response: Status: Acute Assessment and plan: The patient comes in w/ intermittent vomiting but in the ER was noted to be in AFIB w/ RVR. ER has given 1L and 2g Magnesium. Her HR has improved from 160 to 128. She is currently asymptomatic. Recommend to continue to monitor on telemetry and re-start home medications and monitor her HR response. -Cont w/ Metoprolol Succinate 150mg bid. Re-start tonight and re-evaluate HR -Cont w/ Diltiazem 60mg bid -Consult Cards outpatietn and consider A/C w/ two episodes of AFIB w/ RVR (2) Vomiting: Status: Acute Assessment and plan: She comes in w/ intermittent bilious vomiting 2-3 times per week w/o any known triggers. Her current CBC and liver enzymes are normal. Her abdominal exam is soft, ND and NT. Recommed to cont to monitor and tx w/ prn Zofran -Cont to monitor -Tx w/ prn Zofran (3) Hypomagnesemia: Status: Acute Assessment and plan: -s/p 2g Magnesium in ER -Cont to monitor (4) Dehydration: Status: Acute Assessment and plan: ER has administered 1L LR -Cont w/ IVF NS and monitor -Monitor Na 129 (5) HTN (hypertension): Status: Chronic Assessment and plan: -Cont w/ Losartan 50mg daily -Cont w/ Metoprolol Succinate 150mg bid -Cont w/ Diltiazem 60mg bid (6) Neuropathy: Status: Acute Assessment and plan: -Cont w/ Neurontin 600mg daily (7) Hypothyroidism associated with surgical procedure: Status: Chronic Assessment and plan: -Cont w/ Levothyroxine 75mcg daily History of Present Illness History of Present Illness Chief Complaint: vomiting Narrative: The patient is a 89 y/o C F w/ PMH atrial fibrillation s/p Watchman w/o anticoagulation and severe neuropathy who is brought in today due to intermittent vomiting which occurs 2-3 times per week. She denies any abdominal pain, coffee ground emesis or bright red blood in vomitus. She does not report of any new or worsening diarrhea. She does have intermittent diarrhea which occurs in 1-2 times per month. She denies any significant weight loss. She has no fever, chills or night sweats. She denies any chest pain or palpitations. She does note of non-productive cough, wheezing and increased work of breathing. She was recently discharged on 09/20/24 due to acute pneumonia which was treated w/ IV/PO antibiotics. Review of Systems All systems reviewed & are unremarkable except as noted in HPI and below Constitutional Constitutional: Denies chills, Denies fever(s), Denies night sweats and Denies weight loss Eyes Eyes: Denies blurry vision and Denies eye pain ENT Ears, Nose, Mouth, and Throat: Denies nasal congestion, Denies neck pain and Denies sore throat Cardiovascular Cardiovascular: Denies chest pain, Denies leg edema and Reports dyspnea Respiratory Respiratory: Reports cough, Denies hemoptysis, Reports dyspnea and Reports wheezing Gastrointestinal Gastrointestinal: Denies melena, Denies hematochezia, Denies change in stool character, Reports nausea, Reports vomiting and Denies hematemesis Genitourinary Genitourinary: Denies hematuria Musculoskeletal Musculoskeletal: Denies neck pain Psychiatric Psychiatric: Denies anxiety and Denies depression Allergic/Immunologic Allergic/Immunologic: Reports wheezing [facility] All Active Problems (Updated 10/11/24 @ 21:02 by Peter Tolbert MD) Vomiting (Acute) Neuropathy (Acute) Atrial fibrillation with rapid ventricular response (Acute) Hypomagnesemia (Acute) Dehydration (Acute) Vomiting (Acute) Hypothyroidism associated with surgical procedure (Chronic) HTN (hypertension) (Chronic) COPD exacerbation (Acute) Community acquired pneumonia (Acute) Valgus deformity, not elsewhere classified, left knee (Chronic) COVID-19 (Acute) Other instability, left knee (Acute) Witnessed apneic spells (Acute) Hypothyroidism (acquired) (Chronic) Severe uncontrolled hypertension (Acute) 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 Stroke (Chronic) Tricuspid valve insufficiency (Chronic) By cath 07 October 2020 Flushing (Acute) Heart palpitations (Acute) Anterior epistaxis (Chronic) Recurrent, responds to AgNO3 cautery Primary osteoarthritis of left knee (Acute) Contusion of left knee (Acute) Knee pain, left anterior (Acute) Mitral valve insufficiency (Chronic) Chest pain (Acute) Neoplasm of large intestine (Acute 06/21/05) H/O POLYPS ON FIRST COLON IN [place]; NEG ON REPEAT; [place] DR BLAKE FOUND ONE HYPERPLASTIC POLYP Leg pain, left (Chronic 11/03/16) Acute midline low back pain without sciatica (Chronic 05/18/17) Labile blood pressure (Chronic) Medical History (Updated 10/11/24 @ 21:02 by Peter Tolbert MD) Pneumonia Asthma Presence of Watchman left atrial appendage closure device (~10/2020) 10/07/20 [facility] following cardiac cath Periodic limb movement disorder (PLMD) Essential tremor Peripheral neuropathy, idiopathic (06/08/98) KNEE DISTAL, BILAT; INTERMITTENT BURNING, SLEEPS BETTER AT NIGHT IF SHE HAS WORN TIGHT SOCKS DAYTIME; nortriptyline effective; Dr Oneill; worse balance 02/2015 Gastroesophageal reflux disease (07/05/04) RESPONDS TO OMEPRAZOLE, BEFORE DINNER; ESOPHAGITIS ON EGD AT [facility]: 07/05/04; gastritis and diffuse esophagitis; DR MERCADO REC [place] PPI RX Hyperlipidemia (10/21/10) dyslipidemia: low HDL; statin begun by neuro 10/2010 after her TIA, along with Clopidogrel; target LDL<100 and HDL>40 Cerebrovascular disease, unspecified (10/07/10) 10/2010; small L THALAMIC CVA ON MRI, [facility], RX Clopidogrel and Statin indefinitely Essential hypertension (06/23/13) Bladder cancer (05/19/15) Dr. Guy Lechuga- non-invasive papillary urothellal carcinoma, low grade. Atrial fibrillation Surgical History H/O cardiac catheterization (10/07/20) [facility]-L atrial appendage closure for afib cystourethroscopy (08/07/17) Dr Brian Lechuga [facility]-extensive recurrent bladder tumor encompassint entire L hemitrigone and posterolateral bladder wall and neck URO cysto (10/22/15) Guy Lechuga MD 12 weeks after her last BCG Thyroid (03/13/14) 9Complete thyroidectomy Dr. Sanchez [facility], path: multinodular goiter Transurethral Resection of Bladder Tumor, 2-5cm (05/27/13) Dr. Ruano Cystoscopy (04/29/15) Dr. Lechuga 02/05/18 repeat cysto Colonoscopy - IV Sedation (03/22/16) Cholecystectomy Extraction of cataract (08/10/15) Dr Hu L eye R eye 2/2 Extraction of cataract (07/27/15) Dr Hu L eye R eye 2/2 Biopsy of breast (07/09/76) both breasts, biopsies benign Appendectomy Family History Brother Brain cancer Cancer Of the Face Father , Age 65 Heart attack Heart disease Sister , Lung Disease Age 80 Cancer Mother , Age 73 Amyloid disease Social History Smoking/Tobacco Use Status: Former Tobacco Use tobacco type: cigarettes Quit Date: 07/09/87 Pack-years: 52 Tobacco: How many years used: 35 Quit status: quit date established (1987) Smoking risk assessment performed?: Yes Alcohol Intake: never Drug use: Never Substance use type: does not use Adopted: No Caregiver/Support person: Yes Foster care: No Household members: spouse Housing: house Number of Children: 6 number of grandchildren: 17 Communication Needs: None Education Level: high school current occupation: Retired Pets and animals: Yes (1) Pets and animals: cat(s) Sexually active: No Do you think of yourself as: straight/heterosexual What is your relationship status?: How often do you talk on the phone with friends or family?: twice per week How often do you get together with friends or relatives?: once per week How often do you attend orthodoxy or advent services?: 4 or more times per year Do you belong to any clubs or organized social groups?: no Panel score (0-1 are the most socially isolated patients): 3 What type of physical activity do you participate in: other Details: [employer] Bike Duration: 15-30 minutes/day Frequency: 3-4 times per week Astrid/Taoist: Restoration Seatbelt use: always Helmet use: No (Never) Drive intox or ride w/intox ems driver: No Do you feel safe at home: Yes Do you feel safe in your relationship?: Yes Additional Social history: son at side, attentive Meds Allergies and Home Medications Allergies Allergy/AdvReac Type Severity Reaction Status Date / Time guaifenesin (From Mucinex) AdvReac Intermediate diarrhea Verified 09/25/24 10:24 amoxicillin (From Augmentin) AdvReac Diarrhea Verified 09/25/24 10:24 clavulanic acid (From AdvReac Diarrhea Verified 09/25/24 10:24 Augmentin) tramadol AdvReac constipatio Verified 09/25/24 10:24 n Home Medications ?Medication ?Instructions ?Recorded ?Confirmed ?Type cholecalciferol (vitamin D3) 25 1,000 unit PO DAILY 09/17/12 10/11/24 History mcg (1,000 unit) tablet psyllium husk (aspartame) 3.4 1 oz PO HS 05/27/13 10/11/24 History gram/5.8 gram oral powder (Metamucil [facility] Fiber) cyanocobalamin (vitamin B-12) 500 500 mcg PO DAILY 11/19/15 10/11/24 History mcg tablet (Vitamin B-12) acetaminophen 500 mg tablet 1,000 mg PO Q4H PRN 03/16/17 10/11/24 History nitroglycerin 0.3 mg sublingual 0.3 mg sublingual Q5-15M PRN chest 09/09/19 10/11/24 Rx tablet (Nitrostat) pain/esophageal spasm 1 day #25 tab-caps aspirin 81 mg chewable tablet 81 mg PO DAILY 10/26/20 10/11/24 History (Gerald Chewable Low Dose Aspirin) triamcinolone acetonide 55 mcg 1 spray intranasal DAILY #16.9 mL 03/02/23 10/11/24 Rx nasal spray aerosol (Nasacort) loratadine 1 tab PO DAILY 01/31/24 10/11/24 History levothyroxine 75 mcg tablet 75 mcg PO DAILY 90 days #90 tabs 02/22/24 10/11/24 Rx potassium chloride 20 mEq 20 meq PO DAILY #30 tabs 02/25/24 10/11/24 Rx tablet,extended release(part/cryst) (Klor-Con M) omeprazole 20 mg capsule,delayed 20 mg PO QDAY PRN heart burn 05/13/24 10/11/24 History release gabapentin 600 mg tablet See Rx Instructions PO BID #270 07/31/24 10/11/24 Rx tabs chlorthalidone 25 mg tablet 12.5 mg (1/2 x 25 mg) PO DAILY #45 08/21/24 10/11/24 Rx tabs suzetrigine See Rx Instructions PO Q12H PRN 08/22/24 10/11/24 Rx PRN Severe pain #29 tabs simvastatin 10 mg tablet 10 mg PO HS #90 tab-caps 09/15/24 10/11/24 Rx budesonide-formoterol HFA 80 2 puff inhalation BID 09/18/24 10/11/24 History mcg-4.5 mcg/actuation aerosol inhaler (Symbicort) metoprolol succinate 50 mg 150 mg (3 x 50 mg) PO BID 90 days 09/20/24 10/11/24 Rx tablet,extended release 24 hr #540 tabs losartan 50 mg tablet 50 mg PO BID #180 tabs 09/25/24 10/11/24 Rx diltiazem HCl 60 mg tablet 60 mg PO BID 10/11/24 10/11/24 History Exam Const General: cooperative, healthy appearing, comfortable and no acute distress Orientation: alert, awake and oriented x3 HENMT Head: normal to inspection Ears: hearing grossly normal bilaterally General nose exam: external nose normal Face and sinus: normal facial exam Eyes General: appearance normal, both eyes and all related structures Alignment and Position: alignment normal Neck Neck: normal visual inspection and full ROM Chest Chest: normal inspection of the chest Resp Effort & Inspection: normal respiratory effort and able to speak in complete sentences Cardio Rate: tachycardic Rhythm: abnormal rhythm GI Inspection: normal to inspection Palpation: soft Auscultation: normal bowel sounds Skin General skin exam: no rashes or lesions noted Extrem General: normal to inspection and full ROM Psych Appearance: grossly normal Mental Status: mental status grossly normal Results Labs 10/11/24 16:50 10/11/24 16:50 Labs: Laboratory Results - last 24 hr 10/11/24 10/11/24 10/11/24 16:50 18:18 19:45 WBC 8.03 RBC 4.33 Hgb 14.4 Hct 42.6 MCV 98 H MCH 33.3 H MCHC 33.8 RDW 11.7 Plt Count 387 MPV 8.8 Immature Gran % 1.1 Neutrophils % 75.4 Lymphocytes % 7.5 Monocytes % 10.0 Eosinophils % 5.5 Basophils % 0.5 Nucleated RBC % 0.0 Absolute Neutrophils 6.06 Absolute Lymphocytes 0.60 L Absolute Monocytes 0.80 Absolute Eosinophils 0.44 Absolute Basophils 0.04 VBG Lactate 1.2 Sodium 129 L Potassium 3.8 Chloride 92 L Carbon Dioxide 29.6 Anion Gap 7.4 BUN 13 Creatinine 0.8 Est GFR (CKD-EPI 2020) 70.39 Glucose 118 H Calcium 8.9 Magnesium 1.4 L Total Bilirubin 0.7 AST 22 ALT 26 Alkaline Phosphatase 73 Troponin I 6 10 Cancelled Total Protein 7.6 Albumin 3.0 L Lipase 26 Last Vital Signs Temp 36.6 C 10/11/24 16:40 Pulse 128 H 10/11/24 18:20 Resp 26 H 10/11/24 18:20 BP 157/128 H 10/11/24 18:16 Pulse Ox 90 L 10/11/24 18:20 Time Spent Time spent with Patient: 40-54 minutes Time was spent: preparing to see the patient(eg.review tests), obtaining and/or reviewing separately otained hiistory, ordering medications,tests, procedures, referring, communicating with other health care program director, indepentently interpreting results, counseling the patient and care coordination
--- NOTE | 2024-10-11 22:08 | W.PC.ACHO ---
Registration Status: Primary Language: Preferred Language: ED Information & Data Chief Complaint Arrhythmia 10/11/24 16:51 Triage Note pt with recent PNA, a-fib/ 10/11/24 16:40 rvr at times, increased weakness, hx of chronic intermittent n/v, took AM meds but unable to keep PM meds down. Medical / Surgical History (Last Updated 09/25/24 @ 11:32 by Elvis Muñoz DO) Pneumonia Asthma Presence of Watchman left atrial appendage closure device (~10/2020) Periodic limb movement disorder (PLMD) Essential tremor Peripheral neuropathy, idiopathic (06/08/98) Gastroesophageal reflux disease (07/05/04) Hyperlipidemia (10/21/10) Cerebrovascular disease, unspecified (10/07/10) Essential hypertension (06/23/13) Bladder cancer (05/19/15) Atrial fibrillation (Last Reviewed 09/18/24 @ 06:05 by Aldo Gregg) H/O cardiac catheterization (10/07/20) cystourethroscopy (08/07/17) URO cysto (10/22/15) Thyroid (03/13/14) Transurethral Resection of Bladder Tumor, 2-5cm (05/27/13) Cystoscopy (04/29/15) Colonoscopy - IV Sedation (03/22/16) Cholecystectomy Extraction of cataract (08/10/15) Extraction of cataract (07/27/15) Biopsy of breast (07/09/76) Appendectomy Most Recent Vital Signs Temperature 36.6 C 10/11/24 16:40 Temperature Source Oral 10/11/24 16:40 Pulse 128 H 10/11/24 18:20 Pulse 127 H 10/11/24 18:20 Respiratory Rate 26 H 10/11/24 18:20 Blood Pressure 157/128 H 10/11/24 18:16 Blood Pressure Mean 135 10/11/24 18:16 Blood Pressure Position Supine 10/11/24 16:40 Pulse Oximetry 90 L 10/11/24 18:20 Oxygen Delivery Method Room Air 10/11/24 16:40 Oxygen Flow Rate 0 10/11/24 16:40 Pain Level 8 10/11/24 16:40 Comment a-fib 10/11/24 16:39 Allergies guaifenesin (From Mucinex) Adverse Reaction (Intermediate, Verified 09/25/24 10:24) diarrhea reported 06/2017 amoxicillin (From Augmentin) Adverse Reaction (Verified 09/25/24 10:24) Diarrhea nausea clavulanic acid (From Augmentin) Adverse Reaction (Verified 09/25/24 10:24) Diarrhea nausea tramadol Adverse Reaction (Verified 09/25/24 10:24) constipation Precautions Isolation Standard precaution 10/11/24 16:42 IV IV Catheter Type [Left Peripheral IV Antecubital] IV Catheter Gauge [Left 18 Antecubital] Diet Orders Category Date Time Status Regular/Normal [DIET] Nutrition 10/12/24 Breakfast Ordered Diagnostics 10/11/24 10/11/24 10/11/24 Range/Units 19:45 18:18 16:50 WBC 8.03 (4.4-10.8) 10^3/uL RBC 4.33 (3.93-5.22) 10^6/uL Hgb 14.4 (11.2-15.7) g/dL Hct 42.6 (36.0-46.0) % MCV 98 H (80-95) fL MCH 33.3 H (27.0-33.0) pg MCHC 33.8 (32.0-36.0) % RDW 11.7 (11.7-14.6) % Plt Count 387 (130-400) 10^3/uL MPV 8.8 (8.0-11.0) fL Immature Gran % 1.1 % Neutrophils % 75.4 % Lymphocytes % 7.5 % Monocytes % 10.0 % Eosinophils % 5.5 % Basophils % 0.5 % Nucleated RBC % 0.0 (0.0-0.3) % Absolute Neutrophils 6.06 (1.2-6.7) 10^3/uL Absolute Lymphocytes 0.60 L (1.2-3.4) 10^3/uL Absolute Monocytes 0.80 (0.1-0.8) 10^3/uL Absolute Eosinophils 0.44 (0.0-0.7) 10^3/uL Absolute Basophils 0.04 (0.0-0.2) 10^3/uL VBG Lactate 1.2 (<or=2.0) mmol/L Sodium 129 L (136-145) mmol/L Potassium 3.8 (3.5-5.1) mmol/L Chloride 92 L (98-107) mmol/L Carbon Dioxide 29.6 (21.0-32.0) mmol/L Anion Gap 7.4 (3-11) mmol/L BUN 13 (7-18) mg/dL Creatinine 0.8 (0.55-1.02) mg/dL Est GFR (CKD-EPI 2020) 70.39 (mL/min/1.73m2) Glucose 118 H (74-106) mg/dL Calcium 8.9 (8.5-10.1) mg/dL Magnesium 1.4 L (1.8-2.4) mg/dL Total Bilirubin 0.7 (0.2-1.0) mg/dL AST 22 (15-37) U/L ALT 26 (14-59) U/L Alkaline Phosphatase 73 (46-116) U/L Troponin I Cancelled 10 6 (<or=51) ng/L Total Protein 7.6 (6.4-8.2) g/dL Albumin 3.0 L (3.4-5.0) g/dL Lipase 26 (<78) U/L Intake and Output - 24 Hour Total 10/11/24 16:28 thru 10/11/24 18:20 Intake Total 1050 Balance 1050 Weight 70.307 kg Intake: IV 1050 Falls Risk Assessment History of Falls Previous History 10/11/24 16:44 Contributing Factors Unstable,Impairments, 10/11/24 16:44 Incontinence,Medications Ambulatory Aids Uses ambulatory device 10/11/24 16:44 Tubes/Lines None 10/11/24 16:44 Gait Evaluation W/no contributing factors 10/11/24 16:44 Cognition No cognitive impairment 10/11/24 16:44 Fall Total Score 52 10/11/24 16:44 Level of Risk High Risk 10/11/24 16:44 Problems (Last Updated 09/25/24 @ 11:32 by lEvis Muñoz DO) Vomiting (Acute) Neuropathy (Acute) Atrial fibrillation with rapid ventricular response (Acute) Hypomagnesemia (Acute) Dehydration (Acute) Hypothyroidism associated with surgical procedure (Chronic) HTN (hypertension) (Chronic) v v v v v v v v v Sending and/or Receiving Nurses: Please use comment section below to note any information pertinent to the patient hand-off not included above. Information / Comments: Pt. is admitted for pneumonia and Afib. Latest VS per report: BP: 150/93, HR: 102, O2: 92% at room air Report received from: Maykel at ED 22:01pm
[2024-10-11] MEDS: Normal Saline Flush 10 ML SYR IVP (22:50)
[2024-10-11] MEDS: Enoxaparin 40 MG/0.4 ML SYR SC (23:05)
[2024-10-11] MEDS: Normal Saline 1,000 ML 80 ML IV (23:12)
[2024-10-11] MEDS: Metoprolol CR 50 MG TABCR 150 MG PO (23:23)
[2024-10-12 02:44] VITALS: BP 144/92; PULSE 91; RESP 16; TEMP 36.2; O2SAT 93
[2024-10-12] MEDS: Ondansetron 4 MG/2 ML VIAL IVP (05:19)
[2024-10-12] MEDS: Levothyroxine 75 MCG TAB PO (05:49)
[2024-10-12 07:09] LABS: HCT 38.5 % (36.0-46.0); HGB 13.5 g/dL (11.2-15.7); MCH 33.8 pg (27.0-33.0); MCHC 35.1 % (32.0-36.0); MCV 96 fL (80-95); MPV 9.2 fL (8.0-11.0); Platelet Count 357 10^3/uL (130-400); RDW 11.9 % (11.7-14.6); RDW-SD 42.7 fL; WBC 5.99 10^3/uL (4.4-10.8)
[2024-10-12 07:30] LABS: Anion Gap 6.8 mmol/L (3-11); BUN 9 mg/dL (7-18); CO2 29.2 mmol/L (21.0-32.0); CREATININE 0.8 mg/dL (0.55-1.02); Calcium 8.2 mg/dL (8.5-10.1); Chloride 95 mmol/L (98-107); Estimated GFR 70.39 (mL/min/1.73m2); Glucose 105 mg/dL (74-106); Magnesium 1.7 mg/dL (1.8-2.4); Sodium 131 mmol/L (136-145)
[2024-10-12 07:31] VITALS: BP 161/98; PULSE 102; RESP 18; TEMP 36.4; O2SAT 92
[2024-10-12 07:42] LABS: Potassium 2.9 mmol/L (3.5-5.1)
[2024-10-12] MEDS: Aspirin 81 MG CHEW PO (08:02)
[2024-10-12] MEDS: Metoprolol CR 50 MG TABCR 150 MG PO (08:03)
[2024-10-12] MEDS: dilTIAZem 60 MG TAB PO (08:04)
[2024-10-12] MEDS: Budesonide/Formoterol 80/4.5 6.9 GM 60 PUFF INH IH (08:36)
--- NOTE | 2024-10-12 09:15 | PDOC.CMIN ---
Date of service: 10/12/24 Time of Service: 09:15 Care Management Initial Assmt Initial Assessment Reason for Hospitalization: Afib with RVR Functional Status/Living Situation Patient Presentation: Elvi was awake and lying in bed when CM met with her. She is accompanied by her youngest son Tex who is currently visiting from [place] and will be returning soon. Elvi lives with her Reagan in [place]. She is originally from [place] and [place] the [place] after she and her retired. Elvi has 5 children of her own and 3 step children; all of which live out of state ([place] and [place].) Elvi does not have caregivers at this time; services from [facility] ended. Tex is here to hire new caregivers and help with usp planning. CM provided several resources prior to discharge: LTM application, assisted living information ([facility]), information on the [facility] program and kluti kaah on aging. Town of Residence: [place] Resides with: Spouse (Jose) Significant Other/Family: Out of area (Elvi has 6 children from her first marriage and Jose has 4 from his first marriage; both have lost a son. ) Caregiver/Guardian: Natural Supports: Supportive children, no local family or friends. Employment Status: Retired Instrumental Activities of Daily Living (ADLs): Requires support (Family is in the process of hiring new caregivers and help with commissioned security officer planning. ) with Dishes/food prep, Groceries, Laundry and Transportation Medications Medication Management: No Issues/Barriers identified Physical Functioning/Mobility Assistive Device: Walker and Cane Advance Directives Advance Directives: Do you have an Advance Directive: Y 09/18/22 09:51 AD On File at [facility]: Y 09/18/22 09:51 Date Asked 10/11/24 10/11/24 16:37 AD Date Reviewed 10/11/24 10/11/24 16:37 COLST On File at [facility] No 10/11/24 16:37 COLST Date Scanned Code Status Resuscitation Status Full Code Insurance Coverage/Financial Issues Insurance: AARP [facility] Supplemental [place] [employer] Financial Issues: None identified Care Team Visit Care Team Role Provider Type Yvan Tolbert MD [facility] STAFF PHYSICIAN Elvis Muñoz DO Primary Care Provider OSTEOPATHIC DOCTOR Aleida Khalil MD Emergency Provider [facility] STAFF PHYSICIAN Peter Tolbert MD Admit Provider MD [facility] STAFF PHYSICIAN Attending Provider Discharge Potential Discharge Needs: PCP F/U Appt Anticipated Barriers to Discharge: None Identified Patient/Family Education Needs: Review discharge instructions, discuss Ask Me Three Transportation: Private vehicle Plan: PT consult ordered, recommendations to follow. Anticipate, Elvi will discharge home via private vehicle with family when medically cleared for discharge, per provider. Will follow up with community providers and her discharge plan, as recommended. CM will follow and support discharge considerations. CM will follow. Social Determinants of Health Screening Social Determinants of Health last assessed: 10/12/24 Will the Patient Participate in the Screening?: Yes Do you worry about having a steady place to live?: no Problems where you live: no known problems In the past 12 months, have you had to go without electric, gas, oil or water in your home?: no Have you or anyone in your house had to go without enough food to eat?: no Has lack of transportation kept you from medical appointments or from doing things needed for daily living?: no Has anyone in your life made you feel unsafe or unsupported?: no How hard is it for you to pay for the very basics like food, housing, medical care, and heating? Would you say it is:: Not hard at all Do you want help finding or keeping work or a job?: I do not need or want help If for any reason you need help with day-to-day activities such as bathing, preparing meals, shopping, managing finances, etc., do you get the help you need?: I don?t need any help How often do you feel lonely or isolated from those around you?: Never Do you speak a language other than [place] Leonean at home?: No Does the patient want assistance with any of the above?: No Health Related Social Needs Health related social needs: food insecurity (Z59.41) PFSH All Active Problems (Updated 10/12/24 @ 09:53 by Yasmin Mcdonald NP) Hypokalemia (Acute) Discharge planning issues (Acute) Vomiting (Acute) Neuropathy (Acute) Atrial fibrillation with rapid ventricular response (Acute) Hypomagnesemia (Acute) Dehydration (Acute) Vomiting (Acute) Hypothyroidism associated with surgical procedure (Chronic) HTN (hypertension) (Chronic) COPD exacerbation (Acute) Community acquired pneumonia (Acute) Valgus deformity, not elsewhere classified, left knee (Chronic) COVID-19 (Acute) Other instability, left knee (Acute) Witnessed apneic spells (Acute) Hypothyroidism (acquired) (Chronic) Severe uncontrolled hypertension (Acute) 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 Stroke (Chronic) Tricuspid valve insufficiency (Chronic) By cath 07 October 2020 Flushing (Acute) Heart palpitations (Acute) Anterior epistaxis (Chronic) Recurrent, responds to AgNO3 cautery Primary osteoarthritis of left knee (Acute) Contusion of left knee (Acute) Knee pain, left anterior (Acute) Mitral valve insufficiency (Chronic) Chest pain (Acute) Neoplasm of large intestine (Acute 06/21/05) H/O POLYPS ON FIRST COLON IN [place]; NEG ON REPEAT; [place] DR BLAKE FOUND ONE HYPERPLASTIC POLYP Leg pain, left (Chronic 11/03/16) Acute midline low back pain without sciatica (Chronic 05/18/17) Labile blood pressure (Chronic) Medical History (Updated 10/12/24 @ 09:53 by Yasmin Mcdonald, JULIA) Pneumonia Asthma Presence of Watchman left atrial appendage closure device (~10/2020) 10/07/20 [facility] following cardiac cath Periodic limb movement disorder (PLMD) Essential tremor Peripheral neuropathy, idiopathic (06/08/98) KNEE DISTAL, BILAT; INTERMITTENT BURNING, SLEEPS BETTER AT NIGHT IF SHE HAS WORN TIGHT SOCKS DAYTIME; nortriptyline effective; Dr Oneill; worse balance 02/2015 Gastroesophageal reflux disease (07/05/04) RESPONDS TO OMEPRAZOLE, BEFORE DINNER; ESOPHAGITIS ON EGD AT [facility]: 07/05/04; gastritis and diffuse esophagitis; DR MERCADO REC [place] PPI RX Hyperlipidemia (10/21/10) dyslipidemia: low HDL; statin begun by neuro 10/2010 after her TIA, along with Clopidogrel; target LDL<100 and HDL>40 Cerebrovascular disease, unspecified (10/07/10) 10/2010; small L THALAMIC CVA ON MRI, [facility], RX Clopidogrel and Statin indefinitely Essential hypertension (06/23/13) Bladder cancer (05/19/15) Dr. Guy Lechuga- non-invasive papillary urothellal carcinoma, low grade. Atrial fibrillation Surgical History H/O cardiac catheterization (10/07/20) [facility]-L atrial appendage closure for afib cystourethroscopy (08/07/17) Dr Brian Lechuga [facility]-extensive recurrent bladder tumor encompassint entire L hemitrigone and posterolateral bladder wall and neck URO cysto (10/22/15) Guy Lechuga MD 12 weeks after her last BCG Thyroid (03/13/14) 9Complete thyroidectomy Dr. Sanchez [facility], path: multinodular goiter Transurethral Resection of Bladder Tumor, 2-5cm (05/27/13) Dr. Ruano Cystoscopy (04/29/15) Dr. Lechuga 02/05/18 repeat cysto Colonoscopy - IV Sedation (03/22/16) Cholecystectomy Extraction of cataract (08/10/15) Dr Hu L eye R eye 2/2 Extraction of cataract (07/27/15) Dr Hu L eye R eye 2/2 Biopsy of breast (07/09/76) both breasts, biopsies benign Appendectomy Family History Brother Brain cancer Cancer Of the Face Father , Age 65 Heart attack Heart disease Sister , Lung Disease Age 80 Cancer Mother , Age 73 Amyloid disease Social History Smoking/Tobacco Use Status: Former Tobacco Use tobacco type: cigarettes Quit Date: 07/09/87 Pack-years: 52 Tobacco: How many years used: 35 Quit status: quit date established (1987) Smoking risk assessment performed?: Yes Alcohol Intake: never Drug use: Never Substance use type: does not use Adopted: No Caregiver/Support person: Yes Foster care: No Household members: spouse Housing: house Number of Children: 6 number of grandchildren: 17 Communication Needs: None Education Level: high school current occupation: Retired Pets and animals: Yes (1) Pets and animals: cat(s) Sexually active: No Do you think of yourself as: straight/heterosexual What is your relationship status?: How often do you talk on the phone with friends or family?: twice per week How often do you get together with friends or relatives?: once per week How often do you attend mosque or orthodox services?: 4 or more times per year Do you belong to any clubs or organized social groups?: no Panel score (0-1 are the most socially isolated patients): 3 What type of physical activity do you participate in: other Details: Recumbant Bike Duration: 15-30 minutes/day Frequency: 3-4 times per week Astrid/Mormonism: Presybeterian Seatbelt use: always Helmet use: No (Never) Drive intox or ride w/intox coach driver: No Do you feel safe at home: Yes Do you feel safe in your relationship?: Yes Additional Social history: son at side, attentive Readmission Within the Past 30 Days Yes or No: Yes Date of First Admission Date of 1st Admission: 09/18/24 Date of this Admission Date of Admission: 10/11/24 This admission was: Through ED Office Visit Since 1st Admission Have you seen your PCP in the office since discharge?: Yes Date of PCP Appointment: 09/25/24 Had an appointment Been Scheduled?: Yes Date of Scheduled Appointment: 09/25/24 Speicalist Appointments Have you seen any other specialist since your 1st Admission?: Yes Date you saw the Specialist: 09/22/2024 and 09/29/2024 Specialist Seen: Tex Leary, pharmacist: For counseling on health promotion and disease prevention If the patient had a VNA ordered Did the patient have a VNA order?: Yes Ask the Care Team Members: What do you think caused the patient to be readmitted: Per ER physician: The patient is not experiencing chest pain and I have a lower concern for ACS and suspect that her A-fib with RVR is likely due to her fluid losses and metabolic derangements in the setting of her nausea and vomiting. Additionally, she vomited immediately after taking her metoprolol last night, which could be contributing to her tachycardia. ED visits How many ED visits in the past 12 months: 6 Anticipated HH Services Anticipated HH Services at Discharge [facility], PHYSICIAN ASST, PT and RN Following Provider: Dr. Muñoz.
--- NOTE | 2024-10-12 09:46 | W.PM.PROGNOT ---
Date of Service Date of service: 10/12/24 Time of Service: 09:46 Assessment and Plan Assessment and plan (1) Atrial fibrillation with rapid ventricular response: Status: Acute Assessment and plan: rates remain 90-100's. -Cont w/ Metoprolol Succinate 150mg bid. -increase Diltiazem to 60 mg tid -outpatient cardiology follow up not fully anticoagulated (2) Vomiting: Status: Acute Assessment and plan: continue symptomatic management (3) Hypokalemia: Status: Acute Assessment and plan: in setting of hypomagnesemia and GI losses resplete and follow (4) Hypomagnesemia: Status: Acute Assessment and plan: -s/p 2g Magnesium in ER, will give 1 gm today -continue repletion and lab evaluation (5) Dehydration: Status: Acute Assessment and plan: ER has administered 1L LR -Cont w/ IVF NS 80 cc/hr and monitor fluid volume status closely, I&O and daily weights - Na 131 (6) HTN (hypertension): Status: Chronic Assessment and plan: blood pressures elevated -Cont w/ Losartan 50mg daily -Cont w/ Metoprolol Succinate 150mg bid -Cont w/ Diltiazem 60mg bid monitor for now, no changes (7) Neuropathy: Status: Acute Assessment and plan: -Cont w/ Neurontin home dosing (8) Hypothyroidism associated with surgical procedure: Status: Chronic Assessment and plan: -Cont w/ Levothyroxine 75mcg daily TSH 1.68 in September 2024 (9) Discharge planning issues: Status: Acute Assessment and plan: DVT prophylaxis: enoxaparin daily anticipate discharge to home when medically stable. discussed with DR Tolbert Objective Last Vital Signs Temp 36.4 C L 10/12/24 07:31 Pulse 102 H 10/12/24 07:31 Resp 18 10/12/24 07:31 BP 161/98 H 10/12/24 07:31 Pulse Ox 92 10/12/24 07:31 Laboratory Results - last 24 hr 10/11/24 10/11/24 10/11/24 16:50 18:18 19:45 WBC 8.03 RBC 4.33 Hgb 14.4 Hct 42.6 MCV 98 H MCH 33.3 H MCHC 33.8 RDW 11.7 Plt Count 387 MPV 8.8 Immature Gran % 1.1 Neutrophils % 75.4 Lymphocytes % 7.5 Monocytes % 10.0 Eosinophils % 5.5 Basophils % 0.5 Nucleated RBC % 0.0 Absolute Neutrophils 6.06 Absolute Lymphocytes 0.60 L Absolute Monocytes 0.80 Absolute Eosinophils 0.44 Absolute Basophils 0.04 VBG Lactate 1.2 Sodium 129 L Potassium 3.8 Chloride 92 L Carbon Dioxide 29.6 Anion Gap 7.4 BUN 13 Creatinine 0.8 Est GFR (CKD-EPI 2020) 70.39 Glucose 118 H Calcium 8.9 Magnesium 1.4 L Total Bilirubin 0.7 AST 22 ALT 26 Alkaline Phosphatase 73 Troponin I 6 10 Cancelled Total Protein 7.6 Albumin 3.0 L Lipase 26 10/12/24 06:02 WBC 5.99 RBC 4.00 Hgb 13.5 Hct 38.5 MCV 96 H MCH 33.8 H MCHC 35.1 RDW 11.9 Plt Count 357 MPV 9.2 Immature Gran % Neutrophils % Lymphocytes % Monocytes % Eosinophils % Basophils % Nucleated RBC % Absolute Neutrophils Absolute Lymphocytes Absolute Monocytes Absolute Eosinophils Absolute Basophils VBG Lactate Sodium 131 L Potassium 2.9 L* Chloride 95 L Carbon Dioxide 29.2 Anion Gap 6.8 BUN 9 Creatinine 0.8 Est GFR (CKD-EPI 2020) 70.39 Glucose 105 Calcium 8.2 L Magnesium 1.7 L Total Bilirubin AST ALT Alkaline Phosphatase Troponin I Total Protein Albumin Lipase
[2024-10-12] MEDS: MAGNESIUM SULFATE 1 GM/100 ML BAG IV_INF (10:17)
[2024-10-12] MEDS: Losartan 50 MG TAB PO (10:18)
[2024-10-12] MEDS: Chlorthalidone 25 MG TAB 12.5 MG PO (10:19)
[2024-10-12 11:54] VITALS: BP 96/66; PULSE 75; RESP 14; TEMP 35.4; O2SAT 93
[2024-10-12] MEDS: Potassium Chloride 20 MEQ TABCR PO (11:54)
--- NOTE | 2024-10-12 13:15 | W.PM.DS.N ---
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 In the emergency department she was found to be tachycardic in the 160s, A-fib with RVR on the monitor with hypomagnesemia and hypokalemia. She did receive IV hydration and electrolyte repletion. She was admitted under hospitalist services for further monitoring. This morning she is feeling much improved and is requesting discharge to home. Heart rate was still in the 90s to low 100s so Cardizem increased from 60 twice daily to 60 3 times daily. She received 1 g of IV magnesium after recheck of this morning still showed her magnesium at 1.7. She will initiate magnesium 250 mg orally daily at discharge. Her potassium this morning 2.9, likely due to hypomagnesemia and GI losses. She does take 20 mEq daily will increase to 20 mEq twice daily with lab recheck on Sunday, October 15. Rest of her medications she will resume as previously directed. She is being discharged to home with resumption of home health physical therapy and medical office representative. We will add new home health nursing to evaluate for her medication changes, vital signs, lab work, and evaluation for decompensation of chronic illness and routine nursing evaluation. discussed with DR Tolbert Home Meds and New Rx's Prescriptions: New magnesium 250 mg tablet 250 mg PO DAILY Qty: 20 0RF Continued aspirin [Gerald Chewable Aspirin] 81 mg tablet,chewable 81 mg PO DAILY triamcinolone acetonide [Nasacort] 55 mcg aerosol,spray 1 spray intranasal DAILY Qty: 16.9 2RF Rx Instructions: administer into each nostril nitroglycerin [Nitrostat] 0.3 mg tablet, sublingual 0.3 mg Sublingual Q5-15M PRN (Reason: chest pain/esophageal spasm) 1 Days Qty: 25 6RF omeprazole 20 mg capsule,delayed release(DR/EC) 20 mg PO QDAY PRN (Reason: heart burn) losartan 50 mg tablet 50 mg PO BID Qty: 180 3RF suzetrigine 50 mg tablet See Rx Instructions PO Q12H PRN PRN (Reason: Severe pain) Qty: 29 0RF Rx Instructions: t2 tabs for first dose, then t1 tab bid orally every 12 hours, as needed PRN; cholecalciferol (vitamin D3) 1,000 UNIT tablet 1,000 unit PO DAILY cyanocobalamin (vitamin B-12) [Vitamin B-12] 500 MCG tablet 500 mcg PO DAILY acetaminophen 500 MG tablet 1,000 mg PO Q4H PRN levothyroxine 75 mcg tablet 75 mcg PO DAILY MDD 75 mcg 90 Days Qty: 90 4RF Rx Instructions: Take one 75 mcg tablet once daily by mouth as directed gabapentin 600 mg tablet See Rx Instructions PO BID Qty: 270 3RF Rx Instructions: 600mg at dinner and 1200mg HS PO twice a day; chlorthalidone 25 mg tablet 12.5 mg PO DAILY Qty: 45 1RF simvastatin 10 mg tablet 10 mg PO HS Qty: 90 3RF Rx Instructions: lower LDL cholesterol Metamucil [facility] Fiber 660 GM powder 1 oz PO HS loratadine [Claritin] 1 tab PO DAILY budesonide-formoterol [Symbicort] 80-4.5 mcg/actuation HFA aerosol inhaler 2 puff INHALATION BID metoprolol succinate 50 mg Tablet Extended Release 24 Hr 150 mg PO BID 90 Days Qty: 540 0RF Patient Comments: resumed meds Changed potassium chloride [Klor-Con M20] 20 mEq Tablet,Er Particles/Crystals 20 meq PO BIDWMEAL Qty: 30 0RF diltiazem HCl 60 mg tablet 60 mg PO TID Qty: 0 0RF Patient Comments: TAKE ONE TABLET BY MOUTH TWICE A DAY Discharge Instructions Instructions: Hypokalemia, Atrial Fibrillation (DC), Hypomagnesemia Additional Instructions: your potassium was found to be low, likely from vomiting. please increase your potassium dose to 2 times daily. have your labs drawn this week, home health should draw it, then discuss with your doctor if you can return to once daily take magnesium 250 mg daily until advised otherwise by your doctor. drink at least 6-8 glasses of water or liquids daily to stay well hydrated. your diltiazem has been increased from 2 times daily to 3 times daily to help control your heart rate better, track your heart rate and blood pressure 3 times weekly and if needed for symptoms of dizziness, shortness of breath, chest pain or concerns and report to your doctor. Stand Alone Forms: Nursing Discharge Form Referrals: Elvis Muñoz DO [Primary Care Provider] - 10/13/24 (Follow up in 1-2 weeks. The office will call you Sunday to schedule an appointment. If the office does not call, please call the office to schedule an appointment.) Activity:: Activity as Tolerated Equipment/Supplies:: No Equipment Needed Diet:: As Tolerated Discharge Orders Discharge Orders: Discharge Order (Routine); Ordered 10/12/24 Ordered By: Yasmin Mcdonald Other Ambulatory Orders: Basic Metabolic Panel (Routine) Timeframe: [address] Facility: [facility] - Location: Laboratory Outpatient - [facility] Ordered By: Yasmin Mcdonald Magnesium (Routine) Timeframe: 3 Days Facility: [facility] - Location: Laboratory Outpatient - [facility] Ordered By: Yasmin Mcdonald Discharge Data Discharge Date/Time-TO BE ENTERED AT DEPARTURE: 10/12/24 14:16 DS: Summary Time Spent with Patient providing and/or coordinating discharge services: Greater than 30 minutes Status at Discharge Functional status at discharge: uses cane/walker Overall status at discharge: patient is progressing back to baseline Mental Status: mental status grossly normal Speech and Movement: speech and movement normal Mood: congruent mood Affect: normal affect Quality:SDOH Health Related Social Needs: Health related social needs food insecurity (Z59.41) Exam Narrative Exam Narrative: Elderly female of stated age no acute distress neurologic she is awake alert oriented no focal deficits good historian her head is atraumatic eyes nonicteric noninjected oral mucosas moist neck is with full range of motion no JVD cardiovascular irregular rate and rhythm in the 90s. Respirations even and unlabored dim in the bases abdomen is round soft nontender. Moves extremities equally no peripheral edema skin no rashes or lesions psychiatric appropriate mood and affect Psych Mental Status: mental status grossly normal Speech and Movement: speech and movement normal Mood: congruent mood Affect: normal affect DS: Data Vitals/I&O Vitals and I&O: Vital Signs Temperature 35.4 C L 10/12/24 11:54 Temperature Source Temporal Artery Scan 10/12/24 11:54 Pulse 75 10/12/24 11:54 Pulse Rhythm Regular 10/11/24 22:35 Pulse 122 H 10/11/24 21:20 Respiratory Rate 14 10/12/24 11:54 Respiratory Effort Normal, Short of Breath 10/11/24 22:35 Respiratory Depth Normal 10/11/24 22:35 Respiratory Pattern Normal 10/11/24 22:35 Blood Pressure 96/66 L 10/12/24 11:54 Blood Pressure Mean 111 10/11/24 22:01 Blood Pressure Position Supine 10/11/24 16:40 Pulse Oximetry 93 10/12/24 11:54 Oxygen Delivery Method Room Air 10/12/24 11:54 Oxygen Flow Rate 0 10/12/24 11:54 Pain Level 0 10/11/24 22:35 Comment RN notified 10/12/24 11:54 Comment a-fib 10/11/24 16:39 Intake & Output 10/11/24 10/12/24 10/12/24 23:59 11:59 23:59 Intake Total 1050 / 1050 1000 / 1000 Output Total 75 / 75 500 / 700 200 / 700 Balance 975 / 975 -500 / 300 800 / 300 Weight 75.75 kg 69.4 kg Intake: IV 1050 / 1050 1000 / 1000 Output: Urine 75 / 75 500 / 700 200 / 700 Other: Urine Color Yellow Yellow Yellow Urine Appearance Cloudy Clear Clear Urine Odor Normal None None Data Completed and Pending Labs on day of discharge: Labs from last 24 hours 10/12/24 10/11/24 10/11/24 06:02 19:45 18:18 WBC 5.99 RBC 4.00 Hgb 13.5 Hct 38.5 MCV 96 H MCH 33.8 H MCHC 35.1 RDW 11.9 Plt Count 357 MPV 9.2 Immature Gran % Neutrophils % Lymphocytes % Monocytes % Eosinophils % Basophils % Nucleated RBC % Absolute Neutrophils Absolute Lymphocytes Absolute Monocytes Absolute Eosinophils Absolute Basophils VBG Lactate Sodium 131 L Potassium 2.9 L* Chloride 95 L Carbon Dioxide 29.2 Anion Gap 6.8 BUN 9 Creatinine 0.8 Est GFR (CKD-EPI 2020) 70.39 Glucose 105 Calcium 8.2 L Magnesium 1.7 L Total Bilirubin AST ALT Alkaline Phosphatase Troponin I Cancelled 10 Total Protein Albumin Lipase 10/11/24 16:50 WBC 8.03 RBC 4.33 Hgb 14.4 Hct 42.6 MCV 98 H MCH 33.3 H MCHC 33.8 RDW 11.7 Plt Count 387 MPV 8.8 Immature Gran % 1.1 Neutrophils % 75.4 Lymphocytes % 7.5 Monocytes % 10.0 Eosinophils % 5.5 Basophils % 0.5 Nucleated RBC % 0.0 Absolute Neutrophils 6.06 Absolute Lymphocytes 0.60 L Absolute Monocytes 0.80 Absolute Eosinophils 0.44 Absolute Basophils 0.04 VBG Lactate 1.2 Sodium 129 L Potassium 3.8 Chloride 92 L Carbon Dioxide 29.6 Anion Gap 7.4 BUN 13 Creatinine 0.8 Est GFR (CKD-EPI 2020) 70.39 Glucose 118 H Calcium 8.9 Magnesium 1.4 L Total Bilirubin 0.7 AST 22 ALT 26 Alkaline Phosphatase 73 Troponin I 6 Total Protein 7.6 Albumin 3.0 L Lipase 26 PFSH All Active Problems (Updated 10/12/24 @ 09:53 by Yasmin Mcdonald NP) Hypokalemia (Acute) Discharge planning issues (Acute) Vomiting (Acute) Neuropathy (Acute) Atrial fibrillation with rapid ventricular response (Acute) Hypomagnesemia (Acute) Dehydration (Acute) Vomiting (Acute) Hypothyroidism associated with surgical procedure (Chronic) HTN (hypertension) (Chronic) COPD exacerbation (Acute) Community acquired pneumonia (Acute) Valgus deformity, not elsewhere classified, left knee (Chronic) COVID-19 (Acute) Other instability, left knee (Acute) Witnessed apneic spells (Acute) Hypothyroidism (acquired) (Chronic) Severe uncontrolled hypertension (Acute) 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 Stroke (Chronic) Tricuspid valve insufficiency (Chronic) By cath 07 October 2020 Flushing (Acute) Heart palpitations (Acute) Anterior epistaxis (Chronic) Recurrent, responds to AgNO3 cautery Primary osteoarthritis of left knee (Acute) Contusion of left knee (Acute) Knee pain, left anterior (Acute) Mitral valve insufficiency (Chronic) Chest pain (Acute) Neoplasm of large intestine (Acute 06/21/05) H/O POLYPS ON FIRST COLON IN [place]; NEG ON REPEAT; [place] BLAKE [facility] HYPERPLASTIC POLYP Leg pain, left (Chronic 11/03/16) Acute midline low back pain without sciatica (Chronic 05/18/17) Labile blood pressure (Chronic) Medical History (Updated 10/12/24 @ 09:53 by Yasmin Mcdonald, JULIA) Pneumonia Asthma Presence of Watchman left atrial appendage closure device (~10/2020) 10/07/20 [facility] following cardiac cath Periodic limb movement disorder (PLMD) Essential tremor Peripheral neuropathy, idiopathic (06/08/98) KNEE DISTAL, BILAT; INTERMITTENT BURNING, SLEEPS BETTER AT NIGHT IF SHE HAS WORN TIGHT SOCKS DAYTIME; nortriptyline effective; Dr Oneill; worse balance 02/2015 Gastroesophageal reflux disease (07/05/04) RESPONDS TO OMEPRAZOLE, BEFORE DINNER; ESOPHAGITIS ON EGD AT [facility]: 07/05/04; gastritis and diffuse esophagitis; DR MERCADO REC [place] PPI RX Hyperlipidemia (10/21/10) dyslipidemia: low HDL; statin begun by neuro 10/2010 after her TIA, along with Clopidogrel; target LDL<100 and HDL>40 Cerebrovascular disease, unspecified (10/07/10) 10/2010; small L THALAMIC CVA ON MRI, [facility], RX Clopidogrel and Statin indefinitely Essential hypertension (06/23/13) Bladder cancer (05/19/15) Dr. Guy Lechuga- non-invasive papillary urothellal carcinoma, low grade. Atrial fibrillation Surgical History H/O cardiac catheterization (10/07/20) [facility]-L atrial appendage closure for afib cystourethroscopy (08/07/17) Dr Brian Lechuga LR-extensive recurrent bladder tumor encompassint entire L hemitrigone and posterolateral bladder wall and neck URO cysto (10/22/15) Guy Lechuga MD 12 weeks after her last BCG Thyroid (03/13/14) 9Complete thyroidectomy Dr. Sanchez [facility], path: multinodular goiter Transurethral Resection of Bladder Tumor, 2-5cm (05/27/13) Dr. Ruano Cystoscopy (04/29/15) Dr. Lechuga 02/05/18 repeat cysto Colonoscopy - IV Sedation (03/22/16) Cholecystectomy Extraction of cataract (08/10/15) Dr Mayte Gonzalez eye R eye 2/2 Extraction of cataract (07/27/15) Dr Mayte Gonzalez eye R eye 2/2 Biopsy of breast (07/09/76) both breasts, biopsies benign Appendectomy Family History Brother Brain cancer Cancer Of the Face Father , Age 65 Heart attack Heart disease Sister , Lung Disease Age 80 Cancer Mother , Age 73 Amyloid disease Social History Smoking/Tobacco Use Status: Former Tobacco Use tobacco type: cigarettes Quit Date: 07/09/87 Pack-years: 52 Tobacco: How many years used: 35 Quit status: quit date established (1987) Smoking risk assessment performed?: Yes Alcohol Intake: never Drug use: Never Substance use type: does not use Adopted: No Caregiver/Support person: Yes Foster care: No Household members: spouse Housing: house Number of Children: 6 number of grandchildren: 17 Communication Needs: None Education Level: high school current occupation: Retired Pets and animals: Yes (1) Pets and animals: cat(s) Sexually active: No Do you think of yourself as: straight/heterosexual What is your relationship status?: How often do you talk on the phone with friends or family?: twice per week How often do you get together with friends or relatives?: once per week How often do you attend quaker or latter-day services?: 4 or more times per year Do you belong to any clubs or organized social groups?: no Panel score (0-1 are the most socially isolated patients): 3 What type of physical activity do you participate in: other Details: Recumbant Bike Duration: 15-30 minutes/day Frequency: 3-4 times per week Astrid/Pentecostal: Caodaism Seatbelt use: always Helmet use: No (Never) Drive intox or ride w/intox commercial collections driver: No Do you feel safe at home: Yes Do you feel safe in your relationship?: Yes Additional Social history: son at side, attentive Time Spent with Patient Time Spent with Patient: 45-69 minutes Time was spent: preparing to see the patient(eg.review tests), obtaining and/or reviewing separately otained hiistory, ordering medications,tests, procedures, indepentently interpreting results, counseling the patient and care coordination
--- NOTE | 2024-10-12 13:41 | CMDISCH_ITS ---
Date of service: 10/12/24 Time of Service: 13:41 LACE Index Scoring Tool Questions: Length of Stay (in days): 1 Was the patient admitted via the E.D.?: Yes Comorbidities: Cerebrovascular Disease, Chronic Pulmonary Disease and Metastatic Solid Tumor E.D. Visits: 3 Answers: Total Score: 12 Risk of Readmission: High Risk Care Management Discharge Plan Reason for Hospitalization: Afib w/ RVR Discharge Plan: Elvi is eager to leave, and is being d/c'd home with a resumption of her [facility] PT/ENGRAVING OPERATOR services; she is being transported by her son Tex. Tex is currently staying with her and in the process of hiring new caregivers and providing support with superintendent container terminal planning related needs. CM provided them with several resources prior to discharge: LTM application, assisted living information ([facility]), information on the [facility] program and [place] on aging. Patient/Family Education Needs: Review of discharge instructions, activity, limitations and discuss ask me 3. Services Needed at Discharge: Home Health Care Services SDOH Health Related Social Needs: Health related social needs food insecurity (Z59.41)
[2024-10-12 13:45] VITALS: BP 132/83; PULSE 74; RESP 16; TEMP 36.4; O2SAT 91
== END 2024-10-12 14:16 | disposition home health service (06) | DRG 309 ==
LOC: ER 21:50 → MS 22:23
PROVIDERS: Admitting Provider Student in an Organized Health Care Education/Training Program; Emergency Provider Emergency Medicine; PCP Family Medicine; Responsible Provider Nurse Practitioner Acute Care; Visit Provider Student in an Organized Health Care Education/Training Program
DX: I48.91 Unspecified atrial fibrillation (principal); E87.1 Hypo-osmolality and hyponatremia; E83.42 Hypomagnesemia; I10 Essential (primary) hypertension; I08.1 Rheumatic disorders of both mitral and tricuspid valves; C67.9 Malignant neoplasm of bladder, unspecified; E89.0 Postprocedural hypothyroidism; J44.9 Chronic obstructive pulmonary disease, unspecified; R11.2 Nausea with vomiting, unspecified; M47.816 Spondylosis without myelopathy or radiculopathy, lumbar region; E87.6 Hypokalemia; E86.0 Dehydration; G25.0 Essential tremor; E78.5 Hyperlipidemia, unspecified; K21.9 Gastro-esophageal reflux disease without esophagitis; G60.8 Other hereditary and idiopathic neuropathies; Z95.818 Presence of other cardiac implants and grafts; Z86.73 Personal history of transient ischemic attack (TIA), and cerebral infarction without residual deficits
CPT/HCPCS: 00123; 36415; 80048; 80053; 83690; 85027; 93005; 96365; 96375; 99285; J1650; 71046; 83605; 83735; 84484; 85025; 93010; 99223; 99239; J2405; J3475

== ENCOUNTER 2024-10-13 13:27 | Outpatient (CLI) | payer MEDICARE, SELFPAY ==
--- NOTE | 2024-10-13 13:15 | RT.EKG_ITS ---
APPROVED REPORT Exam: Resting ECG Reason for Exam: afib Patient Location: O HR:103 bpm ECG Measurements Heart Rate 103 AXIS CA [id number] P [id number] QRSd 88 QRS 70 QT 364 T 58 QTc 477 Conclusion Atrial fibrillation...V-rate 84-126, irreg A-activity
== END 2024-10-13 13:28 | disposition home or self-care (01) ==
LOC: DI.KIM 13:28
PROVIDERS: PCP Family Medicine; Visit Provider Nurse Practitioner
DX: I48.91 Unspecified atrial fibrillation (principal)
CPT/HCPCS: 93010

== ENCOUNTER 2024-10-16 14:32 | Outpatient (CLI) | payer MEDICARE, SELFPAY ==
[2024-10-16 15:30] LABS: Anion Gap 7.5 mmol/L (3-11); BUN 12 mg/dL (7-18); CO2 27.5 mmol/L (21.0-32.0); CREATININE 0.9 mg/dL (0.55-1.02); Calcium 8.9 mg/dL (8.5-10.1); Chloride 95 mmol/L (98-107); Estimated GFR 61.11 (mL/min/1.73m2); Glucose 100 mg/dL (74-106); Magnesium 1.5 mg/dL (1.8-2.4); Sodium 130 mmol/L (136-145)
== END 2024-10-16 14:33 | disposition home or self-care (01) ==
LOC: LBO 14:34
PROVIDERS: PCP Family Medicine; Visit Provider Nurse Practitioner Acute Care
DX: E87.6 Hypokalemia (principal); E83.42 Hypomagnesemia
CPT/HCPCS: 36415; 80048; 83735

== ENCOUNTER → 2024-11-06 09:44 | Outpatient (BNVA) | payer MEDICARE, SELFPAY | PROVIDERS: PCP Family Medicine; Referring Provider Family Medicine; Visit Provider Internal Medicine Cardiovascular Disease | DX: I48.0 Paroxysmal atrial fibrillation (principal); I10 Essential (primary) hypertension; Z95.818 Presence of other cardiac implants and grafts | CPT/HCPCS: 99213 ==

== ENCOUNTER → 2024-11-19 10:21 | Outpatient (BNVA) | payer MEDICARE, SELFPAY | PROVIDERS: PCP Family Medicine; Referring Provider Family Medicine; Visit Provider Physician Assistant Surgical | DX: J45.909 Unspecified asthma, uncomplicated (principal); R05.9 Cough, unspecified; R09.82 Postnasal drip; Z23 Encounter for immunization; R91.8 Other nonspecific abnormal finding of lung field | CPT/HCPCS: 90677; 99214; G0009 ==

== ENCOUNTER 2024-12-04 02:36 | Outpatient (CLI) | payer MEDICARE, SELFPAY ==
--- NOTE | 2024-12-04 07:45 | DI.CT_ITS ---
Exam(s) CT CHEST WO EXAM: CT CHEST WO CLINICAL HISTORY: follow up of nodular infiltrates,pneumonia,j18.9,r91.8,abnl imaging. TECHNIQUE: Multi planar reconstructions were performed. CONTRAST MATERIAL: None COMPARISON: CT CT CHEST PE CTA from 09/18/2024 FINDINGS: CHEST: LUNGS: When compared to the CT scan of 09/18/2024 the previously present bilateral lung infiltrates h ave resolved. There are no pleural effusions. No ominous pulmonary nodules. MEDIASTINUM: There few small pretracheal and subcarinal lymph nodes noted which appear unchanged. Th ere is no obvious hilar adenopathy no supraclavicular nor axillary adenopathy. CARDIAC: Heart size is upper normal. There is no pericardial effusion. Caliber of thoracic aorta is upper normal. VISUALIZED UPPER ABDOMEN:No adrenal masses nor splenomegaly. Small hypodensity in the superior aspec t of the right hepatic lobe is probably a cyst or hemangioma, unchanged. OSSEOUS: No significant osseous lesions.. IMPRESSION: 1. Lungs are presently clear. The previously present bilateral infiltrates which were seen on CT sca n of 09/18/2024 ever resolved. There are no pleural effusions 2. No new intrathoracic adenopathy. Small lymph nodes in the mediastinum and subcarinal regions are again noted. 3. Cardiac device again noted RADIATION DOSE DELIVERED: 259.16mGy.cm Total DLP DATA REPOSITORY: All CT scans at this facility are submitted to the National Radiology Data Registry (NRDR) Dose Index Registry (DIR) with the [employer] ([employer]). RADIATION OPTIMIZATION: All CT scans at this facility use at least one of these dose optimization te chniques: automated exposure control; mA and/or kV adjustment per patient size (includes targeted exa ms where dose is matched to clinical indication); or iterative reconstruction.
== END 2024-12-04 02:56 ==
LOC: DI 02:37
PROVIDERS: PCP Family Medicine; Visit Provider Physician Assistant Surgical
DX: J18.9 Pneumonia, unspecified organism (principal); R91.8 Other nonspecific abnormal finding of lung field
CPT/HCPCS: 71250

== ENCOUNTER 2024-12-18 12:09 | Outpatient (CLI) | payer MEDICARE, SELFPAY ==
[2024-12-18 12:18] LABS: Anion Gap 7.2 mmol/L (3-11); BUN 16 mg/dL (7-18); CO2 29.8 mmol/L (21.0-32.0); CREATININE 0.8 mg/dL (0.55-1.02); Calcium 8.7 mg/dL (8.5-10.1); Chloride 96 mmol/L (98-107); Estimated GFR 70.39 (mL/min/1.73m2); Glucose 96 mg/dL (74-106); Magnesium 1.7 mg/dL (1.8-2.4); Potassium 3.7 mmol/L (3.5-5.1); Sodium 133 mmol/L (136-145)
== END 2024-12-18 12:10 | disposition home or self-care (01) ==
PROVIDERS: PCP Family Medicine; Visit Provider Family Medicine
DX: E83.42 Hypomagnesemia (principal); E87.6 Hypokalemia
CPT/HCPCS: 36415; 80048; 83735

== ENCOUNTER → 2025-03-04 10:09 | Outpatient (BNVA) | payer MEDICARE, SELFPAY | PROVIDERS: PCP Family Medicine; Visit Provider Psychiatry & Neurology Neurology | DX: G60.9 Hereditary and idiopathic neuropathy, unspecified (principal); G25.0 Essential tremor; G47.61 Periodic limb movement disorder; M54.50 Low back pain, unspecified; I63.9 Cerebral infarction, unspecified; I10 Essential (primary) hypertension | CPT/HCPCS: 99214 ==

== ENCOUNTER → 2025-05-27 10:45 | Outpatient (BNVA) | payer MEDICARE, SELFPAY | PROVIDERS: PCP Family Medicine; Referring Provider Family Medicine; Visit Provider Physician Assistant Surgical | DX: J45.909 Unspecified asthma, uncomplicated (principal); R05.9 Cough, unspecified; R09.82 Postnasal drip; Z87.891 Personal history of nicotine dependence | CPT/HCPCS: 99214 ==